=== PATIENT | male | born 1945 | race Caucasian/White ===

== ENCOUNTER 2020-09-19 14:17 | Emergency (ER) | payer MEDICARE, BC, MEDICAID, SELFPAY ==
--- NOTE | ~2020-09-19 | CT_ITS ---
EXAMINATION: CT cervical spine wo con DATE: 09/19/2020 16:17 INDICATION: Head injury. Neck pain. TECHNIQUE: Computed tomography (CT) of the cervical spine was performed without intravenous contrast. Automated exposure control and iterative reconstruction technique were employed. The dose-length pro duct was 501.77 mGy-cm. COMPARISON: None FINDINGS: The visualized portions of the lung apices demonstrate emphysema. There is cerumen in the e xternal auditory canals. There is 13 degrees levoscoliosis of cervical spine. There is 2 mm retrolist hesis of C6 on C7. There are changes of anterior fusion procedure from C4 to C6 with healed interbody bone graft and anterior plate and screws. There are posterior fusion procedures from C3 to C6 with l ateral mass screws. There is mildly decreased disc height at C2-C3, moderately decreased disc height at C3-C4, and severely decreased disc height at C6-C7. There are laminectomies from C4 to C6. The fol lowing disc levels are specifically discussed: C2-C3: There is moderate right and mild left uncovertebral joint osteoarthritis. There is severe bila teral facet joint osteoarthritis. There is mild right neural foraminal stenosis. There is no central canal stenosis. C3-C4: There is mild bilateral uncovertebral joint hypertrophy. There is moderate bilateral facet elia nt hypertrophy. There is moderate bilateral neural foraminal stenosis. There is no central canal sten osis. C4-C5: There is no uncovertebral joint hypertrophy. There is severe bilateral facet joint hypertrophy . There is mild bilateral neural foraminal stenosis. There is no central canal stenosis. C5-C6: There is mild bilateral uncovertebral joint hypertrophy. There is mild bilateral facet joint h ypertrophy. There is moderate right and mild left neural foraminal stenosis. There is mild central ca nal stenosis with posterior decompression. C6-C7: There is severe bilateral uncovertebral joint osteoarthritis. There is moderate bilateral face t joint osteoarthritis. There is moderate bilateral neural foraminal stenosis. There is mild central canal stenosis. C7-T1: There is no uncovertebral joint osteoarthritis. There is moderate bilateral facet joint osteoa rthritis. There is no neural foraminal stenosis. There is no central canal stenosis. IMPRESSION: 1. No fracture. 2. Severe cervical spondylosis. 3. Anterior fusion procedure from C4 to C6 and posterior fusion procedure from C3 to C6. Reviewed, dictated and finalized at location B. P PRODUCT MANAGER
--- NOTE | ~2020-09-19 | CT_ITS ---
EXAMINATION: CT brain wo con DATE: 09/19/2020 16:17 INDICATION: Head injury. Fell out of wheelchair headfirst, struck head on table. TECHNIQUE: Computed tomography (CT) of the head was performed without intravenous contrast. The mA wa s adjusted according to patient size. Iterative reconstruction technique was employed. Exam dose: 60 5.33 mGy-cm total exam DLP. COMPARISON: None FINDINGS: Multiple chronic lacunar infarcts are noted, including head of right caudate nucleus, both thalami, right and to lesser extent left basal ganglia. There is very prominent bilateral vertebral artery calcification, basilar artery calcification and pr ominent bilateral carotid siphon internal carotid artery calcifications. There is diminished attenuation of the cerebral white matter, which is likely secondary to chronic sm all vessel ischemic changes. There is cerebral and cerebellar moderate volume loss. No intracranial mass lesion or hemorrhage, midline shift or mass effect. No subdural or epidural humberto saturnino. No fracture or bone destruction of the cranial vault. There is mild right frontal cephalhematoma. IMPRESSION: Mild right frontal cephalhematoma; no skull fracture Prominent cerebral atherosclerosis Multiple bilateral cerebral lacunar infarcts Reviewed, dictated and finalized at Location [facility]. Reviewed, dictated and finalized at location A. L HOUSEMAN
[2020-09-19 14:50] VITALS: BP 119/61; PULSE 77; RESP 16; TEMP 38.4; O2SAT 93
--- NOTE | 2020-09-19 15:36 | ED.FALL ---
HPI - Fall General Chief Complaint: Fall Stated Complaint: fall Time Seen by Provider: 09/19/20 15:08 Source: patient Mode of arrival: EMS Limitations: no limitations History of Present Illness HPI Narrative: Patient complaining of mild head pain, after he fell and hit his head on the floor. Patient states that he was leaning over to get a drink on the table, and fell forward while sitting down in his wheelchair. He denies any LOC. Patient denies any neck, chest, back, abdomen, pelvis or any extremity pain/injury. Patient states he was asymptomatic prior to the fall. Review of Systems Review of Systems: All systems reviewed & are unremarkable except as noted in HPI and below Constitutional: Constitutional: Denies body ache(s), Denies chills, Denies excessive sweating, Denies fatigue, Denies fever(s), Denies headache(s), Denies lethargy, Denies malaise, Denies weakness and Denies weight loss Eyes: Eyes: Denies blurry vision, Denies change in vision and Denies loss of vision ENT: Denies dizziness, Denies ear discharge, Denies headache(s), Denies lip swelling, Denies epistaxis, Denies nasal congestion, Denies neck pain, Denies throat swelling and Denies tongue swelling Cardiovascular: Cardiovascular: Denies chest pain, Denies chest pain at rest, Denies chest pain with activity, Denies diaphoresis, Denies rapid heart rate, Denies edema, Denies irregular heart rhythm, Denies lightheadedness, Denies palpitations, Denies dyspnea and Denies dyspnea on exertion Respiratory: Respiratory: Denies chest congestion, Denies cough, Denies hemoptysis, Denies dyspnea and Denies dyspnea on exertion Gastrointestinal: Gastrointestinal: Denies abdominal pain, Denies melena, Denies hematochezia, Denies diarrhea, Denies nausea, Denies vomiting and Denies hematemesis Musculoskeletal: Musculoskeletal: Denies deformity, Denies joint swelling, Denies limited range of motion, Denies neck pain and Denies numbness Neurologic: Denies Abnormal speech present, Denies confusion, Denies dizziness, Denies headache(s), Denies focal weakness, Denies loss of vision, Denies numbness, Denies Other visual disturbances, Denies Sensory deficit (Neuro) and Denies weakness Psychiatric: Psychiatric: Denies confusion, Denies depression, Denies auditory hallucinations, Denies homicidal ideation and Denies suicidal ideation Endocrine: Endocrine: Denies cold intolerance, Denies excessive sweating, Denies fatigue, Denies heat intolerance and Denies palpitations Hematologic/Lymphatic: Hematologic/Lymphatic: Denies easy bleeding and Denies easy bruising Allergic/Immunologic: Allergic/Immunologic: Denies lip swelling, Denies throat swelling and Denies tongue swelling Exam Const: General: cooperative, healthy appearing, comfortable, no acute distress, well developed, alert and awake; No confusion Orientation/consciousness: oriented to person, oriented to place, oriented to time, patient oriented x3 and No confusion Limitations: no limitations HENMT: Ears: hearing grossly normal bilaterally, TM normal on the right and TM normal on the left General nose exam: Normal external nose present, Normal nares present and No nasal discharge present Face and sinus: normal facial exam Mouth: Yes Normal oral and palatal mucosa present, Yes lip normal, Yes tongue normal and Yes oropharynx normal Throat: posterior oropharynx normal, tonsils normal and uvula midline Other: Abrasions to frontal head Eyes: General: appearance normal, both eyes and all related structures Pupils: Equal, round and reactive pupils present EOM: EOMs intact bilaterally Neck: Neck: normal visual inspection, full ROM, no lymphadenopathy and no meningeal signs Chest: Chest palpation & inspection: normal inspection of the chest Resp: Effort & Inspection: normal respiratory effort, able to speak in complete sentences, no respiratory distress and not tachypneic Auscultation: clear to auscultation bilaterally, no crackles, no rales, no
--- NOTE | 2020-09-19 16:30 | PC.NURSE ---
all results back. no change it pt condition.
--- NOTE | 2020-09-19 18:46 | PC.NURSE ---
[facility] ems contacted for transport back to long term. pt resting on stretcher. no distress noted.
[2020-09-19 20:38] VITALS: BP 127/69; PULSE 76; RESP 16; TEMP 37.2; O2SAT 96
== END 2020-09-19 20:39 ==
PROVIDERS: Emergency Provider Emergency Medicine
DX: S09.90XA Unspecified injury of head, initial encounter (principal); W01.0XXA Fall on same level from slipping, tripping and stumbling without subsequent striking against object, initial encounter
CPT/HCPCS: 70450; 72125; 99284

== ENCOUNTER 2020-11-04 23:29 | Inpatient (IN) | payer MEDICARE, BC, MEDICAID, SELFPAY ==
--- NOTE | ~2020-11-04 | XR_ITS ---
EXAMINATION: XR chest 1V portable EXAM DATE: 11/05/2020 01:09 INDICATION: Cough. TECHNIQUE: Portable AP frontal chest x-ray was obtained. There is no prior study for comparison. FINDINGS: There is extensive left-sided and moderate right-sided amount of airspace disease, edema or acute infectious process. Recommend considering possibility of COVID pneumonia. Mild cardiomegaly. Cervical fusion and thoracolumbar fusion hardware. There is aortic arteriosclerosi s. There is no pneumothorax suspected. There are no pleural effusions. IMPRESSION: Extensive left, moderate right-sided edema or infection, clinical correlation. Reviewed, dictated and finalized at location A. ESS CAMERA OPERATOR
--- NOTE | ~2020-11-04 | XR_ITS ---
EXAMINATION: XR chest 1V portable DATE: 11/06/2020 06:03 INDICATION: Pneumonia TECHNIQUE: frontal view of the chest was obtained. COMPARISON: Chest radiograph dated 11/05/2020 FINDINGS: Regions of increased lucency and architectural distortion most prominent in the right upper lung zone consistent with severe emphysema. Scattered opacities throughout the left lung and in the right mid and lower lung zones. Streaky linear atelectasis/scarring at the bilateral lung bases. Cardiomegaly. Postoperative change of prior instrumented posterior spinal fusion the upper lumbar spine and combine d instrumented anterior and posterior cervical spinal fusion. IMPRESSION: 1. Severe emphysema. 2. Minimal change in scattered bilateral airspace opacities which could represent atelectasis, pneumo angelica, pulmonary edema or some combination thereof. 3. Cardiomegaly. Reviewed, dictated and finalized at location A. PATIAL SYSTEMS INTEGRATOR IMPRESSION: 1. Severe emphysema. 2. Minimal change in scattered bilateral airspace opacities which could represe nt atelectasis, pneumonia, pulmonary edema or some combination thereof. 3. Cardiomegaly.
--- NOTE | ~2020-11-04 | XR_ITS ---
EXAMINATION: XR chest 1V portable DATE: 11/08/2020 06:10 INDICATION: Shortness of breath TECHNIQUE: frontal view of the chest was obtained. COMPARISON: Chest radiograph dated 11/06/2020 FINDINGS: Regions of increased lucency and architectural distortion most prominent in the right upper lung zone consistent with severe emphysema. Scattered opacities throughout the left lung and in the right mid and lower lung zones. Streaky linear atelectasis/scarring at the bilateral lung bases. Cardiomegaly. Postoperative change of prior instrumented posterior spinal fusion the upper lumbar spine and combine d instrumented anterior and posterior cervical spinal fusion. IMPRESSION: 1. Severe emphysema. 2. Unchanged scattered bilateral airspace opacities which could represent atelectasis, pneumonia, pul monary edema or some combination thereof. 3. Cardiomegaly. Reviewed, dictated and finalized at location A. ANIC FIELD SERVICE IMPRESSION: 1. Severe emphysema. 2. Unchanged scattered bilateral airspace opacities which could represent atele ctasis, pneumonia, pulmonary edema or some combination thereof. 3. Cardiomegaly.
--- NOTE | 2020-11-04 23:45 | ECG_ITS ---
Measurements Intervals [place] Rate: 72 P: -1 FL: 167 QRS: -19 QRSD: 100 T: 6 QT: 414 QTc: 454 Interpretive Statements SINUS RHYTHM VOLTAGE CRITERIA FOR LVH BORDERLINE T WAVE ABNORMALITY- ANT/INF LEADS BASELINE ARTIFACT- I, II, III, AVR, AVL, AVF, V1-V6 BORDERLINE ECG Electronically Signed On 11-05-2020 7:46:34 CITY DISPATCH SUPERVISOR by Darrel Flores D.O.
--- NOTE | 2020-11-04 23:51 | ED.GENADULT ---
HPI - General Adult General Chief complaint: Shortness of Breath/Dyspnea Stated complaint: SOB low o2 sats Time Seen by Provider: 11/04/20 23:36 Source: RN notes reviewed History of Present Illness HPI narrative: Patient presents emergency department from [facility] for shortness of breath. Patient was found to be hypoxic today with oxygen saturations in the 60s on room air patient states has been feeling short of breath since yesterday he denies any fevers or chills chest pain coughing abdominal pain nausea vomiting or any other symptoms the patient was Covid +2 months ago he denies any history of heart failure states he is feeling better with oxygen in place patient is currently on Xarelto Related Data Allergies Allergy/AdvReac Type Severity Reaction Status Date / Time No Known Allergies Allergy Verified 09/19/20 19:29 Review of Systems Review of Systems: Narrative: Gen.: Denies fevers or chills ENT: Denies congestion Respiratory: See HPI CV: Denies chest pain or palpitations GI: Denies abdominal pain nausea, emesis or diarrhea denies burning, urgency, frequency or hematuria Musculoskeletal: Denies back pain or muscle pain Neuro: Denies numbness, tingling, weakness or focal weakness Skin: Denies rash Except as documented, all other systems reviewed and negative [facility] Past Medical History Medical History (Updated 11/05/20 @ 02:06 by Raudel Lazaro DO) Anemia BPH (benign prostatic hyperplasia) COVID-19 CVA (cerebral vascular accident) Essential hypertension GERD (gastroesophageal reflux disease) Hemiplegia affecting left nondominant side IBS (irritable bowel syndrome) Overactive bladder Pressure ulcer of sacral region, unspecified stage Seasonal allergic rhinitis Spondylosis of lumbar region without myelopathy or radiculopathy Surgical History Surgical History (Updated 11/05/20 @ 02:03 by Christal Diop DO) H/O neck surgery History of back surgery Family History Family History (Updated 11/05/20 @ 02:04 by Christal Diop DO) Father , Patient does not know cause No problems noted. Mother , Patient does not know cause No problems noted. Social History Social History (Updated 11/05/20 @ 00:58 by Raudel Lazaro DO) Social History: Patient became debilitated after stroke in 2013, he lost bladder control in 2016 after having multiple back surgery and now has indwelling Choudhury catheter. He has been group home since 2017. Patient wheelchair and bed-bound. Smoking status: Former smoker Alcohol intake: former Alcohol use details: Quit in 2013 Substance use: never Living arrangements: group home Occupation/Education: retired Exam Narrative: Exam Narrative: APPEARANCE: No acute distress, nontoxic, resting in bed EYES: EOMI HEENT: Normocephalic, atraumatic, OMM RESPIRATORY: No respiratory distress crackles at the bilateral lung minaya no wheezing CARDIOVASCULAR: Regular rate and rhythm without murmurs rubs or gallops. ABDOMINAL: Soft, nontender, nondistended, no rebound or guarding MUSCULOSKELETAl: Moves all extremities. No clubbing, cyanosis 2+ edema the bilateral lower extremities NEURO: Awake and alert. Following commands, speech normal, no focal deficits SKIN:: Warm, dry. No rashes lesions or abrasions PSYCHIATRIC: Normal affect/mood, Course Course Emergency Course: Discussed with Dr. diop patient work-up agrees with plan for admission at this time. Agrees with Lasix 40 mg discussed the patient's current UA with chronic indwelling Choudhury with patient having no white count no current fever will hold on antibiotics and send for urine culture. Does request that the patient have a Covid swab performed Discussed with patient and family results of workup and diagnosis. Discussed need for admission. Patient and family understand and agree to current treatment plan Vital Signs Vital signs: Vital Signs Temperature 99.1 F 11/04/20 23:5
[2020-11-04 23:56] VITALS: BP 118/62; PULSE 73; RESP 15; TEMP 37.3; O2SAT 95
[2020-11-05] VITALS (13 sets, daily range): BP systolic 100–137; BP diastolic 46–74; PULSE 67–80; RESP 15–20; TEMP 36.1–36.8; O2SAT 93–98; BMI 25.0
[2020-11-05 00:12] LABS: Basophils Percent Auto 0.2 % (0.2-1.2); Eosinophils Absolute Auto 0.1 K/mm3 (0-0.3); Eosinophils Percent Auto 1.7 % (0-4.4); Hemoglobin 7.5 g/dL (14.0-18.0); Immature Granulocyte Absolute 0.29 K/mm3 (0.00-0.031); Immature Granulocyte Percent A 4.4 % (0-0.5); Lymphocytes Percent Auto 21.2 % (18.3-44.2); Mean Corpuscular HGB Conc 31.3 g/dl (32-36); Mean Corpuscular Hemoglobin 27.7 pg (26-34); Mean Corpuscular Volume 88.6 fl (80-100); Monocytes Absolute Auto 1.3 K/mm3 (0.1-0.6); Monocytes Percent Auto 19.8 % (2.6-8.5); Neutrophils Absolute Auto 3.5 K/mm3 (1.3-6.7); Neutrophils Percent Auto 52.7 % (45.5-73.1); Platelet Count Result 225 k/mm3 (150-375); Red Blood Count 2.71 M/mm3 (4.6-6.20); Red Cell Distribution Width 20.7 % (11.5-14.5); White Blood Count 6.6 K/mm3 (4.5-10.0)
[2020-11-05 00:22] LABS: INR 1.9; Prothrombin Time 22.7 Seconds (11.1-14.7)
[2020-11-05 00:23] LABS: Partial Thromboplastin Time 65.6 SECONDS (22.3-36.8)
[2020-11-05 00:33] LABS: NT Pro B Type Natriuretic Pept 3910 PG/ML (5-100)
[2020-11-05 01:11] LABS: Troponin I < 0.012 ng/mL (0.000-0.034)
--- NOTE | 2020-11-05 01:21 | PM.IMHP ---
H&P: HPI History of Present Illness Date/Time: 11/05/20 01:21 Chief Complaint: Dyspnea Narrative: Jefferson Venegas is a 74 year old male from skilled nursing with past medical history COVID-19 in 08/2020, history of CVA with left hemiparesis, essential hypertension, BPH, lumbar spondylolysis status post surgery and chronic indwelling Choudhury catheter presents to the ED with complaints of dyspnea. He lives in skilled nursing [place] and over last couple days has developed progressive dyspnea. His PCP Dr. Martinez started him on albuterol inhaler and 2 L oxygen a couple days ago. Today's oxygen requirements increased to 4 L and had a T-max of 101.8? prompting him to come to the ED. Of note his PCP has been following his stage I decubitus ulcers on his buttocks. His chronic indwelling Choudhury was changed last week, usually once a month. Other than dyspnea he has had no other complaints. Patient does not remember having a fever that was documented in the notes. He states 6 years ago he had a stroke, and since has quit smoking and drinking alcohol. Four years ago after some lumbar surgeries he has had urinary incontinence and now has a chronic indwelling Choudhury catheter. Three years ago he has become so dependent that he has moved to skilled nursing. There is no reported history of heart failure. In the ED: CXR: bilateral infiltrates, may be pulmonary edema considering his clinical presentation with bilateral rales. With a COVID-19 history and bilateral infiltrates with acute dyspnea and fever T-max 101.8?, checking for COVID-19 again. Cause of fevers unclear. Patient is given Lasix 40 mg in the ED. Patient being admitted for observation for acute hypoxic respiratory failure. He has home oxygen set up already by PCP. Review of Systems Review of Systems: Narrative: Constitutional: No Fever, No Chills, No Night Sweats, No Fatigue, No Malaise ENT/Mouth: No Hearing Changes, No Ear Pain, No Nasal Congestion, No Sinus Pain, No Hoarseness, No sore throat, No Rhinorrhea, No Swallowing Difficulty Eyes: No Eye Pain, No Redness, No Vision Changes Cardiovascular: No Chest Pain, No Palpitations, No Dyspnea on Exertion, No Orthopnea, No Claudication, No Edema Respiratory: No Cough, No Sputum, No Wheezing, Endorses dyspnea. Gastrointestinal: No Nausea, No Vomiting, No Diarrhea, No Constipation, No Abdominal Pain, No Heartburn, No Hematochezia, No Melena Genitourinary: No Dysuria, No Urinary Frequency, No Hematuria, No Urinary Incontinence, No Urgency Musculoskeletal: No Arthralgias, No Myalgias, No Joint Swelling, No Joint Stiffness, endorses pain around his butt. Skin: No Skin Lesions, No Pruritis, No Hair Changes Neuro: No Weakness, No Numbness, No Paresthesias, No Loss of Consciousness, No Syncope, No Dizziness, No Headache Psych: No Anxiety/Panic, No Depression, No Insomnia Heme: No Bruising, No Bleeding Lymph: No Adenopathy Endocrine: No Polyuria, No Polydipsia, No Temperature Intolerance [facility] Past Medical History Medical History (Updated 11/05/20 @ 05:05 by Christal Lao DO) Anemia BPH (benign prostatic hyperplasia) Chronic indwelling Choudhury catheter COVID-19 CVA (cerebral vascular accident) Essential hypertension GERD (gastroesophageal reflux disease) Hemiplegia affecting left nondominant side History of 2019 novel coronavirus disease (COVID-19) IBS (irritable bowel syndrome) Overactive bladder Pressure ulcer of sacral region, unspecified stage Seasonal allergic rhinitis Spondylosis of lumbar region without myelopathy or radiculopathy Surgical History Surgical History H/O neck surgery History of back surgery Family History Family History Father , Patient does not know cause No problems noted. Mother , Patient does not know cause No problems noted. Social History Social History (Reviewed 1
[2020-11-05 01:25] LABS: Add Urine Microscopic? YES; Amorphous Sediment Urine Moderate; Appearance Urine Turbid (Clear); Bacteria Urine 2+ /hpf; Bilirubin Urine Negative (Negative); Blood Urine 1+ (Negative); Glucose Urine UA Negative (Negative); Ketones Urine Negative (Negative); Leukocyte Esterase Ur 3+ LEU/UL (Negative); Mucus Urine Heavy /lpf; Nitrate Urine Negative (Negative); Protein Urine 3+ mg/dL (Negative); RBC Urine 51-75 /hpf (0-2); Specific Grav Ur 1.016 (1.001-1.035); Urobilinogen Urine Negative mg/dL (<2.0); WBC Urine 31-50 /hpf
[2020-11-05 01:28] LABS: Color Urine Yellow (Yellow)
[2020-11-05 01:36] LABS: Lactic Acid Reflex 0.8 mmol/L (0.7-2.1)
[2020-11-05 01:41] LABS: Alanine Aminotransferase 10 U/L (4-50); Albumin Level 3.2 g/dL (3.5-5.1); Alkaline Phosphatase 72 U/L (38-126); Anion Gap 8 mmol/L (8-16); Aspartate Amino Transferase 25 U/L (17-59); Bilirubin,Total 0.5 mg/dL (0.2-1.3); Blood Urea Nitrogen 19 mg/dL (9-20); Calcium 8.5 mg/dL (8.4-10.2); Carbon Dioxide 28 mmol/L (22-30); Chloride 101 mmol/L (98-107); Estimated Glomerular Filt Rate 59; Glucose 123 mg/dL (75-110); Potassium 3.9 mmol/L (3.4-5.0); Sodium 137 mmol/L (137-145)
[2020-11-05] MEDS: FUROSEMIDE INJ 40 MG/4 ML VIAL IV PUSH ×2 (02:03→09:08)
--- NOTE | 2020-11-05 03:11 | ADMGEN ---
11/05/2020 at 0245am, This patient, Jefferson Venegas, was admitted to 3 [facility] Surg Room 320-01. Patient/family oriented to hospital policies and general routines including ID bracelet, bed and alarms, visiting hours, pain management, procedures, bathroom and other care routines, personal items, smoking policy, room service/diet, and visiting hours. Information on how to activate the Rapid Response Team has been discussed. Patient/Family are encouraged to report perceived risks to care and to ask questions if they do not understand what they are told or what they should do.
[2020-11-05] MEDS: oxyCODONE HCL (*CRX) 5 MG TAB IR PO ×3 (06:45→17:39)
--- NOTE | 2020-11-05 08:40 | PM.IMPN ---
Progress Note: A&P Assessment and Plan (1) Acute respiratory failure with hypoxia: Code(s): J96.01 - Acute respiratory failure with hypoxia Status: Acute Assessment and Plan: -differential diagnosis includes post COVID 19 syndrome, COVID-19 reinfection, congestive heart failure, community-acquired pneumonia, other atypical pneumonia -chest x-ray consistent with bilateral infiltrates diffusely which may be edema or fibrosis considering his history of COVID-19 and no history of heart failure. Patient also does not have any lower extremity edema or JVD for heart failure. The crackles on lung exam may also be pulmonary fibrosis from COVID-19. -will trial Lasix 40 mg and see if there is any improvement -checking echocardiogram -COVID-19 test ordered [facility]8? [facility] which would be more consistent for infection as opposed to heart failure. Could also have a non COVID19 viral pneumonia. Patient has been afebrile since he has been here. -patient symptoms are not really positional, denies orthopnea -patient is on Xarelto after his CVA, doubt PE -UA shows some wbc's however he has a chronic indwelling Weeks catheter, changed last week which he normally gets changed once a month. -decubitus ulcers chronic stable and will need local wound care -patient otherwise nontoxic, will hold off on antibiotics and watch -supportive oxygen to keep oxygen saturation greater than 90%, currently on 2 L nasal cannula saturating 93% -patient already has home oxygen set up by PCP (2) History of 2019 novel coronavirus disease (COVID-19): Code(s): Z86.19 - Personal history of other infectious and parasitic diseases Status: Acute Assessment and Plan: -patient had COVID-19 2 months ago in August treated outpatient conservative management (3) Pressure ulcer of sacral region, unspecified stage: Qualifiers: Pressure injury stage: unspecified pressure injury stage Qualified Code(s): L89.159 - Pressure ulcer of sacral region, unspecified stage Code(s): L89.159 - Pressure ulcer of sacral region, unspecified stage Status: Acute Assessment and Plan: -grade wounds sacral decubitus ulcers, patient will need local wound care -likely cause for fever (4) Chronic indwelling Weeks catheter: Code(s): Z97.8 - Presence of other specified devices Status: Acute Assessment and Plan: -chronic weeks for past 4 years which gets changed out monthly, last change last week -considering his hypoxia, this is likely unrelated and I doubt it caused his fever Additional Plan # other chronic conditions -history of CVA with left hemiparesis 2017: Continue home Xarelto -essential hypertension: Continue home atenolol -GERD: Continue home Tums, Prilosec -IBS: Continue home florastor -overactive bladder: Continue Mirabegron -seasonal allergies: Continue Zyrtec -spondylolysis of lumbar status post lumbar surgery: Continue chronic pain meds for oxycodone, gabapentin -chronic urinary retention: continue home Proscar, Flomax. chronic indwelling weeks catheter -sacral decubitus pressure ulcer: Continue local wound care -depression: Continue Prozac -will continue home vitamins vitamin-C, vitamin-D, multivitamin, pancreas supplement Creon -chronic hypokalemia, continue home potassium supplement. Currently K 3.9 -dry eyes: Continue eyedrops Diet: Heart healthy DVT prophylaxis: On Xarelto Code status: Full code, advanced directives reviewed Disposition: Observation, Pending clinical course. Patient is bedbound at baseline [facility] Will continue the current treatment as mentioned in the above notes. Will do blood culture and urine culture and start antibiotic especially in line the patient had a fever. Will continue diuresis and repeat chest x-ray. If needed we will consult Pulmonary. Will monitor hemoglobin and if it drops will give blood transfusion. Subjective Date/time seen:
[2020-11-05] MEDS: LIPASE/AMYLASE/PROTEASE 12,000 UNITS CAP 6 CAP PO ×3 (08:55→17:40)
[2020-11-05] MEDS: POTASSIUM CHLORIDE 20 MEQ TABLET.ER PO ×2 (08:56→17:39)
[2020-11-05] MEDS: CALCIUM CARBONATE (TUMS) 500 MG (200 MG ELEMENTAL) PO (08:57)
[2020-11-05] MEDS: ASCORBIC ACID 500 MG TABLET PO (08:57)
[2020-11-05] MEDS: atenoloL 50 MG TABLET PO (08:57)
[2020-11-05] MEDS: CHOLECALCIFEROL 1,000 UNITS TABLET 1000 UNITS PO (08:58)
[2020-11-05] MEDS: FINASTERIDE 5 MG TABLET PO (08:58)
[2020-11-05] MEDS: FLUoxetine HCL 20 MG CAPSULE PO (08:58)
[2020-11-05] MEDS: GABAPENTIN 300 MG CAPSULE PO ×3 (08:58→17:40)
[2020-11-05] MEDS: MIRABEGRON 25 MG ER TABLET PO (08:59)
[2020-11-05] MEDS: MULTIVITAMINS /C LUTEIN (CENTRUM SILVER) TABLET *BKC 1 TAB PO (08:59)
[2020-11-05] MEDS: OPTI-GEN TAB 1 TABLET PO (08:59)
[2020-11-05] MEDS: LORATADINE 10 MG TABLET PO (08:59)
[2020-11-05] MEDS: levoFLOXacin 500 MG/D5W 100 ML 500 MG/100 ML BAG 100 MG IVPB (08:59)
[2020-11-05] MEDS: OLOPATADINE 0.1% OPHTH SOLN 5 ML BTL 1 DROP EACH EYE (08:59)
[2020-11-05] MEDS: RIVAROXABAN 10 MG TABLET PO (09:00)
[2020-11-05] MEDS: SACCHAROMYCES BOULARDII 250 MG CAPSULE PO ×2 (09:00→17:39)
[2020-11-05] MEDS: PANTOPRAZOLE SODIUM IV 40 MG VIAL IV PUSH (09:00)
[2020-11-05 09:51] LABS: Troponin I < 0.012 ng/mL (0.000-0.034)
--- NOTE | 2020-11-05 11:38 | PM.CNPUL ---
Assessment and Plan Additional Plan Chest x-ray reviewed- agree this could well be CHF/pulmonary edema rather than pneumonia. Agree diuretic Rx along with antibiotics. May need BiPAP Rx. Will follow with you. History of Present Illness History of Present Illness Consult date: 11/05/20 Chief complaint: CHF Narrative: Reviewed. 74-year-old male with CHF, UTI, buttocks wound (better), with questioned pneumonia. Prior smoker quit 6 years ago. Was an electrician marine over the years. Denies diuretic use. Zosyn and Levaquin Rx noted here. He was COVID positive 2 months ago. Denies home O2 though. [facility] Past Medical History Medical History Anemia BPH (benign prostatic hyperplasia) Chronic indwelling Choudhury catheter COVID-19 CVA (cerebral vascular accident) Essential hypertension GERD (gastroesophageal reflux disease) Hemiplegia affecting left nondominant side History of 2019 novel coronavirus disease (COVID-19) IBS (irritable bowel syndrome) Overactive bladder Pressure ulcer of sacral region, unspecified stage Seasonal allergic rhinitis Spondylosis of lumbar region without myelopathy or radiculopathy Surgical History Surgical History H/O neck surgery History of back surgery Family History Family History Father , Patient does not know cause No problems noted. Mother , Patient does not know cause No problems noted. Social History Social History Social History: Patient became debilitated after stroke in 2013, he lost bladder control in 2016 after having multiple back surgery and now has indwelling Choudhury catheter. He has been alf since 2017. Patient wheelchair and bed-bound. Smoking status: Former smoker Second hand tobacco smoke exposure: No Alcohol intake: former Alcohol use details: Quit in 2013 Substance use: never Living arrangements: alf Occupation/Education: retired Gender identity (if verbalized by the patient): Male Spiritual care concerns: No Meds Home Medications and Allergies Home Medications Medication Instructions Recorded Confirmed Type oxycodone 5 mg tablet 5 mg PO Q6H #120 tablet 10/25/20 11/05/20 Rx PreserVision AREDS 1 cap PO DAILY 11/05/20 11/05/20 History Procardia XL 30 mg PO DAILY 11/05/20 11/05/20 History Saccharomyces boulardii [Florastor] 250 mg PO BID 11/05/20 11/05/20 History albuterol sulfate 2 puff INHALATION USEASDIRECTD PRN 11/05/20 11/05/20 History ascorbic acid (vitamin C) 1 tablet PO DAILY 11/05/20 11/05/20 History atenolol 50 mg PO DAILY 11/05/20 11/05/20 History calcium carbonate [Tums 500] 500 mg PO DAILY 11/05/20 11/05/20 History cetirizine [Zyrtec] 10 mg PO DAILY 11/05/20 11/05/20 History cholecalciferol (vitamin D3) 75 mcg PO DAILY 11/05/20 11/05/20 History ergocalciferol (vitamin D2) 50,000 units PO MONTHLY 11/05/20 11/05/20 History finasteride [Proscar] 5 mg PO DAILY 11/05/20 11/05/20 History fluoxetine [Prozac] 20 mg PO DAILY 11/05/20 11/05/20 History gabapentin 300 mg PO TID 11/05/20 11/05/20 History fpndvp-tkredbsz-qdercjj [Creon] 2 cap PO PRN 11/05/20 11/05/20 History fuhezr-eziuctmh-fkfgbga [Creon] 3 cap PO TIDWMEAL 11/05/20 11/05/20 History mirabegron [Myrbetriq] 25 mg PO DAILY 11/05/20 11/05/20 History gxwuegsrilhs-wjxd-hjpay acid 1 tablet PO DAILY 11/05/20 11/05/20 History [Centrum] olopatadine [Patanol] 1 drp OPHTHALMIC (EYE) DAILY 11/05/20 11/05/20 History omeprazole 20 mg PO DAILY 11/05/20 11/05/20 History potassium chloride [K-Dur] 20 meq PO BID 11/05/20 11/05/20 History rivaroxaban [Xarelto] 10 mg PO DAILY 11/05/20 11/05/20 History tamsulosin 1 mg PO HS 12/27/20 12/27/20 History Allergies Allergy/AdvReac Type Severity Reaction Status Date / Time No Known Allergies Al
--- NOTE | 2020-11-05 14:56 | PC.NURSE ---
This nurse returned a phone call from this patient daughter and there was no answer. Voicemail was left [phone]. Awaiting call back.
[2020-11-05] MEDS: TAMSULOSIN HCL 0.4 MG CAPSULE PO (22:20)
[2020-11-05] MEDS: TOLNAFTATE 1% POWDER 45 GM BTL 1 APPLIC TOPICAL (22:20)
[2020-11-05 22:25] LABS: SARS-CoV-2 RNA PCR Negative
[2020-11-06] VITALS (19 sets, daily range): BP systolic 104–134; BP diastolic 46–63; PULSE 63–82; RESP 16–18; TEMP 36.1–36.7; O2SAT 90–98
--- NOTE | 2020-11-06 | ECHO_ITS ---
Patient Info Name: Jefferson Venegas Age: 74 years : 1945 Gender: Male Ht: 69 in Wt: 173 lbs BSA: 1.96 m2 HR: 70 bpm BP: 134 / 58 mmHg Technical Quality: Good Exam Date: 11/06/2020 8:57 AM Exam Location: [facility] Patient Status: Inpatient Admit Date: 11/05/2020 Staff Ordering Physician: Christal Lao DO Hand Hose Cutter: Sd Coulter, ERROL, RT Attending Provider: Christal Lao DO Referring Physician: Shilo PAT; Exam Type: CA echo doppler color flow Study Info Indications R06.00 - Dyspnea, unspecified Complete two-dimensional, color flow and Doppler transthoracic echocardiogram is performed. Strain analysis performed. Summary 1. Complete two-dimensional, color flow and Doppler transthoracic echocardiogram is performed. 2. Left ventricular chamber dimension is normal. 3. Left ventricular systolic function is normal, estimated at 50-55%. 4. There is mildly increased left ventricular wall thickness. 5. The left ventricular diastolic function is grade I diastolic dysfunction. 6. There is moderate aortic valve sclerosis. 7. There is mild aortic valve regurgitation. 8. There is mild tricuspid valve regurgitation. 9. Moderate pulmonary hypertension, estimated pulmonary arterial systolic pressure is 55 mmHg. 10. There is mild pulmonic valve stenosis. Left Ventricle Left ventricular chamber dimension is normal. Left ventricular systolic function is normal, estimated at 50-55%. There is mildly increased left ventricular wall thickness. Left ventricular septal wall motion is normal. The left ventricular diastolic function is grade I diastolic dysfunction. Right Ventricle Right ventricular chamber dimension is normal. Right ventricular systolic function is normal. Ventricular Septum Intact interventricular septum visualized by color flow imaging. Left Atria Left atrial chamber dimension is normal. Right Atria Right atrial chamber dimension is normal. Atrial Septum Intact interatrial septum visualized by color flow imaging. Aortic Valve The aortic valve is trileaflet. There is moderate aortic valve sclerosis. There is no aortic valve stenosis. There is mild aortic valve regurgitation. Pulmonic Valve The pulmonic valve is not well visualized. There is mild pulmonic valve stenosis. There is no pulmonic regurgitation. Mitral Valve The mitral valve has normal leaflets. There is no mitral valve stenosis. There is no mitral valve regurgitation. Tricuspid Valve The tricuspid valve leaflets are normal. There is no significant tricuspid valve stenosis. There is mild tricuspid valve regurgitation. Moderate pulmonary hypertension, estimated pulmonary arterial systolic pressure is 55 mmHg. Pericardium/Pleural The pericardium appears normal. There is no pericardial effusion. Aorta The aortic root size at the sinus of Valsalva is normal. The prox ascending aorta size is normal. Left Ventricular Outflow Tract Name Value Normal LVOT 2D LVOT Diameter 2.0 cm LVOT Doppler LVOT Peak Gradient 2 mmHg LVOT Mean G
[2020-11-06] MEDS: oxyCODONE HCL (*CRX) 5 MG TAB IR PO ×4 (00:25→17:39)
[2020-11-06 06:29] LABS: Hemoglobin 7.3 g/dL (14.0-18.0); Mean Corpuscular HGB Conc 30.4 g/dl (32-36); Mean Corpuscular Hemoglobin 26.8 pg (26-34); Mean Corpuscular Volume 88.2 fl (80-100); Mean Platelet Volume 10.7 fl (7.4-10.4); Platelet Count Result 187 k/mm3 (150-375); Red Blood Count 2.72 M/mm3 (4.6-6.20); Red Cell Distribution Width 20.3 % (11.5-14.5); White Blood Count 6.1 K/mm3 (4.5-10.0)
[2020-11-06 06:56] LABS: Anion Gap 8 mmol/L (8-16); Blood Urea Nitrogen 22 mg/dL (9-20); Calcium 8.6 mg/dL (8.4-10.2); Carbon Dioxide 27 mmol/L (22-30); Chloride 101 mmol/L (98-107); Estimated CRCL calculation 37 ml/min; Estimated Glomerular Filt Rate 43; Glucose 109 mg/dL (75-110); Potassium 3.5 mmol/L (3.4-5.0); Sodium 136 mmol/L (137-145)
[2020-11-06] MEDS: levoFLOXacin 500 MG/D5W 100 ML 500 MG/100 ML BAG 100 MG IVPB (08:49)
[2020-11-06] MEDS: GABAPENTIN 300 MG CAPSULE PO ×3 (08:50→17:40)
[2020-11-06] MEDS: FUROSEMIDE INJ 40 MG/4 ML VIAL IV PUSH (08:50)
[2020-11-06] MEDS: LIPASE/AMYLASE/PROTEASE 12,000 UNITS CAP 6 CAP PO ×3 (08:50→17:40)
[2020-11-06] MEDS: CALCIUM CARBONATE (TUMS) 500 MG (200 MG ELEMENTAL) PO (08:51)
[2020-11-06] MEDS: RIVAROXABAN 10 MG TABLET PO (08:51)
[2020-11-06] MEDS: PANTOPRAZOLE SODIUM IV 40 MG VIAL IV PUSH (08:51)
[2020-11-06] MEDS: LORATADINE 10 MG TABLET PO (08:51)
[2020-11-06] MEDS: MIRABEGRON 25 MG ER TABLET PO (08:51)
[2020-11-06] MEDS: POTASSIUM CHLORIDE 20 MEQ TABLET.ER PO ×2 (08:51→17:40)
[2020-11-06] MEDS: atenoloL 50 MG TABLET PO (08:51)
[2020-11-06] MEDS: SACCHAROMYCES BOULARDII 250 MG CAPSULE PO ×2 (08:52→17:39)
[2020-11-06] MEDS: FINASTERIDE 5 MG TABLET PO (08:52)
[2020-11-06] MEDS: OPTI-GEN TAB 1 TABLET PO (08:52)
[2020-11-06] MEDS: CHOLECALCIFEROL 1,000 UNITS TABLET 1000 UNITS PO (08:52)
[2020-11-06] MEDS: FLUoxetine HCL 20 MG CAPSULE PO (08:52)
[2020-11-06] MEDS: ASCORBIC ACID 500 MG TABLET PO (08:52)
[2020-11-06] MEDS: MULTIVITAMINS /C LUTEIN (CENTRUM SILVER) TABLET *BKC 1 TAB PO (08:53)
[2020-11-06] MEDS: OLOPATADINE 0.1% OPHTH SOLN 5 ML BTL 1 DROP EACH EYE (09:00)
[2020-11-06] MEDS: TOLNAFTATE 1% POWDER 45 GM BTL 1 APPLIC TOPICAL ×2 (09:00→21:32)
--- NOTE | 2020-11-06 09:16 | PM.IMPN ---
Progress Note: A&P Assessment and Plan (1) Acute respiratory failure with hypoxia: Code(s): J96.01 - Acute respiratory failure with hypoxia Status: Acute Assessment and Plan: -differential diagnosis includes post COVID 19 syndrome, COVID-19 reinfection, congestive heart failure, community-acquired pneumonia, other atypical pneumonia -chest x-ray consistent with bilateral infiltrates diffusely which may be edema or fibrosis considering his history of COVID-19 and no history of heart failure. Patient also does not have any lower extremity edema or JVD for heart failure. The crackles on lung exam may also be pulmonary fibrosis from COVID-19. -will trial Lasix 40 mg and see if there is any improvement -checking echocardiogram -COVID-19 test ordered -T-max 101.8? at [facility] which would be more consistent for infection as opposed to heart failure. Could also have a non COVID19 viral pneumonia. Patient has been afebrile since he has been here. -patient symptoms are not really positional, denies orthopnea -patient is on Xarelto after his CVA, doubt PE -UA shows some wbc's however he has a chronic indwelling Weeks catheter, changed last week which he normally gets changed once a month. -decubitus ulcers chronic stable and will need local wound care -patient otherwise nontoxic, will hold off on antibiotics and watch -supportive oxygen to keep oxygen saturation greater than 90%, currently on 2 L nasal cannula saturating 93% -patient already has home oxygen set up by PCP (2) History of 2019 novel coronavirus disease (COVID-19): Code(s): Z86.19 - Personal history of other infectious and parasitic diseases Status: Acute Assessment and Plan: -patient had COVID-19 2 months ago in August treated outpatient conservative management (3) Pressure ulcer of sacral region, unspecified stage: Qualifiers: Pressure injury stage: unspecified pressure injury stage Qualified Code(s): L89.159 - Pressure ulcer of sacral region, unspecified stage Code(s): L89.159 - Pressure ulcer of sacral region, unspecified stage Status: Acute Assessment and Plan: -grade wounds sacral decubitus ulcers, patient will need local wound care -likely cause for fever (4) Chronic indwelling Weeks catheter: Code(s): Z97.8 - Presence of other specified devices Status: Acute Assessment and Plan: -chronic weeks for past 4 years which gets changed out monthly, last change last week -considering his hypoxia, this is likely unrelated and I doubt it caused his fever Additional Plan Will continue the current treatment as mentioned in the above notes. Will do blood culture and urine culture and start antibiotic especially in line the patient had a fever. Will continue diuresis and repeat chest x-ray. Consult noted. Hemoglobin dropped will check Hemoccult stool and if needed we will get GI consult. In the meantime will transfuse 2 units of blood. Monitor hemoglobin electrolytes. Subjective Date/time seen: 11/06/20 09:16 Interval history: Patient was seen during the morning rounds today. Patient has mild shortness of breath. Patient denies any chest pain. Patient denies any nausea or vomiting. Mood stable. No new complaints. Review of Systems Review of Systems: All systems reviewed & are unremarkable except as noted in HPI and below ( in history and physical exam.) Exam Narrative: Exam Narrative: - GENERAL: Pleasant elderly male in no acute distress, nontoxic appearing. - EYES: EOMI. Anicteric. - HENT: Moist mucous membranes. - LUNGS: Bibasilar rales/crackles inspiratory and expiratory. - CARDIOVASCULAR: Regular rate and rhythm. No murmur. No JVD. - ABDOMEN: Soft, non-tender and non-distended. No palpable masses. Chronic indwelling Weeks catheter. - EXTREMITIES: No edema. Peripheral pulses 2+ nontender. - NEUROLOGIC: Left-sided facial droop, hemiparesis. Bilateral lower extremity weakness 3/5. U
--- NOTE | 2020-11-06 09:50 | PM.PNPUL ---
Progress Note: A&P Additional Plan Chest status seems stable. Continue diuresis. I am uncertain as to the chronicity of the anemia and defer that to his primary doctor. Time Spent With Patient Time with patient: 15 - 25 minutes Subjective Date/time seen: 11/06/20 09:50 Remains extremely quiet. Denies active respiratory symptoms. O2 is 3 L. Choudhury in. Severe anemia - HGB 7.3 -this is evidently chronic. It is normocytic. He denies active bowel symptoms. Exam Narrative: Exam Narrative: Quiet with no complaints. His chest sounds clear. Heart sounds regular. No neck adenopathy. Objective Data Vital Signs Vital Signs: Vital Signs - 24 hr 11/05/20 12:00 11/05/20 16:00 11/05/20 20:00 Temperature 36.6 C 36.8 C 36.4 C Pulse Rate 72 68 67 Respiratory Rate 16 16 20 Blood Pressure 111/55 L 103/55 L 100/46 L Pulse Oximetry 98 94 95 11/05/20 23:41 11/06/20 00:00 11/06/20 04:00 Temperature 36.1 C L Pulse Rate 73 69 67 Respiratory Rate 18 Blood Pressure 124/52 L Pulse Oximetry 95 11/06/20 06:00 11/06/20 08:51 Temperature 36.3 C L Pulse Rate 75 75 Respiratory Rate 18 Blood Pressure 134/58 L Pulse Oximetry 93 Intake/Output Intake/Output: Intake & Output 11/03/20 11/04/20 11/05/20 11/06/20 23:59 23:59 23:59 23:59 Intake Total 1190 600 Output Total 1700 350 Balance -510 250 Meds/Results Medications: Active Medications Generic Name Dose Route Start Last Admin Trade Name Freq PRN Reason Stop Dose Admin Lipase/Protease/Amylase 4 cap 11/05/20 09:00 Lipase/Amylase/Protease 12,000 Units Cap PO 12/05/20 09:01 BID PRN WITH A SNACK Lipase/Protease/Amylase 6 cap 11/05/20 08:00 11/06/20 08:50 Lipase/Amylase/Protease 12,000 Units Cap PO 12/05/20 08:01 6 cap TIDWM THELMA Administration Ascorbic Acid 500 mg 11/05/20 09:00 11/06/20 08:52 Ascorbic Acid 500 Mg Tablet PO 500 mg QAM THELMA Administration Atenolol 50 mg 11/05/20 09:00 11/06/20 08:51 Atenolol 50 Mg Tablet PO 50 mg DAILY THELMA Administration Calcium Carbonate 200 mg 11/05/20 09:00 11/06/20 08:51 Calcium Carbonate (Tums) 500 Mg (200 Mg Elemental) PO 200 mg DAILY THELMA Administration Finasteride 5 mg 11/05/20 09:00 11/06/20 08:52 Finasteride 5 Mg Tablet PO 5 mg DAILY THELMA Administration Fluoxetine HCl 20 mg 11/05/20 09:00 11/06/20 08:52 Fluoxetine Hcl 20 Mg Capsule PO 20 mg DAILY THELMA Administration Furosemide 40 mg 11/06/20 09:00 11/06/20 08:50 Furosemide Inj 40 Mg/4 Ml Vial IV PUSH 40 mg DAILY THELMA Administration Gabapentin 300 mg 11/05/20 09:00 11/06/20 08:50 Gabapentin 300 Mg Capsule PO 12/05/20 09:01 300 mg TID THELMA Administration Levofloxacin/Dextrose 500 mg in 100 mls @ 100 mls/hr 11/05/20 09:00 11/06/20 08:49 Levaquin 500 Mg/D5w 100 Ml IVPB 100 mls/hr Q24H THELMA Administration Piperacillin/Tazobactam/Dextrose 3.375 gm in 50 mls @ 100 mls/hr 11/05/20 10:00 11/06/20 06:16 Zosyn 3.375 Gm/D5w 50ml Pm IVPB Infused Q6HR THELMA Infusion Sodium Chloride 250 mls @ 30 mls/hr 11/06/20 09:13 Normal Saline Iv IV CONT 11/06/20 17:32 .Q8H20M STA Loratadine 10 mg 11/05/20 09:00 11/06/20 08:51 Loratadine 10 Mg Tablet PO 10 mg QAM THELMA Administration Mirabegron 25 mg 11/05/20 09:00 11/06/20 08:51 Mirabegron 25 Mg Er Tablet PO 25 mg DAILY THELMA Administration Multivitamins/Minerals 1 tab 11/05/20 09:00 11/06/20 08:53 Multivitamins /C Lutein (Centrum Silver) Tablet *Bkc PO 1 tab DAILY THELMA Administration Multivitamins/Minerals 1 tablet 11/05/20 09:00 11/06/20 08:52 Opti-Gen Tab PO 1 tablet QAM THELMA Administration Nifedipine 30 mg 11/05/20 09:00 Nifedipine 30 Mg Tab.Er.24 PO QAM THELMA Olopatadine HCl 1 drop 11/05/20 09:00 11/05/20 08:59 Olopatadine 0.1% Ophth Soln 5 Ml Btl EACH EYE 1 drop DAILY THELMA Administration Oxycodone HCl 5 mg 11/05/20 06:00
[2020-11-06 10:19] LABS: Anion Gap 11 mmol/L (8-16); Blood Urea Nitrogen 22 mg/dL (9-20); Calcium 8.8 mg/dL (8.4-10.2); Carbon Dioxide 28 mmol/L (22-30); Chloride 99 mmol/L (98-107); Estimated CRCL calculation 40 ml/min; Estimated Glomerular Filt Rate 46; Glucose 110 mg/dL (75-110); Potassium 3.1 mmol/L (3.4-5.0); Sodium 138 mmol/L (137-145)
[2020-11-06] MEDS: SODIUM CHLORIDE 0.9% IV 250 ML 30 ML IV CONT (12:00)
--- NOTE | 2020-11-06 13:28 | PC.NURSE ---
Called Dr. Pimentel if he wanted lasix between the 2 units of blood. He gave order for 20mg IV Lasix one time. He also wants GI consulted if stool cultures are positive.Also wait to give Zosyn until blood is done.
[2020-11-06] MEDS: FUROSEMIDE INJ 40 MG/4 ML VIAL 20 MG IV PUSH (15:42)
[2020-11-06] MEDS: TAMSULOSIN HCL 0.4 MG CAPSULE PO (21:32)
[2020-11-07] VITALS (10 sets, daily range): BP systolic 126–154; BP diastolic 56–74; PULSE 65–89; RESP 16–20; TEMP 36.3–36.8; O2SAT 92–96
[2020-11-07] MEDS: oxyCODONE HCL (*CRX) 5 MG TAB IR PO ×4 (01:13→17:31)
[2020-11-07 02:32] LABS: IFOB Positive Control Positive; Immunochemical Fecal Occult Bl Negative (N)
[2020-11-07 06:20] LABS: Hematocrit 29.3 % (42.0-52.0); Hemoglobin 9.2 g/dL (14.0-18.0); Mean Corpuscular HGB Conc 31.4 g/dl (32-36); Mean Corpuscular Hemoglobin 27.1 pg (26-34); Mean Corpuscular Volume 86.2 fl (80-100); Mean Platelet Volume 11.1 fl (7.4-10.4); Platelet Count Result 212 k/mm3 (150-375); Red Cell Distribution Width 18.6 % (11.5-14.5); White Blood Count 6.9 K/mm3 (4.5-10.0)
--- NOTE | 2020-11-07 09:42 | PM.PNPUL ---
Progress Note: A&P Additional Plan Better, especially following transfusion. Respiratory status stable. Dismissal soon for outpatient follow-up, hopefully. Time Spent With Patient Time with patient: 15 - 25 minutes Subjective Date/time seen: 11/07/20 09:42 Had 2 units transfused yesterday and tells me he feels better. No respiratory complaints. Exam Narrative: Exam Narrative: Chest clear and heart regular. He is again very quiet and has little to say. Objective Data Vital Signs Vital Signs: Vital Signs - 24 hr 11/06/20 12:00 11/06/20 12:15 11/06/20 12:16 Temperature 36.3 C L 36.3 C L 36.7 C Pulse Rate 70 69 68 Respiratory Rate 16 16 16 Blood Pressure 117/52 L 117/59 L 123/63 Pulse Oximetry 90 92 92 11/06/20 14:00 11/06/20 14:16 11/06/20 15:16 Temperature 36.4 C L 36.2 C L 36.2 C L Pulse Rate 69 66 66 Respiratory Rate 16 18 18 Blood Pressure 122/60 128/57 L 128/57 L Pulse Oximetry 98 97 97 11/06/20 16:00 11/06/20 16:05 11/06/20 16:24 Temperature 36.1 C L 36.3 C L Pulse Rate 63 71 69 Respiratory Rate 18 18 Blood Pressure 117/52 L 133/50 L Pulse Oximetry 90 96 11/06/20 17:24 11/06/20 18:24 11/06/20 19:24 Temperature 36.3 C L 36.2 C L 36.4 C L Pulse Rate 69 82 74 Respiratory Rate 18 18 18 Blood Pressure 133/50 L 104/46 L 120/54 L Pulse Oximetry 96 90 92 11/06/20 20:00 11/06/20 21:45 11/07/20 04:00 Temperature 36.4 C L Pulse Rate 74 85 Respiratory Rate 18 Blood Pressure 120/54 L Pulse Oximetry 94 92 11/07/20 05:52 11/07/20 08:31 Temperature 36.3 C L Pulse Rate 89 65 Respiratory Rate 18 16 Blood Pressure 154/74 H Pulse Oximetry 96 94 Intake/Output Intake/Output: Intake & Output 11/04/20 11/05/20 11/06/20 11/07/20 23:59 23:59 23:59 23:59 Intake Total 1190 1590 470 Output Total 1700 1999 350 Balance -510 -410 120 Meds/Results Medications: Active Medications Generic Name Dose Route Start Last Admin Trade Name Freq PRN Reason Stop Dose Admin Lipase/Protease/Amylase 4 cap 11/05/20 09:00 Lipase/Amylase/Protease 12,000 Units Cap PO 12/05/20 09:01 BID PRN WITH A SNACK Lipase/Protease/Amylase 6 cap 11/05/20 08:00 11/06/20 17:40 Lipase/Amylase/Protease 12,000 Units Cap PO 12/05/20 08:01 6 cap TIDWM THELMA Administration Ascorbic Acid 500 mg 11/05/20 09:00 11/06/20 08:52 Ascorbic Acid 500 Mg Tablet PO 500 mg QAM THELMA Administration Atenolol 50 mg 11/05/20 09:00 11/06/20 08:51 Atenolol 50 Mg Tablet PO 50 mg DAILY THELMA Administration Calcium Carbonate 200 mg 11/05/20 09:00 11/06/20 08:51 Calcium Carbonate (Tums) 500 Mg (200 Mg Elemental) PO 200 mg DAILY THELMA Administration Finasteride 5 mg 11/05/20 09:00 11/06/20 08:52 Finasteride 5 Mg Tablet PO 5 mg DAILY THELMA Administration Fluoxetine HCl 20 mg 11/05/20 09:00 11/06/20 08:52 Fluoxetine Hcl 20 Mg Capsule PO 20 mg DAILY THELMA Administration Furosemide 40 mg 11/06/20 09:00 11/06/20 08:50 Furosemide Inj 40 Mg/4 Ml Vial IV PUSH 40 mg DAILY THELMA Administration Gabapentin 300 mg 11/05/20 09:00 11/06/20 17:40 Gabapentin 300 Mg Capsule PO 12/05/20 09:01 300 mg TID THELMA Administration Levofloxacin/Dextrose 500 mg in 100 mls @ 100 mls/hr 11/05/20 09:00 11/06/20 09:45 Levaquin 500 Mg/D5w 100 Ml IVPB Infused Q24H THELMA Infusion Piperacillin/Tazobactam/Dextrose 3.375 gm in 50 mls @ 100 mls/hr 11/05/20 10:00 11/07/20 06:03 Zosyn 3.375 Gm/D5w 50ml Pm IVPB 100 mls/hr Q6HR THELMA Administration Loratadine 10 mg 11/05/20 09:00 11/06/20 08:51 Loratadine 10 Mg Tablet PO 10 mg QAM THELMA Administration Miconazole Nitrate 1 applic 11/06/20 09:00 11/06/20 21:32 Miconazole 2% Antifungal Ointment 56 Gm TOPICAL 1 applic Q12HR THELMA Administration Mirabegron 25 mg 11/05/20 09:00 11/06/20 08:51 Mirabegron 25 Mg Er Tablet PO 25 mg DAILY THELMA Administration Multivitamins/Minerals 1 tab 10/11
[2020-11-07] MEDS: LIPASE/AMYLASE/PROTEASE 12,000 UNITS CAP 6 CAP PO ×3 (10:19→17:30)
[2020-11-07] MEDS: atenoloL 50 MG TABLET PO (10:20)
[2020-11-07] MEDS: ASCORBIC ACID 500 MG TABLET PO (10:20)
[2020-11-07] MEDS: POTASSIUM CHLORIDE 20 MEQ TABLET.ER PO ×2 (10:20→17:31)
[2020-11-07] MEDS: FLUoxetine HCL 20 MG CAPSULE PO (10:21)
[2020-11-07] MEDS: CALCIUM CARBONATE (TUMS) 500 MG (200 MG ELEMENTAL) PO (10:21)
[2020-11-07] MEDS: CHOLECALCIFEROL 1,000 UNITS TABLET 1000 UNITS PO (10:21)
[2020-11-07] MEDS: FINASTERIDE 5 MG TABLET PO (10:21)
[2020-11-07] MEDS: GABAPENTIN 300 MG CAPSULE PO ×3 (10:22→17:30)
[2020-11-07] MEDS: LORATADINE 10 MG TABLET PO (10:22)
[2020-11-07] MEDS: MIRABEGRON 25 MG ER TABLET PO (10:23)
[2020-11-07] MEDS: MULTIVITAMINS /C LUTEIN (CENTRUM SILVER) TABLET *BKC 1 TAB PO (10:23)
[2020-11-07] MEDS: SACCHAROMYCES BOULARDII 250 MG CAPSULE PO ×2 (10:23→17:31)
[2020-11-07] MEDS: OPTI-GEN TAB 1 TABLET PO (10:23)
[2020-11-07] MEDS: PANTOPRAZOLE SODIUM IV 40 MG VIAL IV PUSH (10:23)
[2020-11-07] MEDS: RIVAROXABAN 10 MG TABLET PO (10:23)
[2020-11-07] MEDS: levoFLOXacin 500 MG/D5W 100 ML 500 MG/100 ML BAG 100 MG IVPB (10:24)
[2020-11-07] MEDS: OLOPATADINE 0.1% OPHTH SOLN 5 ML BTL 1 DROP EACH EYE (10:24)
[2020-11-07] MEDS: FUROSEMIDE INJ 40 MG/4 ML VIAL IV PUSH (10:46)
[2020-11-07] MEDS: TOLNAFTATE 1% POWDER 45 GM BTL 1 APPLIC TOPICAL ×2 (13:23→21:32)
--- NOTE | 2020-11-07 13:50 | PM.IMPN ---
Progress Note: A&P Assessment and Plan (1) Acute respiratory failure with hypoxia: Code(s): J96.01 - Acute respiratory failure with hypoxia Status: Acute Assessment and Plan: improving pt is on IV Lasix and iv zosyn, iv levaquin -patient symptoms are not really positional, denies orthopnea -patient is on Xarelto after his CVA, doubt PE -UA shows some wbc's however he has a chronic indwelling Weeks catheter, changed last week which he normally gets changed once a month. -decubitus ulcers chronic stable and will need local wound care -patient otherwise nontoxic, will hold off on antibiotics and watch -supportive oxygen to keep oxygen saturation greater than 90%, currently on 2 L nasal cannula saturating 93% -patient already has home oxygen set up by PCP improving pt is on 3 liters hopeful DC tomorrow back to [place] (2) History of 2019 novel coronavirus disease (COVID-19): Code(s): Z86.19 - Personal history of other infectious and parasitic diseases Status: Acute Assessment and Plan: -patient had COVID-19 2 months ago in August treated outpatient conservative management (3) Pressure ulcer of sacral region, unspecified stage: Qualifiers: Pressure injury stage: unspecified pressure injury stage Qualified Code(s): L89.159 - Pressure ulcer of sacral region, unspecified stage Code(s): L89.159 - Pressure ulcer of sacral region, unspecified stage Status: Acute Assessment and Plan: -grade wounds sacral decubitus ulcers, patient will need local wound care -likely cause for fever (4) Chronic indwelling Weeks catheter: Code(s): Z97.8 - Presence of other specified devices Status: Acute Assessment and Plan: -chronic weeks for past 4 years which gets changed out monthly, last change last week -considering his hypoxia, this is likely unrelated and I doubt it caused his fever Subjective Date/time seen: 11/07/20 13:50 Interval history: 74 year old male from residential with past medical history COVID-19 in 08/2020, history of CVA with left hemiparesis, essential hypertension, BPH, lumbar spondylolysis status post surgery and chronic indwelling Weeks catheter presents to the ED with complaints of dyspnea. Pt is usually bed ridden. PT feels better down to 3 liters of oxygen, hopeful DC usha back to his [facility] Review of Systems Review of Systems: All systems reviewed & are unremarkable except as noted in HPI and below Exam Narrative: Exam Narrative: - GENERAL: Pleasant elderly male, chronically ill, bedridden - LUNGS: Bibasilar BS clear - CARDIOVASCULAR: Regular rate and rhythm. No murmur. No JVD. - ABDOMEN: Soft, non-tender and non-distended. No palpable masses. Chronic indwelling Weeks catheter. - EXTREMITIES: No edema. Peripheral pulses 2+ nontender. - NEUROLOGIC: Left-sided facial droop, hemiparesis. Bilateral lower extremity weakness 3/5. Upper extremity 5/5. He is unable to sit forward with his significant weakness. CN II-XII grossly intact. - PSYCHIATRIC: Awake, Alert and oriented. Appropriate mood and affect. - SKIN: Warm. Sacral decubitus stage I ulcers on buttocks. - LYMPH: No cervical lymphadenopathy. Objective Data Vital Signs Vital Signs: Vital Signs - 24 hr 11/06/20 14:00 11/06/20 14:16 11/06/20 15:16 Temperature 36.4 C L 36.2 C L 36.2 C L Pulse Rate 69 66 66 Respiratory Rate 16 18 18 Blood Pressure 122/60 128/57 L 128/57 L Pulse Oximetry 98 97 97 11/06/20 16:00 11/06/20 16:05 11/06/20 16:24 Temperature 36.1 C L 36.3 C L Pulse Rate 63 71 69 Respiratory Rate 18 18 Blood Pressure 117/52 L 133/50 L Pulse Oximetry 90 96 11/06/20 17:24 11/06/20 18:24 11/06/20 19:24 Temperature 36.3 C L 36.2 C L 36.4 C L Pulse Rate 69 82 74 Respiratory Rate 18 18 18 Blood Pressure 133/50 L 104/46 L 120/54 L Pulse Oximetry 96 90 92 11/06/20 20:00 11/06/20 21:45 11/07/20 04:00 Temperature 36.4 C L Pulse Rate 74 85 Respirat
[2020-11-07] MEDS: TAMSULOSIN HCL 0.4 MG CAPSULE PO (21:31)
[2020-11-08] VITALS (11 sets, daily range): BP systolic 127–148; BP diastolic 62–64; PULSE 65–80; RESP 16–20; TEMP 36.5–36.6; O2SAT 90–98
[2020-11-08] MEDS: oxyCODONE HCL (*CRX) 5 MG TAB IR PO ×5 (00:12→23:39)
[2020-11-08 08:49] LABS: Anion Gap 9 mmol/L (8-16); Blood Urea Nitrogen 23 mg/dL (9-20); Calcium 8.5 mg/dL (8.4-10.2); Carbon Dioxide 27 mmol/L (22-30); Chloride 99 mmol/L (98-107); Estimated CRCL calculation 40 ml/min; Estimated Glomerular Filt Rate 46; Glucose 91 mg/dL (75-110); Potassium 2.7 mmol/L (3.4-5.0); Sodium 135 mmol/L (137-145)
--- NOTE | 2020-11-08 08:55 | PC.NURSE ---
Called Critical potassium to Dr Bowers of 2.7. No answer, message left.
--- NOTE | 2020-11-08 09:13 | PM.PNPUL ---
Progress Note: A&P Additional Plan Stable from my perspective. Hope back to NH soon. Pulmonary signing off... call p.r.n. Subjective Date/time seen: 11/08/20 09:13 Comfortable and feels better especially since transfusion. Continues Zosyn. Exam Narrative: Exam Narrative: Chest clear. Heart regular. Objective Data Vital Signs Vital Signs: Vital Signs - 24 hr 11/07/20 10:15 11/07/20 12:00 11/07/20 14:00 Temperature 36.6 C Pulse Rate 76 78 Respiratory Rate 18 Blood Pressure 147/63 H Pulse Oximetry 93 92 11/07/20 16:00 11/07/20 20:00 11/07/20 22:00 Temperature 36.8 C Pulse Rate 76 73 80 Respiratory Rate 20 Blood Pressure 126/56 L Pulse Oximetry 93 11/08/20 00:00 11/08/20 04:00 11/08/20 05:51 Temperature 36.5 C Pulse Rate 73 68 71 Respiratory Rate 20 Blood Pressure 148/63 H Pulse Oximetry 90 11/08/20 08:43 Temperature Pulse Rate 72 Respiratory Rate 20 Blood Pressure Pulse Oximetry 98 Intake/Output Intake/Output: Intake & Output 11/05/20 11/06/20 11/07/20 11/08/20 23:59 23:59 23:59 23:59 Intake Total 1190 1590 1360 200 Output Total 1700 2000 1650 350 Balance -510 -410 -290 -150 Meds/Results Medications: Active Medications Generic Name Dose Route Start Last Admin Trade Name Freq PRN Reason Stop Dose Admin Lipase/Protease/Amylase 4 cap 11/05/20 09:00 Lipase/Amylase/Protease 12,000 Units Cap PO 12/05/20 09:01 BID PRN WITH A SNACK Lipase/Protease/Amylase 6 cap 11/05/20 08:00 11/07/20 17:30 Lipase/Amylase/Protease 12,000 Units Cap PO 12/05/20 08:01 6 cap TIDWM THELMA Administration Ascorbic Acid 500 mg 11/05/20 09:00 11/07/20 10:20 Ascorbic Acid 500 Mg Tablet PO 500 mg QAM THE[facility] Administration Atenolol 50 mg 11/05/20 09:00 11/07/20 10:20 Atenolol 50 Mg Tablet PO 50 mg DAILY THELMA Administration Calcium Carbonate 200 mg 11/05/20 09:00 11/07/20 10:21 Calcium Carbonate (Tums) 500 Mg (200 Mg Elemental) PO 200 mg DAILY THELMA Administration Finasteride 5 mg 11/05/20 09:00 11/07/20 10:21 Finasteride 5 Mg Tablet PO 5 mg DAILY THELMA Administration Fluoxetine HCl 20 mg 11/05/20 09:00 11/07/20 10:21 Fluoxetine Hcl 20 Mg Capsule PO 20 mg DAILY THELMA Administration Furosemide 20 mg 11/08/20 09:00 Furosemide Inj 40 Mg/4 Ml Vial IV PUSH DAILY THELMA Gabapentin 300 mg 11/05/20 09:00 11/07/20 17:30 Gabapentin 300 Mg Capsule PO 12/05/20 09:01 300 mg TID THELMA Administration Levofloxacin/Dextrose 500 mg in 100 mls @ 100 mls/hr 11/05/20 09:00 11/07/20 11:24 Levaquin 500 Mg/D5w 100 Ml IVPB Infused Q24H [facility] Infusion Piperacillin/Tazobactam/Dextrose 3.375 gm in 50 mls @ 100 mls/hr 11/05/20 10:00 11/08/20 06:50 Zosyn 3.375 Gm/D5w 50ml Pm IVPB Infused Q6HR [facility] Infusion Loratadine 10 mg 11/05/20 09:00 11/07/20 10:22 Loratadine 10 Mg Tablet PO 10 mg QAM [facility] Administration Miconazole Nitrate 1 applic 11/06/20 09:00 11/07/20 21:32 Miconazole 2% Antifungal Ointment 56 Gm TOPICAL 1 applic Q12HR THELMA Administration Mirabegron 25 mg 11/05/20 09:00 11/07/20 10:23 Mirabegron 25 Mg Er Tablet PO 25 mg DAILY THELMA Administration Multivitamins/Minerals 1 tab 11/05/20 09:00 11/07/20 10:23 Multivitamins /C Lutein (Centrum Silver) Tablet *Bkc PO 1 tab DAILY THELMA Administration Multivitamins/Minerals 1 tablet 11/05/20 09:00 11/07/20 10:23 Opti-Gen Tab PO 1 tablet QAM [facility] Administration Nifedipine 30 mg 11/05/20 09:00 Nifedipine 30 Mg Tab.Er.24 PO QAM THELMA Olopatadine HCl 1 drop 11/05/20 09:00 12/29/20 10:24 Olopatadine 0.1% Ophth Soln 5 Ml Btl EACH EYE 1 drop DAILY THELMA Administration Oxycodone HCl 5 mg 11/05/20 06:00 11/08/20 06:21 Oxycodone Hcl (*Crx) 5 Mg Tab Ir PO 5 mg Q6H [facility] Administration Pantoprazole Sodium 40 mg 11/05/20 09:00 11/07/20 10:23 Pantoprazole Sodium Iv 40 Mg Vi
[2020-11-08] MEDS: MULTIVITAMINS /C LUTEIN (CENTRUM SILVER) TABLET *BKC 1 TAB PO (09:30)
[2020-11-08] MEDS: OPTI-GEN TAB 1 TABLET PO (09:30)
[2020-11-08] MEDS: MIRABEGRON 25 MG ER TABLET PO (09:30)
[2020-11-08] MEDS: ASCORBIC ACID 500 MG TABLET PO (09:30)
[2020-11-08] MEDS: atenoloL 50 MG TABLET PO (09:30)
[2020-11-08] MEDS: POTASSIUM CHLORIDE 20 MEQ TABLET.ER PO (09:30)
[2020-11-08] MEDS: SACCHAROMYCES BOULARDII 250 MG CAPSULE PO ×2 (09:30→17:57)
[2020-11-08] MEDS: PANTOPRAZOLE SODIUM IV 40 MG VIAL IV PUSH (09:30)
[2020-11-08] MEDS: GABAPENTIN 300 MG CAPSULE PO ×3 (09:31→17:57)
[2020-11-08] MEDS: RIVAROXABAN 10 MG TABLET PO (09:31)
[2020-11-08] MEDS: CHOLECALCIFEROL 1,000 UNITS TABLET 1000 UNITS PO (09:31)
[2020-11-08] MEDS: FINASTERIDE 5 MG TABLET PO (09:31)
[2020-11-08] MEDS: LIPASE/AMYLASE/PROTEASE 12,000 UNITS CAP 6 CAP PO ×3 (09:31→17:56)
[2020-11-08] MEDS: LORATADINE 10 MG TABLET PO (09:31)
[2020-11-08] MEDS: CALCIUM CARBONATE (TUMS) 500 MG (200 MG ELEMENTAL) PO (09:31)
[2020-11-08] MEDS: TOLNAFTATE 1% POWDER 45 GM BTL 1 APPLIC TOPICAL ×2 (09:32→20:08)
[2020-11-08] MEDS: OLOPATADINE 0.1% OPHTH SOLN 5 ML BTL 1 DROP EACH EYE (09:32)
[2020-11-08] MEDS: levoFLOXacin 500 MG/D5W 100 ML 500 MG/100 ML BAG 100 MG IVPB (09:34)
[2020-11-08] MEDS: POTASSIUM CHLORIDE 20 MEQ TABLET.ER 40 MEQ PO ×3 (10:36→17:56)
[2020-11-08] MEDS: FLUoxetine HCL 20 MG CAPSULE PO (10:36)
--- NOTE | 2020-11-08 12:44 | WPDCDIQUERY2 ---
CDI Query Clarification Request - Acute respiratory failure, differential diagnosis includes post COVID 19 syndrome, COVID-19 reinfection, congestive heart failure, community-acquired pneumonia, other atypical pneumonia , may also be pumonary fibrosis from Covid 19 , could also have non Covid viral pneumonia all has been documented. -Patient is on Lasix 20mg IV daily, Levofloxacin IV daily, and Zosyn IV q 6 hrs. Please clarify probably cause of acute respiratory failure. <Migdalia Londono RN - Last Filed: 11/08/20 12:48> Volume overload, Community-acquired pneumonia <Maria Luisa Bowers MD - Last Filed: 11/09/20 10:17>
[2020-11-08] MEDS: FUROSEMIDE INJ 40 MG/4 ML VIAL 20 MG IV PUSH (13:12)
--- NOTE | 2020-11-08 13:38 | PM.DS ---
DS: Admitting Diagnosis Admitting Diagnosis Admitting Diagnosis: Dyspnea DS: Discharge Diagnosis Discharge Diagnosis (1) Acute respiratory failure with hypoxia: Code(s): J96.01 - Acute respiratory failure with hypoxia Status: Resolved Assessment and Plan: improving pt is on IV Lasix and iv zosyn, iv levaquin improving pt is on 3 liters hopeful DC tomorrow back to [facility] AR[facility] secondary to CAP and CHF (2) History of 2019 novel coronavirus disease (COVID-19): Code(s): Z86.19 - Personal history of other infectious and parasitic diseases Status: Resolved Assessment and Plan: -patient had COVID-19 2 months ago in August treated outpatient conservative management (3) Pressure ulcer of sacral region, unspecified stage: Qualifiers: Pressure injury stage: unspecified pressure injury stage Qualified Code(s): L89.159 - Pressure ulcer of sacral region, unspecified stage Code(s): L89.159 - Pressure ulcer of sacral region, unspecified stage Status: Acute Assessment and Plan: -grade wounds sacral decubitus ulcers, patient will need local wound care -likely cause for fever (4) Chronic indwelling Weeks catheter: Code(s): Z97.8 - Presence of other specified devices Status: Acute Assessment and Plan: -chronic weeks for past 4 years (5) Congestive heart failure: Qualifiers: Heart failure chronicity: acute Heart failure type: unspecified Qualified Code(s): I50.9 - Heart failure, unspecified Code(s): I50.9 - Heart failure, unspecified Status: Resolved Assessment and Plan: After iv diuresis (6) CAP (community acquired pneumonia): Code(s): J18.9 - Pneumonia, unspecified organism Status: Resolved Assessment and Plan: After IV zosyn and levaquin DS: Summary Hospital Course Hospital Course: 74year old male from intermediate with past medical history COVID-19 in 08/2020, history of CVA with left hemiparesis, essential hypertension, BPH, lumbar spondylolysis status post surgery and chronic indwelling Weeks catheter presents to the ED with complaints of dyspnea. Pt is usually bed ridden. Pt feels better down to 3 liters of oxygen, hopeful DC usha back to his NH. PT treated for CAP and CHF exacerbation. Feels better redy for discharge. Seen by pulmonology while in the hospital. recent COVID infection. Time Spent with Patient Time attestation: Total time spent providing and/or coordinating discharge services:40 minutes on day of discharge Exam Narrative: Exam Narrative: - GENERAL: Pleasant elderly male, chronically ill, bedridden - LUNGS: Bibasilar BS clear - CARDIOVASCULAR: Regular rate and rhythm. No murmur. No JVD. - ABDOMEN: Soft, non-tender and non-distended. No palpable masses. Chronic indwelling Weeks catheter. - EXTREMITIES: No edema. Peripheral pulses 2+ nontender. - NEUROLOGIC: Left-sided facial droop, hemiparesis. Bilateral lower extremity weakness 3/5. Upper extremity 5/5. CN II-XII grossly intact. - PSYCHIATRIC: Awake, Alert and oriented. Appropriate mood and affect. - SKIN: Warm. Sacral decubitus stage I ulcers on buttocks. - DS: Data Data Completed and Pending Labs on day of discharge: Labs from last 24 hours 11/08/20 08:09 Sodium 135 L Potassium 2.7 L* Chloride 99 Carbon Dioxide 27 Anion Gap 9 BUN 23 H Creatinine 1.50 H Estim Creat Clear Calc 40 Estimated GFR 46 L Glucose 91 Calcium 8.5 Preliminary micro results at discharge 11/04/20 23:59 Blood Culture - Preliminary Blood 11/05/20 00:34 Blood Culture - Preliminary Blood Discharge Plan Discharge Attending physician on discharge: Maria Luisa Bowers Consulting providers: Tony Goodman ; Bull Curran Discharging Clinician: Maria Luisa Bowers Anticipated Discharge Date/Time: 11/08/20 13:33 Patient Disposition: NH Long Term/Asst Living Activity: as tolerated D
[2020-11-08] MEDS: LACTULOSE 20 GM/30 ML UDC PO (14:19)
[2020-11-08] MEDS: TAMSULOSIN HCL 0.4 MG CAPSULE PO (20:08)
--- NOTE | 2020-11-09 01:49 | PC.NURSE ---
Addendum entered by Gertrudis Maradiaga RN 11/09/20 02:07: Report called from GEORGI Dean on day shift. This RN attempted to call facility [phone], [phone], [phone], and again 0210. No calls answered. No calls returned. Original Note: Pt taken to [facility] via ambulance at 0140. This RN attempted to call facility [phone] at 0140 and again at 0147. No answer. Voicemail not available.
== END 2020-11-09 01:40 | DRG 291 ==
LOC: ANHED 23:52 → ANH3MEDSUR 11-05 01:52
PROVIDERS: Internal Medicine; Admitting Provider Student in an Organized Health Care Education/Training Program; Emergency Provider Emergency Medicine; PCP Family Medicine; Visit Provider Family Medicine
DX: I11.0 Hypertensive heart disease with heart failure (principal); J96.01 Acute respiratory failure with hypoxia; J18.9 Pneumonia, unspecified organism; I69.354 Hemiplegia and hemiparesis following cerebral infarction affecting left non-dominant side; L89.151 Pressure ulcer of sacral region, stage 1; Z20.828 Contact with and (suspected) exposure to other viral communicable diseases; I50.9 Heart failure, unspecified; K21.9 Gastro-esophageal reflux disease without esophagitis; K58.9 Irritable bowel syndrome, unspecified; M47.816 Spondylosis without myelopathy or radiculopathy, lumbar region; N40.1 Benign prostatic hyperplasia with lower urinary tract symptoms; R33.8 Other retention of urine; N32.81 Overactive bladder; E87.6 Hypokalemia; F32.9 Major depressive disorder, single episode, unspecified; J30.2 Other seasonal allergic rhinitis; H04.129 Dry eye syndrome of unspecified lacrimal gland; D64.9 Anemia, unspecified; Z74.01 Bed confinement status; Z79.01 Long term (current) use of anticoagulants; Z79.899 Other long term (current) drug therapy; Z86.19 Personal history of other infectious and parasitic diseases; Z87.891 Personal history of nicotine dependence; Z97.8 Presence of other specified devices; Z99.3 Dependence on wheelchair
CPT/HCPCS: 36415; 36430; 71045; 80048; 80053; 81001; 82274; 83605; 83880; 84484; 85025; 85027; 85610; 85730; 86850; 86900; 86901; 86923; 87040; 87086; 87088; 87635; 93005; 93306; 96374; 99291; A9270; C9113; C9803; G0378; J1940; J1956; J2543; J7050; P9016; U0003

== ENCOUNTER 2021-01-16 08:55 | Outpatient (RCR) | payer MEDICARE, BC, MEDICAID, SELFPAY ==
[2021-01-16 09:16] LABS: Hematocrit 25.6 % (42.0-52.0)
[2021-01-16 10:50] VITALS: BP 93/53; PULSE 65; RESP 18; TEMP 36.6; O2SAT 98
[2021-01-16 11:05] VITALS: BP 98/47; PULSE 60; RESP 15; TEMP 36.4; O2SAT 98
[2021-01-16 12:05] VITALS: BP 101/49; PULSE 58; RESP 18; TEMP 36.6; O2SAT 95
[2021-01-16 13:05] VITALS: BP 116/58; PULSE 58; RESP 14; TEMP 36.4; O2SAT 98
[2021-01-16 14:05] VITALS: BP 106/49; PULSE 60; RESP 14; TEMP 36.4; O2SAT 98
== END 2021-04-16 23:59 | disposition home or self-care (01) ==
LOC: ANHCPCTRAN 08:55
PROVIDERS: PCP Family Medicine; Visit Provider Nurse Practitioner Family
DX: D64.9 Anemia, unspecified (principal)
CPT/HCPCS: 36415; 36430; 85014; 85018; 86850; 86900; 86901; 86923; P9016

== ENCOUNTER 2022-02-05 09:24 | Inpatient (IN) | payer MEDICARE, BC, MEDICAID, SELFPAY ==
[2022-02-05] VITALS (17 sets, daily range): BP systolic 111–125; BP diastolic 41–88; PULSE 62–82; RESP 13–22; TEMP 36.1–37.3; O2SAT 78–98; BMI 28.6; BMI 27.8
--- NOTE | ~2022-02-05 | XR_ITS ---
EXAMINATION: XR chest 1V portable DATE: 02/05/2022 12:00 INDICATION: Shortness of breath. Hypoxia. TECHNIQUE: A single frontal view of the chest was obtained. COMPARISON: Chest single view 11/08/2020, CT abdomen and pelvis 09/07/2019 FINDINGS: There are lucencies in the lungs, consistent with emphysema. There are airspace opacities i n the lower lung zones. No pleural effusion or pneumothorax. Cardiomegaly is noted. There are changes of posterior fusion procedure in lower thoracic spine. There are changes of anterior and posterior f usion procedures in cervical spine. IMPRESSION: 1. Airspace opacities in the lower lung zones, consistent with atelectasis versus pneumonia. 2. Emphysema. 3. Cardiomegaly. Reviewed, dictated and finalized at location A. IMPRESSION: 1. Airspace opacities in the lower lung zones, consistent with atelectasis vers us pneumonia. 2. Emphysema. 3. Cardiomegaly.
--- NOTE | 2022-02-05 09:34 | ECG_ITS ---
Measurements Intervals [place] Rate: 82 P: -3 AR: 193 QRS: -5 QRSD: 87 T: 57 QT: 357 QTc: 419 Interpretive Statements BASELINE ARTIFACT, POOR DATA QUALITY SINUS RHYTHM NONSPECIFIC T-WAVE ABNORMALITY COMPARED TO ECG 11/04/2020 23:43:27 NO SIGNIFICANT CHANGE Electronically Signed On 02-05-2022 17:22:55 CDT by Abad Ching M.D.
[2022-02-05] MEDS: methylPREDNISolone SOD SUCC 125 MG VIAL IV PUSH (09:52)
[2022-02-05] MEDS: IPRATROPIUM BR 0.02% INH SOLN 0.5 MG/2.5 ML VIAL INHALATION ×2 (09:54→19:31)
[2022-02-05] MEDS: ALBUTEROL SULFATE NEB 2.5 MG/0.5 ML INH 5 MG INHALATION ×2 (09:54→19:30)
--- NOTE | 2022-02-05 09:57 | ED.GENADULT ---
HPI - General Adult General Chief complaint: Shortness of Breath/Dyspnea Stated complaint: weakness Time Seen by Provider: 02/05/22 09:34 Source: patient Mode of arrival: ambulatory Limitations: no limitations History of Present Illness HPI narrative: Patient is a 76-year-old male brought in by EMS due to low oxygen saturation 70s at the snf. Patient states that he has been having nausea vomiting diarrhea and generalized weakness for the past few days. Patient denies any chest pain, shortness of breath, abdominal pain, fever or chills. Upon arrival to the emergency room his oxygen saturation was 78% but he denies being short of breath. Patient was placed on 4 L nasal cannula brought his oxygen saturation up to 96%. Related Data Home Medications Medication Instructions Recorded Confirmed Centrum 1 tablet PO DAILY 11/05/20 11/05/20 Creon 2 cap PO PRN 11/05/20 11/05/20 Creon 3 cap PO TIDWMEAL 11/05/20 11/05/20 Myrbetriq 25 mg PO DAILY 11/05/20 11/05/20 PreserVision AREDS 1 cap PO DAILY 11/05/20 11/05/20 Procardia XL 30 mg PO DAILY 11/05/20 11/05/20 Saccharomyces boulardii [Florastor] 250 mg PO BID 11/05/20 11/05/20 Xarelto 10 mg PO DAILY 11/05/20 11/05/20 albuterol sulfate 2 puff INHALATION USEASDIRECTD PRN 11/05/20 11/05/20 ascorbic acid (vitamin C) 1 tablet PO DAILY 11/05/20 11/05/20 atenolol 50 mg PO DAILY 11/05/20 11/05/20 calcium carbonate 500 mg PO DAILY 11/05/20 11/05/20 cetirizine [Zyrtec] 10 mg PO DAILY 11/05/20 11/05/20 cholecalciferol (vitamin D3) 75 mcg PO DAILY 11/05/20 11/05/20 ergocalciferol (vitamin D2) 50,000 units PO MONTHLY 11/05/20 11/05/20 finasteride [Proscar] 5 mg PO DAILY 11/05/20 11/05/20 fluoxetine [Prozac] 20 mg PO DAILY 11/05/20 11/05/20 gabapentin 300 mg PO TID 11/05/20 11/05/20 omeprazole 20 mg PO DAILY 11/05/20 11/05/20 potassium chloride 20 meq PO BID 11/05/20 11/05/20 tamsulosin 1 mg PO HS 11/05/20 11/05/20 Allergies Allergy/AdvReac Type Severity Reaction Status Date / Time No Known Allergies Allergy Verified 09/19/20 19:29 Review of Systems Review of Systems: All systems reviewed & are unremarkable except as noted in HPI and below Constitutional: Constitutional: Denies body ache(s), Denies chills, Denies excessive sweating, Denies fatigue, Denies fever(s), Denies headache(s), Denies lethargy, Denies malaise and Denies weight loss Eyes: Eyes: Denies blurry vision, Denies change in vision and Denies loss of vision ENT: Denies dizziness, Denies ear discharge, Denies headache(s), Denies lip swelling, Denies epistaxis, Denies nasal congestion, Denies neck pain, Denies throat swelling and Denies tongue swelling Cardiovascular: Cardiovascular: Denies chest pain, Denies chest pain at rest, Denies chest pain with activity, Denies diaphoresis, Denies rapid heart rate, Denies edema, Denies irregular heart rhythm, Denies lightheadedness, Denies palpitations, Denies dyspnea and Denies dyspnea on exertion Respiratory: Respiratory: Denies chest congestion, Denies cough, Denies hemoptysis, Denies dyspnea and Denies dyspnea on exertion Gastrointestinal: Gastrointestinal: Denies abdominal pain, Denies melena, Denies hematochezia and Denies hematemesis Musculoskeletal: Musculoskeletal: Denies abnormal gait, Denies deformity, Denies joint swelling, Denies limited range of motion, Denies neck pain and Denies numbness Neurologic: Denies Abnormal speech present, Denies abnormal gait, Denies confusion, Denies dizziness, Denies headache(s), Denies focal weakness, Denies loss of vision, Denies numbness, Denies Other visual disturbances and Denies Sensory deficit (Neuro) Psychiatric: Psychiatric: Denies confusion, Denies depression, Denies auditory hallucinations, Denies homicidal ideation and Denies suicidal ideation Endocrine: Endocrine: Denies cold intolerance, Denies excessive sweating, Denies fatigue, Denies heat intolerance and Denies palpitations Hematologic/Lymphatic: Hematologic/Lymphatic: Denies ea
[2022-02-05 09:59] LABS: Basophils Percent Auto 0.1 % (0.2-1.2); Eosinophils Percent Auto 0.1 % (0-4.4); Hematocrit 33.6 % (42.0-52.0); Hemoglobin 10.5 g/dL (14.0-18.0); Immature Granulocyte Percent A 0.6 % (0-0.5); Immature Platelet Fraction Pct 7.1 % (0.9-11.2); Lymphocytes Absolute Auto 0.91 K/mm3 (0.9-3.2); Lymphocytes Percent Auto 5.6 % (18.3-44.2); Mean Corpuscular HGB Conc 31.3 g/dl (32-36); Mean Corpuscular Hemoglobin 26.4 pg (26-34); Mean Corpuscular Volume 84.4 fl (80-100); Monocytes Absolute Auto 1.6 K/mm3 (0.1-0.6); Neutrophils Absolute Auto 13.6 K/mm3 (1.3-6.7); Neutrophils Percent Auto 83.6 % (45.5-73.1); Platelet Count Result 148 k/mm3 (150-375); Red Blood Count 3.98 M/mm3 (4.6-6.20); Red Cell Distribution Width 16.9 % (11.5-14.5); White Blood Count 16.2 K/mm3 (4.5-10.0)
--- NOTE | 2022-02-05 10:09 | PC.NURSE ---
Per EDP Fam, do not give patient 2.6L bolus.
[2022-02-05 10:10] LABS: Alveolar/Arterial O2 Gradient 140.1 mmHg; Base Excess ABG -0.9 mEq/l (+/-2.0); Carboxyhemoglobin 0.1 % THb (0-2.0); Fractional Inspired Oxygen 36 %; HCO3 ABG 24.1 mEq/l (22.0-26.0); Methemoglobin ABG 0.1 %THb (0-1.5); Oxygen Content ABG 14.1 %vol (16.0-22.0); Oxygen Saturation ABG 93.7 % (95.0-100.0); Oxyhemoglobin 93.2 % THb (90.0-100.0); PO2 FiO2 Ratio Arterial Blood 1.92 %; Reduced Hemoglobin 6.6 %THb (0-5.0); Total Hemoglobin 10.7 g/dL (12.0-18.0); pH ABG 7.387 (7.350-7.450)
[2022-02-05 10:12] LABS: Device NASAL CANNULA; Modified Allen's Test Pass; Site Drawn LEFT RADIAL
[2022-02-05 10:14] LABS: Anisocytosis 1+ (NORMAL); Platelet Estimate Adequate (Adequate)
[2022-02-05 10:17] LABS: Alanine Aminotransferase 16 U/L (4-50); Albumin Level 4.1 g/dL (3.5-5.1); Alkaline Phosphatase 91 U/L (38-126); Anion Gap 12 mmol/L (8-16); Aspartate Amino Transferase 21 U/L (17-59); Bilirubin,Total 0.3 mg/dL (0.2-1.3); Blood Urea Nitrogen 38 mg/dL (9-20); CRP 8.9 mg/dL (<1.0); Calcium 8.3 mg/dL (8.4-10.2); Carbon Dioxide 24 mmol/L (22-30); Chloride 104 mmol/L (98-107); Estimated CRCL calculation 31 ml/min; Estimated Glomerular Filt Rate 35; Glucose 134 mg/dL (65-110); Potassium 4.3 mmol/L (3.4-5.0); Sodium 140 mmol/L (137-145)
[2022-02-05 10:59] LABS: Appearance Urine Turbid (Clear); Bilirubin Urine Negative (Negative); Blood Urine 2+ (Negative); Glucose Urine UA Negative (Negative); Ketones Urine Negative (Negative); Leukocyte Esterase Ur 3+ LEU/UL (Negative); Nitrate Urine Negative (Negative); Protein Urine 3+ mg/dL (Negative); Urobilinogen Urine 0.2 mg/dL (<2.0); pH Urine >=9.0 (5.0-9.0)
[2022-02-05 11:02] LABS: Lactic Acid Reflex 0.8 mmol/L (0.7-2.1)
[2022-02-05 11:03] LABS: INR 1.1; Prothrombin Time 13.7 Seconds (11.1-14.7)
[2022-02-05 11:07] LABS: Add Urine Microscopic? YES; Bacteria Urine 1+ /hpf; Color Urine Dark Yellow (Yellow); RBC Urine 21-50 /hpf (0-2)
[2022-02-05 11:08] LABS: Mucus Urine Moderate /lpf
--- NOTE | 2022-02-05 11:09 | PC.NURSE ---
Care assumed of pt at this time.
[2022-02-05] MEDS: SODIUM CHLORIDE 0.9% IV 1,000 ML 999 ML IV CONT (12:00)
[2022-02-05 12:41] LABS: SARS-CoV-2 RNA PCR Negative
--- NOTE | 2022-02-05 13:18 | PC.NURSE ---
Attempted to call [facility]. no answer, left message.
--- NOTE | 2022-02-05 13:52 | ADMGEN ---
This patient, Jefferson Venegas, was admitted to IMU Room 204-01 at 1340 on 02/05/2022. Report received from Ailin LAUREANO. Patient/family oriented to hospital policies and general routines including ID bracelet, bed and alarms, visiting hours, pain management, procedures, bathroom and other care routines, personal items, smoking policy, room service/diet, and visiting hours. Information on how to activate the Rapid Response Team has been discussed. Patient/Family are encouraged to report perceived risks to care and to ask questions if they do not understand what they are told or what they should do.
--- NOTE | 2022-02-05 16:17 | PM.IMHP ---
H&P: HPI History of Present Illness Date/Time: Patient requires inpatient monitoring with expected length of stay to exceed 2 midnights for management of care. 02/05/22 16:17 Chief Complaint: Fall Narrative: Mr. Venegas is a 76-year-old gentleman who presented to the emergency room via EMS for extra care facility for falling this morning. Patient states that he fell at the extended care facility and has a skin tear to his left hand and hit his right forehead. Patient states he does take blood thinners for history of stroke. Patient states that he does have left-sided weakness and is in bed for approximately 6 hours a work physical therapy to help move him out of bed. At the [facility] care facility patient's O2 saturations were checked and his saturation was in the 70s on room air. Patient does not wear oxygen at [facility]. Upon evaluation in emergency room patient was noted to have O2 saturations in the 80s on room air. Patient adamantly denies any shortness of breath or cough. Patient denies any fever or chills. Patient states feeling recent he thought he was coming to the emergency room is because he fell. Patient denies any chest pain, shortness breast, lightheadedness, dizziness, syncopal, or near syncopal episodes. Patient states a few days ago he did have some nausea and vomiting with some minimal diarrhea, that has resolved. Patient states he does have a significant history of IBS and that he attributed to this. Patient does have a chronic indwelling Choudhury catheter secondary to his previous stroke. Upon evaluation in emergency room patient was noted to have pneumonia on chest x-ray with leukocytosis. Patient was given Rocephin azithromycin, and DuoNeb, and steroids. Patient was also noted to have a significant urinary tract infection. Patient does have a known history of COVID-19 in August of 2020, CVA with left hemiparesis, hypertension, BPH, lumbar spondylolysis status post surgery, chronic indwelling Choudhury catheter that was changed on 01/30/2022. Patient states that his Choudhury catheter is typically changed once monthly. Review of Systems Review of Systems: A 12 point review of systems was completed patient all pertinent positive and negative per HPI the remainder are unremarkable. [facility] Past Medical History Medical History (Updated 02/05/22 @ 16:40 by Elise Ledezma APRN) Anemia BPH (benign prostatic hyperplasia) Chronic indwelling Choudhury catheter Chronic kidney disease COVID-19 CVA (cerebral vascular accident) Essential hypertension GERD (gastroesophageal reflux disease) Hemiplegia affecting left nondominant side History of 2019 novel coronavirus disease (COVID-19) IBS (irritable bowel syndrome) Osteoarthritis Overactive bladder Pressure ulcer of sacral region, unspecified stage Seasonal allergic rhinitis Spondylosis of lumbar region without myelopathy or radiculopathy Surgical History Surgical History H/O neck surgery History of back surgery Family History Family History (Updated 02/05/22 @ 14:26 by Carmella Mota RN) Father , Patient does not know cause No problems noted. Mother , Patient does not know cause No problems noted. Other Unknown family medical history Social History Social History Social History: Patient became debilitated after stroke in 2013, he lost bladder control in 2016 after having multiple back surgery and now has indwelling Choudhury catheter. He has been intermediate since 2017. Patient wheelchair and bed-bound. Smoking status: Former smoker Tobacco type: cigarettes Second hand tobacco smoke exposure: No Alcohol intake: former Alcohol use details: Quit in 2013 Substance use: never Gender identity (if verbalized by the patient): Male Spiritual care concerns: No Meds Home Medications and Allergies H
[2022-02-05] MEDS: SODIUM CHLORIDE 0.9% IV 1,000 ML 75 ML IV CONT (17:10)
[2022-02-06] VITALS (23 sets, daily range): BP systolic 121–144; BP diastolic 48–59; PULSE 63–92; RESP 14–18; TEMP 36.1–37; O2SAT 95–100
[2022-02-06] MEDS: IPRATROPIUM BR 0.02% INH SOLN 0.5 MG/2.5 ML VIAL INHALATION ×3 (02:05→19:51)
[2022-02-06] MEDS: ALBUTEROL SULFATE NEB 2.5 MG/0.5 ML INH 5 MG INHALATION ×3 (02:05→19:51)
[2022-02-06 05:22] LABS: Hematocrit 27.3 % (42.0-52.0); Hemoglobin 8.4 g/dL (14.0-18.0); Immature Granulocyte Absolute 0.09 K/mm3 (0.00-0.031); Immature Granulocyte Percent A 0.9 % (0-0.5); Lymphocytes Absolute Auto 0.73 K/mm3 (0.9-3.2); Mean Corpuscular HGB Conc 30.8 g/dl (32-36); Mean Corpuscular Volume 84.5 fl (80-100); Mean Platelet Volume 11.9 fl (7.4-10.4); Monocytes Absolute Auto 0.6 K/mm3 (0.1-0.6); Monocytes Percent Auto 5.3 % (2.6-8.5); Neutrophils Absolute Auto 9.1 K/mm3 (1.3-6.7); Neutrophils Percent Auto 86.8 % (45.5-73.1); Platelet Count Result 120 k/mm3 (150-375); Red Blood Count 3.23 M/mm3 (4.6-6.20); Red Cell Distribution Width 16.8 % (11.5-14.5); White Blood Count 10.5 K/mm3 (4.5-10.0)
[2022-02-06 05:41] LABS: Anion Gap 10 mmol/L (8-16); Blood Urea Nitrogen 41 mg/dL (9-20); Calcium 7.9 mg/dL (8.4-10.2); Carbon Dioxide 23 mmol/L (22-30); Chloride 106 mmol/L (98-107); Estimated CRCL calculation 32 ml/min; Estimated Glomerular Filt Rate 37; Glucose 152 mg/dL (65-110); Potassium 3.9 mmol/L (3.4-5.0); Sodium 139 mmol/L (137-145)
[2022-02-06] MEDS: SODIUM CHLORIDE 0.9% IV 1,000 ML 75 ML IV CONT (06:53)
--- NOTE | 2022-02-06 08:54 | PM.IMPN ---
Progress Note: A&P Assessment and Plan (1) Acute hypoxemic respiratory failure: Code(s): J96.01 - Acute respiratory failure with hypoxia Status: Acute Assessment and Plan: Desaturation noted in ED. Requiring 4LNC to maintain adequate saturation. HFpEF on echo from 11/06/2022 with grade I diastolic dysfunction. Hx of COPD but exam no c/w COPD exacerbation. -TTE -Continue ceftriaxone and azithromycin (2) Pneumonia: Qualifiers: Laterality: unspecified laterality Lung location: unspecified part of lung Pneumonia type: due to unspecified organism Qualified Code(s): J18.9 - Pneumonia, unspecified organism Code(s): J18.9 - Pneumonia, unspecified organism Status: Acute Assessment and Plan: Continue treatment with ceftriaxone and azithromycin. Wean oxygen as tolerated. (3) UTI (urinary tract infection) due to urinary indwelling Choudhury catheter: Qualifiers: Encounter type: initial encounter Indwelling urinary catheter type: indwelling urethral catheter Qualified Code(s): T83.511A - Infection and inflammatory reaction due to indwelling urethral catheter, initial encounter; N39.0 - Urinary tract infection, site not specified Code(s): T83.511A - Infection and inflammatory reaction due to indwelling urethral catheter, initial encounter; N39.0 - Urinary tract infection, site not specified Status: Acute Assessment and Plan: Continue ceftriaxone. (4) Acute kidney injury superimposed on chronic kidney disease: Code(s): N17.9 - Acute kidney failure, unspecified; N18.9 - Chronic kidney disease, unspecified Status: Acute Assessment and Plan: Patient's baseline creatinine in in 2019 was 1.5-1.6. Patient's creatinine today is 1.9. Improved. Subjective Date/time seen: Date of Service 02/06/22 08:54 Patient says he came to the ED because he had a fall out of his wheelchair. Says he does not feel short of breath while wearing the oxygen. Review of Systems Respiratory: Respiratory: Denies dyspnea Exam Narrative: GENERAL: NAD, cooperative HEENT: Normocephalic, atraumatic, anicteric NECK: Supple CV: Normal S1, S2, RRR, No MRG RESP: CTAB Abdomen: Soft, non-tender, non-distended, +BS EXTREMITIES: Warm and well perfused, no clubbing, cyanosis SKIN: warm, dry and intact. NEURO: CN 2-12 grossly intact. . Objective Data Vital Signs Vital Signs: Vital Signs - 24 hr 02/05/22 09:37 02/05/22 09:40 02/05/22 10:04 Temperature 99.1 F Pulse Rate 82 80 Respiratory Rate 16 Blood Pressure 122/66 Pulse Oximetry 78 L 93 96 02/05/22 10:32 02/05/22 10:45 02/05/22 12:01 Temperature Pulse Rate 76 75 72 Respiratory Rate 14 13 18 Blood Pressure 119/76 125/88 Pulse Oximetry 96 96 96 02/05/22 13:22 02/05/22 13:50 02/05/22 14:00 Temperature 97.7 F Pulse Rate 78 71 Respiratory Rate 18 18 Blood Pressure 125/78 115/50 L Pulse Oximetry 98 97 97 02/05/22 16:00 02/05/22 18:00 02/05/22 19:35 Temperature 98.2 F Pulse Rate 66 64 64 Respiratory Rate 22 H 16 Blood Pressure 117/42 L Pulse Oximetry 97 02/05/22 19:36 02/05/22 19:41 02/05/22 20:00 Temperature 96.9 F L Pulse Rate 65 76 Respiratory Rate 16 20 Blood Pressure 111/41 L Pulse Oximetry 96 98 02/05/22 22:00 02/05/22 23:32 02/06/22 00:00 Temperature 97.4 F L Pulse Rate 62 68 69 Respiratory Rate 20 18 Blood Pressure 121/48 L Pulse Oximetry 98 100 02/06/22 02:00 02/06/22 02:07 02/06/22 02:13 Temperature Pulse Rate 68 64 66 Respiratory Rate 16 16 Blood Pressure Pulse Oximetry 02/06/22 04:00 02/06/22 05:55 Temperature 97 F L Pulse Rate 64 68 Respiratory Rate 18 Blood Pressure 129/53 L Pulse Oximetry 100 Intake/Output Intake/Output: Intake & Output 02/03/22 02/04/22 02/05/22 02/06/22 23:59 23:59 23:59 23:59 Intake Total 540 1100 Output Total 350 400 Balance 190 700 Meds/Resu
[2022-02-06] MEDS: TAMSULOSIN HCL 0.4 MG CAPSULE PO (22:36)
[2022-02-06] MEDS: atenoloL 50 MG TABLET PO (22:36)
[2022-02-07] VITALS (24 sets, daily range): BP systolic 129–160; BP diastolic 56–70; PULSE 61–93; RESP 14–22; TEMP 36.1–37.3; O2SAT 95–99
--- NOTE | 2022-02-07 | ECHO_ITS ---
Patient Info Name: Jefferson Venegas Age: 76 years : 1945 Gender: Male Ht: 69 in Wt: 195 lbs BSA: 2.10 m2 HR: 63 bpm BP: 129 / 56 mmHg Technical Quality: Good Exam Date: 02/07/2022 10:40 AM Exam Location: [facility] Pulmonary Patient Status: Inpatient Admit Date: 02/05/2022 Staff Ordering Physician: Sheree Rizo MD Certified Ophthalmic Assistant: Sd Coulter RDCS, RT Attending Provider: Addi Patel MD Referring Physician: Sallie TURNER; Exam Type: CA echo doppler color flow Study Info Indications J96.90 - Respiratory failure, unspecified, unspecified whether with hypoxia or hypercapnia Complete two-dimensional, color flow and Doppler transthoracic echocardiogram is performed. Strain analysis performed. Summary 1. Complete two-dimensional, color flow and Doppler transthoracic echocardiogram is performed. 2. Left ventricular chamber dimension is normal. 3. Left ventricular systolic function is normal, estimated at 60-65%. 4. There is moderately increased left ventricular wall thickness. 5. The left ventricular diastolic function is grade I diastolic dysfunction. 6. E/e' 6 is not elevated. 7. Global longitudinal strain is mildly abnormal a t-16.6%. 8. Left atrial chamber dimension is moderately enlarged. 9. Right atrial chamber dimension is moderately enlarged. 10. There is mild to moderate aortic valve regurgitation. 11. The mitral valve has moderately calcified annulus. 12. There is moderate mitral valve regurgitation. 13. There is moderate tricuspid valve regurgitation. 14. Severe pulmonary hypertension, estimated pulmonary arterial systolic pressure is 71 mmHg. 15. There is trace pulmonic regurgitation. Left Ventricle E/e' 6 is not elevated. Global longitudinal strain is mildly abnormal a t-16.6%. Left ventricular chamber dimension is normal. Left ventricular systolic function is normal, estimated at 60-65%. There is moderately increased left ventricular wall thickness. The left ventricular diastolic function is grade I diastolic dysfunction. Right Ventricle Right ventricular systolic function is normal and with normal TAPSE 2.7 cm. Right ventricular chamber dimension is normal. Left Atria Left atrial chamber dimension is moderately enlarged. Right Atria Right atrial chamber dimension is moderately enlarged. Aortic Valve The aortic valve is trileaflet. There is no aortic valve stenosis. There is mild to moderate aortic valve regurgitation. Pulmonic Valve There is trace pulmonic regurgitation. Mitral Valve The mitral valve has moderately calcified annulus. There is no mitral valve stenosis. There is moderate mitral valve regurgitation. Tricuspid Valve There is moderate tricuspid valve regurgitation. Severe pulmonary hypertension, estimated pulmonary arterial systolic pressure is 71 mmHg. Pericardium/Pleural There is no pericardial effusion. Inferior Vena Cava Normal inferior vena cava with >50% collapse upon inspiration consistent with normal right atrial pressure, 5 mmHg. Aorta The aortic root size at the sinus of Valsalva is normal. Left Ventricular Outflow Tract Name Value Normal LVOT Doppler LVOT Peak Gradient 2 mmHg LVOT Mean Gradient
[2022-02-07] MEDS: SODIUM CHLORIDE 0.9% IV 1,000 ML 75 ML IV CONT ×2 (04:25→18:26)
[2022-02-07] MEDS: SODIUM CHLOR 3% 15 ML NEB (RESPIRATORY THERAPY) 6 ML INHALATION (05:10)
[2022-02-07 05:15] LABS: Hematocrit 27.9 % (42.0-52.0); Hemoglobin 8.4 g/dL (14.0-18.0); Immature Granulocyte Percent A 0.9 % (0-0.5); Immature Platelet Fraction Pct 7.5 % (0.9-11.2); Lymphocytes Absolute Auto 1.24 K/mm3 (0.9-3.2); Lymphocytes Percent Auto 11.2 % (18.3-44.2); Mean Corpuscular HGB Conc 30.1 g/dl (32-36); Mean Corpuscular Hemoglobin 25.8 pg (26-34); Mean Corpuscular Volume 85.6 fl (80-100); Mean Platelet Volume 12.1 fl (7.4-10.4); Monocytes Absolute Auto 0.8 K/mm3 (0.1-0.6); Monocytes Percent Auto 7.1 % (2.6-8.5); Neutrophils Percent Auto 80.8 % (45.5-73.1); Platelet Count Result 137 k/mm3 (150-375); Red Blood Count 3.26 M/mm3 (4.6-6.20); Red Cell Distribution Width 16.9 % (11.5-14.5); White Blood Count 11.1 K/mm3 (4.5-10.0)
[2022-02-07 05:38] LABS: Anion Gap 8 mmol/L (8-16); Blood Urea Nitrogen 41 mg/dL (9-20); Calcium 7.9 mg/dL (8.4-10.2); Carbon Dioxide 25 mmol/L (22-30); Chloride 107 mmol/L (98-107); Estimated CRCL calculation 41 ml/min; Estimated Glomerular Filt Rate 49; Glucose 113 mg/dL (65-110); Potassium 3.8 mmol/L (3.4-5.0); Sodium 140 mmol/L (137-145)
[2022-02-07] MEDS: LOPERAMIDE HCL 2 MG CAPSULE PO ×4 (09:34→20:52)
[2022-02-07] MEDS: SERTRALINE HCL 50 MG TABLET PO (09:42)
[2022-02-07] MEDS: PANTOPRAZOLE 40 MG TABLET PO (09:42)
[2022-02-07] MEDS: OPTI-GEN TAB 1 TABLET PO (09:42)
[2022-02-07] MEDS: NIFEdipine 30 MG TAB.ER.24 PO (09:42)
[2022-02-07] MEDS: atenoloL 50 MG TABLET PO (09:42)
[2022-02-07] MEDS: MIRABEGRON 25 MG ER TABLET PO (09:42)
[2022-02-07] MEDS: FINASTERIDE 5 MG TABLET PO (09:43)
[2022-02-07] MEDS: GABAPENTIN 300 MG CAPSULE PO ×2 (09:43→16:54)
[2022-02-07] MEDS: ASCORBIC ACID 500 MG TABLET PO (09:43)
[2022-02-07] MEDS: COLESTIPOL HCL 1 GM TABLET PO ×3 (09:43→16:55)
[2022-02-07] MEDS: CHOLECALCIFEROL 1,000 UNITS TABLET 3000 UNITS PO (09:44)
[2022-02-07] MEDS: LIPASE/AMYLASE/PROTEASE 12,000 UNITS CAP 6 CAP PO ×3 (09:46→16:54)
[2022-02-07] MEDS: OLOPATADINE 0.1% OPHTH SOLN 5 ML BTL 1 DROP EACH EYE (09:46)
[2022-02-07] MEDS: POTASSIUM CHLORIDE 20 MEQ TABLET.ER PO ×2 (09:47→16:53)
[2022-02-07] MEDS: oxyCODONE HCL (*CRX) 5 MG TAB IR PO ×3 (09:54→23:31)
--- NOTE | 2022-02-07 13:05 | PM.IMPN ---
Progress Note: A&P Assessment and Plan (1) Acute hypoxemic respiratory failure: Code(s): J96.01 - Acute respiratory failure with hypoxia Status: Acute Assessment and Plan: Down to 3LNC today. Afebrile. TTE EF 60-65% w/ grade I diastolic dysfunction, moderately increase LV wall thickness, biatrial enlargement and severe pulmonary hypertension. Leukocytosis slightly increased this morning. -Added vancomycin and sent MRSA swab -Wean oxygen as tolerated -Continue ceftriaxone and azithromycin (2) Pneumonia: Qualifiers: Laterality: unspecified laterality Lung location: unspecified part of lung Pneumonia type: due to unspecified organism Qualified Code(s): J18.9 - Pneumonia, unspecified organism Code(s): J18.9 - Pneumonia, unspecified organism Status: Acute Assessment and Plan: Oxygen down to 3LNC. Added vancomycin this morning for increased WBCs. Sent MRSA swwab. -Continue vancomycin, azithromycin and ceftriaxone (3) UTI (urinary tract infection) due to urinary indwelling Choudhury catheter: Qualifiers: Encounter type: initial encounter Indwelling urinary catheter type: indwelling urethral catheter Qualified Code(s): T83.511A - Infection and inflammatory reaction due to indwelling urethral catheter, initial encounter; N39.0 - Urinary tract infection, site not specified Code(s): T83.511A - Infection and inflammatory reaction due to indwelling urethral catheter, initial encounter; N39.0 - Urinary tract infection, site not specified Status: Acute Assessment and Plan: Urine culture with no bacteria. (4) Acute kidney injury superimposed on chronic kidney disease: Code(s): N17.9 - Acute kidney failure, unspecified; N18.9 - Chronic kidney disease, unspecified Status: Acute Assessment and Plan: Patient's baseline creatinine in in 2019 was 1.5-1.6. Creatinine 1.4 today. JANA resolved. Subjective Date/time seen: Date of Service 02/07/22 13:05 Patient says he is having diarrhea and would like some Imodium to help. He says his breathing feel better. Denies using oxygen at home. Review of Systems Respiratory: Respiratory: Reports dyspnea Exam Narrative: GENERAL: NAD, cooperative HEENT: Normocephalic, atraumatic, anicteric NECK: Supple CV: Normal S1, S2, RRR, No MRG RESP: Poor air movement. No crackles, rhonchi or wheezes. Wearing nasal cannula EXTREMITIES: Warm and well perfused, no clubbing, cyanosis SKIN: warm, dry and intact. NEURO: CN 2-12 grossly intact. Residual weakness from previous stroke. Objective Data Vital Signs Vital Signs: Vital Signs - 24 hr 02/06/22 14:00 02/06/22 14:36 02/06/22 15:20 Temperature Pulse Rate 74 70 Respiratory Rate 16 Blood Pressure Pulse Oximetry 96 02/06/22 16:00 02/06/22 18:00 02/06/22 19:50 Temperature 97.6 F Pulse Rate 70 74 75 Respiratory Rate 14 17 Blood Pressure 123/56 L Pulse Oximetry 99 02/06/22 19:53 02/06/22 19:55 02/06/22 19:59 Temperature 98.6 F Pulse Rate 92 78 Respiratory Rate 18 16 Blood Pressure 124/58 L Pulse Oximetry 95 98 02/06/22 20:00 02/06/22 21:21 02/06/22 22:36 Temperature Pulse Rate 75 72 72 Respiratory Rate 16 Blood Pressure Pulse Oximetry 98 02/07/22 00:00 02/07/22 01:56 02/07/22 04:00 Temperature 98.5 F 97 F L Pulse Rate 67 62 64 Respiratory Rate 16 15 Blood Pressure 133/57 L 129/56 L Pulse Oximetry 99 99 02/07/22 05:05 02/07/22 05:15 02/07/22 06:00 Temperature Pulse Rate 79 78 74 Respiratory Rate 14 16 Blood Pressure Pulse Oximetry 02/07/22 08:52 02/07/22 09:22 02/07/22 09:42 Temperature 97.5 F L Pulse Rate 66 65 Respiratory Rate 21 H Blood Pressure 160/68 H Pulse Oximetry 95 99 02/07/22 12:52 Temperature 97.4 F L Pulse Rate 61 Respiratory Rate 22 H Blood Pressure 150/70 H Pulse Oximetry 99 Intake/Output Intake/Output: In
[2022-02-07] MEDS: ALBUTEROL SULFATE NEB 2.5 MG/0.5 ML INH 5 MG INHALATION ×3 (13:08→21:00)
[2022-02-07] MEDS: IPRATROPIUM BR 0.02% INH SOLN 0.5 MG/2.5 ML VIAL INHALATION (13:08)
--- NOTE | 2022-02-07 18:53 | PC.NURSE ---
Pt transferred to room 306-1 from U. Resting per bed without complaint. Orientated to room and unit. verbalized understanding. Call light within reach.
--- NOTE | 2022-02-07 18:58 | PC.NURSE ---
This patient, Jefferson Venegas, was transferred to [ [facility]] on 02/07/22 at 1844. Personal belongings sent with patient. Report given to [Yissel ]. Appropriate documentation sent with patient.
[2022-02-07] MEDS: TAMSULOSIN HCL 0.4 MG CAPSULE PO (20:53)
[2022-02-08] VITALS (11 sets, daily range): BP systolic 127–134; BP diastolic 53–70; PULSE 62–82; RESP 14–18; TEMP 35.6–37; O2SAT 93–99
[2022-02-08 06:02] LABS: Basophils Percent Auto 0.3 % (0.2-1.2); Eosinophils Absolute Auto 0.1 K/mm3 (0-0.3); Eosinophils Percent Auto 1.6 % (0-4.4); Hematocrit 28.1 % (42.0-52.0); Hemoglobin 8.7 g/dL (14.0-18.0); Immature Granulocyte Absolute 0.17 K/mm3 (0.00-0.031); Immature Granulocyte Percent A 2.1 % (0-0.5); Immature Platelet Fraction Pct 6.4 % (0.9-11.2); Lymphocytes Absolute Auto 1.84 K/mm3 (0.9-3.2); Lymphocytes Percent Auto 23.1 % (18.3-44.2); Mean Corpuscular Hemoglobin 25.6 pg (26-34); Mean Corpuscular Volume 82.6 fl (80-100); Mean Platelet Volume 11.5 fl (7.4-10.4); Monocytes Absolute Auto 0.9 K/mm3 (0.1-0.6); Monocytes Percent Auto 11.7 % (2.6-8.5); Neutrophils Absolute Auto 4.9 K/mm3 (1.3-6.7); Neutrophils Percent Auto 61.2 % (45.5-73.1); Platelet Count Result 125 k/mm3 (150-375); Red Cell Distribution Width 16.9 % (11.5-14.5)
[2022-02-08 06:15] LABS: Anion Gap 9 mmol/L (8-16); Blood Urea Nitrogen 35 mg/dL (9-20); Calcium 8.2 mg/dL (8.4-10.2); Carbon Dioxide 22 mmol/L (22-30); Chloride 105 mmol/L (98-107); Estimated CRCL calculation 38 ml/min; Estimated Glomerular Filt Rate 46; Glucose 91 mg/dL (65-110); Potassium 3.7 mmol/L (3.4-5.0); Sodium 136 mmol/L (137-145)
--- NOTE | 2022-02-08 08:00 | PM.IMPN ---
Progress Note: A&P Assessment and Plan (1) Acute hypoxemic respiratory failure: Code(s): J96.01 - Acute respiratory failure with hypoxia Status: Acute Assessment and Plan: TTE EF 60-65% w/ grade I diastolic dysfunction, moderately increase LV wall thickness, biatrial enlargement and severe pulmonary hypertension. Leukocytosis resolved and remains afebrile. Up to 4LNC but oxygen saturation is high 90s and can be weaned. Appears clinically improved. -Continue ceftriaxone, vancomycin and azithromycin -Wean oxygen as tolerated -MRSA results pending (2) Pneumonia: Qualifiers: Laterality: unspecified laterality Lung location: unspecified part of lung Pneumonia type: due to unspecified organism Qualified Code(s): J18.9 - Pneumonia, unspecified organism Code(s): J18.9 - Pneumonia, unspecified organism Status: Acute Assessment and Plan: Oxygen down to 3LNC. Sent MRSA swab. Leukocytosis resolved after adding vanocomycin -Continue vancomycin, azithromycin and ceftriaxone -Goal is to wean oxygen off and discharge back to facility (3) UTI (urinary tract infection) due to urinary indwelling Choudhury catheter: Qualifiers: Encounter type: initial encounter Indwelling urinary catheter type: indwelling urethral catheter Qualified Code(s): T83.511A - Infection and inflammatory reaction due to indwelling urethral catheter, initial encounter; N39.0 - Urinary tract infection, site not specified Code(s): T83.511A - Infection and inflammatory reaction due to indwelling urethral catheter, initial encounter; N39.0 - Urinary tract infection, site not specified Status: Acute Assessment and Plan: Urine culture with no bacteria. (4) Acute kidney injury superimposed on chronic kidney disease: Code(s): N17.9 - Acute kidney failure, unspecified; N18.9 - Chronic kidney disease, unspecified Status: Acute Assessment and Plan: Patient's baseline creatinine in in 2019 was 1.5-1.6. JANA resolved. Subjective Date/time seen: Date of Service 02/08/22 08:00 Patient denies having shortness of breath or difficulty breathing. Denies fevers, chills. Has a cough. Review of Systems Constitutional: Constitutional: Denies chills Respiratory: Respiratory: Denies dyspnea Exam Narrative: GENERAL: NAD, cooperative HEENT: Normocephalic, atraumatic, anicteric NECK: Supple CV: Normal S1, S2, RRR, No MRG RESP: Poor air movement. No crackles, rhonchi or wheezes. Wearing nasal cannula EXTREMITIES: Warm and well perfused, no clubbing, cyanosis SKIN: warm, dry and intact. NEURO: CN 2-12 grossly intact. Residual weakness from previous stroke. Objective Data Vital Signs Vital Signs: Vital Signs - 24 hr 02/07/22 08:52 02/07/22 09:22 02/07/22 09:42 Temperature 97.5 F L Pulse Rate 66 65 Respiratory Rate 21 H Blood Pressure 160/68 H Pulse Oximetry 95 99 02/07/22 10:00 02/07/22 12:00 02/07/22 12:52 Temperature 97.4 F L Pulse Rate 64 61 61 Respiratory Rate 22 H Blood Pressure 150/70 H Pulse Oximetry 99 99 02/07/22 13:08 02/07/22 13:18 02/07/22 14:00 Temperature Pulse Rate 76 68 64 Respiratory Rate 16 16 Blood Pressure Pulse Oximetry 02/07/22 16:00 02/07/22 16:29 02/07/22 18:00 Temperature 97.6 F Pulse Rate 68 63 65 Respiratory Rate 20 Blood Pressure 144/68 H Pulse Oximetry 99 99 02/07/22 20:00 02/07/22 21:00 02/07/22 21:02 Temperature 99.2 F Pulse Rate 73 64 Respiratory Rate 16 18 Blood Pressure 138/70 Pulse Oximetry 99 99 02/07/22 21:10 02/07/22 21:28 02/08/22 05:31 Temperature 98.6 F Pulse Rate 75 62 Respiratory Rate 16 18 Blood Pressure 130/70 Pulse Oximetry 95 98 Intake/Output Intake/Output: Intake & Output 02/05/22 02/06/22 02/07/22 02/08/22 23:59 23:59 23:59 23:59 Intake Total 540 7080 3370 250 Output Total 350 1275 2025 1300 Balance 190 1195 1
[2022-02-08] MEDS: ALBUTEROL SULFATE NEB 2.5 MG/0.5 ML INH 5 MG INHALATION ×2 (08:06→20:09)
[2022-02-08] MEDS: IPRATROPIUM BR 0.02% INH SOLN 0.5 MG/2.5 ML VIAL INHALATION ×2 (08:06→20:09)
[2022-02-08] MEDS: LOPERAMIDE HCL 2 MG CAPSULE PO (08:37)
[2022-02-08] MEDS: oxyCODONE HCL (*CRX) 5 MG TAB IR PO (08:37)
[2022-02-08] MEDS: LIPASE/AMYLASE/PROTEASE 12,000 UNITS CAP 6 CAP PO ×3 (08:38→17:26)
[2022-02-08] MEDS: FLUTICASONE PROPIONATE 0.05% NA SPR 16 GM BTL (*BKC) 1 SPRAY NASAL (08:38)
[2022-02-08] MEDS: SERTRALINE HCL 50 MG TABLET PO (08:39)
[2022-02-08] MEDS: NIFEdipine 30 MG TAB.ER.24 PO (08:39)
[2022-02-08] MEDS: OPTI-GEN TAB 1 TABLET PO (08:39)
[2022-02-08] MEDS: CHOLECALCIFEROL 1,000 UNITS TABLET 3000 UNITS PO (08:39)
[2022-02-08] MEDS: POTASSIUM CHLORIDE 20 MEQ TABLET.ER PO ×2 (08:39→17:27)
[2022-02-08] MEDS: ASCORBIC ACID 500 MG TABLET PO (08:39)
[2022-02-08] MEDS: GABAPENTIN 300 MG CAPSULE PO ×2 (08:39→17:27)
[2022-02-08] MEDS: PANTOPRAZOLE 40 MG TABLET PO (08:39)
[2022-02-08] MEDS: MIRABEGRON 25 MG ER TABLET PO (08:40)
[2022-02-08] MEDS: COLESTIPOL HCL 1 GM TABLET PO ×3 (08:40→17:27)
[2022-02-08] MEDS: FINASTERIDE 5 MG TABLET PO (08:40)
[2022-02-08] MEDS: atenoloL 50 MG TABLET PO (08:40)
[2022-02-08] MEDS: OLOPATADINE 0.1% OPHTH SOLN 5 ML BTL 1 DROP EACH EYE (08:41)
--- NOTE | 2022-02-08 11:23 | PCOTNOTE ---
Attempted to see pt. for occupational therapy evaluation. Pt. refused to participate d/t diarrhea.
[2022-02-08] MEDS: SODIUM CHLORIDE 0.9% IV 1,000 ML 75 ML IV CONT (12:07)
--- NOTE | 2022-02-08 14:51 | PCPTNOTE ---
Patient refused treatment this session due to loose stool. Patient not wanting to participate at this time.
[2022-02-08] MEDS: TAMSULOSIN HCL 0.4 MG CAPSULE PO (21:29)
[2022-02-09] VITALS (17 sets, daily range): BP systolic 128–171; BP diastolic 67–77; PULSE 62–77; RESP 14–20; TEMP 36.1–37.2; O2SAT 91–97
[2022-02-09] MEDS: ALBUTEROL SULFATE NEB 2.5 MG/0.5 ML INH 5 MG INHALATION ×4 (02:24→20:15)
[2022-02-09] MEDS: IPRATROPIUM BR 0.02% INH SOLN 0.5 MG/2.5 ML VIAL INHALATION ×4 (02:24→20:15)
[2022-02-09 04:43] LABS: Pneumococcal Antigen Urine Not Detected (Not Detected)
[2022-02-09] MEDS: SODIUM CHLORIDE 0.9% IV 1,000 ML 75 ML IV CONT (05:10)
--- NOTE | 2022-02-09 05:24 | PCRCNOTE ---
Pt is refusing sputum induction. RT asked multiple times to do the 3% saline nebulizer to allow him to cough mucus up, and the pt refused multiple times. Pt's RN and chargeback specialist made aware.
[2022-02-09 06:06] LABS: Basophils Percent Auto 0.3 % (0.2-1.2); Eosinophils Absolute Auto 0.1 K/mm3 (0-0.3); Eosinophils Percent Auto 2.1 % (0-4.4); Hematocrit 30.7 % (42.0-52.0); Hemoglobin 9.6 g/dL (14.0-18.0); Immature Granulocyte Absolute 0.26 K/mm3 (0.00-0.031); Immature Platelet Fraction Pct 6.3 % (0.9-11.2); Lymphocytes Absolute Auto 1.48 K/mm3 (0.9-3.2); Lymphocytes Percent Auto 22.5 % (18.3-44.2); Mean Corpuscular HGB Conc 31.3 g/dl (32-36); Mean Corpuscular Hemoglobin 25.7 pg (26-34); Mean Corpuscular Volume 82.3 fl (80-100); Mean Platelet Volume 11.3 fl (7.4-10.4); Monocytes Absolute Auto 0.7 K/mm3 (0.1-0.6); Monocytes Percent Auto 11.1 % (2.6-8.5); Platelet Count Result 136 k/mm3 (150-375); Red Blood Count 3.73 M/mm3 (4.6-6.20); Red Cell Distribution Width 16.6 % (11.5-14.5); White Blood Count 6.6 K/mm3 (4.5-10.0)
[2022-02-09 06:12] LABS: Anion Gap 8 mmol/L (8-16); Blood Urea Nitrogen 29 mg/dL (9-20); Calcium 8.5 mg/dL (8.4-10.2); Carbon Dioxide 25 mmol/L (22-30); Chloride 105 mmol/L (98-107); Estimated CRCL calculation 44 ml/min; Estimated Glomerular Filt Rate 54; Glucose 101 mg/dL (65-110); Potassium 3.7 mmol/L (3.4-5.0); Sodium 138 mmol/L (137-145)
[2022-02-09] MEDS: COLESTIPOL HCL 1 GM TABLET PO ×3 (08:30→17:34)
[2022-02-09] MEDS: GABAPENTIN 300 MG CAPSULE PO ×2 (08:30→17:34)
[2022-02-09] MEDS: LIPASE/AMYLASE/PROTEASE 12,000 UNITS CAP 6 CAP PO ×3 (08:30→17:34)
[2022-02-09] MEDS: OPTI-GEN TAB 1 TABLET PO (08:30)
[2022-02-09] MEDS: NIFEdipine 30 MG TAB.ER.24 PO (08:31)
[2022-02-09] MEDS: FINASTERIDE 5 MG TABLET PO (08:31)
[2022-02-09] MEDS: POTASSIUM CHLORIDE 20 MEQ TABLET.ER PO ×2 (08:31→17:35)
[2022-02-09] MEDS: CHOLECALCIFEROL 1,000 UNITS TABLET 3000 UNITS PO (08:31)
[2022-02-09] MEDS: MIRABEGRON 25 MG ER TABLET PO (08:31)
[2022-02-09] MEDS: OLOPATADINE 0.1% OPHTH SOLN 5 ML BTL 1 DROP EACH EYE (08:31)
[2022-02-09] MEDS: atenoloL 50 MG TABLET PO (08:31)
[2022-02-09] MEDS: FLUTICASONE PROPIONATE 0.05% NA SPR 16 GM BTL (*BKC) 1 SPRAY NASAL (08:32)
[2022-02-09] MEDS: PANTOPRAZOLE 40 MG TABLET PO (08:32)
[2022-02-09] MEDS: ASCORBIC ACID 500 MG TABLET PO (08:32)
[2022-02-09] MEDS: SERTRALINE HCL 50 MG TABLET PO (08:32)
--- NOTE | 2022-02-09 09:45 | PCOTNOTE ---
Attempted to see patient for OT evaluation. Patient adamantly declined any/all activity due to having diarrhea. Will continue to attempt.
--- NOTE | 2022-02-09 10:49 | PM.IMPN ---
Progress Note: A&P Assessment and Plan (1) Acute hypoxemic respiratory failure: Code(s): J96.01 - Acute respiratory failure with hypoxia Status: Acute Assessment and Plan: TTE EF 60-65% w/ grade I diastolic dysfunction, moderately increase LV wall thickness, biatrial enlargement and severe pulmonary hypertension. Leukocytosis resolved and remains afebrile. Up to 4LNC but oxygen saturation is high 90s and can be weaned. Appears clinically improved. -Continue ceftriaxone, vancomycin and azithromycin -Weaned to room air and maintaining saturations. -MRSA results pending (2) Pneumonia: Qualifiers: Laterality: unspecified laterality Lung location: unspecified part of lung Pneumonia type: due to unspecified organism Qualified Code(s): J18.9 - Pneumonia, unspecified organism Code(s): J18.9 - Pneumonia, unspecified organism Status: Acute Assessment and Plan: Oxygen down to 3LNC. Sent MRSA swab. Leukocytosis resolved after adding vanocomycin -Continue vancomycin, azithromycin and ceftriaxone until MRSA swab returns. -Goal is to wean oxygen off and discharge back to facility (3) UTI (urinary tract infection) due to urinary indwelling Choudhury catheter: Qualifiers: Encounter type: initial encounter Indwelling urinary catheter type: indwelling urethral catheter Qualified Code(s): T83.511A - Infection and inflammatory reaction due to indwelling urethral catheter, initial encounter; N39.0 - Urinary tract infection, site not specified Code(s): T83.511A - Infection and inflammatory reaction due to indwelling urethral catheter, initial encounter; N39.0 - Urinary tract infection, site not specified Status: Acute Assessment and Plan: - Urine culture with no bacteria. - Currently covered with Rocephin (4) Acute kidney injury superimposed on chronic kidney disease: Code(s): N17.9 - Acute kidney failure, unspecified; N18.9 - Chronic kidney disease, unspecified Status: Resolved Assessment and Plan: Patient's baseline creatinine in in 2019 was 1.5-1.6. JANA resolved. Time Spent With Patient Time with patient: 15 - 25 minutes Subjective Date/time seen: 02/09/22 0840 This pt. was examined at the bedside in interval assessment this morning. He reports that he is starting to feel better and he has no acute distress. He currently remains on Vancomycin, Azithromycin and Rocephin pending MRSA culture. Unable to discharge until that test results in order to narrow the abx spectrum. He has no complaints today such as Dyspnea, cough or any CP. He has been weaned from his oxygen to room air and is maintaining his saturations for now. Review of Systems Review of Systems: All systems reviewed & are unremarkable except as noted in HPI and below Exam Narrative: GENERAL: NAD, cooperative HEENT: Normocephalic, atraumatic, anicteric NECK: Supple CV: Normal S1, S2, RRR, No MRG RESP: Decreased throughout all lobes, but now on room air. EXTREMITIES: Warm and well perfused, no clubbing, cyanosis SKIN: warm, dry and intact. NEURO: CN 2-12 grossly intact. Residual weakness from previous stroke. Objective Data Vital Signs Vital Signs: Vital Signs - 24 hr 02/08/22 14:00 02/08/22 20:00 02/08/22 20:11 Temperature 96.0 F L Pulse Rate 65 64 Respiratory Rate 16 18 Blood Pressure 127/53 L Pulse Oximetry 99 99 02/08/22 20:21 02/08/22 22:00 02/09/22 02:00 Temperature 97.2 F L 96.9 F L Pulse Rate 67 67 73 Respiratory Rate 18 14 16 Blood Pressure 134/66 165/77 H Pulse Oximetry 95 94 02/09/22 02:40 02/09/22 02:50 02/09/22 06:00 Temperature 96.9 F L Pulse Rate 73 75 76 Respiratory Rate 18 18 16 Blood Pressure 171/74 H Pulse Oximetry 94 02/09/22 08:00 02/09/22 08:31 02/09/22 09:01 Temperature 97 F L Pulse Rate 77 72 73 Respiratory Rate 18 18 Blood Pressure 168/74 H Pulse Oximetry 94 02/09/22 09:04 02/09
--- NOTE | 2022-02-09 14:21 | PCOTNOTE ---
Second attempt to see patient for OT evaluation. Patient adamantly declined any/all activity due to having diarrhea. Will continue to attempt.
[2022-02-09 14:57] LABS: Vancomycin Trough 19.7 ug/mL (10.0-20.0)
[2022-02-09] MEDS: TAMSULOSIN HCL 0.4 MG CAPSULE PO (19:45)
[2022-02-09] MEDS: oxyCODONE HCL (*CRX) 5 MG TAB IR PO (19:45)
[2022-02-09 23:49] LABS: Legionella pneumophila Ag Ur Not Detected (Not Detected)
[2022-02-10] VITALS: BP 145/74; PULSE 73; RESP 16; TEMP 36.9; O2SAT 91
[2022-02-10] MEDS: SODIUM CHLORIDE 0.9% IV 1,000 ML 75 ML IV CONT (00:49)
[2022-02-10 04:00] VITALS: BP 158/81; PULSE 75; RESP 16; TEMP 36.7; O2SAT 92
[2022-02-10 06:40] LABS: Basophils Percent Auto 0.4 % (0.2-1.2); Eosinophils Absolute Auto 0.1 K/mm3 (0-0.3); Eosinophils Percent Auto 1.9 % (0-4.4); Hematocrit 30.2 % (42.0-52.0); Hemoglobin 9.6 g/dL (14.0-18.0); Immature Granulocyte Absolute 0.36 K/mm3 (0.00-0.031); Immature Granulocyte Percent A 5.4 % (0-0.5); Lymphocytes Absolute Auto 1.56 K/mm3 (0.9-3.2); Lymphocytes Percent Auto 23.3 % (18.3-44.2); Mean Corpuscular HGB Conc 31.8 g/dl (32-36); Mean Corpuscular Hemoglobin 25.7 pg (26-34); Mean Corpuscular Volume 80.7 fl (80-100); Mean Platelet Volume 12.2 fl (7.4-10.4); Monocytes Absolute Auto 0.8 K/mm3 (0.1-0.6); Monocytes Percent Auto 12.1 % (2.6-8.5); Neutrophils Absolute Auto 3.8 K/mm3 (1.3-6.7); Neutrophils Percent Auto 56.9 % (45.5-73.1); Platelet Count Result 140 k/mm3 (150-375); Red Blood Count 3.74 M/mm3 (4.6-6.20); Red Cell Distribution Width 16.7 % (11.5-14.5); White Blood Count 6.7 K/mm3 (4.5-10.0)
[2022-02-10 06:47] LABS: Alanine Aminotransferase 23 U/L (4-50); Albumin Level 3.6 g/dL (3.5-5.1); Alkaline Phosphatase 72 U/L (38-126); Anion Gap 9 mmol/L (8-16); Aspartate Amino Transferase 20 U/L (17-59); Bilirubin,Total 0.3 mg/dL (0.2-1.3); Blood Urea Nitrogen 23 mg/dL (9-20); Calcium 8.4 mg/dL (8.4-10.2); Carbon Dioxide 23 mmol/L (22-30); Chloride 105 mmol/L (98-107); Estimated CRCL calculation 41 ml/min; Estimated Glomerular Filt Rate 49; Glucose 96 mg/dL (65-110); Magnesium 1.7 mg/dL (1.6-2.3); Potassium 3.6 mmol/L (3.4-5.0); Sodium 137 mmol/L (137-145)
[2022-02-10 08:00] VITALS: BP 168/80; PULSE 72; PULSE 78; RESP 18; TEMP 36.3; O2SAT 100; O2SAT 93
--- NOTE | 2022-02-10 08:00 | PM.DS ---
DS: Admitting Diagnosis Discharge Date 02/10/2022 Admitting Diagnosis 1) Pneumonia 2) UTI 3) JANA DS: Discharge Diagnosis Discharge Diagnosis (1) Acute hypoxemic respiratory failure: Code(s): J96.01 - Acute respiratory failure with hypoxia Status: Acute Assessment and Plan: TTE EF 60-65% w/ grade I diastolic dysfunction, moderately increase LV wall thickness, biatrial enlargement and severe pulmonary hypertension. Leukocytosis resolved and remains afebrile. Up to 4LNC but oxygen saturation is high 90s and can be weaned. Appears clinically improved. -Continue ceftriaxone, vancomycin and azithromycin -Weaned to room air and maintaining saturations. -MRSA results pending - At day of discharge, the pt. remains on room air and he has negative urine for strep and legionella. He does have a positive MRSA swab. He will be discharged to [facility] on Linezolid 600 mg po BID for 10 days. He should follow up with a PCP in one week. (2) Pneumonia: Qualifiers: Laterality: unspecified laterality Lung location: unspecified part of lung Pneumonia type: due to unspecified organism Qualified Code(s): J18.9 - Pneumonia, unspecified organism Code(s): J18.9 - Pneumonia, unspecified organism Status: Acute Assessment and Plan: Oxygen down to 3LNC. Sent MRSA swab. Leukocytosis resolved after adding vanocomycin -Continue vancomycin, azithromycin and ceftriaxone until MRSA swab returns. -Goal is to wean oxygen off and discharge back to facility - At day of discharge, the pt. remains on room air and he has negative urine for strep and legionella. He does have a positive MRSA swab. He will be discharged to [facility] on Linezolid 600 mg po BID for 10 days. He should follow up with a PCP in one week. (3) UTI (urinary tract infection) due to urinary indwelling Weeks catheter: Qualifiers: Encounter type: initial encounter Indwelling urinary catheter type: indwelling urethral catheter Qualified Code(s): T83.511A - Infection and inflammatory reaction due to indwelling urethral catheter, initial encounter; N39.0 - Urinary tract infection, site not specified Code(s): T83.511A - Infection and inflammatory reaction due to indwelling urethral catheter, initial encounter; N39.0 - Urinary tract infection, site not specified Status: Acute Assessment and Plan: - Urine culture with no bacteria. - Currently covered with Rocephin - As of day of discharge, the pt's urine culture did not grow any organisms showing acute infection. He has been treated with Rocephin however. (4) Acute kidney injury superimposed on chronic kidney disease: Code(s): N17.9 - Acute kidney failure, unspecified; N18.9 - Chronic kidney disease, unspecified Status: Resolved Assessment and Plan: Patient's baseline creatinine in in 2019 was 1.5-1.6. JANA resolved. - As of day of discharge, this remains resolved with creatinine at 1.4, which was improved over his baseline of 1.5-1.6. DS: Summary Hospital Course Reason for hospitalization: Ground level fall and Hypoxia secondary to Pneumonia Hospital Course: This very pleasant 76 year old male patient with significant PMH of anemia, BPH, Chronic indwelling weeks, CKD, COVID-19, CVA, HTN, GERD, Hemiplegia, IBS, OA, Pressure ulcer, allergies and spondylosis, presented to the ER on 02/05/2022 after [facility] which it is believed that his residual left sided weakness from his CVA may have contributed to. He does not wear home oxygen and was found to have saturations in the 70s on room air there, prompting them to send him to the ER. In ER he was worked up and found to have a PNA with Leukocytosis. He was started on Rocephin and Azithromycin and then later Vancomycin was added pending results of MRSA. In addition he was started on IV Steroids and nebulizer treatments. Overall, the pt. has improved and he has no further c
[2022-02-10 08:01] LABS: Anisocytosis 1+ (NORMAL); Ovalocytes 1+ (NORMAL); Platelet Estimate Adequate (Adequate)
[2022-02-10 08:11] VITALS: O2SAT 93
[2022-02-10] MEDS: ALBUTEROL SULFATE NEB 2.5 MG/0.5 ML INH 5 MG INHALATION (08:12)
[2022-02-10] MEDS: IPRATROPIUM BR 0.02% INH SOLN 0.5 MG/2.5 ML VIAL INHALATION (08:12)
--- NOTE | 2022-02-10 08:12 | PCOTNOTE ---
Attempt to see patient for OT evaluation. Patient adamantly declined any/all activity due to having diarrhea. He states he is discharging today and is not interested in getting out of bed.
[2022-02-10 09:12] VITALS: PULSE 72
[2022-02-10] MEDS: LIPASE/AMYLASE/PROTEASE 12,000 UNITS CAP 6 CAP PO (09:12)
[2022-02-10] MEDS: atenoloL 50 MG TABLET PO (09:12)
[2022-02-10] MEDS: OPTI-GEN TAB 1 TABLET PO (09:13)
[2022-02-10] MEDS: MIRABEGRON 25 MG ER TABLET PO (09:13)
[2022-02-10] MEDS: NIFEdipine 30 MG TAB.ER.24 PO (09:13)
[2022-02-10] MEDS: PANTOPRAZOLE 40 MG TABLET PO (09:13)
[2022-02-10] MEDS: COLESTIPOL HCL 1 GM TABLET PO (09:13)
[2022-02-10] MEDS: POTASSIUM CHLORIDE 20 MEQ TABLET.ER PO (09:14)
[2022-02-10] MEDS: GABAPENTIN 300 MG CAPSULE PO (09:14)
[2022-02-10] MEDS: FLUTICASONE PROPIONATE 0.05% NA SPR 16 GM BTL (*BKC) 1 SPRAY NASAL (09:14)
[2022-02-10] MEDS: CHOLECALCIFEROL 1,000 UNITS TABLET 3000 UNITS PO (09:14)
[2022-02-10] MEDS: SERTRALINE HCL 50 MG TABLET PO (09:14)
[2022-02-10] MEDS: ASCORBIC ACID 500 MG TABLET PO (09:14)
[2022-02-10] MEDS: FINASTERIDE 5 MG TABLET PO (09:15)
[2022-02-10 09:43] LABS: EDCOVIDSCREEN Negative (Negative)
[2022-02-10 12:00] VITALS: BP 161/82; PULSE 70; RESP 18; TEMP 36.4; O2SAT 97
== END 2022-02-10 12:45 | DRG 193 ==
LOC: ANHED 12:18 → ANHIMU 13:33 → ANH3MEDSUR 02-07 18:30
PROVIDERS: Family Medicine; Nurse Practitioner Adult Health; Admitting Provider Internal Medicine; Emergency Provider Emergency Medicine; PCP Family Medicine; Visit Provider Nurse Practitioner Adult Health
DX: J18.9 Pneumonia, unspecified organism (principal); J96.01 Acute respiratory failure with hypoxia; T83.511A Infection and inflammatory reaction due to indwelling urethral catheter, initial encounter; N39.0 Urinary tract infection, site not specified; N17.9 Acute kidney failure, unspecified; I69.354 Hemiplegia and hemiparesis following cerebral infarction affecting left non-dominant side; Z20.822 Contact with and (suspected) exposure to COVID-19; I12.9 Hypertensive chronic kidney disease with stage 1 through stage 4 chronic kidney disease, or unspecified chronic kidney disease; N18.9 Chronic kidney disease, unspecified; D64.9 Anemia, unspecified; N40.0 Benign prostatic hyperplasia without lower urinary tract symptoms; K21.9 Gastro-esophageal reflux disease without esophagitis; K58.9 Irritable bowel syndrome, unspecified; M19.90 Unspecified osteoarthritis, unspecified site; N32.81 Overactive bladder; Z22.322 Carrier or suspected carrier of Methicillin resistant Staphylococcus aureus; L89.159 Pressure ulcer of sacral region, unspecified stage; M47.816 Spondylosis without myelopathy or radiculopathy, lumbar region; Z86.16 Personal history of COVID-19; Z87.891 Personal history of nicotine dependence
CPT/HCPCS: 36415; 36600; 71045; 80048; 80053; 80202; 81001; 82375; 82805; 83050; 83605; 83735; 85025; 85055; 85610; 85730; 86140; 87040; 87081; 87086; 87088; 87426; 87449; 87899; 93005; 93306; 94640; 96365; 96375; 97110; 97161; 99285; A9270; C9803; J0456; J0696; J2930; J3370; J7030; U0003; U0005

== ENCOUNTER 2022-08-28 12:17 | Observation (INO) | payer MEDICARE, BC, MEDICAID, SELFPAY ==
--- NOTE | ~2022-08-28 | CT_ITS ---
EXAMINATION: CT brain wo con DATE: 08/28/2022 17:42 INDICATION: ams, now resolved . TECHNIQUE: Computed tomography (CT) of the head was performed without intravenous contrast. The mA wa s adjusted according to patient size. Iterative reconstruction technique was employed. The dose-lengt h product was 681.00 mGy-cm. COMPARISON: 09/19/2020 FINDINGS: No acute intracranial hemorrhage or extra-axial fluid collection. No hydrocephalus, mass, or herniation. No acute ischemic infarct. Unremarkable dural venous sinus attenuation. No acute osseous abnormality. The aerated spaces are clear. Moderate atrophy and chronic white matter change. Atherosclerotic intracranial calcification. Old eliazar ateral basal ganglia and thalamic lacunar infarcts. IMPRESSION: No acute intracranial process. Reviewed, dictated and finalized at location K.
--- NOTE | ~2022-08-28 | MR_ITS ---
EXAMINATION: MR brain/brain stem wo/w con DATE: 08/29/2022 08:20 INDICATION: Weakness TECHNIQUE: Magnetic resonance imaging (MRI) of the brain and brainstem was performed without and with 17 mL Multihance intravenous contrast. Sequences included sagittal and axial T1-weighted SE, axial d iffusion-weighted FS SE, axial T2*-weighted GRE, axial 3D SWAN, axial T2-weighted FLAIR, and axial T2 -weighted FSE. Postcontrast axial and coronal T1-weighted SE was obtained. Apparent diffusion coeffic ient (ADC) maps were created. COMPARISON: None. FINDINGS: Small regions of encephalomalacia in the right frontal lara radiata, anterior left frontal and late ral left temporal lobes consistent with chronic infarcts. Additional small old lacunar infarcts at th e left basal ganglia and bilateral cerebellar hemispheres. There are no areas of restricted diffusion to suggest acute infarction. No intracranial hemorrhage or abnormal intracranial mass lesion. There are scattered areas of nonspecific increased T2-weighted signal intensity in the cerebral white matte r, predominantly involving the deep and periventricular white matter. There are no intraparenchymal s ignal abnormalities seen on the other pulse sequences. The ventricles are symmetric and normal in siz e. There are no abnormal extra-axial fluid collections. Flow voids are seen in the cerebral arteries on the T2-weighted sequences consistent with their expected patency. Mild mucosal thickening in the b ilateral ethmoid and maxillary sinuses. Visualized orbits and soft tissues are unremarkable. There ar e no areas of abnormal enhancement on the post contrast images. IMPRESSION: 1. No acute intracranial process. 2. Small old infarcts in the and left frontal lobe, left temporal lobe, right frontal lara radiata, left basal ganglia and bilateral thalami. 3. Mild scattered nonspecific white matter T2 hyperintensities consistent with chronic small vessel i schemic disease. Reviewed, dictated and finalized at location A. IMPRESSION: 1. No acute intracranial process. 2. Small old infarcts in the and left frontal lobe, left temporal lobe, right f rontal lara radiata, left basal ganglia and bilateral thalami. 3. Mild scattered nonspecific white matter T2 hyperintensities consistent with chronic small vessel ischemic disease.
--- NOTE | ~2022-08-28 | XR_ITS ---
EXAMINATION: XR chest 2V Exam Date/Time: 08/28/2022 19:25 CDT HISTORY: TRANSIENT ALTERATION OF AWARENESS Comparison: None available. RESULT: Lines, tubes, and devices: Incompletely visualized cervical and thoracolumbar fusion hardware. Lungs and pleura: Lordotic positioning in the frontal view. Nearly supine positioning in the lateral view. Senescent change. Cardiomediastinal silhouette: Stable. Other: No acute osseous or upper abdominal finding. IMPRESSION: Limited examination, no definite acute cardiopulmonary process. Reviewed, dictated and finalized at location K.
--- NOTE | ~2022-08-28 | US_ITS ---
EXAMINATION: US carotid duplex BI DATE: 08/29/2022 09:13 INDICATION: Decreased weakness. TECHNIQUE: Grayscale, color Doppler, and pulsed Doppler images of the cervical carotid arteries were obtained. The degree of vessel stenosis is placed in one of the following categories: normal, <50%, 5 0-69%, >=70% but less than near-occlusion, near-occlusion, or total occlusion. Note that percent sten osis relative to normal distal artery lumen diameter is indirectly measured from velocity measurement s as described by Michel, et al. Radiology 2003; 229:340-346. Notes: Normal: Peak systolic velocity <125 centimeters/sec and no plaque <50%. Peak systolic velocity <125 ( EDV <40; ICA/CCA PSV ratio <2.0; used these factors only a tandem lesions or low cardiac output or co ntralateral disease) 50-69 %: PSV 125-230 (EDV 40-100; ratio 2-4) >= 70% but less than near occlusion: PSV greater than 230 (EDV > 100; ratio> 4.0) Near Occlusion: PSV that is variable; markedly narrowed lumen Occlusion: Absent flow on color/spectral Doppler and no lumen on fuller scale. COMPARISON: None. FINDINGS: RIGHT: The right common carotid artery (CCA) peak systolic velocity (PSV) is 86 cm/s. The right internal car otid artery (ICA) PSV is 197 cm/s. The right ICA end-diastolic velocity (EDV) is 32 cm/s. The right I CA/CCA PSV ratio is 2.3. The external carotid artery (ECA) PSV is 137 cm/s. There is antegrade flow i n the right vertebral artery. LEFT: The left CCA PSV is 54 cm/s. The left ICA PSV is 160 cm/s. The left ICA EDV is 38 cm/s. The left ICA/ CCA PSV ratio is 3. The ECA PSV is 154 cm/s. There is antegrade flow in the left vertebral artery. IMPRESSION: 1. 50-69% stenosis in the right internal carotid artery by sonographic criteria. 2. 50-69% stenosis in the left internal carotid artery by sonographic criteria. Reviewed, dictated and finalized at location A. IMPRESSION: 1. 50-69% stenosis in the right internal carotid artery by sonographic criteria . 2. 50-69% stenosis in the left internal carotid artery by sonographic criteria.
--- NOTE | ~2022-08-28 | US_ITS ---
EXAMINATION: US renal BI DATE: 08/29/2022 09:13 INDICATION: Acute on chronic renal failure TECHNIQUE: Multiple grayscale and Doppler ultrasound images of the kidneys were obtained. COMPARISON: CT, 09/07/2019 FINDINGS: The right kidney measures 9.2 x 4.9 x 5.4 cm. The left kidney measures 10.6 x 5.2 x 6.6 cm. The kidneys demonstrate increased parenchymal echogenicity. There is mild left hydronephrosis. The b ladder is decompressed by Choudhury catheter.. IMPRESSION: 1. Medical renal disease. 2. Mild left hydronephrosis. Reviewed, dictated and finalized at location B.
[2022-08-28 12:16] VITALS: BP 149/55; PULSE 58; RESP 14; TEMP 37; O2SAT 96
--- NOTE | 2022-08-28 12:24 | ECG_ITS ---
Measurements Intervals [place] Rate: 58 P: 7 MS: 189 QRS: -60 QRSD: 98 T: 34 QT: 429 QTc: 424 Interpretive Statements SINUS BRADYCARDIA LEFT AXIS DEVIATION [QRS AXIS < -30] NONSPECIFIC T-WAVE ABNORMALITY ABNORMAL ECG COMPARED TO ECG 02/05/2022 09:31:58 SINUS BRADYCARDIA NOW PRESENT LEFT-AXIS DEVIATION NOW PRESENT Electronically Signed On 08-28-2022 13:57:50 CDT by Brandon Live M.D.
[2022-08-28 12:28] VITALS: PULSE 58
--- NOTE | 2022-08-28 12:54 | ED.AMS ---
HPI - Altered Mental Status General Chief Complaint: Altered Mental Status Stated Complaint: AMS Time Seen by Provider: 08/28/22 12:53 Source: patient and EMS Mode of arrival: EMS Limitations: altered mental status and clinical condition History of Present Illness HPI narrative: Patient is a 76-year-old male with a history of CVA, suprapubic catheter, hypertension, hyperlipidemia, presenting to the emergency department for evaluation of lethargy, change in mental status per nursing staff at [facility] where patient resides. Patient was noted to have lethargy, diffuse weakness, thus sent here for evaluation. Time of initial assessment patient is alert and oriented to person, place and to time. He denies any focal weakness or numbness. Does state that he feels slightly weaker than typical. Patient recently treated for MRSA infection around his suprapubic catheter site with antibiotics. Related Data Home Medications Medication Instructions Recorded Confirmed PreserVision AREDS 1 cap PO DAILY 11/05/20 02/05/22 Procardia XL 30 mg PO DAILY 11/05/20 02/05/22 albuterol sulfate 90 mcg/actuation 2 puff inhalation USEASDIRECTD PRN 11/05/20 02/05/22 aerosol inhaler Bronchospasm ascorbic acid (vitamin C) 1 tablet PO DAILY 11/05/20 02/05/22 atenolol 50 mg tablet 50 mg PO DAILY 11/05/20 02/05/22 cholecalciferol (vitamin D3) 25 75 mcg PO DAILY 11/05/20 02/05/22 mcg (1,000 unit) tablet ergocalciferol (vitamin D2) 50,000 units PO MONTHLY 11/05/20 02/05/22 finasteride 5 mg tablet (Proscar) 5 mg PO DAILY 11/05/20 02/05/22 gabapentin 300 mg tablet 300 mg PO BID 11/05/20 02/05/22 dvjjlk-gbocctmz-foypqqe 2 cap PO PRN 11/05/20 02/05/22 24,000-76,000-120,000 unit capsule,delayed rel (Creon) jmawhx-tbhokmfn-iekwcmt 3 cap PO TIDWMEAL 11/05/20 02/05/22 24,000-76,000-120,000 unit capsule,delayed rel (Creon) mirabegron 25 mg tablet,extended 25 mg PO DAILY 11/05/20 02/05/22 release 24 hr (Myrbetriq) multivitamin-ferrous 1 tablet PO DAILY 11/05/20 02/05/22 fumarate-folic acid 18 mg-400 mcg tablet (Centrum) omeprazole 20 mg capsule,delayed 20 mg PO DAILY 11/05/20 02/05/22 release potassium chloride 20 mEq 20 meq PO BID 11/05/20 02/05/22 tablet,extended release(part/cryst) tamsulosin 0.4 mg capsule 1 mg PO HS 11/05/20 02/05/22 colestipol 1 gram tablet 1 g PO TID 02/05/22 02/05/22 loperamide 4 mg PO Q4H 02/05/22 02/05/22 sertraline 50 mg tablet 50 mg PO DAILY 02/05/22 02/05/22 Allergies Allergy/AdvReac Type Severity Reaction Status Date / Time No Known Allergies Allergy Verified 08/28/22 12:31 Review of Systems Review of Systems: CONSTITUTIONAL: Denies fever, chills, or sweats. EYES: Denies visual changes, redness, or discharge. ENT: Denies rhinorrhea, congestion, sore throat, or otalgia. CARDIOVASCULAR: Denies chest pain, palpitations, or edema. RESPIRATORY: Denies cough or dyspnea. GASTROINTESTINAL: Denies abdominal pain, nausea, vomiting, or diarrhea. GENITOURINARY: Denies dysuria or hematuria. SKIN: Denies rash or itching. MUSCULOSKELETAL: Denies back pain, joint pain, or myalgia. NEUROLOGIC: Denies headache, numbness, reports increasing diffuse weakness PMFSH Past Medical History Medical History Anemia BPH (benign prostatic hyperplasia) Chronic indwelling Choudhury catheter Chronic kidney disease COVID-19 CVA (cerebral vascular accident) Essential hypertension GERD (gastroesophageal reflux disease) Hemiplegia affecting left nondominant side History of 2019 novel coronavirus disease (COVID-19) IBS (irritable bowel syndrome) Osteoarthritis Overactive bladder Pressure ulcer of sacral region, unspecified stage Seasonal allergic rhinitis Spondylosis of lumbar region without myelopathy or radiculopathy Surgical History Surgical History H/O neck surgery History of back surgery Family History
[2022-08-28 13:04] LABS: Basophils Percent Auto 0.2 % (0.2-1.2); Eosinophils Absolute Auto 0.1 K/mm3 (0-0.3); Eosinophils Percent Auto 2.1 % (0-4.4); Hematocrit 30.5 % (42.0-52.0); Hemoglobin 9.3 g/dL (14.0-18.0); Immature Granulocyte Absolute 0.04 K/mm3 (0.00-0.031); Immature Granulocyte Percent A 0.9 % (0-0.5); Lymphocytes Absolute Auto 1.67 K/mm3 (0.9-3.2); Lymphocytes Percent Auto 38.7 % (18.3-44.2); Mean Corpuscular HGB Conc 30.5 g/dl (32-36); Mean Corpuscular Hemoglobin 26.1 pg (26-34); Mean Corpuscular Volume 85.4 fl (80-100); Mean Platelet Volume 11.8 fl (7.4-10.4); Monocytes Absolute Auto 0.6 K/mm3 (0.1-0.6); Monocytes Percent Auto 14.8 % (2.6-8.5); Neutrophils Absolute Auto 1.9 K/mm3 (1.3-6.7); Neutrophils Percent Auto 43.3 % (45.5-73.1); Platelet Count Result 112 k/mm3 (150-375); Red Blood Count 3.57 M/mm3 (4.6-6.20); Red Cell Distribution Width 15.9 % (11.5-14.5); White Blood Count 4.3 K/mm3 (4.5-10.0)
[2022-08-28 13:13] LABS: INR 1.1; Partial Thromboplastin Time 33.5 SECONDS (22.3-36.8)
[2022-08-28 13:14] LABS: Add Urine Microscopic? YES; Appearance Urine Clear (Clear); Bacteria Urine Trace /hpf; Bilirubin Urine Negative (Negative); Blood Urine 2+ (Negative); Color Urine Yellow (Yellow); Glucose Urine UA Negative (Negative); Ketones Urine Negative (Negative); Leukocyte Esterase Ur 1+ LEU/UL (Negative); Mucus Urine Rare /lpf; Nitrate Urine Negative (Negative); Protein Urine 1+ mg/dL (Negative); Specific Grav Ur 1.014 (1.001-1.035); Urobilinogen Urine Negative mg/dL (<2.0)
[2022-08-28 13:15] LABS: Alanine Aminotransferase 17 U/L (6-50); Albumin Level 4.3 g/dL (3.5-5.1); Alkaline Phosphatase 81 U/L (38-126); Anion Gap 11 mmol/L (8-16); Aspartate Amino Transferase 20 U/L (17-59); Bilirubin,Total 0.3 mg/dL (0.2-1.3); Blood Urea Nitrogen 34 mg/dL (9-20); Calcium 8.9 mg/dL (8.4-10.2); Carbon Dioxide 23 mmol/L (22-30); Chloride 106 mmol/L (98-107); Estimated CRCL calculation 32 ml/min; Estimated Glomerular Filt Rate 31; Glucose 93 mg/dL (65-110); Potassium 5.1 mmol/L (3.4-5.0); Sodium 140 mmol/L (137-145)
[2022-08-28 13:27] VITALS: BP 145/61; PULSE 60; RESP 20; O2SAT 97
[2022-08-28 14:39] VITALS: BP 159/68; PULSE 57; RESP 20; O2SAT 97
[2022-08-28] MEDS: SODIUM CHLORIDE 0.9% IV 1,000 ML 999 ML IV CONT (14:40)
[2022-08-28 14:58] LABS: Influenza A QL RT-PCR Negative (Negative); Influenza B QL RT-PCR Negative (Negative); SARS-CoV-2 RNA PCR Negative
--- NOTE | 2022-08-28 19:47 | PM.IMHP ---
H&P: HPI History of Present Illness Date/Time: 08/28/22 19:47 Chief Complaint: Altered mental status Narrative: This is a 76-year-old male patient who has had a history of CVA and the suprapubic catheter hypertension and hyperlipidemia. The patient was sent to the emergency room from the [facility] due to live 30 and change in mental status per nursing staff at [facility]. Patient had lived 3rd and diffuse weakness. When I assessed him the patient was orientated to person place and time. He is speaking in full sentences. He has some mild weakness to the left upper left lower extremity. He stated this is a residual from his last stroke. Patient recently was treated for MRSA infection around his suprapubic catheter site with antibiotics. Chest x-ray was read as limited examination, no definite acute cardiopulmonary process. CT of the brain was read as no acute intracranial process. H&H is 9.3 and 30.5 and this is his baseline. His creatinine is 2.1 today. In February weight was 1.4. Influenza a and B and COVID were all negative. The patient is being admitted to observation status on the date of service of 08/28/2022. Review of Systems Review of Systems: See HPI All systems reviewed & are unremarkable except as noted in HPI and below Constitutional: Constitutional: Reports as per HPI and Reports no additional constitutional complaints Eyes: Eyes: Reports as per HPI and Reports no additional eye complaints ENT: Reports system reviewed and no additional complaints, except as documented and Reports Normal hearing present Cardiovascular: Cardiovascular: Reports no additional cardiovascular complaints Respiratory: Respiratory: Reports no additional respiratory complaints and Reports no additional respiratory complaints Gastrointestinal: Gastrointestinal: Reports as per HPI and Reports no additional gastrointestinal complaints Musculoskeletal: Musculoskeletal: Reports no additional musculoskeletal complaints Integumentary/Breasts: Skin/Breast: Reports system reviewed and no additional complaints, except as docu and Reports as per HPI Neurologic: Reports system reviewed and no additional complaints, except as documented, Reports as per HPI and Reports Normal hearing present Psychiatric: Psychiatric: Reports no additional psychiatric complaints and Reports as per HPI Endocrine: Endocrine: Reports no additional endocrine complaints Hematologic/Lymphatic: Hematologic/Lymphatic: Reports no additional hematologic/lymphatic complaints Allergic/Immunologic: Allergic/Immunologic: Reports no additional allergic/immunologic complaints PENDING SALE TO [facility] Past Medical History Medical History (Updated 08/28/22 @ 22:59 by Mariely Spears NP) Anemia BPH (benign prostatic hyperplasia) Chronic indwelling Choudhury catheter Chronic kidney disease COVID-19 CVA (cerebral vascular accident) Essential hypertension GERD (gastroesophageal reflux disease) Hemiplegia affecting left nondominant side History of 2019 novel coronavirus disease (COVID-19) Hypertension IBS (irritable bowel syndrome) Osteoarthritis Overactive bladder Pressure ulcer of sacral region, unspecified stage Seasonal allergic rhinitis Spondylosis of lumbar region without myelopathy or radiculopathy Surgical History Surgical History H/O neck surgery History of back surgery History of total hip arthroplasty eliazar Family History Family History Father , Patient does not know cause No problems noted. Mother , Patient does not know cause No problems noted. Other Unknown family medical history Social History Social History (Updated 08/28/22 @ 22:40 by Mariely Spears NP) Social History: Patient became debilitated after stroke in 2013, he lost bladder control in 2016 after having multiple back surgery and now has indwelling Choudhury cath
[2022-08-28 20:26] VITALS: BP 140/74; PULSE 62; RESP 20; O2SAT 96
[2022-08-28 20:55] VITALS: BP 140/57; PULSE 63; RESP 16; TEMP 36.3; O2SAT 94
[2022-08-28 21:09] VITALS: BMI 27.8
--- NOTE | 2022-08-28 21:13 | ADMGEN ---
This patient, Jefferson Venegas, was admitted to [facility] Surg Room 328-01. Patient/family oriented to hospital policies and general routines including ID bracelet, bed and alarms, visiting hours, pain management, procedures, bathroom and other care routines, personal items, smoking policy, room service/diet, and visiting hours. Information on how to activate the Rapid Response Team has been discussed. Patient/Family are encouraged to report perceived risks to care and to ask questions if they do not understand what they are told or what they should do.
[2022-08-28] MEDS: LACTATED RINGERS 1,000 ML 125 ML IV CONT (21:25)
[2022-08-29] VITALS (10 sets, daily range): BP systolic 141–175; BP diastolic 65–72; PULSE 58–65; RESP 16–17; TEMP 35.7–36.6; O2SAT 93–96
[2022-08-29] MEDS: oxyCODONE HCL (*CRX) 5 MG TAB IR PO ×4 (00:45→17:08)
[2022-08-29] MEDS: PANTOPRAZOLE 40 MG TABLET PO ×2 (00:45→21:02)
[2022-08-29] MEDS: LACTATED RINGERS 1,000 ML 125 ML IV CONT (05:21)
[2022-08-29 06:29] LABS: Basophils Percent Auto 0.3 % (0.2-1.2); Eosinophils Absolute Auto 0.1 K/mm3 (0-0.3); Eosinophils Percent Auto 2.3 % (0-4.4); Hematocrit 28.5 % (42.0-52.0); Hemoglobin 8.9 g/dL (14.0-18.0); Immature Granulocyte Absolute 0.02 K/mm3 (0.00-0.031); Immature Granulocyte Percent A 0.5 % (0-0.5); Immature Platelet Fraction Pct 7.1 % (0.9-11.2); Lymphocytes Absolute Auto 1.52 K/mm3 (0.9-3.2); Lymphocytes Percent Auto 38.4 % (18.3-44.2); Mean Corpuscular HGB Conc 31.2 g/dl (32-36); Mean Corpuscular Hemoglobin 26.6 pg (26-34); Mean Corpuscular Volume 85.1 fl (80-100); Mean Platelet Volume 10.8 fl (7.4-10.4); Monocytes Absolute Auto 0.5 K/mm3 (0.1-0.6); Monocytes Percent Auto 13.4 % (2.6-8.5); Neutrophils Absolute Auto 1.8 K/mm3 (1.3-6.7); Neutrophils Percent Auto 45.1 % (45.5-73.1); Platelet Count Result 113 k/mm3 (150-375); Red Blood Count 3.35 M/mm3 (4.6-6.20); Red Cell Distribution Width 15.6 % (11.5-14.5)
[2022-08-29 06:48] LABS: Alanine Aminotransferase 15 U/L (6-50); Alkaline Phosphatase 74 U/L (38-126); Anion Gap 12 mmol/L (8-16); Aspartate Amino Transferase 18 U/L (17-59); Bilirubin,Total 0.3 mg/dL (0.2-1.3); Blood Urea Nitrogen 27 mg/dL (9-20); Calcium 8.6 mg/dL (8.4-10.2); Carbon Dioxide 21 mmol/L (22-30); Chloride 108 mmol/L (98-107); Estimated CRCL calculation 36 ml/min; Estimated Glomerular Filt Rate 42; Glucose 80 mg/dL (65-110); Potassium 4.6 mmol/L (3.4-5.0); Sodium 141 mmol/L (137-145)
[2022-08-29] MEDS: COLESTIPOL HCL 1 GM TABLET PO ×3 (09:20→16:44)
[2022-08-29] MEDS: atenoloL 50 MG TABLET PO (09:21)
[2022-08-29] MEDS: LIPASE/AMYLASE/PROTEASE 12,000 UNITS CAP 6 CAP PO ×3 (09:21→16:44)
[2022-08-29] MEDS: OPTI-GEN TAB 1 TABLET PO (09:22)
[2022-08-29] MEDS: SERTRALINE HCL 50 MG TABLET PO (09:23)
[2022-08-29] MEDS: MIRABEGRON 25 MG ER TABLET PO (09:23)
[2022-08-29] MEDS: GABAPENTIN 300 MG CAPSULE PO ×2 (09:23→16:44)
[2022-08-29] MEDS: ASCORBIC ACID 500 MG TABLET PO (09:23)
[2022-08-29] MEDS: POTASSIUM CHLORIDE 20 MEQ TABLET.ER PO ×2 (09:23→16:43)
[2022-08-29] MEDS: CHOLECALCIFEROL 1,000 UNITS TABLET 1000 UNITS PO (09:23)
[2022-08-29] MEDS: NIFEdipine 30 MG TAB.ER.24 PO (09:23)
[2022-08-29] MEDS: FINASTERIDE 5 MG TABLET PO (09:24)
[2022-08-29] MEDS: MULTIVITAMINS /C LUTEIN (CENTRUM SILVER) TABLET *BKC 1 TAB PO (09:24)
[2022-08-29] MEDS: FLUTICASONE PROPIONATE 0.05% NA SPR 16 GM BTL (*BKC) 1 SPRAY NASAL (09:24)
--- NOTE | 2022-08-29 11:02 | PCPTNOTE ---
Attempted PT evaluation, pt refused due to being tired. RN aware. Will follow.
--- NOTE | 2022-08-29 11:02 | PCOTNOTE ---
OT evaluation attempted, patient refused to participate at this time due to going through tests all morning. Will follow.
--- NOTE | 2022-08-29 13:04 | PCPTNOTE ---
Attempted PT evaluation, Pt refused stating I'm too Stressed out. RN aware. Will follow.
--- NOTE | 2022-08-29 13:04 | WPDNEURCNPN ---
Assessment and Plan Assessment and plan (1) TIA (transient ischemic attack): Code(s): G45.9 - Transient cerebral ischemic attack, unspecified Status: Acute Plan 1 TIA in addition to other comorbid conditions. His previous echo has been noted with left atrial chamber dimension moderately enlarged right atrial chamber dimension moderately enlarged and moderately calcified mitral valvular annulus and regurgitation also severe pulmonary hypertension management will be continued as such while the supportive Medicare is being given Consult date: 08/29/22 Time Seen: 12:00 Reason for consult: change in mental status HPI: Jefferson Venegas is a 76 year old male admitted to the hospital through the emergency room for the complaints of lethargy with change in the mental status as per the nursing staff at [facility]. Was noted early having weakness all over though at the time of initial evaluation he was awake alert and oriented to person place and time and did not complain of any focal weakness or numbness patient had been recently treated for MRSA infection around the suprapubic catheter and history of multiple medications as outlined, he is not allergic to any medication and has ongoing history of particularly chronic indwelling Choudhury's catheter with chronic renal disease, hypertension with cerebrovascular accident in the past resulting the left hemiparesis, pressure ulcer of sacral region, and spondylosis of lumbar spine without myelopathy or radiculopathy, being a former smoker and former alcohol intake, in the emergency room noted to have normal vital signs normal routine lab except the hematuria and BUN of 32 also stars COVID negative, CT of the head negative for the bleed an MRI of the brain documented a small old infarct in left frontal lobe left temporal lobe right frontal coronal radiata left basal ganglia and bilateral thalami Review of Systems Review of Systems: All systems reviewed & are unremarkable except as noted in HPI and below [facility] Past Medical History Medical History (Updated 08/29/22 @ 13:16 by Nicolas Logan MD) Anemia BPH (benign prostatic hyperplasia) Chronic indwelling Choudhury catheter Chronic kidney disease COVID-19 CVA (cerebral vascular accident) Essential hypertension GERD (gastroesophageal reflux disease) Hemiplegia affecting left nondominant side History of 2019 novel coronavirus disease (COVID-19) Hypertension IBS (irritable bowel syndrome) Osteoarthritis Overactive bladder Pressure ulcer of sacral region, unspecified stage Seasonal allergic rhinitis Spondylosis of lumbar region without myelopathy or radiculopathy Surgical History Surgical History H/O neck surgery History of back surgery History of total hip arthroplasty eliazar Family History Family History Father , Patient does not know cause No problems noted. Mother , Patient does not know cause No problems noted. Other Unknown family medical history Social History Social History (Updated 08/28/22 @ 22:40 by Mariely Spears NP) Social History: Patient became debilitated after stroke in 2013, he lost bladder control in 2016 after having multiple back surgery and now has indwelling Choudhury catheter. He has been halfway [facility] since 2017. Patient wheelchair and bed-bound. The patient is and has 1 child who is the durable power software asset manager for healthcare. The patient is a former smoker. No alcohol marijuana or illicit drugs. Code status full code Smoking status: Former smoker Tobacco type: cigarettes Second hand tobacco smoke exposure: No Alcohol intake: former Alcohol use details: Quit in 2013 Substance use: never Gender identity (if verbalized by the patient): Male Spiritual care concerns: No Has the Lack of Transportation Kept You From Medi
--- NOTE | 2022-08-29 14:31 | P.PNIM_ITS ---
Progress Note: A&P Assessment and Plan (1) TIA (transient ischemic attack): Code(s): G45.9 - Transient cerebral ischemic attack, unspecified Status: Acute Assessment and Plan: Patient presented with alteration of mental status. Findings felt to be consistent with TIA. Patient is at baseline at this time * Head CT showed no acute intracranial finding * MRI shows * Carotid Doppler * Recent echocardiogram January 2022 with normal EF, grade 1 diastolic dysfunction, [id number] AR, moderate MR and TR * Appreciate neurology consultation * Begin aspirin 81 mg daily * Check lipid panel and A1c * Appreciate PT/OT to eval (2) Acute dehydration: Code(s): E86.0 - Dehydration Status: Acute Assessment and Plan: Patient appeared dry on initial exam and was noted to have mild hyperkalemia and elevated BUN * Labs have improved with IV fluid rehydration * Patient appears euvolemic on exam today * Will continue with gentle IV fluid rehydration until current bag is complete and then will discontinue as patient is tolerating p.o. intake (3) JANA (acute kidney injury): Code(s): N17.9 - Acute kidney failure, unspecified Status: Acute Assessment and Plan: Acute on chronic. Creatinine slightly elevated on presentation up to 2.1. Baseline appears to be around 1.4 * Suspect prerenal in etiology secondary to dehydration * Renal function has improved with gentle IV fluids * Renal ultrasound showed medical renal disease, consistent with patient's history of CKD * Monitor renal function closely (4) Congestive heart failure: Qualifiers: Heart failure chronicity: acute Heart failure type: unspecified Qualified Code(s): I50.9 - Heart failure, unspecified Code(s): I50.9 - Heart failure, unspecified Status: Resolved Assessment and Plan: Caution with IV fluid * No evidence of volume overload on CXR * Will discontinue IV fluids after current bag is complete * Monitor volume status closely (5) BPH (benign prostatic hyperplasia): Code(s): N40.0 - Benign prostatic hyperplasia without lower urinary tract symptoms Status: Acute Assessment and Plan: Chronic and unchanged. Status post suprapubic catheter * Continue tamsulosin and finasteride (6) Hypertension: Code(s): I10 - Essential (primary) hypertension Status: Acute Assessment and Plan: Blood pressures reviewed and have been slightly elevated above target but seems improved now. Last BP 141/65 * Continue atenolol * Monitor BP trends Subjective Date/time seen: 08/29/22 14:31 Interval history: Date of service: 08/29/2022 Jefferson Venegas is a 76-year-old male with a history of CVA with residual left- sided weakness CKD, hypertension, BPH and OAB s/p suprapubic catheter who is seen in follow-up for suspected TIA. The patient is a fair historian. He is A&O times 3 but does exhibit some confusion. He states he came to the ER for evaluation of a headache which has resolved. He reported vivid dreams last night. He endorses chronic left-sided weakness that he believes is unchanged. He also endorses numbness and tingling in his bilateral hands and feet. He denies dysphagia or odynophagia. No speech changes. Denies dizziness or lightheadedness but does admit that he occasionally becomes dizzy upon standing and this contributes to falls. States his last fall was 1 week ago. He denies any recent visual changes including diplopia, blurred vision, flashes or floaters. He denies shor
--- NOTE | 2022-08-29 14:31 | PM.IMPN ---
Progress Note: A&P Assessment and Plan (1) TIA (transient ischemic attack): Code(s): G45.9 - Transient cerebral ischemic attack, unspecified Status: Acute Assessment and Plan: Patient presented with alteration of mental status. Findings felt to be consistent with TIA. Patient is at baseline at this time Head CT showed no acute intracranial finding MRI shows Carotid Doppler Recent echocardiogram January 2022 with normal EF, grade 1 diastolic dysfunction, [id number] AR, moderate MR and TR Appreciate neurology consultation Begin aspirin 81 mg daily Check lipid panel and A1c Appreciate PT/OT to eval (2) Acute dehydration: Code(s): E86.0 - Dehydration Status: Acute Assessment and Plan: Patient appeared dry on initial exam and was noted to have mild hyperkalemia and elevated BUN Labs have improved with IV fluid rehydration Patient appears euvolemic on exam today Will continue with gentle IV fluid rehydration until current bag is complete and then will discontinue as patient is tolerating p.o. intake (3) JANA (acute kidney injury): Code(s): N17.9 - Acute kidney failure, unspecified Status: Acute Assessment and Plan: Acute on chronic. Creatinine slightly elevated on presentation up to 2.1. Baseline appears to be around 1.4 Suspect prerenal in etiology secondary to dehydration Renal function has improved with gentle IV fluids Renal ultrasound showed medical renal disease, consistent with patient's history of CKD Monitor renal function closely (4) Congestive heart failure: Qualifiers: Heart failure chronicity: acute Heart failure type: unspecified Qualified Code(s): I50.9 - Heart failure, unspecified Code(s): I50.9 - Heart failure, unspecified Status: Resolved Assessment and Plan: Caution with IV fluid No evidence of volume overload on CXR Will discontinue IV fluids after current bag is complete Monitor volume status closely (5) BPH (benign prostatic hyperplasia): Code(s): N40.0 - Benign prostatic hyperplasia without lower urinary tract symptoms Status: Acute Assessment and Plan: Chronic and unchanged. Status post suprapubic catheter Continue tamsulosin and finasteride (6) Hypertension: Code(s): I10 - Essential (primary) hypertension Status: Acute Assessment and Plan: Blood pressures reviewed and have been slightly elevated above target but seems improved now. Last BP 141/65 Continue atenolol Monitor BP trends Subjective Date/time seen: 08/29/22 14:31 Interval history: Date of service: 08/29/2022 Jefferson Venegas is a 76-year-old male with a history of CVA with residual left-sided weakness CKD, hypertension, BPH and OAB s/p suprapubic catheter who is seen in follow-up for suspected TIA. The patient is a fair historian. He is A&O times 3 but does exhibit some confusion. He states he came to the ER for evaluation of a headache which has resolved. He reported vivid dreams last night. He endorses chronic left-sided weakness that he believes is unchanged. He also endorses numbness and tingling in his bilateral hands and feet. He denies dysphagia or odynophagia. No speech changes. Denies dizziness or lightheadedness but does admit that he occasionally becomes dizzy upon standing and this contributes to falls. States his last fall was 1 week ago. He denies any recent visual changes including diplopia, blurred vision, flashes or floaters. He denies shortness breath, cough, chest pain. No nausea, vomiting, fevers, or chills. Reports no issues with suprapubic catheter. Review of Systems Review of Systems: All systems reviewed & are unremarkable except as noted in HPI and below Exam Narrative: General: Thin, well-appearing 76year-old male, sitting up in bed, comfortable, NARD Neuro: awake, alert and oriented x3, speech clear, CN II-XII intact, up
--- NOTE | 2022-08-29 16:31 | PC.NURSE ---
Tea called this nurse around 3:35pm and stated that I need to drop the LR rate from 125 to 75 an hour. Once bag is complete then fluids could be discontinued.
[2022-08-29] MEDS: TAMSULOSIN HCL 0.4 MG CAPSULE PO (21:02)
[2022-08-30] VITALS (7 sets, daily range): BP systolic 133–157; BP diastolic 57–65; PULSE 58–92; RESP 16; TEMP 36.2–37.1; O2SAT 90–92
[2022-08-30] MEDS: oxyCODONE HCL (*CRX) 5 MG TAB IR PO ×3 (00:03→12:50)
[2022-08-30 06:19] LABS: Hematocrit 28.5 % (42.0-52.0); Hemoglobin 8.9 g/dL (14.0-18.0); Mean Corpuscular HGB Conc 31.2 g/dl (32-36); Mean Corpuscular Hemoglobin 26.1 pg (26-34); Mean Corpuscular Volume 83.6 fl (80-100); Platelet Count Result 116 k/mm3 (150-375); Red Blood Count 3.41 M/mm3 (4.6-6.20); Red Cell Distribution Width 15.9 % (11.5-14.5); White Blood Count 6.1 K/mm3 (4.5-10.0)
[2022-08-30 06:27] LABS: Anion Gap 14 mmol/L (8-16); Blood Urea Nitrogen 26 mg/dL (9-20); Calcium 8.6 mg/dL (8.4-10.2); Carbon Dioxide 23 mmol/L (22-30); Chloride 106 mmol/L (98-107); Estimated CRCL calculation 34 ml/min; Estimated Glomerular Filt Rate 39; Glucose 112 mg/dL (65-110); Sodium 143 mmol/L (137-145)
[2022-08-30] MEDS: FLUTICASONE PROPIONATE 0.05% NA SPR 16 GM BTL (*BKC) 1 SPRAY NASAL (09:18)
[2022-08-30] MEDS: LIPASE/AMYLASE/PROTEASE 12,000 UNITS CAP 6 CAP PO ×2 (09:19→12:50)
[2022-08-30] MEDS: OPTI-GEN TAB 1 TABLET PO (09:19)
[2022-08-30] MEDS: GABAPENTIN 300 MG CAPSULE PO (09:19)
[2022-08-30] MEDS: CHOLECALCIFEROL 1,000 UNITS TABLET 1000 UNITS PO (09:19)
[2022-08-30] MEDS: MIRABEGRON 25 MG ER TABLET PO (09:19)
[2022-08-30] MEDS: atenoloL 50 MG TABLET PO (09:19)
[2022-08-30] MEDS: SERTRALINE HCL 50 MG TABLET PO (09:19)
[2022-08-30] MEDS: MULTIVITAMINS /C LUTEIN (CENTRUM SILVER) TABLET *BKC 1 TAB PO (09:20)
[2022-08-30] MEDS: COLESTIPOL HCL 1 GM TABLET PO ×2 (09:20→12:49)
[2022-08-30] MEDS: FINASTERIDE 5 MG TABLET PO (09:20)
[2022-08-30] MEDS: ASCORBIC ACID 500 MG TABLET PO (09:20)
[2022-08-30] MEDS: POTASSIUM CHLORIDE 20 MEQ TABLET.ER PO (09:20)
[2022-08-30] MEDS: NIFEdipine 30 MG TAB.ER.24 PO (09:20)
[2022-08-30] MEDS: ASPIRIN 81 MG ENTERIC TABLET PO (09:20)
[2022-08-30 09:43] LABS: Cholesterol 161 mg/dL (0-200); HDL Direct 20 mg/dL; Triglycerides 173 mg/dL (<150)
[2022-08-30 09:52] LABS: Hemoglobin A1C 5.6 % (<5.7)
[2022-08-30 09:54] LABS: LDL Cholesterol Direct 97 mg/dL
--- NOTE | 2022-08-30 11:08 | PCOTNOTE ---
Attempted to see pt. for occupational therapy evaluation. Pt. refused to participate, repeatedly stating you are wasting your time. . Pt. educated on benefits for participating in therapy, pt. still adamantly declined. Nursing aware.
--- NOTE | 2022-08-30 14:06 | PM.DS ---
DS: Admitting Diagnosis Discharge Date 08/30/2022 Admitting Diagnosis TIA DS: Discharge Diagnosis Discharge Diagnosis (1) TIA (transient ischemic attack): Code(s): G45.9 - Transient cerebral ischemic attack, unspecified Status: Acute Assessment and Plan: Patient presented with alteration of mental status. Findings felt to be consistent with TIA. Patient was at baseline at time of my evaluation Head CT showed no acute intracranial finding MRI showed no acute intracranial process with small old infarcts in the left frontal lobe, left temporal lobe, right frontal lara radiata, left basal ganglia, and bilateral Carotid Doppler revealed 50-69% stenosis of the left and right internal carotid artery Recent echocardiogram January 2022 with normal EF, grade 1 diastolic dysfunction, [id number] AR, moderate MR and TR Patient was seen in consultation by Neurology Started on aspirin 81 mg daily Lipid panel reviewed. Started on atorvastatin 20 mg daily and may benefit from increasing to 40 mg per PCP if tolerating well Participated in PT/OT during admission. (2) Acute dehydration: Code(s): E86.0 - Dehydration Status: Resolved Assessment and Plan: Patient appeared dry on initial exam and was noted to have mild hyperkalemia and elevated BUN. Patient was rehydrated with IV fluids and labs improved. Patient became euvolemic and was tolerating p.o. intake. Encouraged to maintain adequate fluid intake. (3) JANA (acute kidney injury): Code(s): N17.9 - Acute kidney failure, unspecified Status: Resolved Assessment and Plan: Acute on chronic. Creatinine slightly elevated on presentation up to 2.1. Baseline appears to be around 1.4-1.5. Suspect secondary to dehydration as noted above. Creatinine improved with IV fluids. Renal ultrasound showed medical renal disease consistent with patient's history of CKD. (4) Asymptomatic bacteriuria: Code(s): R82.71 - Bacteriuria Status: Acute Assessment and Plan: Urinalysis was slightly abnormal on presentation. Patient does have suprapubic catheter which could make UA abnormal, therefore antibiotics initially deferred as patient did not have signs or symptoms of acute UTI. Urine culture with growth of Proteus mirabilis. Decision made to not treat with antibiotics as patient remained asymptomatic. Case discussed with ID PharmD. Monitor at facility and will need repeat culture if pt develops symptoms. (5) Congestive heart failure: Qualifiers: Heart failure chronicity: acute Heart failure type: unspecified Qualified Code(s): I50.9 - Heart failure, unspecified Code(s): I50.9 - Heart failure, unspecified Status: Chronic Assessment and Plan: Diastolic CHF noted on prior echo in January 2022. No evidence of volume overload on CXR. Patient was cautiously rehydrated and volume status was monitored. (6) BPH (benign prostatic hyperplasia): Code(s): N40.0 - Benign prostatic hyperplasia without lower urinary tract symptoms Status: Acute Assessment and Plan: Chronic and unchanged. Status post suprapubic catheter. Continue tamsulosin and finasteride (7) Hypertension: Code(s): I10 - Essential (primary) hypertension Status: Acute Assessment and Plan: Blood pressures reviewed and were slightly elevated above target initially but improved. Continue home atenolol DS: Summary Hospital Course Hospital Course: Date of admission: 08/28/2022 Date of discharge: 08/30/2022 Jefferson Venegas is a 76-year-old male with a history of CVA with residual left-sided weakness CKD, hypertension, BPH and OAB s/p suprapubic catheter who presented to the emergency department on 08/28/2022 from nursing facility because staff noticed lethargy and change in mental status. Upon presentation to ED, his vital signs were stable, he was afebrile, potassium 5.1, creatinine 2.1
[2022-08-30 15:45] LABS: EDCOVIDSCREEN Negative (Negative)
--- NOTE | 2022-08-30 16:01 | PC.NURSE ---
I called [facility] three times and spoke with the bead forming machine operator three times but no one ever answered despite ringing incessantly until the voicemail stated it was full and not accepting any more messages. discharge instructions successful faxed to facility.
== END 2022-08-30 16:25 | disposition home or self-care (01) ==
LOC: ANHED 17:23 → ANH3MEDSUR 20:27
PROVIDERS: Emergency Medicine; Nurse Practitioner; Admitting Provider Chiropractor; Emergency Provider Emergency Medicine; PCP Family Medicine; Visit Provider Physician Assistant
DX: G45.9 Transient cerebral ischemic attack, unspecified (principal); E86.0 Dehydration; N17.9 Acute kidney failure, unspecified; I13.0 Hypertensive heart and chronic kidney disease with heart failure and stage 1 through stage 4 chronic kidney disease, or unspecified chronic kidney disease; I50.30 Unspecified diastolic (congestive) heart failure; N18.9 Chronic kidney disease, unspecified; D63.1 Anemia in chronic kidney disease; E87.5 Hyperkalemia; N40.0 Benign prostatic hyperplasia without lower urinary tract symptoms; I69.354 Hemiplegia and hemiparesis following cerebral infarction affecting left non-dominant side; E78.5 Hyperlipidemia, unspecified; Z96.0 Presence of urogenital implants; Z20.822 Contact with and (suspected) exposure to COVID-19; K21.9 Gastro-esophageal reflux disease without esophagitis; N13.30 Unspecified hydronephrosis; M47.816 Spondylosis without myelopathy or radiculopathy, lumbar region; M19.90 Unspecified osteoarthritis, unspecified site; L89.159 Pressure ulcer of sacral region, unspecified stage; D69.6 Thrombocytopenia, unspecified; R00.1 Bradycardia, unspecified; K58.9 Irritable bowel syndrome, unspecified; N32.81 Overactive bladder; I08.3 Combined rheumatic disorders of mitral, aortic and tricuspid valves; I27.20 Pulmonary hypertension, unspecified; R94.31 Abnormal electrocardiogram [ECG] [EKG]; R90.82 White matter disease, unspecified; Z86.16 Personal history of COVID-19; Z86.14 Personal history of Methicillin resistant Staphylococcus aureus infection; Z87.891 Personal history of nicotine dependence; Z79.51 Long term (current) use of inhaled steroids; Z79.891 Long term (current) use of opiate analgesic; Z79.899 Other long term (current) drug therapy
CPT/HCPCS: 36415; 70450; 70553; 71046; 76775; 80048; 80053; 80061; 81001; 83036; 83735; 84443; 85025; 85027; 85055; 85610; 85730; 87077; 87086; 87186; 87426; 87502; 93005; 93880; 96360; 96361; 96374; 97161; 99285; A9270; A9577; C9803; G0378; J0696; J7030; J7120; U0003; U0005

== ENCOUNTER 2023-01-08 12:48 | Emergency (ER) | payer MEDICARE, BC, MEDICAID, SELFPAY ==
[2023-01-08] VITALS (9 sets, daily range): BP systolic 113–137; BP diastolic 49–71; PULSE 60–96; RESP 16–18; TEMP 36.1–36.6; O2SAT 95–97
[2023-01-08 13:33] LABS: Basophils Percent Auto 0.3 % (0.2-1.2); Eosinophils Absolute Auto 0.1 K/mm3 (0-0.3); Eosinophils Percent Auto 1.5 % (0-4.4); Hemoglobin 8.7 g/dL (14.0-18.0); Immature Granulocyte Absolute 0.09 K/mm3 (0.00-0.031); Immature Granulocyte Percent A 1.3 % (0-0.5); Lymphocytes Absolute Auto 2.13 K/mm3 (0.9-3.2); Lymphocytes Percent Auto 30.9 % (18.3-44.2); Mean Corpuscular Hemoglobin 27.1 pg (26-34); Mean Corpuscular Volume 90.3 fl (80-100); Mean Platelet Volume 12.5 fl (7.4-10.4); Monocytes Absolute Auto 0.6 K/mm3 (0.1-0.6); Monocytes Percent Auto 9.1 % (2.6-8.5); Neutrophils Absolute Auto 3.9 K/mm3 (1.3-6.7); Neutrophils Percent Auto 56.9 % (45.5-73.1); Platelet Count Result 174 k/mm3 (150-375); Red Blood Count 3.21 M/mm3 (4.6-6.20); Red Cell Distribution Width 16.2 % (11.5-14.5); White Blood Count 6.9 K/mm3 (4.5-10.0)
[2023-01-08 13:50] LABS: Alanine Aminotransferase 22 U/L (6-50); Albumin Level 4.2 g/dL (3.5-5.1); Alkaline Phosphatase 89 U/L (38-126); Anion Gap 6 mmol/L (8-16); Aspartate Amino Transferase 25 U/L (17-59); Bilirubin,Total 0.3 mg/dL (0.2-1.3); Blood Urea Nitrogen 32 mg/dL (9-20); Calcium 8.6 mg/dL (8.4-10.2); Carbon Dioxide 28 mmol/L (22-30); Chloride 101 mmol/L (98-107); Estimated Glomerular Filt Rate 37; Glucose 100 mg/dL (65-110); Potassium 4.8 mmol/L (3.4-5.0); Sodium 135 mmol/L (137-145)
--- NOTE | 2023-01-08 18:50 | ED.RECABL ---
HPI - Recheck/Abnormal Lab/Rx General Chief Complaint: Recheck/Abnormal Lab/Rx Stated Complaint: ANEMIA Time Seen by Provider: 01/08/23 18:27 History of Present Illness HPI narrative: Patient is a 77-year-old male with a history of chronic anemia, stroke with left-sided hemiplegia, CHF presenting with low blood counts. Patient denies any complaints. Patient states his nursing facility told him he needed to come here for blood transfusions. He denies new numbness or weakness, fevers, lightheadedness, chest pain, shortness of breath, abdominal pain, nausea or vomiting, diarrhea, melena, hematochezia, dysuria, hematuria. He states that he has some pain in his left heel. Related Data Home Medications Medication Instructions Recorded Confirmed PreserVision AREDS 1 cap PO DAILY 11/05/20 08/28/22 Procardia XL 30 mg PO DAILY 11/05/20 08/28/22 atenolol 50 mg tablet 50 mg PO DAILY 11/05/20 08/28/22 cholecalciferol (vitamin D3) 25 1,000 unit PO DAILY 11/05/20 08/28/22 mcg (1,000 unit) tablet ergocalciferol (vitamin D2) 50,000 units PO MONTHLY 11/05/20 08/28/22 finasteride 5 mg tablet (Proscar) 5 mg PO DAILY 11/05/20 08/28/22 gabapentin 300 mg tablet 300 mg PO BID 11/05/20 08/28/22 udqzez-jcrrspeb-dddsrzs 2 cap PO Q12H PRN Abdominal 11/05/20 08/28/22 24,000-76,000-120,000 unit Discomfort capsule,delayed rel (Creon) blgbhu-yqhxhfvk-fnofgle 3 cap PO TID 11/05/20 08/28/22 24,000-76,000-120,000 unit capsule,delayed rel (Creon) mirabegron 25 mg tablet,extended 25 mg PO DAILY 11/05/20 08/28/22 release 24 hr (Myrbetriq) multivitamin-ferrous 1 tablet PO DAILY 11/05/20 08/28/22 fumarate-folic acid 18 mg-400 mcg tablet (Centrum) omeprazole 20 mg capsule,delayed 20 mg PO HS 11/05/20 08/28/22 release potassium chloride 20 mEq 20 meq PO BID 11/05/20 08/28/22 tablet,extended release(part/cryst) tamsulosin 0.4 mg capsule 0.4 mg PO HS 11/05/20 08/28/22 colestipol 1 gram tablet 1 g PO TID 02/05/22 08/28/22 loperamide 2 mg PO BID 02/05/22 08/28/22 sertraline 50 mg tablet 50 mg PO DAILY 02/05/22 08/28/22 ascorbic acid (vitamin C) 500 mg 500 mg PO DAILY 08/28/22 08/28/22 tablet bisacodyl 10 mg rectal suppository 10 mg RECTAL PRN PRN Constipation 08/28/22 08/28/22 ipratropium 18 mcg-albuterol 103 2 spray inhalation Q6H PRN 08/28/22 08/28/22 mcg/actuation aerosol inhaler Bronchospasm magnesium citrate 300 ml PO DAILY PRN Constipation 08/28/22 08/28/22 magnesium hydroxide 400 mg/5 mL 30 ml PO HS PRN Constipation 08/28/22 08/28/22 oral suspension (Milk of Magnesia) Allergies Allergy/AdvReac Type Severity Reaction Status Date / Time No Known Allergies Allergy Verified 08/28/22 12:31 Review of Systems Review of Systems: All systems reviewed & are unremarkable except as noted in HPI and below PMFSH Past Medical History Medical History Anemia BPH (benign prostatic hyperplasia) Chronic indwelling Choudhury catheter Chronic kidney disease COVID-19 CVA (cerebral vascular accident) Essential hypertension GERD (gastroesophageal reflux disease) Hemiplegia affecting left nondominant side History of 2019 novel coronavirus disease (COVID-19) Hypertension IBS (irritable bowel syndrome) Osteoarthritis Overactive bladder Pressure ulcer of sacral region, unspecified stage Seasonal allergic rhinitis Spondylosis of lumbar region without myelopathy or radiculopathy Surgical History Surgical History H/O neck surgery History of back surgery History of total hip arthroplasty eliazar Family History Family History Father , Patient does not know cause No problems noted. Mother , Patient does not know cause No problems noted. Other Unknown family medical history Social History Social History (Reviewed 01/08/23 @ 18:52 by Kaila Hampton
--- NOTE | 2023-01-08 19:07 | PC.NURSE ---
Patient report received from GEORGI Austin and GEORGI Pavon. All questions answered and care of patient assumed.
== END 2023-01-08 20:28 ==
PROVIDERS: Emergency Medicine; Emergency Provider Emergency Medicine; PCP Family Medicine
DX: D64.9 Anemia, unspecified (principal); I69.354 Hemiplegia and hemiparesis following cerebral infarction affecting left non-dominant side; I13.0 Hypertensive heart and chronic kidney disease with heart failure and stage 1 through stage 4 chronic kidney disease, or unspecified chronic kidney disease; I50.9 Heart failure, unspecified; N40.0 Benign prostatic hyperplasia without lower urinary tract symptoms; N18.9 Chronic kidney disease, unspecified; K21.9 Gastro-esophageal reflux disease without esophagitis; K58.9 Irritable bowel syndrome, unspecified; M47.816 Spondylosis without myelopathy or radiculopathy, lumbar region; Z79.51 Long term (current) use of inhaled steroids; Z87.891 Personal history of nicotine dependence; Z79.82 Long term (current) use of aspirin; Z79.891 Long term (current) use of opiate analgesic
CPT/HCPCS: 36415; 80053; 85025; 86850; 86900; 86901; 99283

== ENCOUNTER 2023-04-14 15:07 | Inpatient (IN) | payer MEDICARE, BC, MEDICAID, SELFPAY ==
[2023-04-14] VITALS (35 sets, daily range): BP systolic 91–115; BP diastolic 43–65; PULSE 63–75; RESP 13–20; TEMP 36.2; O2SAT 85–100; BMI 25.6
--- NOTE | ~2023-04-14 | XR_ITS ---
EXAMINATION: XR chest 1V portable DATE: 04/14/2023 15:46 INDICATION: Shortness of breath. TECHNIQUE: A single frontal view of the chest was obtained. COMPARISON: Chest 2 views 08/28/2022, CT abdomen and pelvis 09/07/2019 FINDINGS: There are lucencies in the lungs, consistent with emphysema. There are interstitial and air space opacities in the mid and lower lung zones. No pleural effusion or pneumothorax. Cardiomegaly is noted. A left upper extremity peripherally inserted central venous catheter (PICC) is seen with tip in the superior vena cava. There are changes of posterior fusion procedure in thoracolumbar spine. IMPRESSION: 1. Interstitial and airspace opacities in the mid and lower lung zones, consistent with pneumonia madisyn tori mild pulmonary edema. 2. Emphysema. 3. Cardiomegaly. Reviewed, dictated and finalized at location A. IMPRESSION: 1. Interstitial and airspace opacities in the mid and lower lung zones, consist ent with pneumonia versus mild pulmonary edema. 2. Emphysema. 3. Cardiomegaly.
--- NOTE | ~2023-04-14 | US_ITS ---
EXAMINATION: US renal BI DATE: 04/15/2023 08:16 INDICATION: Acute kidney injury. TECHNIQUE: Multiple ultrasound grayscale images of the kidneys were obtained. COMPARISON: Ultrasound kidneys 08/29/2022, CT abdomen and pelvis 09/07/2019 FINDINGS: The right kidney measures 9.5 x 5.5 x 4.9 cm. The left kidney measures 11.5 x 5.3 x 5.0 cm. The kidne ys demonstrate normal parenchymal echogenicity. There is mild left hydronephrosis. The bladder is dec ompressed by a Choudhury catheter. IMPRESSION: 1. Mild left hydronephrosis again seen. Reviewed, dictated and finalized at location A.
--- NOTE | ~2023-04-14 | XR_ITS ---
Portable chest x-ray Comparison: 04/14/2023 Clinical History: Worsening breath sounds Findings: Left-sided PICC line in place. There is COPD and/or chronic interstitial disease. Possible focal retrocardiac airspace disease. No pleural effusion. Cardiomediastinal silhouette is stable. Tha julio and soft tissues are unremarkable. Impression: COPD and/or chronic interstitial disease. Possible focal left lower lobe pneumonia versus atelectasis. Reviewed, dictated and finalized at location . Impression: COPD and/or chronic interstitial disease. Possible focal left lower lobe pneumonia versus atelectasis.
--- NOTE | 2023-04-14 15:25 | ECG_ITS ---
Measurements Intervals [place] Rate: 69 P: 18 NC: 210 QRS: -1 QRSD: 97 T: 64 QT: 427 QTc: 458 Interpretive Statements SINUS RHYTHM WITH FIRST DEGREE AV BLOCK NONSPECIFIC ST & T-WAVE ABNORMALITY COMPARED TO ECG 08/28/2022 12:25:27 SINUS RHYTHM NOW PRESENT FIRST DEGREE AV BLOCK NOW PRESENT Electronically Signed On 04-15-2023 14:05:44 CDT by Aidan Mendoza M.D.
[2023-04-14 15:50] LABS: Basophils Percent Auto 0.1 % (0.2-1.2); Eosinophils Percent Auto 0.1 % (0-4.4); Hematocrit 29.5 % (42.0-52.0); Hemoglobin 8.8 g/dL (14.0-18.0); Immature Granulocyte Absolute 0.13 K/mm3 (0.00-0.031); Immature Granulocyte Percent A 0.9 % (0-0.5); Immature Platelet Fraction Pct 8.2 % (0.9-11.2); Lymphocytes Percent Auto 15.3 % (18.3-44.2); Mean Corpuscular HGB Conc 29.8 g/dl (32-36); Mean Corpuscular Hemoglobin 26.7 pg (26-34); Mean Corpuscular Volume 89.4 fl (80-100); Monocytes Absolute Auto 2.3 K/mm3 (0.1-0.6); Monocytes Percent Auto 15.3 % (2.6-8.5); Neutrophils Absolute Auto 10.3 K/mm3 (1.3-6.7); Neutrophils Percent Auto 68.3 % (45.5-73.1); Platelet Count Result 141 k/mm3 (150-375); Red Cell Distribution Width 16.9 % (11.5-14.5); White Blood Count 15.1 K/mm3 (4.5-10.0)
[2023-04-14 15:56] LABS: Lactic Acid Reflex 0.8 mmol/L (0.7-2.0)
[2023-04-14 15:57] LABS: Alanine Aminotransferase 15 U/L (6-50); Albumin Level 3.9 g/dL (3.5-5.1); Alkaline Phosphatase 72 U/L (38-126); Anion Gap 11 mmol/L (8-16); Aspartate Amino Transferase 18 U/L (17-59); Bilirubin,Total 0.4 mg/dL (0.2-1.3); Blood Urea Nitrogen 50 mg/dL (9-20); Calcium 8.3 mg/dL (8.4-10.2); Carbon Dioxide 26 mmol/L (22-30); Chloride 104 mmol/L (98-107); Estimated Glomerular Filt Rate 21; Glucose 112 mg/dL (65-110); Potassium 4.4 mmol/L (3.4-5.0); Sodium 141 mmol/L (137-145)
[2023-04-14 16:10] LABS: INR 1.1; Prothrombin Time 14.9 Seconds (11.1-14.7)
[2023-04-14 16:11] LABS: Hypochromasia 1+ (NORMAL); Partial Thromboplastin Time 35.9 SECONDS (22.3-36.8); Schistocytes None Seen (NORMAL)
[2023-04-14 16:27] LABS: Appearance Urine Turbid (Clear); Bacteria Urine 4+ /hpf; Bilirubin Urine Negative (Negative); Blood Urine Trace (Negative); Calcium Oxalate Crystals Urine Present /hpf; Color Urine Dark Yellow (Yellow); Glucose Urine UA Negative (Negative); Hyaline Casts Urine Present /lpf; Ketones Urine Trace mg/dL (Negative); Leukocyte Esterase Ur 3+ LEU/UL (Negative); Nitrate Urine Negative (Negative); Non Pathogenic Casts >20; Protein Urine 2+ mg/dL (Negative); RBC Urine >100 /hpf (0-2); Squamous Epithelial Cell Urine Few /hpf (Few); Triple Phosphate Crystal Urine Present /hpf; Urobilinogen Urine 0.2 mg/dL (<2.0); WBC Urine >100 /hpf
[2023-04-14 16:29] LABS: Add Urine Microscopic? YES
--- NOTE | 2023-04-14 18:11 | ED.GENADULT ---
HPI - General Adult General Chief complaint: Recheck/Abnormal Lab/Rx Stated complaint: increased weakness Time Seen by Provider: 04/14/23 15:10 History of Present Illness HPI narrative: Patient is a 77-year-old male who [facility] due to increased weakness and low blood pressure. They are concerned he could have sepsis. Patient has a chronic indwelling Choudhury catheter and has been diagnosed with UTI. It is unknown what antibiotics he is on at this time. Patient is unsure. He is without abdominal pain. Though he is oriented x3 he is unable to provide history as to why he is here. Patient found to be newly hypoxic and is requiring 2 L of nasal cannula oxygen upon arrival here Related Data Home Medications Medication Instructions Recorded Confirmed PreserVision AREDS 1 cap PO DAILY 11/05/20 08/28/22 Procardia XL 30 mg PO DAILY 11/05/20 08/28/22 atenolol 50 mg tablet 50 mg PO DAILY 11/05/20 08/28/22 cholecalciferol (vitamin D3) 25 1,000 unit PO DAILY 11/05/20 08/28/22 mcg (1,000 unit) tablet ergocalciferol (vitamin D2) 50,000 units PO MONTHLY 11/05/20 08/28/22 finasteride 5 mg tablet (Proscar) 5 mg PO DAILY 11/05/20 08/28/22 gabapentin 300 mg tablet 300 mg PO BID 11/05/20 08/28/22 dbpphe-rnobyqaq-ggyfrvt 2 cap PO Q12H PRN Abdominal 11/05/20 08/28/22 24,000-76,000-120,000 unit Discomfort capsule,delayed rel (Creon) uhnsji-skznhonr-nqubywb 3 cap PO TID 11/05/20 08/28/22 24,000-76,000-120,000 unit capsule,delayed rel (Creon) mirabegron 25 mg tablet,extended 25 mg PO DAILY 11/05/20 08/28/22 release 24 hr (Myrbetriq) multivitamin-ferrous 1 tablet PO DAILY 11/05/20 08/28/22 fumarate-folic acid 18 mg-400 mcg tablet (Centrum) omeprazole 20 mg capsule,delayed 20 mg PO HS 11/05/20 08/28/22 release potassium chloride 20 mEq 20 meq PO BID 11/05/20 08/28/22 tablet,extended release(part/cryst) tamsulosin 0.4 mg capsule 0.4 mg PO HS 11/05/20 08/28/22 colestipol 1 gram tablet 1 g PO TID 02/05/22 08/28/22 loperamide 2 mg PO BID 02/05/22 08/28/22 sertraline 50 mg tablet 50 mg PO DAILY 02/05/22 08/28/22 ascorbic acid (vitamin C) 500 mg 500 mg PO DAILY 08/28/22 08/28/22 tablet bisacodyl 10 mg rectal suppository 10 mg RECTAL PRN PRN Constipation 08/28/22 08/28/22 ipratropium 18 mcg-albuterol 103 2 spray inhalation Q6H PRN 08/28/22 08/28/22 mcg/actuation aerosol inhaler Bronchospasm magnesium citrate 300 ml PO DAILY PRN Constipation 08/28/22 08/28/22 magnesium hydroxide 400 mg/5 mL 30 ml PO HS PRN Constipation 08/28/22 08/28/22 oral suspension (Milk of Magnesia) Allergies Allergy/AdvReac Type Severity Reaction Status Date / Time No Known Allergies Allergy Verified 08/28/22 12:31 Review of Systems Review of Systems: ROS unobtainable: Yes unobtainable due to medical condition PMFSH Past Medical History Medical History Anemia BPH (benign prostatic hyperplasia) Chronic indwelling Choudhury catheter Chronic kidney disease COVID-19 CVA (cerebral vascular accident) Essential hypertension GERD (gastroesophageal reflux disease) Hemiplegia affecting left nondominant side History of 2019 novel coronavirus disease (COVID-19) Hypertension IBS (irritable bowel syndrome) Osteoarthritis Overactive bladder Pressure ulcer of sacral region, unspecified stage Seasonal allergic rhinitis Spondylosis of lumbar region without myelopathy or radiculopathy Surgical History Surgical History H/O neck surgery History of back surgery History of total hip arthroplasty eliazar Family History Family History Father , Patient does not know cause No problems noted. Mother , Patient does not know cause No problems noted. Other Unknown family medical history Social History Social History (Reviewed 01/08/23 @
--- NOTE | 2023-04-14 18:15 | PC.NURSE ---
Attempted to call Leela cabrera for paperwork on pt regarding antibiotic and blood cultures.
[2023-04-14] MEDS: AZITHROMYCIN 500 MG/NS 250 ML 500 MG/250 ML BAG 250 MG IVPB (20:00)
[2023-04-14] MEDS: SODIUM CHLORIDE 0.9% IV 1,000 ML 125 ML IV CONT (20:20)
--- NOTE | 2023-04-14 21:13 | PM.IMHP ---
H&P: HPI History of Present Illness Date/Time: 04/14/23 21:13 Chief Complaint: Low blood pressure Narrative: This is a 77 yo male with PMHx significant for Chronic indwelling suprapubic urinary catheter, patient is bed bound, wheel chair bound, multiple medical problems, Pancreatic insufficiency, chronic diarrhea. [facility], was brought to ED due to low blood pressure, had episode of vomit as well, generalized weakness, had low pulse ox as well requiring 2 L of oxygen by NC. Patient can't really give much history.Preliminary work up was significant for ua with numerous WBC's present,a BMP showed a Cr of 2.9 Bun 50, WBC was 15,000 a chest xr was reported as: EXAMINATION: XR chest 1V portable DATE: 04/14/2023 15:46 INDICATION: Shortness of breath. TECHNIQUE: A single frontal view of the chest was obtained. COMPARISON: Chest 2 views 08/28/2022, CT abdomen and pelvis 09/07/2019 FINDINGS: There are lucencies in the lungs, consistent with emphysema. There are interstitial and airspace opacities in the mid and lower lung zones. No pleural effusion or pneumothorax. Cardiomegaly is noted. A left upper extremity peripherally inserted central venous catheter (PICC) is seen with tip in the superior vena cava. There are changes of posterior fusion procedure in thoracolumbar spine. IMPRESSION: 1. Interstitial and airspace opacities in the mid and lower lung zones, consistent with pneumonia versus mild pulmonary edema. 2. Emphysema. 3. Cardiomegaly. Review of Systems Review of Systems: Can't give any meaningful hx state was brought due to vomit. [facility] Past Medical History Medical History Anemia BPH (benign prostatic hyperplasia) Chronic indwelling Choudhury catheter Chronic kidney disease COVID-19 CVA (cerebral vascular accident) Essential hypertension GERD (gastroesophageal reflux disease) Hemiplegia affecting left nondominant side History of 2019 novel coronavirus disease (COVID-19) Hypertension IBS (irritable bowel syndrome) Osteoarthritis Overactive bladder Pressure ulcer of sacral region, unspecified stage Seasonal allergic rhinitis Spondylosis of lumbar region without myelopathy or radiculopathy Surgical History Surgical History H/O neck surgery History of back surgery History of total hip arthroplasty eliazar Family History Family History Father , Patient does not know cause No problems noted. Mother , Patient does not know cause No problems noted. Other Unknown family medical history Social History Social History Social History: Patient became debilitated after stroke in 2013, he lost bladder control in 2015 after having multiple back surgery and now has indwelling Choudhury catheter. He has been senior living [facility] since 2017. Patient wheelchair and bed-bound. The patient is and has 1 child who is the durable power district attorney for healthcare. The patient is a former smoker. No alcohol marijuana or illicit drugs. Code status full code Smoking status: Former smoker Tobacco type: cigarettes Second hand tobacco smoke exposure: No Alcohol intake: never Alcohol use details: Quit in 2013 Substance use: never Lack of Transportation: No Lack of Food: Never True Current Housing: I Have Housing Concerned About Future Housing: No Difficulty Paying Gas/Electric Bills: No Difficulty Paying for Meds: No Currently Unemployed: No Education: Don't Know Difficulty w/ Childcare or Family Care: No Living arrangements: senior living Occupation/Education: retired Gender identity (if verbalized by the patient): Male Spiritual care concerns: No Meds Home Medications and Allergies Home Medications
--- NOTE | 2023-04-14 22:38 | ADMGEN ---
This patient, Jefferson Venegas, was admitted to 2 Medical Room 242-. Patient/family oriented to hospital policies and general routines including ID bracelet, bed and alarms, visiting hours, pain management, procedures, bathroom and other care routines, personal items, smoking policy, room service/diet, and visiting hours. Information on how to activate the Rapid Response Team has been discussed. Patient/Family are encouraged to report perceived risks to care and to ask questions if they do not understand what they are told or what they should do.
[2023-04-15] VITALS (8 sets, daily range): BP systolic 111–117; BP diastolic 44–50; PULSE 62–72; RESP 14–20; TEMP 36.4–36.7; O2SAT 92–99; BMI 25.6
[2023-04-15] MEDS: SODIUM CHLORIDE 0.9% IV 1,000 ML 125 ML IV CONT ×3 (04:44→23:40)
[2023-04-15 06:10] LABS: Basophils Percent Auto 0.1 % (0.2-1.2); Eosinophils Percent Auto 0.3 % (0-4.4); Hematocrit 25.1 % (42.0-52.0); Hemoglobin 7.2 g/dL (14.0-18.0); Lymphocytes Absolute Auto 2.07 K/mm3 (0.9-3.2); Lymphocytes Percent Auto 20.6 % (18.3-44.2); Mean Corpuscular HGB Conc 28.7 g/dl (32-36); Mean Corpuscular Hemoglobin 26.5 pg (26-34); Mean Corpuscular Volume 92.3 fl (80-100); Mean Platelet Volume 12.5 fl (7.4-10.4); Monocytes Absolute Auto 1.3 K/mm3 (0.1-0.6); Monocytes Percent Auto 13.2 % (2.6-8.5); Neutrophils Absolute Auto 6.5 K/mm3 (1.3-6.7); Neutrophils Percent Auto 64.8 % (45.5-73.1); Platelet Count Result 103 k/mm3 (150-375); Red Blood Count 2.72 M/mm3 (4.6-6.20)
[2023-04-15 06:22] LABS: Anion Gap 13 mmol/L (8-16); Blood Urea Nitrogen 42 mg/dL (9-20); Calcium 7.4 mg/dL (8.4-10.2); Carbon Dioxide 17 mmol/L (22-30); Chloride 114 mmol/L (98-107); Estimated CRCL calculation 25 ml/min; Estimated Glomerular Filt Rate 25; Glucose 85 mg/dL (65-110); Sodium 144 mmol/L (137-145)
[2023-04-15] MEDS: FLUTICASONE PROPIONATE 0.05% NA SPR 16 GM BTL (*BKC) 1 SPRAY NASAL (09:00)
[2023-04-15] MEDS: LIPASE/AMYLASE/PROTEASE 12,000 UNITS CAP 6 CAP PO ×3 (09:00→17:02)
[2023-04-15] MEDS: COLESTIPOL HCL 1 GM TABLET PO ×3 (09:01→17:03)
[2023-04-15] MEDS: SACCHAROMYCES BOULARDII 250 MG CAPSULE PO ×2 (09:01→17:03)
[2023-04-15] MEDS: ASPIRIN 81 MG ENTERIC TABLET PO (09:01)
[2023-04-15] MEDS: MULTIVITAMINS /C LUTEIN (CENTRUM SILVER) TABLET *BKC 1 TAB PO (09:01)
[2023-04-15] MEDS: NIFEdipine 30 MG TAB.ER.24 PO (09:01)
[2023-04-15] MEDS: MIRABEGRON 25 MG ER TABLET PO (09:01)
[2023-04-15] MEDS: atenoloL 50 MG TABLET PO (09:01)
[2023-04-15] MEDS: CHOLECALCIFEROL 1,000 UNITS TABLET 1000 UNITS PO (09:01)
[2023-04-15] MEDS: ATORVASTATIN 20 MG TABLET PO (09:01)
[2023-04-15] MEDS: OPTI-GEN TAB 1 TABLET PO (09:02)
[2023-04-15] MEDS: GABAPENTIN 300 MG CAPSULE PO ×2 (09:02→17:03)
[2023-04-15] MEDS: FINASTERIDE 5 MG TABLET PO (09:02)
[2023-04-15] MEDS: SERTRALINE HCL 50 MG TABLET PO (09:02)
[2023-04-15] MEDS: FERROUS SULFATE 324 MG TABLET PO ×2 (09:02→17:03)
[2023-04-15] MEDS: LOPERAMIDE HCL 2 MG CAPSULE PO ×2 (09:02→17:04)
[2023-04-15] MEDS: CENTRAL LINE FLUSH 10 ML IV PUSH ×2 (09:03→13:02)
--- NOTE | 2023-04-15 10:15 | PM.CNNEP ---
Assessment and Plan Assessment and plan (1) JANA (acute kidney injury): Code(s): N17.9 - Acute kidney failure, unspecified Status: Acute Assessment and Plan: possibly secondary to infection (UTI + pneumonia) possible pre-renal factors playing a role renal ultrasound with chronic left hydronephrosis check urine eosinophils, urine electrolytes, and CPL follow trend repeat labs and UOP (2) Stage 3b chronic kidney disease: Code(s): N18.32 - Chronic kidney disease, stage 3b Status: Chronic Assessment and Plan: baseline creatinine 1.4 - 1.8mg/dl in the last year presumably secondary to hypertension, vascular disease, BPH, and age-related change (3) Acute UTI: Code(s): N39.0 - Urinary tract infection, site not specified Status: Acute Assessment and Plan: UA highly suggestie complicated by chronic weeks cahteter follow culture results on antibiotics (4) Acute hypoxemic respiratory failure: Code(s): J96.01 - Acute respiratory failure with hypoxia Status: Acute Assessment and Plan: due to underlying COPD and pneumonia oxygen support as needed continue supportive therapy (5) Pneumonia: Code(s): J18.9 - Pneumonia, unspecified organism Status: Acute Assessment and Plan: suspected based on admission CXR on antibiotics follow culture data etiology of hypoxia (?) I will continue follow the patient with you while he remains hospitalized to make further recommendations as deemed necessary. Thank you for allowing me to participate in the care of this patient. History of Present Illness Reason for Consult Consult date: 04/15/23 Reason for consult: acute renal failure (on chronic kidney disease) Chief Complaint Chief complaint: JANA, UTI, Pneumonia History of Present Illness Narrative: Most of the information that I have obtained is from review of the electronic medical record as is difficult to get a full and complete history from the patient. The patient is a 77-year-old male with a past medical history as outlined below who apparently was brought to the emergency room for further evaluation of low blood pressure. Apparently, the patient has been having issues with on off vomiting as well as generalized weakness and apparently hypoxia for undisclosed period of time. As these symptoms apparently were progressively getting worse and had not improved with conservative therapy, his nursing facility sent in to the emergency room for further assessment. Workup and evaluation emergency room demonstrated this patient relatively hypotensive in the 90 systolic but in no acute distress. He was hypoxic and had 2 L placed with improvement in his oxygen saturations. CBC demonstrated elevated white blood cell count and his chemistry showed an elevated BUN and creatinine above his baseline with no critical electrolyte abnormalities. His urinalysis was highly suggestive of a urinary tract infection given the presence of numerous white blood cells. His chest x-ray demonstrated emphysema, cardiomegaly, and interstitial and airspace opacities the mid and lower lung zones consistent with pneumonia versus mild pulmonary edema. Given his constellation of symptoms as well as his laboratory/imaging finding, appropriate cultures were obtained and he was started on antibiotic therapy with subsequent admission to the hospital for further evaluation therapy. Since his admission, his renal function has mildly improved with IV fluids, antibiotic therapy, and supportive measures. He is still requiring 2 L of supplemental oxygen to maintain his oxygen saturations. Renal consultation was requested due to his acute kidney injury on top of his baseline kidney disease. From review his records, his baseline creatinine normally runs around 1.4-1.8 mg/dL in the last year. On admission, his creatinine was 2.9 mg/dL. The presumed etiology of his basel
--- NOTE | 2023-04-15 11:01 | PM.IMPN ---
Progress Note: A&P Assessment and Plan (1) Acute hypoxemic respiratory failure: Code(s): J96.01 - Acute respiratory failure with hypoxia Status: Acute Assessment and Plan: On presentation patient had low pulse ox requiring initiation of oxygen supplementation. Continue Oxygen by OR at 2 L. Wean oxygen to maintain O2 saturation greater than 90 % Breathing treatments Monitor respiratory status Patient not having any complaints of shortness of breath or difficulty breathing. (2) Pneumonia: Code(s): J18.9 - Pneumonia, unspecified organism Status: Acute Assessment and Plan: Chest x-ray showing airspace opacities in the mid and lower lung zones consistent with pneumonia versus pulmonary edema. On Rocephin and Azithromycin Blood culture ngtd Supportive care Continue to monitor Sputum culture if able to obtain (3) Acute UTI: Code(s): N39.0 - Urinary tract infection, site not specified Status: Acute Assessment and Plan: UA revealing 3+ LE, greater than 100 rbc's greater than 100 wbc's. A white blood cell count of 15.1 Blood culture ngtd Urine culture pending On Rocephin. Tailor antibiotic therapy to culture results. (4) JANA (acute kidney injury): Code(s): N17.9 - Acute kidney failure, unspecified Status: Acute Assessment and Plan: It appears that patient's renal function age is typically between 1.4 and 1.9. On presentation patient's BUN and creatinine was 50/2.9. Likely pr renal azotemia superimposed on chronic renal disease Renal US showing mild left hydronephrosis IV fluids Nephrology consult and appreciate recommendations (5) Chronic indwelling Choudhury catheter: Code(s): Z97.8 - Presence of other specified devices Status: Chronic Assessment and Plan: Local care Subjective Date/time seen: 04/15/23 11:01 Interval history: Patient resting in bed comfortably. Patient states that he had episode of vomiting and this led to him getting a workup at his nursing facility which revealed concern for UTI. At this time patient has not had any more nausea or vomiting and feels back to his self. Patient has chronic indwelling suprapubic catheter that gets exchanged monthly. Patient states that he is close to being due a catheter exchange. Patient recently UTI and finished treatment for this approximately week and half ago. He denies nausea, vomiting, abdominal pain, cough, chest pain and shortness of breath. Review of Systems Review of Systems: All systems reviewed & are unremarkable except as noted in HPI and below Exam Narrative: GENERAL: Comfortable, no acute distress HENMT: moist mucous membranes EYES: EOM intact b/l NECK: no lymphadenopathy RESPIRATORY: clear to auscultation CARDIO: RRR GI: soft, nontender, bowel sounds present : Suprapubic catheter in place SKIN: no rashes EXTREMITIES: no edema, redness or tenderness Objective Data Vital Signs Vital Signs: Vital Signs - 24 hr 04/14/23 15:08 04/14/23 15:15 04/14/23 15:46 Temperature 97.1 F L Pulse Rate 69 70 Respiratory Rate 18 13 Blood Pressure 91/43 L 92/53 L 103/53 L Pulse Oximetry 96 85 L 99 Oxygen Delivery Nasal Cannula Oxygen Flow Rate 2 04/14/23 19:20 04/14/23 16:16 04/14/23 16:23 Temperature Pulse Rate 64 Respiratory Rate 16 Blood Pressure 109/53 L 107/49 L Pulse Oximetry 98 97 96 Oxygen Delivery Oxygen Flow Rate 04/14/23 16:30 04/14/23 16:31 04/14/23 16:45 Temperature Pulse Rate Respiratory Rate Blood Pressure 109/45 L Pulse Oximetry 99 99 100 Oxygen Delivery Oxygen Flow Rate 04/14/23 16:46 04/14/23 17:00 04/14/23 17:01 Temperature Pulse Rate Respiratory Rate Blood Pressure 105/53 L 108/65 Pulse Oximetry 100 100 100 Oxygen Delivery Oxygen Flow Rate 04/14/23 17:15 04/14/23 17:16 04/14/23 17:30 Temperatur
[2023-04-15 11:37] LABS: Creatinine Urine 23.7 mg/dL; Total Protein Urine Random 47 mg/dL; Ur Ttl Prot Creatinine Ratio 1.98 mg/mg (0-0.20); Urea Random Urine 286 MG/DL
[2023-04-15 11:38] LABS: Sodium Urine Random 121 meq/L
[2023-04-15 11:55] LABS: Eosinophil Urine None Seen % (None Seen); Urine Eos QC 2nd Tech Confirmed
[2023-04-15] MEDS: oxyCODONE HCL (*CRX) 5 MG TAB IR PO ×3 (13:04→23:40)
[2023-04-15] MEDS: AZITHROMYCIN 500 MG/NS 250 ML 500 MG/250 ML BAG 250 MG IVPB (19:33)
[2023-04-15] MEDS: PANTOPRAZOLE 40 MG TABLET PO (19:36)
[2023-04-15] MEDS: TAMSULOSIN HCL 0.4 MG CAPSULE PO (19:37)
[2023-04-16] VITALS (11 sets, daily range): BP systolic 110–129; BP diastolic 42–66; PULSE 64–81; RESP 18–20; TEMP 36.6–37.7; O2SAT 90–95
[2023-04-16] MEDS: oxyCODONE HCL (*CRX) 5 MG TAB IR PO ×4 (05:05→23:45)
[2023-04-16] MEDS: CENTRAL LINE FLUSH 10 ML IV PUSH ×3 (05:05→19:33)
[2023-04-16 05:21] LABS: Basophils Percent Auto 0.1 % (0.2-1.2); Eosinophils Percent Auto 0.3 % (0-4.4); Hematocrit 22.6 % (42.0-52.0); Immature Granulocyte Absolute 0.12 K/mm3 (0.00-0.031); Immature Granulocyte Percent A 1.1 % (0-0.5); Immature Platelet Fraction Pct 7.3 % (0.9-11.2); Lymphocytes Absolute Auto 1.56 K/mm3 (0.9-3.2); Lymphocytes Percent Auto 14.3 % (18.3-44.2); Mean Corpuscular HGB Conc 30.1 g/dl (32-36); Mean Corpuscular Hemoglobin 26.7 pg (26-34); Mean Corpuscular Volume 88.6 fl (80-100); Mean Platelet Volume 12.2 fl (7.4-10.4); Monocytes Absolute Auto 1.4 K/mm3 (0.1-0.6); Monocytes Percent Auto 12.4 % (2.6-8.5); Neutrophils Absolute Auto 7.9 K/mm3 (1.3-6.7); Neutrophils Percent Auto 71.8 % (45.5-73.1); Platelet Count Result 103 k/mm3 (150-375); Red Blood Count 2.55 M/mm3 (4.6-6.20); Red Cell Distribution Width 16.6 % (11.5-14.5); White Blood Count 10.9 K/mm3 (4.5-10.0)
[2023-04-16 05:33] LABS: Alanine Aminotransferase 13 U/L (6-50); Alkaline Phosphatase 55 U/L (38-126); Anion Gap 7 mmol/L (8-16); Aspartate Amino Transferase 18 U/L (17-59); Bilirubin,Total 0.3 mg/dL (0.2-1.3); Blood Urea Nitrogen 32 mg/dL (9-20); Calcium 7.4 mg/dL (8.4-10.2); Carbon Dioxide 22 mmol/L (22-30); Chloride 110 mmol/L (98-107); Creatine Kinase 119 U/L (55-170); Estimated CRCL calculation 26 ml/min; Estimated Glomerular Filt Rate 26; Glucose 103 mg/dL (65-110); Hemoglobin 6.8 g/dL (14.0-18.0); Potassium 3.4 mmol/L (3.4-5.0); Sodium 139 mmol/L (137-145)
[2023-04-16] MEDS: SODIUM CHLORIDE 0.9% IV 1,000 ML 75 ML IV CONT ×2 (07:30→09:33)
[2023-04-16] MEDS: PANTOPRAZOLE SODIUM IV 40 MG VIAL IV PUSH ×2 (07:57→19:32)
[2023-04-16] MEDS: atenoloL 50 MG TABLET PO (07:57)
[2023-04-16] MEDS: ASPIRIN 81 MG ENTERIC TABLET PO (07:57)
[2023-04-16] MEDS: CHOLECALCIFEROL 1,000 UNITS TABLET 1000 UNITS PO (07:58)
[2023-04-16] MEDS: ATORVASTATIN 20 MG TABLET PO (07:58)
[2023-04-16] MEDS: LIPASE/AMYLASE/PROTEASE 12,000 UNITS CAP 6 CAP PO ×3 (07:59→16:58)
[2023-04-16] MEDS: FINASTERIDE 5 MG TABLET PO (07:59)
[2023-04-16] MEDS: GABAPENTIN 300 MG CAPSULE PO ×2 (07:59→16:58)
[2023-04-16] MEDS: FLUTICASONE PROPIONATE 0.05% NA SPR 16 GM BTL (*BKC) 1 SPRAY NASAL (07:59)
[2023-04-16] MEDS: FERROUS SULFATE 324 MG TABLET PO ×2 (07:59→16:58)
[2023-04-16] MEDS: COLESTIPOL HCL 1 GM TABLET PO ×3 (07:59→16:57)
[2023-04-16] MEDS: OPTI-GEN TAB 1 TABLET PO (08:00)
[2023-04-16] MEDS: MIRABEGRON 25 MG ER TABLET PO (08:00)
[2023-04-16] MEDS: MULTIVITAMINS /C LUTEIN (CENTRUM SILVER) TABLET *BKC 1 TAB PO (08:00)
[2023-04-16] MEDS: SERTRALINE HCL 50 MG TABLET PO (08:00)
[2023-04-16] MEDS: NIFEdipine 30 MG TAB.ER.24 PO (08:00)
[2023-04-16] MEDS: LOPERAMIDE HCL 2 MG CAPSULE PO ×2 (08:00→16:58)
[2023-04-16] MEDS: SACCHAROMYCES BOULARDII 250 MG CAPSULE PO ×2 (08:00→16:58)
[2023-04-16] MEDS: ACETAMINOPHEN 325 MG TABLET 650 MG PO (10:01)
[2023-04-16] MEDS: SODIUM CHLORIDE 0.9% IV 250 ML 30 ML IV CONT (10:35)
--- NOTE | 2023-04-16 10:37 | PC.NURSE ---
Leticia Barry notifies of temp 99.5 prior to starting blood transfusion.
[2023-04-16 11:59] LABS: IFOB Positive Control Positive; Immunochemical Fecal Occult Bl Negative (N)
--- NOTE | 2023-04-16 12:46 | PM.IMPN ---
Progress Note: A&P Assessment and Plan (1) Acute hypoxemic respiratory failure: Code(s): J96.01 - Acute respiratory failure with hypoxia Status: Acute Assessment and Plan: On presentation patient had low pulse ox requiring initiation of oxygen supplementation. Continue Oxygen by NC at 2 L. Wean oxygen to maintain O2 saturation greater than 90 % Breathing treatments Monitor respiratory status Patient not having any complaints of shortness of breath or difficulty breathing. (2) Pneumonia: Code(s): J18.9 - Pneumonia, unspecified organism Status: Acute Assessment and Plan: Chest x-ray showing airspace opacities in the mid and lower lung zones consistent with pneumonia versus pulmonary edema. On Rocephin and Azithromycin Supportive care Continue to monitor Sputum culture if able to obtain 6/7 WBC slightly elevated although patient clinically improved. Blood cultures not obtained but will consider if patient declines. (3) Acute UTI: Code(s): N39.0 - Urinary tract infection, site not specified Status: Acute Assessment and Plan: UA revealing 3+ LE, greater than 100 rbc's greater than 100 wbc's. A white blood cell count of 15.1 Urine culture did not reveal a to infection. Rocephin continue due to pneumonia treatment. (4) JANA (acute kidney injury): Code(s): N17.9 - Acute kidney failure, unspecified Status: Acute Assessment and Plan: It appears that patient's renal function age is typically between 1.4 and 1.9. On presentation patient's BUN and creatinine was 50/2.9. Likely pr renal azotemia superimposed on chronic renal disease Renal US showing mild left hydronephrosis IV fluids Nephrology consult and appreciate recommendations (5) Chronic indwelling Choudhury catheter: Code(s): Z97.8 - Presence of other specified devices Status: Chronic Assessment and Plan: Local care Subjective Date/time seen: 04/16/23 12:46 Interval history: Patient very happy to hear that he did not currently have UTI but we are treating him for pneumonia. He is doing well today. He is still requiring oxygen supplementation. He denies shortness of breath, cough, nausea, vomiting, chest pain. Review of Systems Review of Systems: All systems reviewed & are unremarkable except as noted in HPI and below Exam Narrative: GENERAL: Comfortable, no acute distress HENMT: moist mucous membranes EYES: EOM intact b/l NECK: no lymphadenopathy RESPIRATORY: Right lower lobe the wheezing and left lower lobe crackles CARDIO: RRR GI: soft, nontender, bowel sounds present : Suprapubic catheter in place SKIN: no rashes EXTREMITIES: no edema, redness or tenderness Objective Data Vital Signs Vital Signs: Vital Signs - 24 hr 04/15/23 14:15 04/15/23 19:49 04/15/23 19:57 Temperature 97.6 F 98.1 F Pulse Rate 62 72 Respiratory Rate 14 18 Blood Pressure 117/50 L 111/47 L Pulse Oximetry 98 92 99 Oxygen Delivery Nasal Cannula Oxygen Flow Rate 2 04/15/23 20:08 04/16/23 06:00 04/16/23 07:57 Temperature 98.9 F Pulse Rate 76 70 Respiratory Rate 18 Blood Pressure 129/50 L Pulse Oximetry 93 91 Oxygen Delivery Nasal Cannula Oxygen Flow Rate 2 04/16/23 08:00 04/16/23 10:34 04/16/23 10:50 Temperature 99.7 F H 99.5 F Pulse Rate 74 73 Respiratory Rate 18 20 Blood Pressure 121/66 120/42 L Pulse Oximetry 91 90 90 Oxygen Delivery Nasal Cannula Oxygen Flow Rate 2 04/16/23 11:50 Temperature 99.9 F H Pulse Rate 72 Respiratory Rate 18 Blood Pressure 125/53 L Pulse Oximetry 92 Oxygen Delivery Oxygen Flow Rate Intake/Output Intake/Output: Intake & Output 04/13/23 04/14/23 04/15/23 04/16/23 23:59 23:59 23:59 23:59 Intake Total 2800 4560 2660 Output Total 1780 2200 Balance 2800 2780 460 Meds/Results Medications: Active Medications Generic Name Dos
--- NOTE | 2023-04-16 14:29 | P.PNNP_ITS ---
Progress Note: A&P Assessment and Plan (1) JANA (acute kidney injury): Code(s): N17.9 - Acute kidney failure, unspecified Status: Acute Assessment and Plan: * possibly secondary to infection (UTI + pneumonia) * possible pre-renal factors playing a role * renal ultrasound with chronic left hydronephrosis * check urine eosinophils, urine electrolytes, and CPL * follow trend repeat labs and UOP (2) Stage 3b chronic kidney disease: Code(s): N18.32 - Chronic kidney disease, stage 3b Status: Chronic Assessment and Plan: * baseline creatinine 1.4 - 1.8mg/dl in the last year * presumably secondary to hypertension, vascular disease, BPH, and age-related change (3) Acute UTI: Code(s): N39.0 - Urinary tract infection, site not specified Status: Acute Assessment and Plan: * UA highly suggestie * complicated by chronic weeks cahteter * urine culture results negative (4) Acute hypoxemic respiratory failure: Code(s): J96.01 - Acute respiratory failure with hypoxia Status: Acute Assessment and Plan: * due to underlying COPD and pneumonia * oxygen support as needed - wean as toleraed * continue supportive therapy (5) Pneumonia: Code(s): J18.9 - Pneumonia, unspecified organism Status: Acute Assessment and Plan: * suspected based on admission CXR * on antibiotics * follow culture data * etiology of hypoxia (?) (6) Anemia: Code(s): D64.9 - Anemia, unspecified Status: Acute Assessment and Plan: * as noted by low H/H this AM * related to JANA, CKD, and acute infection * PRBC transfusion per protocol * follow H/H Will continue to follow. Subjective Date/time seen: 04/16/23 14:29 Interval history: Follow-up for acute kidney injury/acute renal failure on chronic kidney disease. No apparent distress to report at the time of my visit; overall, he status he feels better; still requiring supplemental oxygen to maintain O2 saturation a lthough he denies any shortness of breath currently; renal function a bit better today; low H/H by AM labs so PRBC transfusion today. Exam Narrative: General: elderly male in NAD Heart: normal S1 and S2; no rub Lungs: coarse at bases with LLL crackles Abdomen: soft, nontender, nondistended, positive bowel sounds Extremities: no cyanosis or clubbing; no edema Skin: warm and dry Objective Data Vital Signs Vital Signs: Vital Signs Temp Pulse Resp BP Pulse Ox O2 Del Method O2 Flow Rate 04/16/23 13:50 98.6 F 80 18 124/44 L 95 04/16/23 13:50 98.6 F 80 18 124/44 L 95 04/16/23 14:22 91 Nasal Cannula 2 04/16/23 12:50 99.2 F 81 18 112/45 L 92 04/16/23 11:50 99.9 F H 72 18 125/53 L 92 04/16/23 10:50 99.5 F 73 20 120/42 L 90 04/16/23 10:34 99.7 F H 74 18 121/66 90 04/16/23 08:00 91 Nasal Cannula 2 04/16/23 07:57 70 04/16/23 06:00 98.9 F 76 18 129/50 L 91 04/15/23 20:08 93 Nasal Cannula 2 04/15/23 19:57 98.1 F 72 18 111/47 L 99 04/15/23 19:49 92 Nasal Cannula 2 Intake/Output Intake/Output: Intake & Output 04/13/23 04/14/23 04/15/23 04/16/23 23:59 23:59 23:59 23:59 Inta
--- NOTE | 2023-04-16 14:29 | PM.PNNEP ---
Progress Note: A&P Assessment and Plan (1) JANA (acute kidney injury): Code(s): N17.9 - Acute kidney failure, unspecified Status: Acute Assessment and Plan: possibly secondary to infection (UTI + pneumonia) possible pre-renal factors playing a role renal ultrasound with chronic left hydronephrosis check urine eosinophils, urine electrolytes, and CPL follow trend repeat labs and UOP (2) Stage 3b chronic kidney disease: Code(s): N18.32 - Chronic kidney disease, stage 3b Status: Chronic Assessment and Plan: baseline creatinine 1.4 - 1.8mg/dl in the last year presumably secondary to hypertension, vascular disease, BPH, and age-related change (3) Acute UTI: Code(s): N39.0 - Urinary tract infection, site not specified Status: Acute Assessment and Plan: UA highly suggestie complicated by chronic weeks cahteter urine culture results negative (4) Acute hypoxemic respiratory failure: Code(s): J96.01 - Acute respiratory failure with hypoxia Status: Acute Assessment and Plan: due to underlying COPD and pneumonia oxygen support as needed - wean as toleraed continue supportive therapy (5) Pneumonia: Code(s): J18.9 - Pneumonia, unspecified organism Status: Acute Assessment and Plan: suspected based on admission CXR on antibiotics follow culture data etiology of hypoxia (?) (6) Anemia: Code(s): D64.9 - Anemia, unspecified Status: Acute Assessment and Plan: as noted by low H/H this AM related to JANA, CKD, and acute infection PRBC transfusion per protocol follow H/H Will continue to follow. Subjective Date/time seen: 04/16/23 14:29 Interval history: Follow-up for acute kidney injury/acute renal failure on chronic kidney disease. No apparent distress to report at the time of my visit; overall, he status he feels better; still requiring supplemental oxygen to maintain O2 saturation although he denies any shortness of breath currently; renal function a bit better today; low H/H by AM labs so PRBC transfusion today. Exam Narrative: General: elderly male in NAD Heart: normal S1 and S2; no rub Lungs: coarse at bases with LLL crackles Abdomen: soft, nontender, nondistended, positive bowel sounds Extremities: no cyanosis or clubbing; no edema Skin: warm and dry Objective Data Vital Signs Vital Signs: Vital Signs Temp Pulse Resp BP Pulse Ox O2 Del Method O2 Flow Rate 04/16/23 13:50 98.6 F 80 18 124/44 L 95 04/16/23 13:50 98.6 F 80 18 124/44 L 95 04/16/23 14:22 91 Nasal Cannula 2 04/16/23 12:50 99.2 F 81 18 112/45 L 92 04/16/23 11:50 99.9 F H 72 18 125/53 L 92 04/16/23 10:50 99.5 F 73 20 120/42 L 90 04/16/23 10:34 99.7 F H 74 18 121/66 90 04/16/23 08:00 91 Nasal Cannula 2 04/16/23 07:57 70 04/16/23 06:00 98.9 F 76 18 129/50 L 91 04/15/23 20:08 93 Nasal Cannula 2 04/15/23 19:57 98.1 F 72 18 111/47 L 99 04/15/23 19:49 92 Nasal Cannula 2 Intake/Output Intake/Output: Intake & Output 04/13/23 04/14/23 04/15/23 04/16/23 23:59 23:59 23:59 23:59 Intake Total 2800 4560 3180 Output Total 1780 2200 Balance 2800 2780 980 Meds/Results Medications: Active Medications Generic Name Dose Route Start Last Admin Trade Name Freq PRN Reason Stop Dose Admin Acetaminophen 650 mg 04/14/23 18:38 04/16/23 10:01 Acetaminophen 325 Mg Tablet PO 650 mg Q4H PRN Administration Mild Pain (1-3) or Fever Hydrocodone Bitart/Acetaminophen 1 tab 04/14/23 18:38 Hydrocodone/Acetaminophen (*Crx) 5-325 Mg Tablet PO Q4H PRN Pain Rated 4-6 Al Hydrox/Mg Hydrox/Simethicone 10 ml 04/15/23 05:14 Mag Hydrox/Al Hydrox/Simeth 30 Ml Udc PO TID PRN Indigestion Albuterol 2.5 mg 04/15/23 06:21 Albuterol Sulfate Neb 2.5 Mg/3 Ml In
[2023-04-16] MEDS: FUROSEMIDE INJ 40 MG/4 ML VIAL IV PUSH (14:59)
[2023-04-16 16:03] LABS: Hematocrit 25.7 % (42.0-52.0)
[2023-04-16] MEDS: AZITHROMYCIN 500 MG/NS 250 ML 500 MG/250 ML BAG 125 MG IVPB (17:27)
[2023-04-16] MEDS: TAMSULOSIN HCL 0.4 MG CAPSULE PO (19:33)
[2023-04-17] VITALS (8 sets, daily range): BP systolic 111–117; BP diastolic 49–51; PULSE 60–69; RESP 18; TEMP 36.3–37.7; O2SAT 92–96
[2023-04-17] MEDS: oxyCODONE HCL (*CRX) 5 MG TAB IR PO ×4 (05:19→23:53)
[2023-04-17] MEDS: CENTRAL LINE FLUSH 10 ML IV PUSH ×3 (05:20→20:38)
[2023-04-17 05:50] LABS: Basophils Percent Auto 0.2 % (0.2-1.2); Eosinophils Absolute Auto 0.1 K/mm3 (0-0.3); Eosinophils Percent Auto 0.6 % (0-4.4); Hematocrit 24.7 % (42.0-52.0); Hemoglobin 7.8 g/dL (14.0-18.0); Immature Granulocyte Absolute 0.13 K/mm3 (0.00-0.031); Immature Granulocyte Percent A 1.3 % (0-0.5); Immature Platelet Fraction Pct 8.9 % (0.9-11.2); Lymphocytes Absolute Auto 1.88 K/mm3 (0.9-3.2); Lymphocytes Percent Auto 19.1 % (18.3-44.2); Mean Corpuscular HGB Conc 31.6 g/dl (32-36); Mean Corpuscular Hemoglobin 27.8 pg (26-34); Mean Corpuscular Volume 87.9 fl (80-100); Mean Platelet Volume 12.3 fl (7.4-10.4); Monocytes Absolute Auto 1.5 K/mm3 (0.1-0.6); Monocytes Percent Auto 15.7 % (2.6-8.5); Neutrophils Absolute Auto 6.2 K/mm3 (1.3-6.7); Neutrophils Percent Auto 63.1 % (45.5-73.1); Platelet Count Result 93 k/mm3 (150-375); Red Blood Count 2.81 M/mm3 (4.6-6.20); White Blood Count 9.8 K/mm3 (4.5-10.0)
[2023-04-17 06:13] LABS: Alanine Aminotransferase 12 U/L (6-50); Alkaline Phosphatase 57 U/L (38-126); Anion Gap 9 mmol/L (8-16); Aspartate Amino Transferase 17 U/L (17-59); Bilirubin,Total 0.3 mg/dL (0.2-1.3); Blood Urea Nitrogen 28 mg/dL (9-20); Calcium 7.5 mg/dL (8.4-10.2); Carbon Dioxide 22 mmol/L (22-30); Chloride 105 mmol/L (98-107); Estimated CRCL calculation 24 ml/min; Estimated Glomerular Filt Rate 24; Glucose 93 mg/dL (65-110); Potassium 2.8 mmol/L (3.4-5.0); Sodium 136 mmol/L (137-145)
[2023-04-17] MEDS: POTASSIUM CHLORIDE 20 MEQ TABLET 40 MEQ PO (06:42)
[2023-04-17] MEDS: ACETAMINOPHEN 325 MG TABLET 650 MG PO (06:42)
[2023-04-17] MEDS: KCL 40 MEQ/WATER 100 ML 100 ML 25 ML IVPB (06:45)
--- NOTE | 2023-04-17 07:02 | P.PNIM_ITS ---
Progress Note: A&P Assessment and Plan (1) Acute hypoxemic respiratory failure: Code(s): J96.01 - Acute respiratory failure with hypoxia Status: Acute Assessment and Plan: On presentation patient had low pulse ox requiring initiation of oxygen supplementation. * Continue Oxygen by MN at 2 L. Wean oxygen to maintain O2 saturation greater than 90 % * Breathing treatments * Monitor respiratory status * Patient not having any complaints of shortness of breath or difficulty breathing. * 6/ Pt had wheezing on exam, fluid held and Lasix given * 04/17 repeat CXR Showing COPD and improved pneumonia (2) Pneumonia: Qualifiers: Laterality: bilateral Lung location: lower lobe of lung Pneumonia type: due to unspecified organism Qualified Code(s): J18.9 - Pneumonia, unspecified organism Code(s): J18.9 - Pneumonia, unspecified organism Status: Acute Assessment and Plan: Chest x-ray showing airspace opacities in the mid and lower lung zones consistent with pneumonia versus pulmonary edema. * On Rocephin and Azithromycin * Supportive care * Continue to monitor * Sputum culture if able to obtain * / WBC slightly elevated although patient clinically improved. * Blood cultures not obtained but will consider if patient declines. (3) Acute UTI: Code(s): N39.0 - Urinary tract infection, site not specified Status: Acute Assessment and Plan: UA revealing 3+ LE, greater than 100 rbc's greater than 100 wbc's. A white blood cell count of 15.1 * Urine culture did not reveal a to infection. * Rocephin continue due to pneumonia treatment. (4) JANA (acute kidney injury): Code(s): N17.9 - Acute kidney failure, unspecified Status: Acute Assessment and Plan: It appears that patient's renal function age is typically between 1.4 and 1.9. On presentation patient's BUN and creatinine was 50/2.9. Likely pr renal azotemia superimposed on chronic renal disease * Renal US showing mild left hydronephrosis * IV fluids * Nephrology consult and appreciate recommendations (5) Chronic indwelling Choudhury catheter: Code(s): Z97.8 - Presence of other specified devices Status: Chronic Assessment and Plan: Local care (6) Anemia: Code(s): D64.9 - Anemia, unspecified Status: Acute Assessment and Plan: / pt h&h dropped to 6.8/22.6. patient received 1 unit of PRBCs * Occult stool negative * No active signs GI bleed * Patient has known history of transfusions and chronic anemia; on chronic iron supplementation * Patient receiving IV fluids due to JANA. This could have caused patient's lab values to drop. Do not believe patient has an active bleed at this time. * Patient's hemoglobin at baseline is between 7-9 * Continue to monitor H&H Subjective Date/time seen: 04/17/23 07:02 Interval history: Patient feeling slightly better today. He is requiring oxygen at this time. He denies cough, shortness of breath, nausea, vomiting and chest pain. Patient may have to get home oxygen evaluation if he cannot be weaned off. Review of Systems Review of Systems: All systems reviewed & are unremarkable except as noted in HPI and below Exam Narrative: GENERAL: Comfortable, no acute distress HENMT: moist mucous membranes EYES: EOM intact b/l NECK: no lymphadenopathy RESPIRATORY: Right lower lobe the wheezing an
--- NOTE | 2023-04-17 07:02 | PM.IMPN ---
Progress Note: A&P Assessment and Plan (1) Acute hypoxemic respiratory failure: Code(s): J96.01 - Acute respiratory failure with hypoxia Status: Acute Assessment and Plan: On presentation patient had low pulse ox requiring initiation of oxygen supplementation. Continue Oxygen by NC at 2 L. Wean oxygen to maintain O2 saturation greater than 90 % Breathing treatments Monitor respiratory status Patient not having any complaints of shortness of breath or difficulty breathing. 6/ Pt had wheezing on exam, fluid held and Lasix given 04/17 repeat CXR Showing COPD and improved pneumonia (2) Pneumonia: Qualifiers: Laterality: bilateral Lung location: lower lobe of lung Pneumonia type: due to unspecified organism Qualified Code(s): J18.9 - Pneumonia, unspecified organism Code(s): J18.9 - Pneumonia, unspecified organism Status: Acute Assessment and Plan: Chest x-ray showing airspace opacities in the mid and lower lung zones consistent with pneumonia versus pulmonary edema. On Rocephin and Azithromycin Supportive care Continue to monitor Sputum culture if able to obtain 04/16 WBC slightly elevated although patient clinically improved. Blood cultures not obtained but will consider if patient declines. (3) Acute UTI: Code(s): N39.0 - Urinary tract infection, site not specified Status: Acute Assessment and Plan: UA revealing 3+ LE, greater than 100 rbc's greater than 100 wbc's. A white blood cell count of 15.1 Urine culture did not reveal a to infection. Rocephin continue due to pneumonia treatment. (4) JANA (acute kidney injury): Code(s): N17.9 - Acute kidney failure, unspecified Status: Acute Assessment and Plan: It appears that patient's renal function age is typically between 1.4 and 1.9. On presentation patient's BUN and creatinine was 50/2.9. Likely pr renal azotemia superimposed on chronic renal disease Renal US showing mild left hydronephrosis IV fluids Nephrology consult and appreciate recommendations (5) Chronic indwelling Choudhury catheter: Code(s): Z97.8 - Presence of other specified devices Status: Chronic Assessment and Plan: Local care (6) Anemia: Code(s): D64.9 - Anemia, unspecified Status: Acute Assessment and Plan: 04/16 pt h&h dropped to 6.8/22.6. patient received 1 unit of PRBCs Occult stool negative No active signs GI bleed Patient has known history of transfusions and chronic anemia; on chronic iron supplementation Patient receiving IV fluids due to JANA. This could have caused patient's lab values to drop. Do not believe patient has an active bleed at this time. Patient's hemoglobin at baseline is between 7-9 Continue to monitor H&H Subjective Date/time seen: 04/17/23 07:02 Interval history: Patient feeling slightly better today. He is requiring oxygen at this time. He denies cough, shortness of breath, nausea, vomiting and chest pain. Patient may have to get home oxygen evaluation if he cannot be weaned off. Review of Systems Review of Systems: All systems reviewed & are unremarkable except as noted in HPI and below Exam Narrative: GENERAL: Comfortable, no acute distress HENMT: moist mucous membranes EYES: EOM intact b/l NECK: no lymphadenopathy RESPIRATORY: Right lower lobe the wheezing and left lower lobe crackles CARDIO: RRR GI: soft, nontender, bowel sounds present : Suprapubic catheter in place SKIN: no rashes EXTREMITIES: no edema, redness or tenderness Objective Data Vital Signs Vital Signs: Vital Signs - 24 hr 04/16/23 07:57 04/16/23 08:00 04/16/23 10:34 Temperature 99.7 F H Pulse Rate 70 74 Respiratory Rate 18 Blood Pressure 121/66 Pulse Oximetry 91 90 Oxygen Delivery Nasal Cannula Oxygen Flow Rate 2 04/16/23 10:50 04/16/23 11:50 04/16/23 12:50 Temperat
[2023-04-17] MEDS: PANTOPRAZOLE SODIUM IV 40 MG VIAL IV PUSH ×2 (08:19→20:38)
[2023-04-17] MEDS: ASPIRIN 81 MG ENTERIC TABLET PO (08:34)
[2023-04-17] MEDS: atenoloL 50 MG TABLET PO (08:34)
[2023-04-17] MEDS: FINASTERIDE 5 MG TABLET PO (08:35)
[2023-04-17] MEDS: FLUTICASONE PROPIONATE 0.05% NA SPR 16 GM BTL (*BKC) 1 SPRAY NASAL (08:35)
[2023-04-17] MEDS: ATORVASTATIN 20 MG TABLET PO (08:35)
[2023-04-17] MEDS: CHOLECALCIFEROL 1,000 UNITS TABLET 1000 UNITS PO (08:35)
[2023-04-17] MEDS: FERROUS SULFATE 324 MG TABLET PO ×2 (08:35→17:00)
[2023-04-17] MEDS: GABAPENTIN 300 MG CAPSULE PO ×2 (08:35→17:00)
[2023-04-17] MEDS: COLESTIPOL HCL 1 GM TABLET PO ×3 (08:35→17:00)
[2023-04-17] MEDS: MIRABEGRON 25 MG ER TABLET PO (08:36)
[2023-04-17] MEDS: OPTI-GEN TAB 1 TABLET PO (08:36)
[2023-04-17] MEDS: MULTIVITAMINS /C LUTEIN (CENTRUM SILVER) TABLET *BKC 1 TAB PO (08:36)
[2023-04-17] MEDS: LIPASE/AMYLASE/PROTEASE 12,000 UNITS CAP 6 CAP PO ×3 (08:36→17:00)
[2023-04-17] MEDS: SACCHAROMYCES BOULARDII 250 MG CAPSULE PO ×2 (08:36→17:01)
[2023-04-17] MEDS: LOPERAMIDE HCL 2 MG CAPSULE PO ×2 (08:36→17:01)
[2023-04-17] MEDS: NIFEdipine 30 MG TAB.ER.24 PO (08:36)
[2023-04-17] MEDS: SERTRALINE HCL 50 MG TABLET PO (08:36)
[2023-04-17 11:27] LABS: Potassium 3.8 mmol/L (3.4-5.0)
[2023-04-17 11:37] LABS: Transferrin 94 mg/dL (206-381)
[2023-04-17 11:46] LABS: Iron 23 ug/dL (49-181)
[2023-04-17 11:59] LABS: Percent Iron Saturation 12 % (20-50)
[2023-04-17 12:44] LABS: Folic Acid > 20.0 ng/mL (2.76->20)
--- NOTE | 2023-04-17 13:43 | PM.PNNEP ---
Progress Note: A&P Assessment and Plan (1) JANA (acute kidney injury): Code(s): N17.9 - Acute kidney failure, unspecified Status: Acute Assessment and Plan: possibly secondary to infection (pneumonia) possible pre-renal factors playing a role evaluation to date: renal ultrasound with chronic left hydronephrosis urine electrolytes non-prerenal urine eosinophils negative CPK normal follow trend repeat labs and UOP (2) Stage 3b chronic kidney disease: Code(s): N18.32 - Chronic kidney disease, stage 3b Status: Chronic Assessment and Plan: baseline creatinine 1.4 - 1.8mg/dl in the last year presumably secondary to hypertension, vascular disease, BPH, and age-related change possible element of CKD progression(?) (3) Acute UTI: Code(s): N39.0 - Urinary tract infection, site not specified Status: Acute Assessment and Plan: UA highly suggestive complicated by chronic weeks catheter urine culture results negative (4) Acute hypoxemic respiratory failure: Code(s): J96.01 - Acute respiratory failure with hypoxia Status: Acute Assessment and Plan: due to underlying COPD and pneumonia oxygen support as needed - wean as toleraed continue supportive therapy (5) Pneumonia: Qualifiers: Laterality: bilateral Lung location: lower lobe of lung Pneumonia type: due to unspecified organism Qualified Code(s): J18.9 - Pneumonia, unspecified organism Code(s): J18.9 - Pneumonia, unspecified organism Status: Acute Assessment and Plan: suspected based on admission CXR on antibiotics follow culture data etiology of hypoxia (?) (6) Anemia: Code(s): D64.9 - Anemia, unspecified Status: Acute Assessment and Plan: related to JANA, CKD, and acute infection PRBC transfusion per protocol follow H/H Will continue to follow. Subjective Date/time seen: 04/17/23 13:43 Interval history: Follow-up for acute kidney injury/acute renal failure on chronic kidney disease. Renal function appears about the same -- off IVFs as he became a bit more short of breath/hypoxic requiring IV lasix administration (with good urine output response); still requiring supplemental oxygen at this time; no apparent distress noted. Exam Narrative: General: elderly male in NAD Heart: normal S1 and S2; no rub Lungs: coarse at bases with LLL crackles Abdomen: soft, nontender, nondistended, positive bowel sounds Extremities: no cyanosis or clubbing; no edema Skin: warm and intact Objective Data Vital Signs Vital Signs: Vital Signs Temp Pulse Resp BP Pulse Ox O2 Del Method O2 Flow Rate 04/17/23 13:00 98.0 F 61 18 115/51 L 96 04/17/23 08:15 92 Nasal Cannula 2 04/17/23 07:40 97.4 F L 04/17/23 08:34 60 04/17/23 06:42 99.9 F H 04/17/23 06:00 99.9 F H 60 18 117/49 L 94 04/16/23 19:52 97.8 F 64 18 110/44 L 95 04/16/23 19:40 92 Nasal Cannula 2 Intake/Output Intake/Output: Intake & Output 04/14/23 04/15/23 04/16/23 04/17/23 23:59 23:59 23:59 23:59 Intake Total 2800 4560 4020 690 Output Total 1780 3850 3700 Balance 2800 2780 170 -3010 Meds/Results Medications: Active Medications Generic Name Dose Route Start Last Admin Trade Name Freq PRN Reason Stop Dose Admin Acetaminophen 650 mg 04/14/23 18:38 04/17/23 06:42 Acetaminophen 325 Mg Tablet PO 650 mg Q4H PRN Administration Mild Pain (1-3) or Fever Hydrocodone Bitart/Acetaminophen 1 tab 04/14/23 18:38 Hydrocodone/Acetaminophen (*Crx) 5-325 Mg Tablet PO Q4H PRN Pain Rated 4-6 Al Hydrox/Mg Hydrox/Simethicone 10 ml 04/15/23 05:14 Mag Hydrox/Al Hydrox/Simeth 30 Ml Udc PO TID PRN Indigestion Albuterol 2.5 mg 04/15/23 06:21 Albuterol Sulfate Neb 2.5 Mg/3 Ml Inh INHALATION Q6H PRN Bronchospasm Lip
--- NOTE | 2023-04-17 13:43 | P.PNNP_ITS ---
Progress Note: A&P Assessment and Plan (1) JANA (acute kidney injury): Code(s): N17.9 - Acute kidney failure, unspecified Status: Acute Assessment and Plan: * possibly secondary to infection (pneumonia) * possible pre-renal factors playing a role * evaluation to date: * renal ultrasound with chronic left hydronephrosis * urine electrolytes non-prerenal * urine eosinophils negative * CPK normal * follow trend repeat labs and UOP (2) Stage 3b chronic kidney disease: Code(s): N18.32 - Chronic kidney disease, stage 3b Status: Chronic Assessment and Plan: * baseline creatinine 1.4 - 1.8mg/dl in the last year * presumably secondary to hypertension, vascular disease, BPH, and age-related change * possible element of CKD progression(?) (3) Acute UTI: Code(s): N39.0 - Urinary tract infection, site not specified Status: Acute Assessment and Plan: * UA highly suggestive * complicated by chronic weeks catheter * urine culture results negative (4) Acute hypoxemic respiratory failure: Code(s): J96.01 - Acute respiratory failure with hypoxia Status: Acute Assessment and Plan: * due to underlying COPD and pneumonia * oxygen support as needed - wean as toleraed * continue supportive therapy (5) Pneumonia: Qualifiers: Laterality: bilateral Lung location: lower lobe of lung Pneumonia type: due to unspecified organism Qualified Code(s): J18.9 - Pneumonia, unspecified organism Code(s): J18.9 - Pneumonia, unspecified organism Status: Acute Assessment and Plan: * suspected based on admission CXR * on antibiotics * follow culture data * etiology of hypoxia (?) (6) Anemia: Code(s): D64.9 - Anemia, unspecified Status: Acute Assessment and Plan: * related to JANA, CKD, and acute infection * PRBC transfusion per protocol * follow H/H Will continue to follow. Subjective Date/time seen: 04/17/23 13:43 Interval history: Follow-up for acute kidney injury/acute renal failure on chronic kidney disease. Renal function appears about the same -- off IVFs as he became a bit more short of breath/hypoxic requiring IV lasix administration (with good urine output response); still requiring supplemental oxygen at this time; no apparent distress noted. Exam Narrative: General: elderly male in NAD Heart: normal S1 and S2; no rub Lungs: coarse at bases with LLL crackles Abdomen: soft, nontender, nondistended, positive bowel sounds Extremities: no cyanosis or clubbing; no edema Skin: warm and intact Objective Data Vital Signs Vital Signs: Vital Signs Temp Pulse Resp BP Pulse Ox O2 Del Method O2 Flow Rate 04/17/23 13:00 98.0 F 61 18 115/51 L 96 04/17/23 08:15 92 Nasal Cannula 2 04/17/23 07:40 97.4 F L 04/17/23 08:34 60 04/17/23 06:42 99.9 F H 04/17/23 06:00 99.9 F H 60 18 117/49 L 94 04/16/23 19:52 97.8 F 64 18 110/44 L 95 04/16/23 19:40 92 Nasal Cannula 2 Intake/Output Intake/Output: Intake & Output 04/14/23 04/15/23 04/16/23 04/17/23 23:59 23:59 23:59 23:59 Intake Total 2800 4560 4020 690 Output Total 1780 3850 3700
[2023-04-17] MEDS: AZITHROMYCIN 500 MG/NS 250 ML 500 MG/250 ML BAG 125 MG IVPB (17:35)
[2023-04-17] MEDS: TAMSULOSIN HCL 0.4 MG CAPSULE PO (20:38)
[2023-04-18] VITALS (9 sets, daily range): BP systolic 105–132; BP diastolic 51–60; PULSE 63–70; RESP 16–18; TEMP 36.5–37; O2SAT 92–96
[2023-04-18] MEDS: CENTRAL LINE FLUSH 10 ML IV PUSH ×3 (05:00→21:05)
[2023-04-18 05:01] LABS: Basophils Percent Auto 0.1 % (0.2-1.2); Eosinophils Absolute Auto 0.1 K/mm3 (0-0.3); Eosinophils Percent Auto 1.8 % (0-4.4); Hematocrit 26.3 % (42.0-52.0); Hemoglobin 8.2 g/dL (14.0-18.0); Immature Granulocyte Absolute 0.11 K/mm3 (0.00-0.031); Immature Granulocyte Percent A 1.5 % (0-0.5); Lymphocytes Absolute Auto 1.78 K/mm3 (0.9-3.2); Lymphocytes Percent Auto 23.5 % (18.3-44.2); Mean Corpuscular HGB Conc 31.2 g/dl (32-36); Mean Corpuscular Volume 86.5 fl (80-100); Mean Platelet Volume 12.1 fl (7.4-10.4); Monocytes Absolute Auto 1.1 K/mm3 (0.1-0.6); Monocytes Percent Auto 13.9 % (2.6-8.5); Neutrophils Absolute Auto 4.5 K/mm3 (1.3-6.7); Neutrophils Percent Auto 59.2 % (45.5-73.1); Platelet Count Result 110 k/mm3 (150-375); Red Blood Count 3.04 M/mm3 (4.6-6.20); Red Cell Distribution Width 16.1 % (11.5-14.5); White Blood Count 7.6 K/mm3 (4.5-10.0)
[2023-04-18 05:13] LABS: Alanine Aminotransferase 15 U/L (6-50); Albumin Level 3.2 g/dL (3.5-5.1); Alkaline Phosphatase 66 U/L (38-126); Anion Gap 10 mmol/L (8-16); Aspartate Amino Transferase 20 U/L (17-59); Bilirubin,Total 0.3 mg/dL (0.2-1.3); Blood Urea Nitrogen 30 mg/dL (9-20); Calcium 7.8 mg/dL (8.4-10.2); Carbon Dioxide 22 mmol/L (22-30); Chloride 106 mmol/L (98-107); Estimated CRCL calculation 25 ml/min; Estimated Glomerular Filt Rate 25; Glucose 109 mg/dL (65-110); Potassium 3.3 mmol/L (3.4-5.0); Sodium 138 mmol/L (137-145)
[2023-04-18] MEDS: oxyCODONE HCL (*CRX) 5 MG TAB IR PO ×3 (05:48→17:56)
[2023-04-18] MEDS: ASPIRIN 81 MG ENTERIC TABLET PO (09:31)
[2023-04-18] MEDS: atenoloL 50 MG TABLET PO (09:31)
[2023-04-18] MEDS: CHOLECALCIFEROL 1,000 UNITS TABLET 1000 UNITS PO (09:32)
[2023-04-18] MEDS: COLESTIPOL HCL 1 GM TABLET PO ×3 (09:32→17:55)
[2023-04-18] MEDS: ATORVASTATIN 20 MG TABLET PO (09:32)
[2023-04-18] MEDS: FINASTERIDE 5 MG TABLET PO (09:33)
[2023-04-18] MEDS: FLUTICASONE PROPIONATE 0.05% NA SPR 16 GM BTL (*BKC) 1 SPRAY NASAL (09:33)
[2023-04-18] MEDS: FERROUS SULFATE 324 MG TABLET PO ×2 (09:33→17:55)
[2023-04-18] MEDS: GABAPENTIN 300 MG CAPSULE PO ×2 (09:34→17:55)
[2023-04-18] MEDS: LIPASE/AMYLASE/PROTEASE 12,000 UNITS CAP 6 CAP PO ×3 (09:34→17:55)
[2023-04-18] MEDS: MIRABEGRON 25 MG ER TABLET PO (09:35)
[2023-04-18] MEDS: LOPERAMIDE HCL 2 MG CAPSULE PO ×2 (09:35→17:56)
[2023-04-18] MEDS: NIFEdipine 30 MG TAB.ER.24 PO (09:36)
[2023-04-18] MEDS: MULTIVITAMINS /C LUTEIN (CENTRUM SILVER) TABLET *BKC 1 TAB PO (09:36)
[2023-04-18] MEDS: OPTI-GEN TAB 1 TABLET PO (09:36)
[2023-04-18] MEDS: PANTOPRAZOLE SODIUM IV 40 MG VIAL IV PUSH ×2 (09:36→21:04)
[2023-04-18] MEDS: SERTRALINE HCL 50 MG TABLET PO (09:36)
[2023-04-18] MEDS: SACCHAROMYCES BOULARDII 250 MG CAPSULE PO ×2 (09:36→17:56)
[2023-04-18] MEDS: POTASSIUM CHLORIDE 20 MEQ PACKET (FOR LIQUID) 40 MEQ PO (09:37)
--- NOTE | 2023-04-18 10:26 | P.PNNP_ITS ---
Progress Note: A&P Assessment and Plan (1) JANA (acute kidney injury): Code(s): N17.9 - Acute kidney failure, unspecified Status: Acute Assessment and Plan: * possibly secondary to infection (pneumonia) . He is afebrile and white count is normal. Breathing better. * possible pre-renal factors playing a role . This is better. * evaluation to date: * renal ultrasound with chronic left hydronephrosis * urine electrolytes non-prerenal * urine eosinophils negative * CPK normal * baseline creatinine seems to range in the 1.4-1.8 range. * On admission it was 2.9. Now it has fallen and relatively stable at around 2.5. * He probably had a component of acute kidney injury. * Now this may be a new chronic baseline. There may be some slow improvement down the line. * Repeat a renal panel in the morning (2) Stage 3b chronic kidney disease: Code(s): N18.32 - Chronic kidney disease, stage 3b Status: Chronic Assessment and Plan: * baseline creatinine 1.4 - 1.8mg/dl in the last year * presumably secondary to hypertension, vascular disease, BPH, and age-related change * possible element of CKD progression(?) (3) Acute UTI: Code(s): N39.0 - Urinary tract infection, site not specified Status: Acute Assessment and Plan: * UA highly suggestive * complicated by chronic weeks catheter * urine culture results negative (4) Acute hypoxemic respiratory failure: Code(s): J96.01 - Acute respiratory failure with hypoxia Status: Acute Assessment and Plan: * due to underlying COPD and pneumonia * oxygen support as needed - wean as toleraed * he still on 2L of oxygen. * continue supportive therapy (5) Pneumonia: Qualifiers: Laterality: bilateral Lung location: lower lobe of lung Pneumonia type: due to unspecified organism Qualified Code(s): J18.9 - Pneumonia, unspecified organism Code(s): J18.9 - Pneumonia, unspecified organism Status: Acute Assessment and Plan: * suspected based on admission CXR * on antibiotics * O2 sat is better. Temperature is okay. White count is okay. * follow culture data * etiology of hypoxia (?) (6) Anemia: Code(s): D64.9 - Anemia, unspecified Status: Acute Assessment and Plan: * related to JANA, CKD, and acute infection * Hemoglobin 8.2 which is stable for the last 3 days. Will continue to follow. Subjective Date/time seen: 04/18/23 10:26 Interval history: Patient feels okay today. Eating some. Exam Narrative: General: elderly male in NAD Heart: normal S1 and S2; no rub or gallop Lungs: coarse at bases with LLL crackles Abdomen: soft, nontender, nondistended, positive bowel sounds Extremities: no cyanosis or clubbing; no edema Skin: No rash Objective Data Vital Signs Vital Signs: Vital Signs - 24 hr 04/17/23 14:00 04/17/23 17:17 04/17/23 19:28 Temperature 98.0 F 98.5 F Pulse Rate 61 69 Respiratory Rate 18 18 Blood Pressure 115/51 L 111/50 L Pulse Oximetry 96 94 96 Oxygen Delivery Nasal Cannula Oxygen Flow Rate 2 04/18/23 05:00 04/18/23 05:45 04/18/23 09:28 Temperature 98.6 F Pulse Rate 63 65 Respiratory Rate 18 Blood Pressure 112/54 L 105/51 L Pulse Oximetry
--- NOTE | 2023-04-18 10:26 | PM.PNNEP ---
Progress Note: A&P Assessment and Plan (1) JANA (acute kidney injury): Code(s): N17.9 - Acute kidney failure, unspecified Status: Acute Assessment and Plan: possibly secondary to infection (pneumonia) . He is afebrile and white count is normal. Breathing better. possible pre-renal factors playing a role . This is better. evaluation to date: renal ultrasound with chronic left hydronephrosis urine electrolytes non-prerenal urine eosinophils negative CPK normal baseline creatinine seems to range in the 1.4-1.8 range. On admission it was 2.9. Now it has fallen and relatively stable at around 2.5. He probably had a component of acute kidney injury. Now this may be a new chronic baseline. There may be some slow improvement down the line. Repeat a renal panel in the morning (2) Stage 3b chronic kidney disease: Code(s): N18.32 - Chronic kidney disease, stage 3b Status: Chronic Assessment and Plan: baseline creatinine 1.4 - 1.8mg/dl in the last year presumably secondary to hypertension, vascular disease, BPH, and age-related change possible element of CKD progression(?) (3) Acute UTI: Code(s): N39.0 - Urinary tract infection, site not specified Status: Acute Assessment and Plan: UA highly suggestive complicated by chronic weeks catheter urine culture results negative (4) Acute hypoxemic respiratory failure: Code(s): J96.01 - Acute respiratory failure with hypoxia Status: Acute Assessment and Plan: due to underlying COPD and pneumonia oxygen support as needed - wean as toleraed he still on 2L of oxygen. continue supportive therapy (5) Pneumonia: Qualifiers: Laterality: bilateral Lung location: lower lobe of lung Pneumonia type: due to unspecified organism Qualified Code(s): J18.9 - Pneumonia, unspecified organism Code(s): J18.9 - Pneumonia, unspecified organism Status: Acute Assessment and Plan: suspected based on admission CXR on antibiotics O2 sat is better. Temperature is okay. White count is okay. follow culture data etiology of hypoxia (?) (6) Anemia: Code(s): D64.9 - Anemia, unspecified Status: Acute Assessment and Plan: related to JANA, CKD, and acute infection Hemoglobin 8.2 which is stable for the last 3 days. Will continue to follow. Subjective Date/time seen: 04/18/23 10:26 Interval history: Patient feels okay today. Eating some. Exam Narrative: General: elderly male in NAD Heart: normal S1 and S2; no rub or gallop Lungs: coarse at bases with LLL crackles Abdomen: soft, nontender, nondistended, positive bowel sounds Extremities: no cyanosis or clubbing; no edema Skin: No rash Objective Data Vital Signs Vital Signs: Vital Signs - 24 hr 04/17/23 14:00 04/17/23 17:17 04/17/23 19:28 Temperature 98.0 F 98.5 F Pulse Rate 61 69 Respiratory Rate 18 18 Blood Pressure 115/51 L 111/50 L Pulse Oximetry 96 94 96 Oxygen Delivery Nasal Cannula Oxygen Flow Rate 2 04/18/23 05:00 04/18/23 05:45 04/18/23 09:28 Temperature 98.6 F Pulse Rate 63 65 Respiratory Rate 18 Blood Pressure 112/54 L 105/51 L Pulse Oximetry 95 96 Oxygen Delivery Nasal Cannula Oxygen Flow Rate 2 04/18/23 09:31 Temperature Pulse Rate 65 Respiratory Rate Blood Pressure Pulse Oximetry Oxygen Delivery Oxygen Flow Rate Intake/Output Intake/Output: Intake & Output 04/15/23 04/16/23 04/17/23 04/18/23 23:59 23:59 23:59 23:59 Intake Total 4560 4020 1300 720 Output Total 1780 3850 5300 450 Balance 2780 170 -4000 270 Meds/Results Medications: Active Medications Generic Name Dose Route Start Last Admin Trade Name Freq PRN Reason Stop Dose Admin Acetaminophen 650 mg 04/14/23 18:38 04/17/23 06:42 Acetaminophen 325 Mg Tablet PO 650 mg Q4H PRN Administration Mild
[2023-04-18 12:33] LABS: Potassium 4.2 mmol/L (3.4-5.0)
--- NOTE | 2023-04-18 12:35 | P.PNIM_ITS ---
Progress Note: A&P Assessment and Plan (1) Acute hypoxemic respiratory failure: Code(s): J96.01 - Acute respiratory failure with hypoxia Status: Acute Assessment and Plan: On presentation patient had low pulse ox requiring initiation of oxygen supplementation. * Continue Oxygen by DE at 2 L. Wean oxygen to maintain O2 saturation greater than 90 % * Breathing treatments * Monitor respiratory status * Patient not having any complaints of shortness of breath or difficulty breathing. * 6/ Pt had wheezing on exam, fluid held and Lasix given * 04/17 repeat CXR Showing COPD and improved pneumonia * 04/18 Pt doing well. Needs PT/OT evaluation. Continues on 2L of oxygen will continue to try and wean. If patient cannot be weaned will do home O2 evaluation. (2) Pneumonia: Qualifiers: Laterality: bilateral Lung location: lower lobe of lung Pneumonia type: due to unspecified organism Qualified Code(s): J18.9 - Pneumonia, unspecified organism Code(s): J18.9 - Pneumonia, unspecified organism Status: Acute Assessment and Plan: Chest x-ray showing airspace opacities in the mid and lower lung zones consistent with pneumonia versus pulmonary edema. * On Rocephin and Azithromycin * Supportive care * Continue to monitor * Sputum culture if able to obtain * 04/16 WBC slightly elevated although patient clinically improved. * Blood cultures not obtained but will consider if patient declines. (3) Acute UTI: Code(s): N39.0 - Urinary tract infection, site not specified Status: Acute Assessment and Plan: UA revealing 3+ LE, greater than 100 rbc's greater than 100 wbc's. A white blood cell count of 15.1 * Urine culture did not reveal a to infection. * Rocephin continue due to pneumonia treatment. (4) JANA (acute kidney injury): Code(s): N17.9 - Acute kidney failure, unspecified Status: Acute Assessment and Plan: It appears that patient's renal function age is typically between 1.4 and 1.9. On presentation patient's BUN and creatinine was 50/2.9. Likely pr renal azotemia superimposed on chronic renal disease * Renal US showing mild left hydronephrosis * IV fluids * Nephrology consult and appreciate recommendations * Talk with Nephrology in the believe that patient may be at a new baseline. They be okay with patient discharging whenever and following up with their primary care or Nephrology. (5) Chronic indwelling Choudhury catheter: Code(s): Z97.8 - Presence of other specified devices Status: Chronic Assessment and Plan: Local care (6) Anemia: Code(s): D64.9 - Anemia, unspecified Status: Acute Assessment and Plan: 04/16 pt h&h dropped to 6.8/22.6. patient received 1 unit of PRBCs * Occult stool negative * No active signs GI bleed * Patient has known history of transfusions and chronic anemia; on chronic iron supplementation * Patient receiving IV fluids due to JANA. This could have caused patient's lab values to drop. Do not believe patient has an active bleed at this time. * Patient's hemoglobin at baseline is between 7-9 * Continue to monitor H&H Subjective Date/time seen: 04/18/23 12:35 Interval history: Pt doing well and eating in bed. patient states that he is unsure if he can go home due to not being able to get out of bed. I asked him how he usually moves around he states that he uses a walker/wheelchair. Will ask PT and OT to
--- NOTE | 2023-04-18 12:35 | PM.IMPN ---
Progress Note: A&P Assessment and Plan (1) Acute hypoxemic respiratory failure: Code(s): J96.01 - Acute respiratory failure with hypoxia Status: Acute Assessment and Plan: On presentation patient had low pulse ox requiring initiation of oxygen supplementation. Continue Oxygen by NC at 2 L. Wean oxygen to maintain O2 saturation greater than 90 % Breathing treatments Monitor respiratory status Patient not having any complaints of shortness of breath or difficulty breathing. 6/7 Pt had wheezing on exam, fluid held and Lasix given 04/17 repeat CXR Showing COPD and improved pneumonia 6/ Pt doing well. Needs PT/OT evaluation. Continues on 2L of oxygen will continue to try and wean. If patient cannot be weaned will do home O2 evaluation. (2) Pneumonia: Qualifiers: Laterality: bilateral Lung location: lower lobe of lung Pneumonia type: due to unspecified organism Qualified Code(s): J18.9 - Pneumonia, unspecified organism Code(s): J18.9 - Pneumonia, unspecified organism Status: Acute Assessment and Plan: Chest x-ray showing airspace opacities in the mid and lower lung zones consistent with pneumonia versus pulmonary edema. On Rocephin and Azithromycin Supportive care Continue to monitor Sputum culture if able to obtain 6/7 WBC slightly elevated although patient clinically improved. Blood cultures not obtained but will consider if patient declines. (3) Acute UTI: Code(s): N39.0 - Urinary tract infection, site not specified Status: Acute Assessment and Plan: UA revealing 3+ LE, greater than 100 rbc's greater than 100 wbc's. A white blood cell count of 15.1 Urine culture did not reveal a to infection. Rocephin continue due to pneumonia treatment. (4) JANA (acute kidney injury): Code(s): N17.9 - Acute kidney failure, unspecified Status: Acute Assessment and Plan: It appears that patient's renal function age is typically between 1.4 and 1.9. On presentation patient's BUN and creatinine was 50/2.9. Likely pr renal azotemia superimposed on chronic renal disease Renal US showing mild left hydronephrosis IV fluids Nephrology consult and appreciate recommendations Talk with Nephrology in the believe that patient may be at a new baseline. They be okay with patient discharging whenever and following up with their primary care or Nephrology. (5) Chronic indwelling Choudhury catheter: Code(s): Z97.8 - Presence of other specified devices Status: Chronic Assessment and Plan: Local care (6) Anemia: Code(s): D64.9 - Anemia, unspecified Status: Acute Assessment and Plan: 04/16 pt h&h dropped to 6.8/22.6. patient received 1 unit of PRBCs Occult stool negative No active signs GI bleed Patient has known history of transfusions and chronic anemia; on chronic iron supplementation Patient receiving IV fluids due to JANA. This could have caused patient's lab values to drop. Do not believe patient has an active bleed at this time. Patient's hemoglobin at baseline is between 7-9 Continue to monitor H&H Subjective Date/time seen: 04/18/23 12:35 Interval history: Pt doing well and eating in bed. patient states that he is unsure if he can go home due to not being able to get out of bed. I asked him how he usually moves around he states that he uses a walker/wheelchair. Will ask PT and OT to do an evaluation to see if patient is at baseline or needs rehab. Is my believe the patient is most likely at baseline. Review of Systems Review of Systems: All systems reviewed & are unremarkable except as noted in HPI and below Exam Narrative: GENERAL: Comfortable, no acute distress HENMT: moist mucous membranes EYES: EOM intact b/l NECK: no lymphadenopathy RESPIRATORY: Clear to auscultation CARDIO: RRR GI: soft, nontender, bowel sounds present : Suprapubi
--- NOTE | 2023-04-18 16:06 | PCPTNOTE ---
received PT orders, PT eval not completed. EMR reviewed-- talked with GEORGI Almeida and pt, they all state, [place] he was w/c bound, stand pivot transfer with assist, from the [place] and is going to return to the [place]. Called OMAIRA Meyer and discussed pt with her, she gave verbal consent to d/c PT order.
[2023-04-18] MEDS: HYDROcodone/acetaminophen (*CRX) 5-325 MG TABLET 1 TAB PO (21:04)
[2023-04-18] MEDS: AZITHROMYCIN 250 MG TABLET 500 MG PO (21:04)
[2023-04-18] MEDS: AMOXICILLIN/CLAVULANATE K 875-125 MG TAB 1 TABLET PO (21:05)
[2023-04-18] MEDS: TAMSULOSIN HCL 0.4 MG CAPSULE PO (21:05)
[2023-04-19 05:29] VITALS: BP 126/52; PULSE 65; RESP 17; TEMP 36.6; O2SAT 92
[2023-04-19] MEDS: oxyCODONE HCL (*CRX) 5 MG TAB IR PO ×2 (06:28→13:04)
[2023-04-19] MEDS: CENTRAL LINE FLUSH 10 ML IV PUSH ×2 (06:29→13:05)
[2023-04-19 06:43] LABS: Basophils Percent Auto 0.3 % (0.2-1.2); Eosinophils Absolute Auto 0.1 K/mm3 (0-0.3); Eosinophils Percent Auto 1.7 % (0-4.4); Hematocrit 25.7 % (42.0-52.0); Hemoglobin 8.1 g/dL (14.0-18.0); Immature Granulocyte Absolute 0.13 K/mm3 (0.00-0.031); Immature Granulocyte Percent A 1.7 % (0-0.5); Lymphocytes Absolute Auto 2.05 K/mm3 (0.9-3.2); Lymphocytes Percent Auto 26.9 % (18.3-44.2); Mean Corpuscular HGB Conc 31.5 g/dl (32-36); Mean Corpuscular Hemoglobin 27.1 pg (26-34); Monocytes Absolute Auto 0.9 K/mm3 (0.1-0.6); Monocytes Percent Auto 11.3 % (2.6-8.5); Neutrophils Absolute Auto 4.4 K/mm3 (1.3-6.7); Neutrophils Percent Auto 58.1 % (45.5-73.1); Platelet Count Result 116 k/mm3 (150-375); Red Blood Count 2.99 M/mm3 (4.6-6.20); Red Cell Distribution Width 16.1 % (11.5-14.5); White Blood Count 7.6 K/mm3 (4.5-10.0)
[2023-04-19 06:57] LABS: Alanine Aminotransferase 17 U/L (6-50); Albumin Level 3.2 g/dL (3.5-5.1); Alkaline Phosphatase 61 U/L (38-126); Anion Gap 7 mmol/L (8-16); Aspartate Amino Transferase 21 U/L (17-59); Bilirubin,Total 0.3 mg/dL (0.2-1.3); Blood Urea Nitrogen 29 mg/dL (9-20); Calcium 8.1 mg/dL (8.4-10.2); Carbon Dioxide 26 mmol/L (22-30); Chloride 104 mmol/L (98-107); Estimated CRCL calculation 29 ml/min; Estimated Glomerular Filt Rate 31; Glucose 91 mg/dL (65-110); Phosphorus 2.5 mg/dL (2.5-4.5); Potassium 3.3 mmol/L (3.4-5.0); Sodium 137 mmol/L (137-145)
[2023-04-19 09:32] VITALS: O2SAT 92
[2023-04-19] MEDS: POTASSIUM CHLORIDE 20 MEQ PACKET (FOR LIQUID) 40 MEQ PO (09:33)
[2023-04-19] MEDS: ASPIRIN 81 MG ENTERIC TABLET PO (09:34)
[2023-04-19] MEDS: AMOXICILLIN/CLAVULANATE K 875-125 MG TAB 1 TABLET PO (09:34)
[2023-04-19] MEDS: ATORVASTATIN 20 MG TABLET PO (09:35)
[2023-04-19] MEDS: COLESTIPOL HCL 1 GM TABLET PO ×2 (09:35→13:04)
[2023-04-19] MEDS: CHOLECALCIFEROL 1,000 UNITS TABLET 1000 UNITS PO (09:35)
[2023-04-19 09:36] VITALS: PULSE 68
[2023-04-19] MEDS: FERROUS SULFATE 324 MG TABLET PO (09:36)
[2023-04-19] MEDS: FINASTERIDE 5 MG TABLET PO (09:36)
[2023-04-19] MEDS: atenoloL 50 MG TABLET PO (09:36)
[2023-04-19] MEDS: FLUTICASONE PROPIONATE 0.05% NA SPR 16 GM BTL (*BKC) 1 SPRAY NASAL (09:36)
[2023-04-19] MEDS: GABAPENTIN 300 MG CAPSULE PO (09:37)
[2023-04-19] MEDS: LIPASE/AMYLASE/PROTEASE 12,000 UNITS CAP 6 CAP PO ×2 (09:37→13:04)
[2023-04-19] MEDS: OPTI-GEN TAB 1 TABLET PO (09:38)
[2023-04-19] MEDS: PANTOPRAZOLE SODIUM IV 40 MG VIAL IV PUSH (09:38)
[2023-04-19] MEDS: MULTIVITAMINS /C LUTEIN (CENTRUM SILVER) TABLET *BKC 1 TAB PO (09:38)
[2023-04-19] MEDS: LOPERAMIDE HCL 2 MG CAPSULE PO (09:38)
[2023-04-19] MEDS: NIFEdipine 30 MG TAB.ER.24 PO (09:38)
[2023-04-19] MEDS: MIRABEGRON 25 MG ER TABLET PO (09:38)
[2023-04-19] MEDS: SACCHAROMYCES BOULARDII 250 MG CAPSULE PO (09:39)
[2023-04-19] MEDS: SERTRALINE HCL 50 MG TABLET PO (09:39)
--- NOTE | 2023-04-19 09:56 | P.DS_ITS ---
DS: Admitting Diagnosis Discharge Date 04/19/23 Admitting Diagnosis UTI, pneumonia DS: Discharge Diagnosis Discharge Diagnosis (1) Acute hypoxemic respiratory failure: Code(s): J96.01 - Acute respiratory failure with hypoxia Status: Acute Assessment and Plan: On presentation patient had low pulse ox requiring initiation of oxygen supplementation. * Continue Oxygen by HI at 2 L. Wean oxygen to maintain O2 saturation greater than 90 % * Breathing treatments * Monitor respiratory status * Patient not having any complaints of shortness of breath or difficulty breathing. * 04/16 Pt had wheezing on exam, fluid held and Lasix given * 04/17 repeat CXR Showing COPD and improved pneumonia * 04/18 Pt doing well. Continues on 2L of oxygen will continue to try and wean. * 04/19 home O2 evaluation prior to discharge. Patient is at baseline with PT and OT. (2) Pneumonia: Qualifiers: Laterality: bilateral Lung location: lower lobe of lung Pneumonia type: due to unspecified organism Qualified Code(s): J18.9 - Pneumonia, unspecified organism Code(s): J18.9 - Pneumonia, unspecified organism Status: Acute Assessment and Plan: Chest x-ray showing airspace opacities in the mid and lower lung zones consistent with pneumonia versus pulmonary edema. * On Rocephin and Azithromycin * Supportive care * Continue to monitor * Unable to obtain sputum culture * White count within normal limits (3) Acute UTI: Code(s): N39.0 - Urinary tract infection, site not specified Status: Acute Assessment and Plan: UA revealing 3+ LE, greater than 100 rbc's greater than 100 wbc's. A white blood cell count of 15.1 * Urine culture did not reveal a to infection. * Rocephin continue due to pneumonia treatment. (4) JANA (acute kidney injury): Code(s): N17.9 - Acute kidney failure, unspecified Status: Acute Assessment and Plan: It appears that patient's renal function age is typically between 1.4 and 1.9. On presentation patient's BUN and creatinine was 50/2.9. Likely pr renal azotemia superimposed on chronic renal disease * Renal US showing mild left hydronephrosis * IV fluids * Nephrology consult and appreciate recommendations * Talk with Nephrology in the believe that patient may be at a new baseline. They be okay with patient discharging whenever and following up with their primary care or Nephrology. (5) Chronic indwelling Choudhury catheter: Code(s): Z97.8 - Presence of other specified devices Status: Chronic Assessment and Plan: Local care (6) Anemia: Code(s): D64.9 - Anemia, unspecified Status: Acute Assessment and Plan: 04/16 pt h&h dropped to 6.8/22.6. patient received 1 unit of PRBCs * Occult stool negative * No active signs GI bleed * Patient has known history of transfusions and chronic anemia; on chronic iron supplementation * Patient receiving IV fluids due to JANA. This could have caused patient's lab values to drop. Do not believe patient has an active bleed at this time. * Patient's hemoglobin at baseline is between 7-9 * Continue to monitor H&H DS: Summary Hospital Course Hospital Course: This is a 77-year-old male with a past medical history of chronic indwelling suprapubic catheter, bedbound, chronic diarrhea, pancreatic insufficiency, CHF, hypertension, BPH, history of TIA, and CKD the presents to the ED on 04/14/2023 due t
--- NOTE | 2023-04-19 09:56 | PM.DS ---
DS: Admitting Diagnosis Discharge Date 04/19/23 Admitting Diagnosis UTI, pneumonia DS: Discharge Diagnosis Discharge Diagnosis (1) Acute hypoxemic respiratory failure: Code(s): J96.01 - Acute respiratory failure with hypoxia Status: Acute Assessment and Plan: On presentation patient had low pulse ox requiring initiation of oxygen supplementation. Continue Oxygen by NC at 2 L. Wean oxygen to maintain O2 saturation greater than 90 % Breathing treatments Monitor respiratory status Patient not having any complaints of shortness of breath or difficulty breathing. 04/16 Pt had wheezing on exam, fluid held and Lasix given 04/17 repeat CXR Showing COPD and improved pneumonia 04/18 Pt doing well. Continues on 2L of oxygen will continue to try and wean. 04/19 home O2 evaluation prior to discharge. Patient is at baseline with PT and OT. (2) Pneumonia: Qualifiers: Laterality: bilateral Lung location: lower lobe of lung Pneumonia type: due to unspecified organism Qualified Code(s): J18.9 - Pneumonia, unspecified organism Code(s): J18.9 - Pneumonia, unspecified organism Status: Acute Assessment and Plan: Chest x-ray showing airspace opacities in the mid and lower lung zones consistent with pneumonia versus pulmonary edema. On Rocephin and Azithromycin Supportive care Continue to monitor Unable to obtain sputum culture White count within normal limits (3) Acute UTI: Code(s): N39.0 - Urinary tract infection, site not specified Status: Acute Assessment and Plan: UA revealing 3+ LE, greater than 100 rbc's greater than 100 wbc's. A white blood cell count of 15.1 Urine culture did not reveal a to infection. Rocephin continue due to pneumonia treatment. (4) JANA (acute kidney injury): Code(s): N17.9 - Acute kidney failure, unspecified Status: Acute Assessment and Plan: It appears that patient's renal function age is typically between 1.4 and 1.9. On presentation patient's BUN and creatinine was 50/2.9. Likely pr renal azotemia superimposed on chronic renal disease Renal US showing mild left hydronephrosis IV fluids Nephrology consult and appreciate recommendations Talk with Nephrology in the believe that patient may be at a new baseline. They be okay with patient discharging whenever and following up with their primary care or Nephrology. (5) Chronic indwelling Choudhury catheter: Code(s): Z97.8 - Presence of other specified devices Status: Chronic Assessment and Plan: Local care (6) Anemia: Code(s): D64.9 - Anemia, unspecified Status: Acute Assessment and Plan: 04/16 pt h&h dropped to 6.8/22.6. patient received 1 unit of PRBCs Occult stool negative No active signs GI bleed Patient has known history of transfusions and chronic anemia; on chronic iron supplementation Patient receiving IV fluids due to JANA. This could have caused patient's lab values to drop. Do not believe patient has an active bleed at this time. Patient's hemoglobin at baseline is between 7-9 Continue to monitor H&H DS: Summary Hospital Course Hospital Course: This is a 77-year-old male with a past medical history of chronic indwelling suprapubic catheter, bedbound, chronic diarrhea, pancreatic insufficiency, CHF, hypertension, BPH, history of TIA, and CKD the presents to the ED on 04/14/2023 due to low blood pressure and episode of vomiting. Patient required 2 L of oxygen in the ED. patient was found have a white blood cell count of 15 and chest x-ray read interstitial and air space opacities in the mid and lower lung zones consistent with pneumonia. Patient's UA significant for numerous wbc's. Creatinine and BUN were 2.9/50 and wbc's of 15,000. patient was started on Rocephin and azithromycin for treatment of pneumonia and UTI. Urine culture came back negative for infection. Marcelle
[2023-04-19 10:10] VITALS: PULSE 67; O2SAT 93
--- NOTE | 2023-04-19 10:18 | P.PNNP_ITS ---
Progress Note: A&P Assessment and Plan (1) JANA (acute kidney injury): Code(s): N17.9 - Acute kidney failure, unspecified Status: Acute Assessment and Plan: * Acute kidney injury * evaluation to date: * renal ultrasound with chronic left hydronephrosis * urine electrolytes non-prerenal * urine eosinophils negative * CPK normal * baseline creatinine seems to range in the 1.4-1.8 range. * On admission it was 2.9. Now it has fallen and today fell even further down to 2.1 * He seems to have acute superimposed on chronic kidney disease. * The creatinine today is almost down to his baseline of 1.4-1.8. * His potassium was 3.3 today. He received a supplement. * Repeat a renal panel in the morning (2) Stage 3b chronic kidney disease: Code(s): N18.32 - Chronic kidney disease, stage 3b Status: Chronic Assessment and Plan: * baseline creatinine 1.4 - 1.8mg/dl in the last year * presumably secondary to hypertension, vascular disease, BPH, and age-related change * possible element of CKD progression(?) (3) Acute UTI: Code(s): N39.0 - Urinary tract infection, site not specified Status: Acute Assessment and Plan: * UA highly suggestive * complicated by chronic weeks catheter * He is on ceftriaxone * urine culture results negative (4) Acute hypoxemic respiratory failure: Code(s): J96.01 - Acute respiratory failure with hypoxia Status: Acute Assessment and Plan: * due to underlying COPD and pneumonia * oxygen support as needed - wean as toleraed * he still on 2L of oxygen. * continue supportive therapy (5) Pneumonia: Qualifiers: Laterality: bilateral Lung location: lower lobe of lung Pneumonia type: due to unspecified organism Qualified Code(s): J18.9 - Pneumonia, unspecified organism Code(s): J18.9 - Pneumonia, unspecified organism Status: Acute Assessment and Plan: * suspected based on admission CXR * on antibiotics * O2 sat is better. Temperature is okay. White count is okay. * follow culture data * etiology of hypoxia (?) (6) Anemia: Code(s): D64.9 - Anemia, unspecified Status: Acute Assessment and Plan: * related to JANA, CKD, and acute infection * Hemoglobin 8.2 which is stable for the last 4 days. Will continue to follow. Subjective Date/time seen: 04/19/23 10:18 Interval history: Patient feels okay today. He ate some breakfast. He did not get out of bed today yet. Exam Narrative: General: elderly male in NAD Heart: normal S1 and S2; no rub or gallop Lungs: coarse at bases with LLL crackles Abdomen: soft, nontender, nondistended, positive bowel sounds Extremities: no cyanosis or clubbing; no edema Skin: No rash Objective Data Vital Signs Vital Signs: Vital Signs - 24 hr 04/18/23 14:18 04/18/23 14:26 04/18/23 19:20 Temperature 97.7 F 97.8 F Pulse Rate 65 70 Respiratory Rate 16 16 Blood Pressure 127/52 L 132/60 Pulse Oximetry 92 93 94 Oxygen Delivery Nasal Cannula Oxygen Flow Rate 1 04/18/23 20:00 04/19/23 05:29 04/19/23 09:36 Temperature 97.9 F Pulse Rate 70 65 68 Respiratory Rate 16 17 Blood Pressure 126/52 L Pulse Oximetry 94 92
--- NOTE | 2023-04-19 10:18 | PM.PNNEP ---
Progress Note: A&P Assessment and Plan (1) JANA (acute kidney injury): Code(s): N17.9 - Acute kidney failure, unspecified Status: Acute Assessment and Plan: Acute kidney injury evaluation to date: renal ultrasound with chronic left hydronephrosis urine electrolytes non-prerenal urine eosinophils negative CPK normal baseline creatinine seems to range in the 1.4-1.8 range. On admission it was 2.9. Now it has fallen and today fell even further down to 2.1 He seems to have acute superimposed on chronic kidney disease. The creatinine today is almost down to his baseline of 1.4-1.8. His potassium was 3.3 today. He received a supplement. Repeat a renal panel in the morning (2) Stage 3b chronic kidney disease: Code(s): N18.32 - Chronic kidney disease, stage 3b Status: Chronic Assessment and Plan: baseline creatinine 1.4 - 1.8mg/dl in the last year presumably secondary to hypertension, vascular disease, BPH, and age-related change possible element of CKD progression(?) (3) Acute UTI: Code(s): N39.0 - Urinary tract infection, site not specified Status: Acute Assessment and Plan: UA highly suggestive complicated by chronic weeks catheter He is on ceftriaxone urine culture results negative (4) Acute hypoxemic respiratory failure: Code(s): J96.01 - Acute respiratory failure with hypoxia Status: Acute Assessment and Plan: due to underlying COPD and pneumonia oxygen support as needed - wean as toleraed he still on 2L of oxygen. continue supportive therapy (5) Pneumonia: Qualifiers: Laterality: bilateral Lung location: lower lobe of lung Pneumonia type: due to unspecified organism Qualified Code(s): J18.9 - Pneumonia, unspecified organism Code(s): J18.9 - Pneumonia, unspecified organism Status: Acute Assessment and Plan: suspected based on admission CXR on antibiotics O2 sat is better. Temperature is okay. White count is okay. follow culture data etiology of hypoxia (?) (6) Anemia: Code(s): D64.9 - Anemia, unspecified Status: Acute Assessment and Plan: related to JANA, CKD, and acute infection Hemoglobin 8.2 which is stable for the last 4 days. Will continue to follow. Subjective Date/time seen: 04/19/23 10:18 Interval history: Patient feels okay today. He ate some breakfast. He did not get out of bed today yet. Exam Narrative: General: elderly male in NAD Heart: normal S1 and S2; no rub or gallop Lungs: coarse at bases with LLL crackles Abdomen: soft, nontender, nondistended, positive bowel sounds Extremities: no cyanosis or clubbing; no edema Skin: No rash Objective Data Vital Signs Vital Signs: Vital Signs - 24 hr 04/18/23 14:18 04/18/23 14:26 04/18/23 19:20 Temperature 97.7 F 97.8 F Pulse Rate 65 70 Respiratory Rate 16 16 Blood Pressure 127/52 L 132/60 Pulse Oximetry 92 93 94 Oxygen Delivery Nasal Cannula Oxygen Flow Rate 1 04/18/23 20:00 04/19/23 05:29 04/19/23 09:36 Temperature 97.9 F Pulse Rate 70 65 68 Respiratory Rate 16 17 Blood Pressure 126/52 L Pulse Oximetry 94 92 Oxygen Delivery Nasal Cannula Oxygen Flow Rate 1 Intake/Output Intake/Output: Intake & Output 04/16/23 04/17/23 04/18/23 04/19/23 23:59 23:59 23:59 23:59 Intake Total 4020 1300 1850 200 Output Total 3850 5300 1700 1500 Balance 170 -4000 150 -1300 Meds/Results Medications: Active Medications Generic Name Dose Route Start Last Admin Trade Name Freq PRN Reason Stop Dose Admin Acetaminophen 650 mg 04/14/23 18:38 04/17/23 06:42 Acetaminophen 325 Mg Tablet PO 650 mg Q4H PRN Administration Mild Pain (1-3) or Fever Hydrocodone Bitart/Acetaminophen 1 tab 04/14/23 18:38 04/18/23 21:04 Hydrocodone/Acetaminophen (*Crx) 5-325 Mg Tablet PO 1 tab
[2023-04-19 14:00] VITALS: BP 149/71; PULSE 71; RESP 20; TEMP 36.9; O2SAT 91
--- NOTE | 2023-04-19 14:31 | PC.NURSE ---
Spoke to RADHA Ochoa regarding PICC line that had been placed prior to admission. Facility stated patient was receiving antibiotics from outside provider that required PICC line use. No order from that provider to remove at this time. [place] per facility and hospitalist to return to [facility] with PICC line in place and for outside provider to follow-up on removal.
[2023-04-19 15:14] LABS: EDCOVIDSCREEN Negative (Negative)
[2023-04-21 15:27] LABS: Chloride Rand Ur 126 mmol/L (32-290); Chloride/Creatinine Rand Ur 504 (23-275); Creatinine Random Urine 25 mg/dL (20-320)
== END 2023-04-19 17:46 | DRG 193 ==
LOC: ANHED 15:22 → ANH3MEDSUR 20:58 → ANH2MED 21:13
PROVIDERS: Internal Medicine; Internal Medicine Nephrology; Admitting Provider Internal Medicine; Emergency Provider Emergency Medicine; PCP Family Medicine; Visit Provider Internal Medicine Critical Care Medicine
DX: J18.9 Pneumonia, unspecified organism (principal); J96.01 Acute respiratory failure with hypoxia; I69.354 Hemiplegia and hemiparesis following cerebral infarction affecting left non-dominant side; N17.9 Acute kidney failure, unspecified; J44.0 Chronic obstructive pulmonary disease with (acute) lower respiratory infection; N18.32 Chronic kidney disease, stage 3b; I12.9 Hypertensive chronic kidney disease with stage 1 through stage 4 chronic kidney disease, or unspecified chronic kidney disease; D64.9 Anemia, unspecified; K21.9 Gastro-esophageal reflux disease without esophagitis; K58.9 Irritable bowel syndrome, unspecified; M19.90 Unspecified osteoarthritis, unspecified site; N40.0 Benign prostatic hyperplasia without lower urinary tract symptoms; M47.816 Spondylosis without myelopathy or radiculopathy, lumbar region; Z96.643 Presence of artificial hip joint, bilateral; Z20.822 Contact with and (suspected) exposure to COVID-19; Z99.3 Dependence on wheelchair; Z74.01 Bed confinement status; Z87.891 Personal history of nicotine dependence; Z93.50 Unspecified cystostomy status
CPT/HCPCS: 36415; 36430; 71045; 76775; 80048; 80053; 81001; 81050; 82274; 82436; 82550; 82570; 82607; 82728; 82746; 83540; 83550; 83605; 84100; 84132; 84156; 84300; 84443; 84466; 84540; 85014; 85018; 85025; 85055; 85610; 85730; 85999; 86850; 86900; 86901; 86923; 87086; 87088; 87426; 93005; 94618; 96361; 96365; 96367; 99285; A9270; C9113; C9803; G0378; J0456; J0696; J1940; J3480; J7030; J7050; P9016

== ENCOUNTER 2023-10-31 23:21 | Inpatient (IN) | payer MEDICARE, BC, SELFPAY ==
--- NOTE | ~2023-10-31 | US_ITS ---
US renal BI 11/02/2023 11:41 Procedure: Realtime transabdominal ultrasound of the kidneys and bladder. Indication: Acute renal insufficiency Comparison: Ultrasound dated 04/15/2023 Findings: Renal echotexture is normal bilaterally without hydronephrosis, contour deforming mass or r enal calculus. The right kidney measures 9 cm and left kidney measures 10 cm. There is a Choudhury cathet er decompressing the bladder. Impression: 1: Unremarkable renal ultrasound. No stones, masses or hydronephrosis. Reviewed, dictated and finalized at location A. R PAINT Impression: 1: Unremarkable renal ultrasound. No stones, masses or hydronephrosis.
--- NOTE | ~2023-10-31 | XR_ITS ---
EXAMINATION: XR chest 1V portable DATE: 11/09/2023 10:04 INDICATION: Shortness of breath. TECHNIQUE: A single frontal view of the chest was obtained on 2 radiographs. COMPARISON: Chest single view 11/03/2023 FINDINGS: There are lucencies in the lungs. There are chronic interstitial opacities in right mid and lower lung zones and all left lung zones. No pleural effusion or pneumothorax. Cardiomegaly is noted . There are changes of posterior fusion procedure in thoracic lumbar spine. There are changes of ante rior and posterior fusion procedures in cervical spine. IMPRESSION: 1. Severe emphysema. 2. Cardiomegaly. Reviewed, dictated and finalized at location A. CARRIER
--- NOTE | ~2023-10-31 | XR_ITS ---
XR chest 1V portable DATE: 11/01/2023 01:06 INDICATION: Shortness of breath TECHNIQUE: Portable AP chest on 11/01/2023 at 0104 hours COMPARISON: 04/17/2023 portable AP chest FINDINGS: Bullous change is noted particularly in the right upper lung. There is patchy infiltrate and/or atelectasis in the mid and to a greater extent lower lung zones. There is slight blunting of the costophrenic angles which may indicate minimal pleural effusions. Probable cardiomegaly. There is ascending aortic and aortic arch calcification. Status anterior and posterior cervical spine surgical fusion. Osteopenia. Osteoarthritic change at th e glenohumeral joints. Degenerative spurring and scoliosis of the thoracic spine. Pedicle screws and rods are noted in the thoracolumbar area beginning superiorly at T11. IMPRESSION: Mild infiltrate and/atelectasis in the mid and to a greater extent lower lung zones Bullous emphysema Reviewed, dictated and finalized at location A. AL SERVICE AGENCY DIRECTOR
--- NOTE | ~2023-10-31 | XR_ITS ---
XR chest 1V portable 11/03/2023 17:14 Indication: Worsening kidney function. Fluid overload. Procedure: AP portable chest Comparison: Comparison to multiple prior studies sequentially, with oldest reviewed study dated 08/10. Findings: Cardiomegaly. There is bilateral interstitial infiltrates, consistent with edema. Small ple ural effusions. No pneumothorax. Impression: 1: Cardiomegaly with mild interstitial edema. Reviewed, dictated and finalized at location A. R SPACE ALLOCATOR Impression: 1: Cardiomegaly with mild interstitial edema.
[2023-10-31 23:22] VITALS: BP 114/51; PULSE 88; RESP 18; TEMP 38; O2SAT 90
[2023-10-31 23:26] VITALS: PULSE 84; RESP 17; O2SAT 88
[2023-10-31 23:27] VITALS: PULSE 84; O2SAT 97
[2023-10-31 23:30] VITALS: PULSE 82; RESP 10; O2SAT 92
[2023-10-31 23:31] VITALS: BP 114/51; PULSE 82; RESP 15; O2SAT 98
[2023-10-31 23:45] VITALS: PULSE 81; RESP 15; O2SAT 77
[2023-11-01] VITALS (13 sets, daily range): BP systolic 79–116; BP diastolic 38–60; PULSE 64–79; RESP 12–20; TEMP 36.1–38; O2SAT 94–100; BMI 31.3
--- NOTE | 2023-11-01 00:07 | ED.GENADULT ---
HPI - General Adult General Chief complaint: Altered Mental Status Stated complaint: FEVER, AMS, DIZZY Time Seen by Provider: 10/31/23 23:34 History of Present Illness HPI narrative: 77-year-old male presenting to the emergency department for the conus or home for evaluation of increased altered mental status. Patient does have an indwelling suprapubic Choudhury catheter. Patient reports yesterday he was having hallucinations. Patient was also found to have a new O2 requirement and does not usually have required 2 L of oxygen. Related Data Home Medications Medication Instructions Recorded Confirmed PreserVision AREDS 1 cap PO DAILY 11/05/20 11/01/23 Procardia XL 30 mg PO DAILY 11/05/20 11/01/23 atenolol 50 mg tablet 50 mg PO DAILY 11/05/20 11/01/23 cholecalciferol (vitamin D3) 25 1,000 unit PO DAILY 11/05/20 11/01/23 mcg (1,000 unit) tablet finasteride 5 mg tablet (Proscar) 5 mg PO DAILY 11/05/20 11/01/23 gabapentin 300 mg tablet 300 mg PO BID 11/05/20 11/01/23 apqczy-jilbfdoz-kxscedz 2 cap PO Q12H PRN Abdominal 11/05/20 11/01/23 24,000-76,000-120,000 unit Discomfort capsule,delayed rel (Creon) peavck-neyhhaxo-zbmuusq 3 cap PO TID 11/05/20 11/01/23 24,000-76,000-120,000 unit capsule,delayed rel (Creon) mirabegron 25 mg tablet,extended 25 mg PO DAILY 11/05/20 11/01/23 release 24 hr (Myrbetriq) multivitamin-ferrous 1 tablet PO DAILY 11/05/20 11/01/23 fumarate-folic acid 18 mg-400 mcg tablet (Centrum) omeprazole 20 mg capsule,delayed 20 mg PO HS 11/05/20 11/01/23 release potassium chloride 20 mEq 20 meq PO BID 11/05/20 11/01/23 tablet,extended release(part/cryst) tamsulosin 0.4 mg capsule 0.4 mg PO HS 11/05/20 11/01/23 colestipol 1 gram tablet 1 g PO TID 02/05/22 11/01/23 loperamide 2 mg PO BID 02/05/22 11/01/23 sertraline 50 mg tablet 50 mg PO DAILY 02/05/22 11/01/23 bisacodyl 10 mg rectal suppository 10 mg RECTAL PRN PRN Constipation 08/28/22 11/01/23 magnesium citrate 300 ml PO DAILY PRN Constipation 08/28/22 11/01/23 magnesium hydroxide 400 mg/5 mL 30 ml PO HS PRN Constipation 08/28/22 11/01/23 oral suspension (Milk of Magnesia) Saccharomyces boulardii 250 mg 250 mg PO BID 04/14/23 11/01/23 capsule aluminum-mag hydroxide-simethicone 10 ml PO TID PRN Indigestion 04/14/23 11/01/23 400 mg-400 mg-40 mg/5 mL oral susp ferrous sulfate 325 mg (65 mg 325 mg PO BID 04/14/23 11/01/23 iron) tablet ipratropium 0.5 mg-albuterol 3 mg 3 ml inhalation Q6H PRN 04/14/23 11/01/23 (2.5 mg base)/3 mL nebulization Bronchospasm soln pseudoephedrine-guaifenesin ER 120 1 tablet PO Q12H PRN Cough 04/14/23 11/01/23 mg-1,200 mg tab,extend release 12hr (Mucinex D Maximum Strength) eluxadoline 75 mg tablet (Viberzi) 75 mg PO BID 11/01/23 11/01/23 silver sulfadiazine 1 % topical 1 applic topical DAILY 11/01/23 11/01/23 cream (Silvadene) trazodone 50 mg tablet 50 mg PO HS 11/01/23 11/01/23 Allergies Allergy/AdvReac Type Severity Reaction Status Date / Time No Known Allergies Allergy Verified 08/28/22 12:31 Review of Systems Review of Systems: All systems reviewed & are unremarkable except as noted in HPI and below PMFSH Past Medical History Medical History Anemia BPH (benign prostatic hyperplasia) Chronic indwelling Choudhury catheter Chronic kidney disease COVID-19 CVA (cerebral vascular accident) Essential hypertension GERD (gastroesophageal reflux disease) Hemiplegia affecting left nondominant side History of 2018 novel coronavirus disease (COVID-19) Hypertension IBS (irritable bowel syndrome) Osteoarthritis Overactive bladder Pressure ulcer of sacral region, unspecified stage Seasonal allergic rhinitis Spondylosis of lumbar region without myelopathy or radiculopathy Surgical History Surgical History H/O neck surgery History of back surgery History of total hip arthroplasty eliazar
[2023-11-01 00:08] LABS: Hematocrit 28.3 % (42.0-52.0); Hemoglobin 8.5 g/dL (14.0-18.0); Immature Granulocyte Absolute 0.14 K/mm3 (0.00-0.031); Mean Corpuscular Volume 89.8 fl (80-100); Mean Platelet Volume 13.9 fl (7.4-10.4); Monocytes Absolute Auto 1.8 K/mm3 (0.1-0.6); Monocytes Percent Auto 13.5 % (2.6-8.5); Neutrophils Absolute Auto 10.2 K/mm3 (1.3-6.7); Neutrophils Percent Auto 76.5 % (45.5-73.1); Platelet Count Result 80 k/mm3 (150-375); Red Blood Count 3.15 M/mm3 (4.6-6.20); Red Cell Distribution Width 16.6 % (11.5-14.5); White Blood Count 13.4 K/mm3 (4.5-10.0)
[2023-11-01 00:11] LABS: Appearance Urine Turbid (Clear); Bacteria Urine 4+ /hpf; Bilirubin Urine 1+ (Negative); Blood Urine 3+ (Negative); Color Urine Dark Yellow (Yellow); Glucose Urine UA Negative (Negative); Ketones Urine Negative (Negative); Leukocyte Esterase Ur 3+ LEU/UL (Negative); Need Manual Microscopic Reviewed; Nitrate Urine Negative (Negative); Protein Urine 2+ mg/dL (Negative); RBC Urine >100 /hpf (0-2); Squamous Epithelial Cell Urine Many /hpf (Few); Urobilinogen Urine 0.2 mg/dL (<2.0); WBC Urine >100 /hpf; pH Urine 5.5 (5.0-9.0)
[2023-11-01 00:15] LABS: Alanine Aminotransferase 17 U/L (6-50); Albumin Level 3.6 g/dL (3.5-5.1); Alkaline Phosphatase 75 U/L (38-126); Anion Gap 17 mmol/L (8-16); Aspartate Amino Transferase 27 U/L (17-59); Bilirubin,Total 0.5 mg/dL (0.2-1.3); Blood Urea Nitrogen 68 mg/dL (9-20); Calcium 9.1 mg/dL (8.4-10.2); Carbon Dioxide 17 mmol/L (22-30); Chloride 103 mmol/L (98-107); Estimated CRCL calculation 14 ml/min; Estimated Glomerular Filt Rate 12; Glucose 115 mg/dL (65-110); Potassium 5.2 mmol/L (3.4-5.0); Sodium 137 mmol/L (137-145)
[2023-11-01 00:28] LABS: Anisocytosis 1+ (NORMAL); Platelet Estimate Decreased (Adequate)
[2023-11-01 00:29] LABS: Schistocytes Rare (NORMAL)
[2023-11-01 00:31] LABS: Add Urine Microscopic? YES
--- NOTE | 2023-11-01 00:41 | PC.NURSE ---
Upon arrival pt had a suprapubic catheter in place from [facility]. Pt had an 18F suprapubic catheter in place filled with 30cc of fluid. EDP Dr. Hannah Reardon replaced suprapubic catheter with an 18F catheter and filled sterile balloon with 10CC of sterile water.
[2023-11-01 00:42] LABS: Influenza A QL RT-PCR Negative (Negative); Influenza B QL RT-PCR Negative (Negative); RSV RNA, RT-PCR Negative (Negative); SARS-CoV-2 RNA PCR Negative (Negative)
--- NOTE | 2023-11-01 00:51 | PM.IMHP ---
H&P: HPI History of Present Illness Date/Time: 11/01/23 00:51 Chief Complaint: ALTERED MENTAL STATUS Narrative: THIS IS A 77-YEAR-OLD MALE WITH PAST MEDICAL HISTORY SIGNIFICANT FOR PARAPLEGIA, HYPERTENSION, COPD, STROKE, CHRONIC INDWELLING CHOUDHURY CATHETER, CHRONIC KIDNEY DISEASE, GERD. PATIENT RESIDES AT A ALF HE WAS BROUGHT FOR EVALUATION DUE TO ALTERED MENTAL STATUS. IN EMERGENCY ROOM PATIENT WAS FOUND TO HAVE NUMEROUS WBCS PRESENT IN URINALYSIS HIS SUPRAPUBIC CATHETER WAS EXCHANGED WELL. PATIENT HAS BEEN ADMITTED FOR FURTHER EVALUATION MANAGEMENT AND TREATMENT. XR chest 1V portable DATE: 11/01/2023 01:06 INDICATION: Shortness of breath? TECHNIQUE: Portable AP chest on 11/01/2023 at 0104 hours? COMPARISON: 04/17/2023 portable AP chest? FINDINGS: Bullous change is noted particularly in the right upper lung. There is patchy infiltrate and/or atelectasis in the mid and to a greater extent lower lung zones. There is slight blunting of the costophrenic angles which may indicate minimal pleural effusions. Probable cardiomegaly. There is ascending aortic and aortic arch calcification. Status anterior and posterior cervical spine surgical fusion. Osteopenia. Osteoarthritic change at the glenohumeral joints. Degenerative spurring and scoliosis of the thoracic spine. Pedicle screws and rods are noted in the thoracolumbar area beginning superiorly at T11.? IMPRESSION: Mild infiltrate and/atelectasis in the mid and to a greater extent lower lung zones Bullous emphysema? Review of Systems Review of Systems: ROS unobtainable: Yes unobtainable due to mental status (LETHARGY/OBTUNDATION) PENDING SALE TO [facility] Past Medical History Medical History Anemia BPH (benign prostatic hyperplasia) Chronic indwelling Choudhury catheter Chronic kidney disease COVID-19 CVA (cerebral vascular accident) Essential hypertension GERD (gastroesophageal reflux disease) Hemiplegia affecting left nondominant side History of 2019 novel coronavirus disease (COVID-19) Hypertension IBS (irritable bowel syndrome) Osteoarthritis Overactive bladder Pressure ulcer of sacral region, unspecified stage Seasonal allergic rhinitis Spondylosis of lumbar region without myelopathy or radiculopathy Surgical History Surgical History H/O neck surgery History of back surgery History of total hip arthroplasty eliazar Family History Family History Father , Patient does not know cause No problems noted. Mother , Patient does not know cause No problems noted. Other Unknown family medical history Social History Social History Social History: Patient became debilitated after stroke in 2013, he lost bladder control in 2015 after having multiple back surgery and now has indwelling Choudhury catheter. He has been prison [facility] since 2017. Patient wheelchair and bed-bound. The patient is and has 1 child who is the durable power county attorney for healthcare. The patient is a former smoker. No alcohol marijuana or illicit drugs. Code status full code Smoking status: Former smoker Tobacco type: cigarettes Second hand tobacco smoke exposure: No Alcohol intake: never Alcohol use details: Quit in 2013 Substance use: never Do You Feel Safe in your Home?: Yes Lack of Transportation: No Lack of Food: Never True Current Housing: I Have Housing Concerned About Future Housing: No Difficulty Paying Gas/Electric Bills: No Difficulty Paying for Meds: No Currently Unemployed: No Education: Don't Know Difficulty w/ Childcare or Family Care: No Living arrangements: prison Occupation/Education: retired Gender identity (if verbalized by the patient): Male Spiritual car
[2023-11-01] MEDS: ACETAMINOPHEN 500 MG TABLET 1000 MG PO (01:06)
[2023-11-01] MEDS: SODIUM CHLORIDE 0.9% IV 1,000 ML 500 ML IV CONT (01:07)
--- NOTE | 2023-11-01 01:44 | ADMGEN ---
This patient, Jefferson Venegas, was admitted to Medical Room 247-. Patient/family oriented to hospital policies and general routines including ID bracelet, bed and alarms, visiting hours, pain management, procedures, bathroom and other care routines, personal items, smoking policy, room service/diet, and visiting hours. Information on how to activate the Rapid Response Team has been discussed. Patient/Family are encouraged to report perceived risks to care and to ask questions if they do not understand what they are told or what they should do.
[2023-11-01] MEDS: SODIUM CHLORIDE 0.9% IV 1,000 ML 125 ML IV CONT (01:45)
[2023-11-01] MEDS: AZITHROMYCIN 500 MG/NS 250 ML 500 MG/250 ML BAG 250 MG IVPB (03:52)
--- NOTE | 2023-11-01 13:01 | PM.IMPN ---
Progress Note: A&P Assessment and Plan (1) Acute hypoxemic respiratory failure: Code(s): J96.01 - Acute respiratory failure with hypoxia Status: Acute Assessment and Plan: Attributable to pneumonia. Patient is being treated with antibiotics and is on supplemental oxygen at 2 L per minute (2) Acute kidney injury superimposed on chronic kidney disease: Code(s): N17.9 - Acute kidney failure, unspecified; N18.9 - Chronic kidney disease, unspecified Status: Resolved Assessment and Plan: GFR usually in the 30s to 40s, currently GFR of 12, creatinine 4.9, BUN 68, estimated creatinine clearance 14 on admission (3) Pneumonia: Qualifiers: Laterality: unspecified laterality Lung location: unspecified part of lung Pneumonia type: due to unspecified organism Qualified Code(s): J18.9 - Pneumonia, unspecified organism Code(s): J18.9 - Pneumonia, unspecified organism Status: Acute Assessment and Plan: Patient is on ceftriaxone and azithromycin. Increase ceftriaxone to 2 g daily. Ordered MRSA PCR, pneumococcal antigen, Legionella antigen, mycoplasma ordered. (4) UTI (urinary tract infection) due to urinary indwelling Choudhury catheter: Qualifiers: Encounter type: initial encounter Indwelling urinary catheter type: indwelling urethral catheter Qualified Code(s): T83.511A - Infection and inflammatory reaction due to indwelling urethral catheter, initial encounter; N39.0 - Urinary tract infection, site not specified Code(s): T83.511A - Infection and inflammatory reaction due to indwelling urethral catheter, initial encounter; N39.0 - Urinary tract infection, site not specified Status: Acute Assessment and Plan: suprapubic catheter exchanged draining clear yellow urine, likely colonization versus active infection as patient does not have any abdominal discomfort. (5) Hyperkalemia: Code(s): E87.5 - Hyperkalemia Status: Acute Assessment and Plan: Potassium 5.2 on admission, likely elevated due to supplemental potassium on home medication list as well as JANA on CKD. Will redraw this afternoon and with morning labs. (6) Thrombocytopenia: Code(s): D69.6 - Thrombocytopenia, unspecified Status: Acute Assessment and Plan: platelet count [id number], will recheck this afternoon and again with daily labs. Hold anticoagulation at this time Time Spent With Patient Time with patient: Greater than 35 minutes Subjective Date/time seen: 11/01/23 13:01 Interval history: This is a 77-year-old male patient [facility] was brought to the emergency department yesterday for just not feeling well. 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 Patient cannot adequately describe how he was feeling yesterday but states that he feels well today. Patient denies any difficulty breathing denies any cough fever or chills. Patient denies any abdominal pain. Review of Systems Review of Systems: All systems reviewed & are unremarkable except as noted in HPI and below Exam Narrative: GENERAL: Well-appearing, well-nourished, and in no acute distress. HEAD: Normocephalic, atraumatic. ENT:? Mucous membranes moist. CHEST: Clear to auscultation.? No respiratory distress. HEART: Regular rate and rhythm. ? Normal peripheral pulses. ABDOMEN: Soft, nontender, nondistended. Suprapubic catheter in place with clear yellow drainage. EXTREMITIES: Normal range of motion. No peripheral edema. SKIN: Warm dry normal color NEURO: Alert and oriented x3. PSYCH: Normal mood and affect Objective Data Vital Signs Vital Signs: Vital Signs - 24 hr 10/31/23 23:22 10/31/23 23:27 10/31/23 23:27 Temperature 38.0 C H Pulse Rate 88 84 Respiratory Rate 18 Blood Pressure 114/51 L Pulse Oximetry 90 97 Oxygen Delivery Room Air Nasal Cannula
[2023-11-01] MEDS: cefTRIAXone 2 GM/NS 100 ML 2 GM/100 ML BAG IVPB (13:22)
[2023-11-01] MEDS: COLESTIPOL HCL 1 GM TABLET PO ×2 (13:26→18:35)
[2023-11-01] MEDS: MIRABEGRON 25 MG ER TABLET PO (13:26)
[2023-11-01] MEDS: oxyCODONE HCL (*CRX) 5 MG TAB IR PO ×3 (13:27→23:17)
[2023-11-01 16:12] LABS: Hematocrit 26.7 % (42.0-52.0); Hemoglobin 7.6 g/dL (14.0-18.0); Mean Corpuscular HGB Conc 28.5 g/dl (32-36); Mean Corpuscular Hemoglobin 26.9 pg (26-34); Mean Corpuscular Volume 94.3 fl (80-100); Mean Platelet Volume 13.4 fl (7.4-10.4); Platelet Count Result 74 k/mm3 (150-375); Red Blood Count 2.83 M/mm3 (4.6-6.20); Red Cell Distribution Width 17.1 % (11.5-14.5); White Blood Count 12.2 K/mm3 (4.5-10.0)
[2023-11-01 16:37] LABS: Albumin Level 3.2 g/dL (3.5-5.1); Anion Gap 14 mmol/L (8-16); Blood Urea Nitrogen 73 mg/dL (9-20); Calcium 8.4 mg/dL (8.4-10.2); Carbon Dioxide 15 mmol/L (22-30); Chloride 106 mmol/L (98-107); Estimated CRCL calculation 10 ml/min; Estimated Glomerular Filt Rate 11; Glucose 111 mg/dL (65-110); Phosphorus 6.3 mg/dL (2.5-4.5); Potassium 4.9 mmol/L (3.4-5.0); Sodium 135 mmol/L (137-145)
[2023-11-01 17:00] LABS: Band Neutrophils Percent 8 % (0-6); Hypochromasia 1+ (NORMAL); Lymphocytes Absolute Manual 1.46 K/mm3 (1.1-4.5); Monocytes Absolute Manual 0.48 K/mm3 (0.1-0.90); Monocytes Percent Manual 4 % (3-9); Neutrophils Absolute Manual 10.24 K/mm3 (1.3-6.7); Neutrophils Percent Manual 76 % (46-73); Platelet Estimate Decreased (Adequate); Schistocytes None Seen (NORMAL); Total Cells Counted 100
[2023-11-01 17:01] LABS: Anisocytosis 2+ (NORMAL)
[2023-11-01] MEDS: SACCHAROMYCES BOULARDII 250 MG CAPSULE PO (18:35)
[2023-11-01] MEDS: FERROUS SULFATE 325 MG TABLET DR BY MOUTH (18:36)
[2023-11-01] MEDS: LIPASE/AMYLASE/PROTEASE 12,000 UNITS CAP 6 CAP PO (18:36)
[2023-11-01] MEDS: GABAPENTIN 300 MG CAPSULE PO (18:36)
[2023-11-01] MEDS: SODIUM CHLORIDE 0.9% IV 1,000 ML 999 ML IV CONT (20:54)
[2023-11-01] MEDS: traZODone HCL 50 MG TABLET PO (20:56)
[2023-11-01] MEDS: TAMSULOSIN HCL 0.4 MG CAPSULE PO (20:56)
[2023-11-01] MEDS: SODIUM CHLORIDE 0.9% IV 1,000 ML 100 ML IV CONT (21:00)
[2023-11-02] VITALS (10 sets, daily range): BP systolic 92–114; BP diastolic 41–96; PULSE 64–81; RESP 14–18; TEMP 35.9–36.9; O2SAT 94–98
[2023-11-02] MEDS: AZITHROMYCIN 500 MG/NS 250 ML 500 MG/250 ML BAG 250 MG IVPB (04:22)
[2023-11-02] MEDS: oxyCODONE HCL (*CRX) 5 MG TAB IR PO ×4 (05:28→23:09)
[2023-11-02 06:03] LABS: Basophils Percent Auto 0.1 % (0.2-1.2); Eosinophils Percent Auto 0.1 % (0-4.4); Hematocrit 25.3 % (42.0-52.0); Hemoglobin 7.3 g/dL (14.0-18.0); Immature Granulocyte Absolute 0.29 K/mm3 (0.00-0.031); Immature Granulocyte Percent A 1.9 % (0-0.5); Lymphocytes Absolute Auto 1.87 K/mm3 (0.9-3.2); Lymphocytes Percent Auto 12.5 % (18.3-44.2); Mean Corpuscular HGB Conc 28.9 g/dl (32-36); Mean Corpuscular Hemoglobin 26.5 pg (26-34); Mean Platelet Volume 13.1 fl (7.4-10.4); Monocytes Absolute Auto 1.6 K/mm3 (0.1-0.6); Monocytes Percent Auto 10.8 % (2.6-8.5); Neutrophils Absolute Auto 11.2 K/mm3 (1.3-6.7); Neutrophils Percent Auto 74.6 % (45.5-73.1); Platelet Count Result 79 k/mm3 (150-375); Red Blood Count 2.75 M/mm3 (4.6-6.20); Red Cell Distribution Width 17.2 % (11.5-14.5)
[2023-11-02 06:12] LABS: Albumin Level 3.1 g/dL (3.5-5.1); Anion Gap 18 mmol/L (8-16); Blood Urea Nitrogen 72 mg/dL (9-20); Calcium 8.2 mg/dL (8.4-10.2); Carbon Dioxide 13 mmol/L (22-30); Chloride 103 mmol/L (98-107); Estimated CRCL calculation 10 ml/min; Estimated Glomerular Filt Rate 11; Glucose 94 mg/dL (65-110); Phosphorus 5.8 mg/dL (2.5-4.5); Potassium 4.9 mmol/L (3.4-5.0); Sodium 134 mmol/L (137-145)
[2023-11-02 07:21] LABS: Anisocytosis 1+ (NORMAL); Hypochromasia 1+ (NORMAL); Platelet Estimate Decreased (Adequate); Schistocytes None Seen (NORMAL)
[2023-11-02] MEDS: COLESTIPOL HCL 1 GM TABLET PO ×3 (09:26→17:56)
[2023-11-02] MEDS: LIPASE/AMYLASE/PROTEASE 12,000 UNITS CAP 6 CAP PO ×3 (09:26→17:56)
[2023-11-02] MEDS: CHOLECALCIFEROL 1,000 UNITS TABLET 1000 UNITS PO (09:26)
[2023-11-02] MEDS: MIRABEGRON 25 MG ER TABLET PO (09:26)
[2023-11-02] MEDS: ASPIRIN 81 MG ENTERIC TABLET PO (09:26)
[2023-11-02] MEDS: FERROUS SULFATE 325 MG TABLET DR BY MOUTH ×2 (09:27→17:56)
[2023-11-02] MEDS: FINASTERIDE 5 MG TABLET PO (09:27)
[2023-11-02] MEDS: PANTOPRAZOLE 40 MG TABLET PO (09:27)
[2023-11-02] MEDS: GABAPENTIN 300 MG CAPSULE PO ×2 (09:27→17:56)
[2023-11-02] MEDS: OPTI-GEN TAB 1 TABLET PO (09:27)
[2023-11-02] MEDS: MULTIVITAMINS /C LUTEIN (CENTRUM SILVER) TABLET *BKC 1 TAB PO (09:27)
[2023-11-02] MEDS: SILVER SULFADIAZINE 1% CR 50 GM JAR (*BKC) 1 APPLIC TOPICAL (09:28)
[2023-11-02] MEDS: SERTRALINE HCL 50 MG TABLET PO (09:28)
[2023-11-02] MEDS: SACCHAROMYCES BOULARDII 250 MG CAPSULE PO ×2 (09:28→17:56)
[2023-11-02] MEDS: FLUTICASONE PROPIONATE 0.05% NA SPR 16 GM BTL (*BKC) 1 SPRAY NASAL (09:28)
[2023-11-02] MEDS: ATORVASTATIN 20 MG TABLET PO (09:31)
[2023-11-02] MEDS: cefTRIAXone 2 GM/NS 100 ML 2 GM/100 ML BAG IVPB (12:39)
--- NOTE | 2023-11-02 13:45 | PM.IMPN ---
Progress Note: A&P Assessment and Plan (1) Acute hypoxemic respiratory failure: Code(s): J96.01 - Acute respiratory failure with hypoxia Status: Acute Assessment and Plan: Attributable to pneumonia. Patient is being treated with antibiotics and is on supplemental oxygen at 2 L per minute (2) Acute kidney injury superimposed on chronic kidney disease: Code(s): N17.9 - Acute kidney failure, unspecified; N18.9 - Chronic kidney disease, unspecified Status: Resolved Assessment and Plan: GFR usually in the 30s to 40s, currently GFR of 12, creatinine 4.9, BUN 68, estimated creatinine clearance 14 on admission 11/02: Estimated GFR 11, creatinine 5.2, BUN 72, estimated creatinine clearance 10. Potassium 4 9. Will recheck BMP this afternoon and if creatinine has not improved we will consult Nephrology to see tomorrow. (3) Pneumonia: Qualifiers: Laterality: unspecified laterality Lung location: unspecified part of lung Pneumonia type: due to unspecified organism Qualified Code(s): J18.9 - Pneumonia, unspecified organism Code(s): J18.9 - Pneumonia, unspecified organism Status: Acute Assessment and Plan: Patient is on ceftriaxone and azithromycin. Increase ceftriaxone to 2 g daily. Ordered MRSA PCR, pneumococcal antigen, Legionella antigen, mycoplasma ordered. (4) UTI (urinary tract infection) due to urinary indwelling Choudhury catheter: Qualifiers: Encounter type: initial encounter Indwelling urinary catheter type: indwelling urethral catheter Qualified Code(s): T83.511A - Infection and inflammatory reaction due to indwelling urethral catheter, initial encounter; N39.0 - Urinary tract infection, site not specified Code(s): T83.511A - Infection and inflammatory reaction due to indwelling urethral catheter, initial encounter; N39.0 - Urinary tract infection, site not specified Status: Acute Assessment and Plan: suprapubic catheter exchanged draining clear yellow urine, likely colonization versus active infection as patient does not have any abdominal discomfort. (5) Hyperkalemia: Code(s): E87.5 - Hyperkalemia Status: Acute Assessment and Plan: Potassium 5.2 on admission, likely elevated due to supplemental potassium on home medication list as well as JANA on CKD. Will redraw this afternoon and with morning labs. 11/02: Repeat potassium 4.9 (6) Thrombocytopenia: Code(s): D69.6 - Thrombocytopenia, unspecified Status: Acute Assessment and Plan: platelet count [id number], will recheck this afternoon and again with daily labs. Hold anticoagulation at this time 11/02: platelet count [id number] Plan redraw BMP this afternoon consult Nephrology if no improvement Blood pressure remains relatively low which nursing staff states is this patient. Review of prior charts shows BP all over the place. Add midodrine. Time Spent With Patient Time with patient: 25 - 35 minutes Subjective Date/time seen: 11/02/23 13:45 Interval history: 11/01: This is a 77-year-old male patient resides at shelter was brought to the emergency department yesterday for just not feeling well. 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 Patient cannot adequately describe how he was feeling yesterday but states that he feels well today. Patient denies any difficulty breathing denies any cough fever or chills. Patient denies any abdominal pain. 11/02: Patient reports feeling well has no complaints at this time. However, patient did not realize he was at the hospital. He thought he was at his usual shelter setting. Patient denies any difficulty breathing but he is still requiring supplemental oxygen. White blood cell count is higher today. Will continue antibiotics and reassess tomorrow. Review of Systems Review of Systems: All systems reviewed
[2023-11-02 17:48] LABS: Anion Gap 13 mmol/L (8-16); Blood Urea Nitrogen 73 mg/dL (9-20); Carbon Dioxide 14 mmol/L (22-30); Chloride 105 mmol/L (98-107); Estimated CRCL calculation 10 ml/min; Estimated Glomerular Filt Rate 11; Glucose 96 mg/dL (65-110); Potassium 4.4 mmol/L (3.4-5.0); Sodium 132 mmol/L (137-145)
[2023-11-02] MEDS: MIDODRINE HCL 10 MG TABLET PO (17:56)
[2023-11-02] MEDS: TAMSULOSIN HCL 0.4 MG CAPSULE PO (20:13)
[2023-11-02] MEDS: traZODone HCL 50 MG TABLET PO (20:13)
[2023-11-02 20:40] LABS: MRSA (PCR) NOT DETECTED (NOT DETECTE)
[2023-11-03] VITALS (9 sets, daily range): BP systolic 102–130; BP diastolic 38–51; PULSE 66–75; RESP 12–18; TEMP 36.1–36.6; O2SAT 93–98
[2023-11-03] MEDS: AZITHROMYCIN 500 MG/NS 250 ML 500 MG/250 ML BAG 250 MG IVPB (03:02)
[2023-11-03] MEDS: oxyCODONE HCL (*CRX) 5 MG TAB IR PO (05:27)
[2023-11-03 05:48] LABS: Basophils Percent Auto 0.1 % (0.2-1.2); Eosinophils Absolute Auto 0.1 K/mm3 (0-0.3); Eosinophils Percent Auto 0.5 % (0-4.4); Hematocrit 24.8 % (42.0-52.0); Hemoglobin 7.3 g/dL (14.0-18.0); Immature Granulocyte Percent A 4.3 % (0-0.5); Immature Platelet Fraction Pct 8.4 % (0.9-11.2); Lymphocytes Absolute Auto 1.22 K/mm3 (0.9-3.2); Lymphocytes Percent Auto 8.7 % (18.3-44.2); Mean Corpuscular HGB Conc 29.4 g/dl (32-36); Mean Corpuscular Hemoglobin 26.7 pg (26-34); Mean Corpuscular Volume 90.8 fl (80-100); Mean Platelet Volume 12.8 fl (7.4-10.4); Monocytes Absolute Auto 1.2 K/mm3 (0.1-0.6); Monocytes Percent Auto 8.7 % (2.6-8.5); Neutrophils Absolute Auto 10.9 K/mm3 (1.3-6.7); Neutrophils Percent Auto 77.7 % (45.5-73.1); Platelet Count Result 88 k/mm3 (150-375); Red Blood Count 2.73 M/mm3 (4.6-6.20); Red Cell Distribution Width 17.2 % (11.5-14.5); White Blood Count 14.1 K/mm3 (4.5-10.0)
[2023-11-03 06:02] LABS: Anion Gap 15 mmol/L (8-16); Blood Urea Nitrogen 74 mg/dL (9-20); Calcium 8.2 mg/dL (8.4-10.2); Carbon Dioxide 12 mmol/L (22-30); Chloride 105 mmol/L (98-107); Estimated CRCL calculation 9 ml/min; Estimated Glomerular Filt Rate 10; Glucose 88 mg/dL (65-110); Phosphorus 6.5 mg/dL (2.5-4.5); Potassium 4.2 mmol/L (3.4-5.0); Sodium 132 mmol/L (137-145)
[2023-11-03 08:13] LABS: Platelet Estimate Decreased (Adequate)
[2023-11-03 08:14] LABS: Anisocytosis 1+ (NORMAL); Burr Cells 1+ (NORMAL); Hypochromasia 1+ (NORMAL); Schistocytes Rare (NORMAL)
[2023-11-03] MEDS: FINASTERIDE 5 MG TABLET PO (08:17)
[2023-11-03] MEDS: PANTOPRAZOLE 40 MG TABLET PO (08:17)
[2023-11-03] MEDS: SERTRALINE HCL 50 MG TABLET PO (08:18)
[2023-11-03] MEDS: OPTI-GEN TAB 1 TABLET PO (08:18)
[2023-11-03] MEDS: FERROUS SULFATE 325 MG TABLET DR BY MOUTH ×2 (08:18→16:39)
[2023-11-03] MEDS: MIDODRINE HCL 10 MG TABLET PO ×2 (08:18→16:39)
[2023-11-03] MEDS: COLESTIPOL HCL 1 GM TABLET PO ×2 (08:18→16:39)
[2023-11-03] MEDS: LIPASE/AMYLASE/PROTEASE 12,000 UNITS CAP 6 CAP PO ×2 (08:18→16:39)
[2023-11-03] MEDS: MIRABEGRON 25 MG ER TABLET PO (08:18)
[2023-11-03] MEDS: SACCHAROMYCES BOULARDII 250 MG CAPSULE PO ×2 (08:18→16:39)
[2023-11-03] MEDS: MULTIVITAMINS /C LUTEIN (CENTRUM SILVER) TABLET *BKC 1 TAB PO (08:18)
[2023-11-03] MEDS: GABAPENTIN 300 MG CAPSULE PO ×2 (08:18→16:39)
[2023-11-03] MEDS: CHOLECALCIFEROL 1,000 UNITS TABLET 1000 UNITS PO (08:18)
[2023-11-03] MEDS: NIFEdipine 30 MG TAB.ER.24 PO (08:18)
[2023-11-03] MEDS: ASPIRIN 81 MG ENTERIC TABLET PO (08:19)
[2023-11-03] MEDS: atenoloL 50 MG TABLET PO (08:19)
[2023-11-03] MEDS: ATORVASTATIN 20 MG TABLET PO (08:19)
[2023-11-03] MEDS: FLUTICASONE PROPIONATE 0.05% NA SPR 16 GM BTL (*BKC) 1 SPRAY NASAL (08:24)
[2023-11-03] MEDS: SILVER SULFADIAZINE 1% CR 50 GM JAR (*BKC) 1 APPLIC TOPICAL (08:35)
--- NOTE | 2023-11-03 09:38 | PM.CNNEP ---
Assessment and Plan Assessment and plan (1) Acute kidney injury superimposed on chronic kidney disease: Code(s): N17.9 - Acute kidney failure, unspecified; N18.9 - Chronic kidney disease, unspecified Status: Resolved Assessment and Plan: the patient has chronic kidney Disease stage IIIB. This is felt to be due to hypertension vascular disease BPH an age-related changes. His kidney function is worsened gradually over the last 4 years. It took an especially large drop in function this time. I think this drop in function is too large to be just from chronic kidney disease. He has pneumonia and so could have ATN. He could also have dehydration, however he has been getting IV fluid and his creatinine has not improved. He had an ultrasound which did not show obstruction. Will check a CPK as well To rule out rhabdomyolysis. He could have some other issues going on in his kidneys leading to a faster progression of disease. Will check serology in immunofixation to look for these sorts of things. (2) Pyuria: Code(s): R82.81 - Pyuria Status: Acute Assessment and Plan: The patient had a urine culture which was negative. He probably has chronic pyuria from his chronic Choudhury catheter (3) CVA (cerebral vascular accident): Code(s): I63.9 - Cerebral infarction, unspecified Status: Acute Assessment and Plan: this is stable with no new events (4) BPH (benign prostatic hyperplasia): Code(s): N40.0 - Benign prostatic hyperplasia without lower urinary tract symptoms Status: Acute Assessment and Plan: he has a Choudhury catheter in place (5) CAP (community acquired pneumonia): Code(s): J18.9 - Pneumonia, unspecified organism Status: Resolved Assessment and Plan: he is on antibiotic History of Present Illness Reason for Consult Consult date: 11/03/23 Chief Complaint Chief complaint: UTI,JANA,CKD,Altered Mental Status History of Present Illness Narrative: Clint is a very pleasant 77-year-old gentleman has multiple medical problems including chronic kidney disease with a baseline creatinine in the low 2s, BPH with a Choudhury catheter, anemia, hypertension, GERD, irritable bowel syndrome, history of a stroke with left-sided weakness, who came in the hospital on the for altered mental status. He was seen in the ER and found to have pyuria. Because of his chronic indwelling Choudhury catheter this was exchanged. Cultures were done a was placed on antibiotics. Labs showed a high BUN and creatinine. His creatinine has been elevated in the past. It was running normal in 2019 is running in the mid 1s in 2019 to 2021 and the creatinine was around 2 in April of this year after hospitalization. On admission this time his creatinine was 4.9. Was given antibiotics and IV fluids in the creatinine has worsened so renal consultation was requested. The patient cannot give a history. He answers yes no questions but I am not sure about how reliable the answers are. He does seem to have some abdominal discomfort. Review of Systems Constitutional: Constitutional: Reports no additional constitutional complaints Eyes: Eyes: Reports no additional eye complaints ENT: Reports system reviewed and no additional complaints, except as documented Cardiovascular: Cardiovascular: Reports no additional cardiovascular complaints Respiratory: Respiratory: Reports no additional respiratory complaints Gastrointestinal: Gastrointestinal: Reports no additional gastrointestinal complaints Genitourinary: Genitourinary: Reports no additional male genitourinary complaints Musculoskeletal: Musculoskeletal: Reports no additional musculoskeletal complaints Integumentary/Breasts: Skin/Breast: Reports system reviewed and no additional complaints, except as docu Neurologic: Reports system reviewed and no additional complaints, except as documented Psychia
--- NOTE | 2023-11-03 10:02 | PM.IMPN ---
Progress Note: A&P Assessment and Plan (1) Acute hypoxemic respiratory failure: Code(s): J96.01 - Acute respiratory failure with hypoxia Status: Acute Assessment and Plan: Attributable to pneumonia. Patient is being treated with antibiotics and is on supplemental oxygen at 2 L per minute (2) Acute kidney injury superimposed on chronic kidney disease: Code(s): N17.9 - Acute kidney failure, unspecified; N18.9 - Chronic kidney disease, unspecified Status: Acute Assessment and Plan: GFR usually in the 30s to 40s, currently GFR of 12, creatinine 4.9, BUN 68, estimated creatinine clearance 14 on admission 11/02: Estimated GFR 11, creatinine 5.2, BUN 72, estimated creatinine clearance 10. Potassium 4 9. Will recheck BMP this afternoon and if creatinine has not improved we will consult Nephrology to see tomorrow. 11/03: Renal function continues to worsen. Nephrology consulted. New orders placed. Blood pressure is improved. (3) Pneumonia: Qualifiers: Laterality: unspecified laterality Lung location: unspecified part of lung Pneumonia type: due to unspecified organism Qualified Code(s): J18.9 - Pneumonia, unspecified organism Code(s): J18.9 - Pneumonia, unspecified organism Status: Acute Assessment and Plan: Patient is on ceftriaxone and azithromycin. Increase ceftriaxone to 2 g daily. Ordered MRSA PCR, pneumococcal antigen, Legionella antigen, mycoplasma ordered. (4) UTI (urinary tract infection) due to urinary indwelling Choudhury catheter: Qualifiers: Encounter type: initial encounter Indwelling urinary catheter type: indwelling urethral catheter Qualified Code(s): T83.511A - Infection and inflammatory reaction due to indwelling urethral catheter, initial encounter; N39.0 - Urinary tract infection, site not specified Code(s): T83.511A - Infection and inflammatory reaction due to indwelling urethral catheter, initial encounter; N39.0 - Urinary tract infection, site not specified Status: Acute Assessment and Plan: suprapubic catheter exchanged draining clear yellow urine, likely colonization versus active infection as patient does not have any abdominal discomfort. (5) Hyperkalemia: Code(s): E87.5 - Hyperkalemia Status: Acute Assessment and Plan: Potassium 5.2 on admission, likely elevated due to supplemental potassium on home medication list as well as JANA on CKD. Will redraw this afternoon and with morning labs. 11/02: Repeat potassium 4.9 11/03: Potassium 4.2 (6) Thrombocytopenia: Code(s): D69.6 - Thrombocytopenia, unspecified Status: Acute Assessment and Plan: platelet count 25027, will recheck this afternoon and again with daily labs. Hold anticoagulation at this time 11/02: platelet count 27104 11/03: platelet count 86688 Plan nephrology consulted today, new orders received. Condition otherwise remained stable but guarded Time Spent With Patient Time with patient: 25 - 35 minutes Subjective Date/time seen: 11/03/23 10:02 Interval history: 11/01: This is a 77-year-old male patient [facility] was brought to the emergency department yesterday for just not feeling well. 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 Patient cannot adequately describe how he was feeling yesterday but states that he feels well today. Patient denies any difficulty breathing denies any cough fever or chills. Patient denies any abdominal pain. 11/02: Patient reports feeling well has no complaints at this time. However, patient did not realize he was at the hospital. He thought he was at his usual [facility] setting. Patient denies any difficulty breathing but he is still requiring supplemental oxygen. White blood cell count is higher today. Will continue antibiotics and reassess tomorrow. 11/03: Teena
[2023-11-03 11:40] LABS: Creatine Kinase 167 U/L (55-170)
[2023-11-03 11:57] LABS: Erythrocyte Sedimentation Rate > 140 mm/hr (0-20)
[2023-11-03 12:15] LABS: Complement C3 97 mg/dL (88-165)
[2023-11-03] MEDS: cefTRIAXone 2 GM/NS 100 ML 2 GM/100 ML BAG IVPB (12:50)
[2023-11-03 16:18] LABS: Glucose Point of Care 87 mg/dl (65-105)
[2023-11-03 16:39] LABS: Alveolar/Arterial O2 Gradient 80.1 mmHg; Base Excess ABG -15.5 mEq/l (+/-2.0); Carboxyhemoglobin 0.3 % THb (0-2.0); Fractional Inspired Oxygen 28 %; HCO3 ABG 12.1 mEq/l (22.0-26.0); Methemoglobin ABG 0.3 %THb (0-1.5); Oxygen Content ABG 11.3 %vol (16.0-22.0); Oxyhemoglobin 93.4 % THb (90.0-100.0); PO2 ABG 78.2 mmHg (80.0-100.0); PO2 FiO2 Ratio Arterial Blood 2.79 %; Total Hemoglobin 8.5 g/dL (12.0-18.0)
[2023-11-03 16:40] LABS: Device NASAL CANNULA; Modified Allen's Test Pass; Site Drawn LEFT RADIAL; pH ABG 7.156 (7.350-7.450)
[2023-11-03 17:08] LABS: Basophils Percent Auto 0.3 % (0.2-1.2); Eosinophils Percent Auto 0.2 % (0-4.4); Hematocrit 25.7 % (42.0-52.0); Hemoglobin 7.4 g/dL (14.0-18.0); Immature Granulocyte Absolute 0.97 K/mm3 (0.00-0.031); Immature Granulocyte Percent A 6.4 % (0-0.5); Immature Platelet Fraction Pct 6.8 % (0.9-11.2); Lymphocytes Absolute Auto 1.78 K/mm3 (0.9-3.2); Lymphocytes Percent Auto 11.7 % (18.3-44.2); Mean Corpuscular HGB Conc 28.8 g/dl (32-36); Mean Corpuscular Hemoglobin 26.5 pg (26-34); Mean Corpuscular Volume 92.1 fl (80-100); Mean Platelet Volume 12.7 fl (7.4-10.4); Monocytes Percent Auto 6.8 % (2.6-8.5); Neutrophils Absolute Auto 11.4 K/mm3 (1.3-6.7); Neutrophils Percent Auto 74.6 % (45.5-73.1); Platelet Count Result 99 k/mm3 (150-375); Red Blood Count 2.79 M/mm3 (4.6-6.20); Red Cell Distribution Width 17.2 % (11.5-14.5); White Blood Count 15.2 K/mm3 (4.5-10.0)
[2023-11-03 17:24] LABS: Lactic Acid Reflex 0.6 mmol/L (0.7-2.0)
[2023-11-03 17:26] LABS: Hypochromasia 1+ (NORMAL); Ovalocytes 2+ (NORMAL)
[2023-11-03 17:27] LABS: Alanine Aminotransferase 41 U/L (6-50); Alkaline Phosphatase 77 U/L (38-126); Anion Gap 17 mmol/L (8-16); Aspartate Amino Transferase 56 U/L (17-59); Bilirubin,Total 0.4 mg/dL (0.2-1.3); Blood Urea Nitrogen 79 mg/dL (9-20); Calcium 8.3 mg/dL (8.4-10.2); Carbon Dioxide 11 mmol/L (22-30); Chloride 104 mmol/L (98-107); Estimated CRCL calculation 9 ml/min; Estimated Glomerular Filt Rate 9; Glucose 82 mg/dL (65-110); Magnesium 1.9 mg/dL (1.6-2.3); Phosphorus 7.4 mg/dL (2.5-4.5); Platelet Estimate Decreased (Adequate); Potassium 4.5 mmol/L (3.4-5.0); Schistocytes None Seen (NORMAL); Sodium 132 mmol/L (137-145)
[2023-11-03 17:29] LABS: Beta-Hydroxybutyrate/Acetoacetate 1.98 mmol/L (0.02-0.27)
[2023-11-03] MEDS: SODIUM BICARBONATE 8.4% 150 MEQ in DEXTROSE 5% 1,000 ML 950 ML 75 MEQ IV CONT (18:17)
[2023-11-03] MEDS: traZODone HCL 50 MG TABLET PO (21:02)
[2023-11-03] MEDS: TAMSULOSIN HCL 0.4 MG CAPSULE PO (21:02)
[2023-11-04] VITALS (10 sets, daily range): BP systolic 90–120; BP diastolic 31–56; PULSE 64–67; RESP 12–18; TEMP 36.1–36.9; O2SAT 93–97
[2023-11-04] MEDS: AZITHROMYCIN 500 MG/NS 250 ML 500 MG/250 ML BAG 250 MG IVPB (03:52)
[2023-11-04 06:48] LABS: Basophils Percent Auto 0.2 % (0.2-1.2); Eosinophils Percent Auto 0.3 % (0-4.4); Hematocrit 24.2 % (42.0-52.0); Hemoglobin 7.1 g/dL (14.0-18.0); Immature Granulocyte Absolute 0.67 K/mm3 (0.00-0.031); Immature Granulocyte Percent A 5.5 % (0-0.5); Immature Platelet Fraction Pct 5.8 % (0.9-11.2); Lymphocytes Absolute Auto 1.44 K/mm3 (0.9-3.2); Lymphocytes Percent Auto 11.9 % (18.3-44.2); Mean Corpuscular HGB Conc 29.3 g/dl (32-36); Mean Corpuscular Hemoglobin 26.4 pg (26-34); Monocytes Absolute Auto 1.1 K/mm3 (0.1-0.6); Monocytes Percent Auto 9.3 % (2.6-8.5); Neutrophils Absolute Auto 8.8 K/mm3 (1.3-6.7); Neutrophils Percent Auto 72.8 % (45.5-73.1); Platelet Count Result 99 k/mm3 (150-375); Red Blood Count 2.69 M/mm3 (4.6-6.20); Red Cell Distribution Width 17.1 % (11.5-14.5); White Blood Count 12.1 K/mm3 (4.5-10.0)
[2023-11-04 06:59] LABS: Albumin Level 2.8 g/dL (3.5-5.1); Anion Gap 18 mmol/L (8-16); Blood Urea Nitrogen 78 mg/dL (9-20); Calcium 8.4 mg/dL (8.4-10.2); Carbon Dioxide 14 mmol/L (22-30); Chloride 102 mmol/L (98-107); Estimated CRCL calculation 9 ml/min; Estimated Glomerular Filt Rate 9; Glucose 100 mg/dL (65-110); Phosphorus 6.7 mg/dL (2.5-4.5); Potassium 3.7 mmol/L (3.4-5.0); Sodium 134 mmol/L (137-145)
[2023-11-04 07:36] LABS: Anisocytosis 2+ (NORMAL); Crenated RBC 2+ (NORMAL); Hypochromasia 2+ (NORMAL); Platelet Estimate Decreased (Adequate); Schistocytes Rare (NORMAL)
[2023-11-04] MEDS: SODIUM BICARBONATE 8.4% 150 MEQ in DEXTROSE 5% 1,000 ML 950 ML 75 MEQ IV CONT ×2 (08:51→22:22)
[2023-11-04] MEDS: atenoloL 50 MG TABLET PO (08:53)
[2023-11-04] MEDS: FERROUS SULFATE 325 MG TABLET DR BY MOUTH ×2 (08:54→17:39)
[2023-11-04] MEDS: FINASTERIDE 5 MG TABLET PO (08:54)
[2023-11-04] MEDS: ATORVASTATIN 20 MG TABLET PO (08:54)
[2023-11-04] MEDS: CHOLECALCIFEROL 1,000 UNITS TABLET 1000 UNITS PO (08:54)
[2023-11-04] MEDS: SACCHAROMYCES BOULARDII 250 MG CAPSULE PO ×2 (08:54→17:39)
[2023-11-04] MEDS: COLESTIPOL HCL 1 GM TABLET PO ×2 (08:55→17:39)
[2023-11-04] MEDS: PANTOPRAZOLE 40 MG TABLET PO (08:55)
[2023-11-04] MEDS: GABAPENTIN 300 MG CAPSULE PO ×2 (08:55→17:39)
[2023-11-04] MEDS: MIRABEGRON 25 MG ER TABLET PO (08:55)
[2023-11-04] MEDS: OPTI-GEN TAB 1 TABLET PO (08:55)
[2023-11-04] MEDS: ASPIRIN 81 MG ENTERIC TABLET PO (08:55)
[2023-11-04] MEDS: SERTRALINE HCL 50 MG TABLET PO (08:55)
[2023-11-04] MEDS: MULTIVITAMINS /C LUTEIN (CENTRUM SILVER) TABLET *BKC 1 TAB PO (08:55)
[2023-11-04] MEDS: NIFEdipine 30 MG TAB.ER.24 PO (08:55)
[2023-11-04] MEDS: MIDODRINE HCL 10 MG TABLET PO ×2 (08:55→17:38)
[2023-11-04] MEDS: LIPASE/AMYLASE/PROTEASE 12,000 UNITS CAP 6 CAP PO ×2 (08:56→17:38)
[2023-11-04] MEDS: SILVER SULFADIAZINE 1% CR 50 GM JAR (*BKC) 1 APPLIC TOPICAL (08:58)
[2023-11-04] MEDS: FLUTICASONE PROPIONATE 0.05% NA SPR 16 GM BTL (*BKC) 1 SPRAY NASAL (09:01)
--- NOTE | 2023-11-04 09:11 | PM.IMPN ---
Progress Note: A&P Assessment and Plan (1) Acute hypoxemic respiratory failure: Code(s): J96.01 - Acute respiratory failure with hypoxia Status: Acute Assessment and Plan: Patient breathing is better. Oxygenation is better. Will continue current treatment monitor closely. Attributable to pneumonia. Patient is being treated with antibiotics and is on supplemental oxygen at 2 L per minute (2) Acute kidney injury superimposed on chronic kidney disease: Code(s): N17.9 - Acute kidney failure, unspecified; N18.9 - Chronic kidney disease, unspecified Status: Acute Assessment and Plan: Nephrology consult noted, will continue current treatment monitor it in. Patient potassium is better now GFR usually in the 30s to 40s, currently GFR of 12, creatinine 4.9, BUN 68, estimated creatinine clearance 14 on admission 11/02: Estimated GFR 11, creatinine 5.2, BUN 72, estimated creatinine clearance 10. Potassium 4 9. Will recheck BMP this afternoon and if creatinine has not improved we will consult Nephrology to see tomorrow. 11/03: Renal function continues to worsen. (3) Pneumonia: Qualifiers: Laterality: unspecified laterality Lung location: unspecified part of lung Pneumonia type: due to unspecified organism Qualified Code(s): J18.9 - Pneumonia, unspecified organism Code(s): J18.9 - Pneumonia, unspecified organism Status: Acute Assessment and Plan: Patient is on ceftriaxone and azithromycin. ceftriaxone to 2 g daily. Ordered MRSA PCR, pneumococcal antigen, Legionella antigen, mycoplasma ordered. Repeat Xray noted (4) UTI (urinary tract infection) due to urinary indwelling Choudhury catheter: Qualifiers: Encounter type: initial encounter Indwelling urinary catheter type: indwelling urethral catheter Qualified Code(s): T83.511A - Infection and inflammatory reaction due to indwelling urethral catheter, initial encounter; N39.0 - Urinary tract infection, site not specified Code(s): T83.511A - Infection and inflammatory reaction due to indwelling urethral catheter, initial encounter; N39.0 - Urinary tract infection, site not specified Status: Acute Assessment and Plan: suprapubic catheter exchanged draining clear yellow urine, likely colonization versus active infection as patient does not have any abdominal discomfort. (5) Hyperkalemia: Code(s): E87.5 - Hyperkalemia Status: Acute Assessment and Plan: Resolved (6) Thrombocytopenia: Code(s): D69.6 - Thrombocytopenia, unspecified Status: Acute Assessment and Plan: platelet count 07234, will recheck this afternoon and again with daily labs. Hold anticoagulation at this time 11/02: platelet count 60321 11/03: platelet count 30603 Will monitor, no acute bleeding. Plan Nephrology consult noted, new orders received. Condition otherwise remained stable but guarded Subjective Date/time seen: 11/04/23 09:11 Interval history: Patient was seen during the morning rounds today. Patient is feeling slightly better. Decreased shortness of breath. No chest pain No abdominal pain, nausea, no vomiting. Review of Systems Review of Systems: All systems reviewed & are unremarkable except as noted in HPI and below ROS unobtainable: Yes unobtainable due to mental status (LETHARGY/OBTUNDATION) Exam Narrative: GENERAL: well-nourished, and in no acute distress. HEAD: Normocephalic, atraumatic. ENT:? Mucous membranes moist. CHEST: Air entry is better, few rales at bases. HEART: Regular rate and rhythm. ? Normal peripheral pulses. ABDOMEN: Soft, nontender, nondistended. Suprapubic catheter in place with clear yellow drainage. EXTREMITIES: Normal range of motion. No peripheral edema. SKIN: Warm dry normal color NEURO: Alert and oriented x3. PSYCH: Normal mood and affect Const: General: comfortable, no acute distress, well developed, alert, awake, l
[2023-11-04 11:40] LABS: Total Protein Urine Random 53 mg/dL
[2023-11-04 11:44] LABS: Creatinine Urine 39.3 mg/dL; Ur Ttl Prot Creatinine Ratio 1.35 mg/mg (0-0.20)
[2023-11-04 12:31] LABS: Sodium Urine Random 41 meq/L
[2023-11-04] MEDS: cefTRIAXone 2 GM/NS 100 ML 2 GM/100 ML BAG IVPB (12:45)
--- NOTE | 2023-11-04 13:21 | PM.PNNEP ---
Progress Note: A&P Assessment and Plan (1) Acute kidney injury superimposed on chronic kidney disease: Code(s): N17.9 - Acute kidney failure, unspecified; N18.9 - Chronic kidney disease, unspecified Status: Acute Assessment and Plan: the patient has chronic kidney Disease stage IIIB. This is felt to be due to hypertension vascular disease BPH and age-related changes. His kidney function is worsened gradually over the last 4 years. It took an especially large drop in function this time. I think this drop in function is too large to be just from chronic kidney disease. Renal ultrasound is unremarkable Urine electrolytes are non pre renal CK is normal C3 and C4 are normal Sed rate is greater than 140 He has pneumonia and so could have ATN. His urine did show some blood and so he could have some sort of a collagen vascular disease. (2) Pyuria: Code(s): R82.81 - Pyuria Status: Acute Assessment and Plan: The patient had a urine culture which was negative. He probably has chronic pyuria from his chronic Choudhury catheter (3) CVA (cerebral vascular accident): Code(s): I63.9 - Cerebral infarction, unspecified Status: Acute Assessment and Plan: this is stable with no new events (4) BPH (benign prostatic hyperplasia): Code(s): N40.0 - Benign prostatic hyperplasia without lower urinary tract symptoms Status: Acute Assessment and Plan: he has a Choudhury catheter in place (5) CAP (community acquired pneumonia): Code(s): J18.9 - Pneumonia, unspecified organism Status: Resolved Assessment and Plan: He has respiratory acidosis. Possibly from the pneumonia. Will repeat a blood gas today to see if he is still retaining. He seems a little more awake today than he did last night. he is on antibiotic for the pneumonia. (6) Metabolic acidosis: Code(s): E87.20 - Acidosis, unspecified Status: Acute Assessment and Plan: He has combined metabolic and respiratory acidosis. He has a small anion gap, probably from the uremic toxins. He is getting bicarb drip now. Because of the concern for fluid he is also getting some Bumex. His CO2 has risen to 14. He also responded to the diuretics. His creatinine had been rising but today is the same as yesterday. Hopefully reaching a plateau and will improve soon. If it worsens then we might need to consider dialysis. Subjective Date/time seen: 11/04/23 13:21 Interval history: Jefferson is resting in bed. He arouses with me calling his name does not interact very much. He does not look short of breath Exam Narrative: WDWN in NAD skin no rash head ncat lungs clear cor reg no rub abd BS+ nontender and soft ext trace edema. Objective Data Vital Signs Vital Signs: Vital Signs - 24 hr 11/03/23 14:00 11/03/23 18:18 11/03/23 20:07 Temperature 97.6 F 97.0 F L Pulse Rate 66 67 Respiratory Rate 12 18 Blood Pressure 107/42 L 102/38 L 102/39 L Pulse Oximetry 93 98 Oxygen Delivery Oxygen Flow Rate Fraction of Inspired Oxygen 11/04/23 02:00 11/04/23 06:00 11/04/23 08:53 Temperature 97.5 F L 98.1 F Pulse Rate 66 65 65 Respiratory Rate 18 18 Blood Pressure 103/35 L 93/31 L Pulse Oximetry 97 97 Oxygen Delivery Oxygen Flow Rate Fraction of Inspired Oxygen 11/04/23 10:00 11/04/23 08:56 11/04/23 08:30 Temperature 97.8 F Pulse Rate 67 Respiratory Rate 18 16 Blood Pressure 90/40 L Pulse Oximetry 96 96 97 Oxygen Delivery Nasal Cannula Nasal Cannula Oxygen Flow Rate 2 2 Fraction of Inspired Oxygen 28 11/04/23 12:20 Temperature 98.4 F Pulse Rate 64 Respiratory Rate 12 Blood Pressure 100/48 L Pulse Oximetry 95 Oxygen Delivery Oxygen Flow Rate Fraction of Inspired Oxygen Intake/Output Intake/Output: Intake & Output 11/01/23 11/02/23 11/03/23 11/04/23 23:59 23:59 23:59 23:59 Intake To
[2023-11-04 14:36] LABS: Alveolar/Arterial O2 Gradient 95.5 mmHg; Base Excess ABG -6.2 mEq/l (+/-2.0); Fractional Inspired Oxygen 28 %; HCO3 ABG 19.4 mEq/l (22.0-26.0); Oxygen Content ABG 9.9 %vol (16.0-22.0); Oxygen Saturation ABG 88.3 % (95.0-100.0); Oxyhemoglobin 89.3 % THb (90.0-100.0); PCO2 ABG 38.7 mmHg (35.0-45.0); PO2 ABG 58.5 mmHg (80.0-100.0); PO2 FiO2 Ratio Arterial Blood 2.09 %; pH ABG 7.317 (7.350-7.450)
[2023-11-04 14:37] LABS: Device NASAL CANNULA; Modified Allen's Test Pass; Site Drawn RIGHT RADIAL; Total Hemoglobin 7.8 g/dL (12.0-18.0)
[2023-11-05] VITALS (10 sets, daily range): BP systolic 109–132; BP diastolic 38–77; PULSE 64–73; RESP 14–18; TEMP 36–36.9; O2SAT 91–100
[2023-11-05 04:15] LABS: Legionella pneumophila Ag Ur Not Detected (Not Detected)
[2023-11-05] MEDS: AZITHROMYCIN 500 MG/NS 250 ML 500 MG/250 ML BAG 250 MG IVPB (04:32)
[2023-11-05 05:02] LABS: Alveolar/Arterial O2 Gradient 175.3 mmHg; Base Excess ABG -1.6 mEq/l (+/-2.0); Fractional Inspired Oxygen 32 %; HCO3 ABG 23.1 mEq/l (22.0-26.0); Modified Allen's Test Pass; Oxygen Content ABG 8.9 %vol (16.0-22.0); Oxyhemoglobin 89.9 % THb (90.0-100.0); PCO2 ABG 38.7 mmHg (35.0-45.0); PO2 FiO2 Ratio Arterial Blood 1.88 %; Site Drawn LEFT RADIAL; pH ABG 7.394 (7.350-7.450)
[2023-11-05 05:03] LABS: Device NASAL CANNULA
[2023-11-05 05:57] LABS: Basophils Percent Auto 0.2 % (0.2-1.2); Eosinophils Absolute Auto 0.2 K/mm3 (0-0.3); Eosinophils Percent Auto 1.3 % (0-4.4); Hematocrit 22.9 % (42.0-52.0); Hemoglobin 7.1 g/dL (14.0-18.0); Immature Granulocyte Absolute 0.53 K/mm3 (0.00-0.031); Immature Granulocyte Percent A 4.7 % (0-0.5); Lymphocytes Absolute Auto 1.52 K/mm3 (0.9-3.2); Lymphocytes Percent Auto 13.6 % (18.3-44.2); Mean Corpuscular Hemoglobin 26.6 pg (26-34); Mean Corpuscular Volume 85.8 fl (80-100); Mean Platelet Volume 12.8 fl (7.4-10.4); Monocytes Absolute Auto 1.3 K/mm3 (0.1-0.6); Monocytes Percent Auto 11.5 % (2.6-8.5); Neutrophils Absolute Auto 7.7 K/mm3 (1.3-6.7); Neutrophils Percent Auto 68.7 % (45.5-73.1); Platelet Count Result 118 k/mm3 (150-375); Red Blood Count 2.67 M/mm3 (4.6-6.20); White Blood Count 11.2 K/mm3 (4.5-10.0)
[2023-11-05 06:11] LABS: Albumin Level 2.8 g/dL (3.5-5.1); Anion Gap 15 mmol/L (8-16); Blood Urea Nitrogen 77 mg/dL (9-20); Calcium 8.2 mg/dL (8.4-10.2); Carbon Dioxide 21 mmol/L (22-30); Chloride 101 mmol/L (98-107); Estimated CRCL calculation 11 ml/min; Estimated Glomerular Filt Rate 11; Glucose 114 mg/dL (65-110); Phosphorus 5.2 mg/dL (2.5-4.5); Potassium 3.1 mmol/L (3.4-5.0); Sodium 137 mmol/L (137-145)
--- NOTE | 2023-11-05 08:43 | PM.IMPN ---
Progress Note: A&P Assessment and Plan (1) Acute hypoxemic respiratory failure: Code(s): J96.01 - Acute respiratory failure with hypoxia Status: Acute Assessment and Plan: Patient breathing is better. Oxygenation is better. Will continue current treatment monitor closely. Attributable to pneumonia. Patient is being treated with antibiotics and is on supplemental oxygen at 2 L per minute (2) Acute kidney injury superimposed on chronic kidney disease: Code(s): N17.9 - Acute kidney failure, unspecified; N18.9 - Chronic kidney disease, unspecified Status: Acute Assessment and Plan: Nephrology consult noted, will continue current treatment monitor closely Potassium replaced (3) Pneumonia: Qualifiers: Laterality: unspecified laterality Lung location: unspecified part of lung Pneumonia type: due to unspecified organism Qualified Code(s): J18.9 - Pneumonia, unspecified organism Code(s): J18.9 - Pneumonia, unspecified organism Status: Acute Assessment and Plan: Patient is on ceftriaxone and azithromycin. ceftriaxone to 2 g daily. Ordered MRSA PCR, pneumococcal antigen, Legionella antigen, mycoplasma ordered. Repeat Xray noted (4) UTI (urinary tract infection) due to urinary indwelling Choudhury catheter: Qualifiers: Encounter type: initial encounter Indwelling urinary catheter type: indwelling urethral catheter Qualified Code(s): T83.511A - Infection and inflammatory reaction due to indwelling urethral catheter, initial encounter; N39.0 - Urinary tract infection, site not specified Code(s): T83.511A - Infection and inflammatory reaction due to indwelling urethral catheter, initial encounter; N39.0 - Urinary tract infection, site not specified Status: Acute Assessment and Plan: suprapubic catheter exchanged draining clear yellow urine, likely colonization versus active infection as patient does not have any abdominal discomfort. (5) Hyperkalemia: Code(s): E87.5 - Hyperkalemia Status: Acute Assessment and Plan: Resolved (6) Thrombocytopenia: Code(s): D69.6 - Thrombocytopenia, unspecified Status: Acute Assessment and Plan: platelet count [id number], will recheck this afternoon and again with daily labs. Hold anticoagulation at this time 11/02: platelet count 11096 11/03: platelet count 29353 11/04 platelets count [id number] Will monitor, no acute bleeding. Plan Nephrology consult noted. Will continue current treatment and monitor closely Subjective Date/time seen: 11/05/23 08:43 Interval history: Patient was seen during the morning rounds today. No new overnight complaints. Mild shortness of breath. No chest pain. No abdominal pain, no nausea, no vomiting. Mood stable. Review of Systems Review of Systems: All systems reviewed & are unremarkable except as noted in HPI and below ROS unobtainable: Yes unobtainable due to mental status (LETHARGY/OBTUNDATION) Exam Narrative: GENERAL: well-nourished, and in no acute distress. HEAD: Normocephalic, atraumatic. ENT:? Mucous membranes moist. CHEST: Air entry is better, few rales at bases. HEART: Regular rate and rhythm. ? Normal peripheral pulses. ABDOMEN: Soft, nontender, nondistended. Suprapubic catheter in place with clear yellow drainage. EXTREMITIES: Normal range of motion. No peripheral edema. SKIN: Warm dry normal color NEURO: Alert and oriented x3. PSYCH: Normal mood and affect Const: General: comfortable, no acute distress, well developed, alert, awake, lethargic, patient obtunded and average body habitus Nutritional Appearance: average body habitus Orientation/consciousness: oriented to person, patient obtunded and lethargic HENMT: Head: normal to inspection, normocephalic and atraumatic Ears: hearing grossly normal bilaterally Face/Nose/Sinus: normal facial exam Face and sinus: normal facial exam Eyes: Gener
--- NOTE | 2023-11-05 09:36 | PM.PNNEP ---
Progress Note: A&P Assessment and Plan (1) Acute kidney injury superimposed on chronic kidney disease: Code(s): N17.9 - Acute kidney failure, unspecified; N18.9 - Chronic kidney disease, unspecified Status: Acute Assessment and Plan: the patient has chronic kidney Disease stage IIIB. This is felt to be due to hypertension vascular disease BPH and age-related changes. His kidney function is worsened gradually over the last 4 years. It took an especially large drop in function this time. I think this drop in function is too large to be just from chronic kidney disease. Renal ultrasound is unremarkable Urine electrolytes are non pre renal CK is normal C3 and C4 are normal Sed rate is greater than 140 He has pneumonia and so could have ATN. His urine did show some blood and so he could have some sort of a collagen vascular disease. His sed rate is 140 but that could be from pneumonia. Awaiting other serology. his creatinine is improved today. Possibly he is recovering from ATN. Will check another lab tomorrow (2) Pyuria: Code(s): R82.81 - Pyuria Status: Acute Assessment and Plan: The patient had a urine culture which was negative. He probably has chronic pyuria from his chronic Choudhury catheter (3) CVA (cerebral vascular accident): Code(s): I63.9 - Cerebral infarction, unspecified Status: Acute Assessment and Plan: this is stable with no new events (4) BPH (benign prostatic hyperplasia): Code(s): N40.0 - Benign prostatic hyperplasia without lower urinary tract symptoms Status: Acute Assessment and Plan: he has a Choudhury catheter in place (5) CAP (community acquired pneumonia): Code(s): J18.9 - Pneumonia, unspecified organism Status: Resolved Assessment and Plan: He has respiratory acidosis. Possibly from the pneumonia. Will repeat a blood gas today to see if he is still retaining. He seems a little more awake today than he did last night. he is on ceftriaxone and azithromycin for the pneumonia. (6) Metabolic acidosis: Code(s): E87.20 - Acidosis, unspecified Status: Acute Assessment and Plan: He has combined metabolic and respiratory acidosis. metabolic acidosis is a major player. He has a small anion gap, probably from the uremic toxins. The patient's pCO2 was inappropriately high for the degree of metabolic acidosis which is why he also has respiratory acidosis. He is getting bicarb drip now. His bicarbonate level is up to 21 today. Will stop bicarb drip and switch to p.o. bicarb.. He also responded to the diuretics. He made 2600cc of urine. Perhaps this is more of a recover from ATN rather than response to diuretics. Will change to oral bicarb and decrease diuretics. Subjective Date/time seen: 11/05/23 09:36 Interval history: Jefferson seems a little bit more awake today. He is eating some although he does have to be fed. No shortness of breath Exam Narrative: WDWN in NAD skin no rash head ncat lungs clear bilaterally cor reg no rub abd BS+ nontender and soft ext trace edema. Objective Data Vital Signs Vital Signs: Vital Signs - 24 hr 11/04/23 10:00 11/04/23 12:20 11/04/23 17:10 Temperature 98.4 F 97.0 F L Pulse Rate 64 67 Respiratory Rate 12 12 Blood Pressure 100/48 L 120/56 L Pulse Oximetry 96 95 93 Oxygen Delivery Nasal Cannula Oxygen Flow Rate 2 Fraction of Inspired Oxygen 28 11/04/23 20:14 11/04/23 20:00 11/05/23 01:10 Temperature 97.4 F L 97.5 F L Pulse Rate 67 64 Respiratory Rate 17 18 Blood Pressure 108/56 L 110/38 L Pulse Oximetry 93 93 92 Oxygen Delivery Nasal Cannula Oxygen Flow Rate 3 Fraction of Inspired Oxygen 11/05/23 05:47 11/05/23 07:52 Temperature 97.9 F Pulse Rate 68 Respiratory Rate 18 Blood Pressure 111/64 Pulse Oximetry 93 92 Oxygen Delivery Nasal Cannula Oxygen Fl
[2023-11-05] MEDS: SERTRALINE HCL 50 MG TABLET PO (10:02)
[2023-11-05] MEDS: FERROUS SULFATE 325 MG TABLET DR BY MOUTH ×2 (10:02→18:04)
[2023-11-05] MEDS: OPTI-GEN TAB 1 TABLET PO (10:02)
[2023-11-05] MEDS: ASPIRIN 81 MG ENTERIC TABLET PO (10:02)
[2023-11-05] MEDS: CHOLECALCIFEROL 1,000 UNITS TABLET 1000 UNITS PO (10:02)
[2023-11-05] MEDS: SACCHAROMYCES BOULARDII 250 MG CAPSULE PO ×2 (10:02→18:04)
[2023-11-05] MEDS: ATORVASTATIN 20 MG TABLET PO (10:02)
[2023-11-05] MEDS: FINASTERIDE 5 MG TABLET PO (10:03)
[2023-11-05] MEDS: MIDODRINE HCL 10 MG TABLET PO ×3 (10:03→18:04)
[2023-11-05] MEDS: PANTOPRAZOLE 40 MG TABLET PO (10:03)
[2023-11-05] MEDS: atenoloL 50 MG TABLET PO (10:03)
[2023-11-05] MEDS: MULTIVITAMINS /C LUTEIN (CENTRUM SILVER) TABLET *BKC 1 TAB PO (10:03)
[2023-11-05] MEDS: MIRABEGRON 25 MG ER TABLET PO (10:06)
[2023-11-05] MEDS: FLUTICASONE PROPIONATE 0.05% NA SPR 16 GM BTL (*BKC) 1 SPRAY NASAL (10:06)
[2023-11-05] MEDS: GABAPENTIN 300 MG CAPSULE PO (10:06)
[2023-11-05] MEDS: POTASSIUM CHLORIDE 20 MEQ ER TABLET 40 MEQ PO (10:48)
[2023-11-05] MEDS: cefTRIAXone 2 GM/NS 100 ML 2 GM/100 ML BAG IVPB (12:28)
[2023-11-05] MEDS: COLESTIPOL HCL 1 GM TABLET PO ×2 (13:12→18:04)
[2023-11-05] MEDS: LIPASE/AMYLASE/PROTEASE 12,000 UNITS CAP 6 CAP PO ×2 (13:13→18:03)
--- NOTE | 2023-11-05 17:03 | PC.NURSE ---
11/05/23 10:30am Patient was hard to wake and arouse to take morning medications. Called Dr. Pimentel and updated about patient. Dr. Pimentel stated he'll remove some orders and is ok if patient doesn't recieve morning medications.
[2023-11-05] MEDS: BUMETANIDE 1 MG TABLET PO (18:04)
[2023-11-05] MEDS: SODIUM BICARBONATE TAB 650 MG TABLET 1300 MG PO (18:05)
[2023-11-05 20:01] LABS: Complement Total CH50 >60 U/mL (31-60)
[2023-11-05 20:20] LABS: Kappa\\Lambda Light Chains 1.29 (0.26-1.65); Lambda Light Chain 124.7 mg/L (5.7-26.3)
[2023-11-06] VITALS (8 sets, daily range): BP systolic 118–162; BP diastolic 55–66; PULSE 68–74; RESP 12–24; TEMP 36.2–36.8; O2SAT 91–98
[2023-11-06 00:25] LABS: Pneumococcal Antigen Urine Not Detected (Not Detected)
[2023-11-06] MEDS: AZITHROMYCIN 500 MG/NS 250 ML 500 MG/250 ML BAG 250 MG IVPB (04:39)
[2023-11-06 05:44] LABS: Basophils Percent Auto 0.2 % (0.2-1.2); Eosinophils Absolute Auto 0.2 K/mm3 (0-0.3); Eosinophils Percent Auto 1.3 % (0-4.4); Hematocrit 23.7 % (42.0-52.0); Hemoglobin 7.4 g/dL (14.0-18.0); Immature Granulocyte Absolute 0.73 K/mm3 (0.00-0.031); Immature Granulocyte Percent A 5.1 % (0-0.5); Lymphocytes Absolute Auto 2.38 K/mm3 (0.9-3.2); Lymphocytes Percent Auto 16.5 % (18.3-44.2); Mean Corpuscular HGB Conc 31.2 g/dl (32-36); Mean Corpuscular Hemoglobin 27.2 pg (26-34); Mean Corpuscular Volume 87.1 fl (80-100); Monocytes Absolute Auto 2.2 K/mm3 (0.1-0.6); Monocytes Percent Auto 15.2 % (2.6-8.5); Neutrophils Absolute Auto 8.9 K/mm3 (1.3-6.7); Neutrophils Percent Auto 61.7 % (45.5-73.1); Platelet Count Result 151 k/mm3 (150-375); Red Blood Count 2.72 M/mm3 (4.6-6.20); Red Cell Distribution Width 17.1 % (11.5-14.5); White Blood Count 14.4 K/mm3 (4.5-10.0)
[2023-11-06 06:00] LABS: Alanine Aminotransferase 28 U/L (6-50); Albumin Level 3.2 g/dL (3.5-5.1); Alkaline Phosphatase 83 U/L (38-126); Anion Gap 13 mmol/L (8-16); Aspartate Amino Transferase 28 U/L (17-59); Bilirubin,Total 0.4 mg/dL (0.2-1.3); Blood Urea Nitrogen 67 mg/dL (9-20); Calcium 8.6 mg/dL (8.4-10.2); Carbon Dioxide 26 mmol/L (22-30); Chloride 102 mmol/L (98-107); Estimated CRCL calculation 11 ml/min; Estimated Glomerular Filt Rate 12; Glucose 99 mg/dL (65-110); Phosphorus 4.9 mg/dL (2.5-4.5); Potassium 3.1 mmol/L (3.4-5.0); Sodium 141 mmol/L (137-145)
[2023-11-06 07:34] LABS: Anisocytosis 2+ (NORMAL); Hypochromasia 1+ (NORMAL); Microcytosis 1+ (NORMAL); Platelet Estimate Adequate (Adequate); Schistocytes None Seen (NORMAL)
--- NOTE | 2023-11-06 09:22 | PM.PNNEP ---
Progress Note: A&P Assessment and Plan (1) Acute kidney injury superimposed on chronic kidney disease: Code(s): N17.9 - Acute kidney failure, unspecified; N18.9 - Chronic kidney disease, unspecified Status: Acute Assessment and Plan: the patient has chronic kidney Disease stage IIIB. This is felt to be due to hypertension vascular disease BPH and age-related changes. His kidney function is worsened gradually over the last 4 years. He has acute on chronic renal failure. Renal ultrasound is unremarkable Urine electrolytes are non pre renal CK is normal C3 and C4 are normal Sed rate is greater than 140 [place] lambda is normal He has pneumonia and so could have ATN. His urine did show some blood and so he could have some sort of a collagen vascular disease. His sed rate is 140 but that could be from pneumonia. Awaiting other serology. As he improves it makes collagen vascular disease less likely and ATN from pneumonia more likely. his creatinine is improved today again. Creatinine is down to 4.9. He is eating well and does not need IV fluid Will check another lab tomorrow (2) Pyuria: Code(s): R82.81 - Pyuria Status: Acute Assessment and Plan: The patient had a urine culture which was negative. He probably has chronic pyuria from his chronic Choudhury catheter (3) CVA (cerebral vascular accident): Code(s): I63.9 - Cerebral infarction, unspecified Status: Acute Assessment and Plan: this is stable with no new events (4) BPH (benign prostatic hyperplasia): Code(s): N40.0 - Benign prostatic hyperplasia without lower urinary tract symptoms Status: Acute Assessment and Plan: he has a Choudhury catheter in place (5) CAP (community acquired pneumonia): Code(s): J18.9 - Pneumonia, unspecified organism Status: Resolved Assessment and Plan: He has respiratory acidosis. Possibly from the pneumonia. Repeat blood much improved. he is on ceftriaxone and azithromycin for the pneumonia. His chest x-ray on did show some fluid so he was started on some diuretics. His breathing status is better so I will reduce the dose to 1 a day (6) Metabolic acidosis: Code(s): E87.20 - Acidosis, unspecified Status: Acute Assessment and Plan: He has combined metabolic and respiratory acidosis. His respiratory acidosis improved with him waking up the other day. His metabolic acidosis has resolved. Will stop the oral bicarb Subjective Date/time seen: 11/06/23 09:22 Interval history: Patient is feeling better. He is more alert today. Still very weak. Exam Narrative: WDWN in NAD skin no rash head ncat lungs clear to auscultation cor reg no rub abd BS+ nontender and soft ext trace bilateral edema. Objective Data Vital Signs Vital Signs: Vital Signs - 24 hr 11/05/23 10:03 11/05/23 10:07 11/05/23 13:14 Temperature 96.8 F L Pulse Rate 70 70 73 Respiratory Rate 14 18 Blood Pressure 109/77 132/46 L Pulse Oximetry 100 92 Oxygen Delivery Oxygen Flow Rate 11/05/23 10:00 11/05/23 17:52 11/05/23 21:11 Temperature 98.5 F 97.6 F Pulse Rate 68 65 Respiratory Rate 18 16 Blood Pressure 125/48 L 128/50 L Pulse Oximetry 97 91 92 Oxygen Delivery Nasal Cannula Oxygen Flow Rate 3 11/05/23 20:00 11/06/23 00:25 11/06/23 05:12 Temperature 97.6 F 97.6 F Pulse Rate 68 72 Respiratory Rate 18 16 Blood Pressure 131/61 118/58 L Pulse Oximetry 92 94 98 Oxygen Delivery Nasal Cannula Oxygen Flow Rate 3 Intake/Output Intake/Output: Intake & Output 11/03/23 11/04/23 11/05/23 11/06/23 23:59 23:59 23:59 23:59 Intake Total 1410 3160 1730 400 Output Total 500 2655 1950 1400 Balance 910 505 -220 -1000 Meds/Results Medications: Active Medications Generic Name Dose Route Start Last Admin Trade Name Freq PRN Reason Stop Dose Admin Acetamin
--- NOTE | 2023-11-06 09:28 | PM.IMPN ---
Progress Note: A&P Assessment and Plan (1) Acute hypoxemic respiratory failure: Code(s): J96.01 - Acute respiratory failure with hypoxia Status: Acute Assessment and Plan: Patient breathing is better. Oxygenation is better. Will continue current treatment monitor closely. Patient is being treated with antibiotics and is on supplemental oxygen at 2 L per minute Stable on current medications, will continue current treatment. (2) Acute kidney injury superimposed on chronic kidney disease: Code(s): N17.9 - Acute kidney failure, unspecified; N18.9 - Chronic kidney disease, unspecified Status: Acute Assessment and Plan: Nephrology consult noted, will continue current treatment monitor closely Potassium replaced (3) Pneumonia: Qualifiers: Laterality: unspecified laterality Lung location: unspecified part of lung Pneumonia type: due to unspecified organism Qualified Code(s): J18.9 - Pneumonia, unspecified organism Code(s): J18.9 - Pneumonia, unspecified organism Status: Acute Assessment and Plan: Patient is on ceftriaxone and azithromycin. ceftriaxone to 2 g daily. Ordered MRSA PCR, pneumococcal antigen, Legionella antigen, mycoplasma ordered. Repeat Xray noted (4) UTI (urinary tract infection) due to urinary indwelling Choudhury catheter: Qualifiers: Encounter type: initial encounter Indwelling urinary catheter type: indwelling urethral catheter Qualified Code(s): T83.511A - Infection and inflammatory reaction due to indwelling urethral catheter, initial encounter; N39.0 - Urinary tract infection, site not specified Code(s): T83.511A - Infection and inflammatory reaction due to indwelling urethral catheter, initial encounter; N39.0 - Urinary tract infection, site not specified Status: Acute Assessment and Plan: suprapubic catheter exchanged draining clear yellow urine, likely colonization versus active infection as patient does not have any abdominal discomfort. (5) Hyperkalemia: Code(s): E87.5 - Hyperkalemia Status: Acute Assessment and Plan: Resolved (6) Thrombocytopenia: Code(s): D69.6 - Thrombocytopenia, unspecified Status: Acute Assessment and Plan: platelet count 27140, will recheck this afternoon and again with daily labs. Hold anticoagulation at this time 11/02: platelet count 48157 11/03: platelet count 49064 11/04 platelets count [id number] Will monitor, no acute bleeding. Plan Nephrology consult noted. Will continue current treatment and monitor closely Subjective Date/time seen: 11/06/23 09:28 Interval history: Patient was seen during the morning rounds today. Patient is feeling slightly better. No chest pain, no shortness of breath' No abdominal pain, nausea, no vomiting. Mood stable. Review of Systems Review of Systems: All systems reviewed & are unremarkable except as noted in HPI and below Exam Narrative: GENERAL: well-nourished, and in no acute distress. HEAD: Normocephalic, atraumatic. ENT:? Mucous membranes moist. CHEST: Air entry is better, few rales at bases. HEART: Regular rate and rhythm. ? Normal peripheral pulses. ABDOMEN: Soft, nontender, nondistended. Suprapubic catheter in place with clear yellow drainage. EXTREMITIES: Normal range of motion. No peripheral edema. SKIN: Warm dry normal color NEURO: Alert and oriented x3. PSYCH: Normal mood and affect Const: General: comfortable, no acute distress, well developed, alert, awake, lethargic, patient obtunded and average body habitus Nutritional Appearance: average body habitus Orientation/consciousness: oriented to person, patient obtunded and lethargic HENMT: Head: normal to inspection, normocephalic and atraumatic Ears: hearing grossly normal bilaterally Face/Nose/Sinus: normal facial exam Face and sinus: normal facial exam Eyes: General: appearance normal, both eyes and all rel
[2023-11-06] MEDS: MIRABEGRON 25 MG ER TABLET PO (10:12)
[2023-11-06] MEDS: LIPASE/AMYLASE/PROTEASE 12,000 UNITS CAP 6 CAP PO ×3 (10:12→17:52)
[2023-11-06] MEDS: atenoloL 50 MG TABLET PO (10:15)
[2023-11-06] MEDS: OPTI-GEN TAB 1 TABLET PO (10:15)
[2023-11-06] MEDS: MIDODRINE HCL 10 MG TABLET PO ×3 (10:15→17:53)
[2023-11-06] MEDS: PANTOPRAZOLE 40 MG TABLET PO (10:15)
[2023-11-06] MEDS: ASPIRIN 81 MG ENTERIC TABLET PO (10:16)
[2023-11-06] MEDS: ATORVASTATIN 20 MG TABLET PO (10:16)
[2023-11-06] MEDS: MULTIVITAMINS /C LUTEIN (CENTRUM SILVER) TABLET *BKC 1 TAB PO (10:16)
[2023-11-06] MEDS: FINASTERIDE 5 MG TABLET PO (10:16)
[2023-11-06] MEDS: COLESTIPOL HCL 1 GM TABLET PO ×3 (10:16→17:53)
[2023-11-06] MEDS: FLUTICASONE PROPIONATE 0.05% NA SPR 16 GM BTL (*BKC) 1 SPRAY NASAL (10:16)
[2023-11-06] MEDS: CHOLECALCIFEROL 1,000 UNITS TABLET 1000 UNITS PO (10:16)
[2023-11-06] MEDS: FERROUS SULFATE 325 MG TABLET DR BY MOUTH ×2 (10:16→17:52)
[2023-11-06] MEDS: SACCHAROMYCES BOULARDII 250 MG CAPSULE PO ×2 (10:16→17:53)
[2023-11-06] MEDS: BUMETANIDE 1 MG TABLET PO (10:35)
[2023-11-06] MEDS: cefTRIAXone 2 GM/NS 100 ML 2 GM/100 ML BAG IVPB (12:48)
[2023-11-06] MEDS: TAMSULOSIN HCL 0.4 MG CAPSULE PO (20:27)
[2023-11-07] VITALS (10 sets, daily range): BP systolic 131–145; BP diastolic 49–66; PULSE 67–74; RESP 16–20; TEMP 36.3–36.9; O2SAT 91–99; BMI 31.3
[2023-11-07] MEDS: AZITHROMYCIN 500 MG/NS 250 ML 500 MG/250 ML BAG 250 MG IVPB (04:19)
[2023-11-07 05:27] LABS: Albumin 25 %; Creat 24 Hr 0.55 g/24 h (0.50-2.15); Pro/Creat Ratio 1421 mg/g creat (<100); Pro/Creat Ratio mg/mg 1.421 (<0.100); Protein,total, 24 Hr Ur 784 mg/24 h (<100)
[2023-11-07 05:50] LABS: Basophils Percent Auto 0.2 % (0.2-1.2); Eosinophils Absolute Auto 0.1 K/mm3 (0-0.3); Hematocrit 25.2 % (42.0-52.0); Immature Granulocyte Absolute 0.59 K/mm3 (0.00-0.031); Immature Granulocyte Percent A 4.8 % (0-0.5); Lymphocytes Absolute Auto 1.88 K/mm3 (0.9-3.2); Lymphocytes Percent Auto 15.1 % (18.3-44.2); Mean Corpuscular HGB Conc 31.7 g/dl (32-36); Mean Corpuscular Hemoglobin 27.1 pg (26-34); Mean Corpuscular Volume 85.4 fl (80-100); Mean Platelet Volume 11.4 fl (7.4-10.4); Monocytes Absolute Auto 1.8 K/mm3 (0.1-0.6); Monocytes Percent Auto 14.7 % (2.6-8.5); Neutrophils Percent Auto 64.2 % (45.5-73.1); Platelet Count Result 171 k/mm3 (150-375); Red Blood Count 2.95 M/mm3 (4.6-6.20); Red Cell Distribution Width 16.9 % (11.5-14.5); White Blood Count 12.4 K/mm3 (4.5-10.0)
[2023-11-07 06:19] LABS: Alanine Aminotransferase 28 U/L (6-50); Albumin Level 3.1 g/dL (3.5-5.1); Alkaline Phosphatase 78 U/L (38-126); Anion Gap 15 mmol/L (8-16); Aspartate Amino Transferase 30 U/L (17-59); Bilirubin,Total 0.4 mg/dL (0.2-1.3); Blood Urea Nitrogen 63 mg/dL (9-20); Calcium 8.6 mg/dL (8.4-10.2); Carbon Dioxide 26 mmol/L (22-30); Chloride 102 mmol/L (98-107); Estimated CRCL calculation 12 ml/min; Estimated Glomerular Filt Rate 13; Glucose 94 mg/dL (65-110); Phosphorus 5.3 mg/dL (2.5-4.5); Potassium 2.8 mmol/L (3.4-5.0); Sodium 143 mmol/L (137-145)
[2023-11-07] MEDS: POTASSIUM CHLORIDE 20 MEQ ER TABLET 60 MEQ PO (06:49)
[2023-11-07 07:09] LABS: Magnesium 1.7 mg/dL (1.6-2.3)
[2023-11-07] MEDS: CHOLECALCIFEROL 1,000 UNITS TABLET 1000 UNITS PO (09:11)
[2023-11-07] MEDS: SACCHAROMYCES BOULARDII 250 MG CAPSULE PO ×2 (09:11→17:16)
[2023-11-07] MEDS: COLESTIPOL HCL 1 GM TABLET PO ×3 (09:11→17:16)
[2023-11-07] MEDS: ATORVASTATIN 20 MG TABLET PO (09:11)
[2023-11-07] MEDS: PANTOPRAZOLE 40 MG TABLET PO (09:11)
[2023-11-07] MEDS: FERROUS SULFATE 325 MG TABLET DR BY MOUTH ×2 (09:11→17:16)
[2023-11-07] MEDS: FINASTERIDE 5 MG TABLET PO (09:11)
[2023-11-07] MEDS: OPTI-GEN TAB 1 TABLET PO (09:11)
[2023-11-07] MEDS: LIPASE/AMYLASE/PROTEASE 12,000 UNITS CAP 6 CAP PO ×3 (09:11→17:16)
[2023-11-07] MEDS: MULTIVITAMINS /C LUTEIN (CENTRUM SILVER) TABLET *BKC 1 TAB PO (09:11)
[2023-11-07] MEDS: atenoloL 50 MG TABLET PO (09:11)
[2023-11-07] MEDS: MIRABEGRON 25 MG ER TABLET PO (09:12)
[2023-11-07] MEDS: ASPIRIN 81 MG ENTERIC TABLET PO (09:12)
[2023-11-07] MEDS: BUMETANIDE 1 MG TABLET PO (09:12)
[2023-11-07] MEDS: FLUTICASONE PROPIONATE 0.05% NA SPR 16 GM BTL (*BKC) 1 SPRAY NASAL (09:13)
--- NOTE | 2023-11-07 11:16 | PM.PNNEP ---
Progress Note: A&P Assessment and Plan (1) JANA (acute kidney injury): Code(s): N17.9 - Acute kidney failure, unspecified Status: Acute Assessment and Plan: acute worsening noted on admission given UA had blood concern pro possible infiltrative and/or inflammatory disease (GN, collagen vascular disease...etc) however, given trend of creatinine, this seems less likely evaluation to date: renal ultrasound is unremarkable Urine electrolytes are non pre renal CK is normal C3 and C4 are normal sed rate is greater than 140 kappa/lambda is normal suspect due to ATN from pneumonia creatinine continues to improve even with diuretic therapy follow trend of repeat labs and UOP (2) Stage 3b chronic kidney disease: Code(s): N18.32 - Chronic kidney disease, stage 3b Status: Chronic Assessment and Plan: creatinine about 6 months ago was 2.10mg/dl presumably due to hypertension, vascular disease, BPH, and age-related changes (3) CAP (community acquired pneumonia): Code(s): J18.9 - Pneumonia, unspecified organism Status: Resolved Assessment and Plan: clinically improving culture data noted on antibiotics on diuretics due to issues with fluid on CXR wean this off as tolerated (4) Anemia: Code(s): D64.9 - Anemia, unspecified Status: Chronic Assessment and Plan: chronic issues likely due to combo of JANA, CKD, and iron deficiency consider SHUBHAM while hospitalized follow trend of H/H (5) Metabolic acidosis: Code(s): E87.20 - Acidosis, unspecified Status: Acute Assessment and Plan: due to JANA/ARF weaned off sodium bicarbonate (6) BPH (benign prostatic hyperplasia): Code(s): N40.0 - Benign prostatic hyperplasia without lower urinary tract symptoms Status: Chronic Assessment and Plan: chronic weeks catheter in place (7) CVA (cerebral vascular accident): Code(s): I63.9 - Cerebral infarction, unspecified Status: Chronic Assessment and Plan: stable Will continue to follow. Subjective Date/time seen: 11/07/23 11:16 Interval history: Follow-up for acute kidney injury/acute renal failure on chronic kidney disease. Chart reviewed -- assuming care from Dr. Laguerre; renal function continues to slowly improve with current interventions/therapy; no apparent complaints voiced at the time of my visit other than his chronic back pain; breathing/respiratory status better but still requiring supplemental oxygen; no other issues/events overnight or earlier this morning. Exam Narrative: General: elderly but WD/WN Caucas[place] male in NAD Heart: normal S1 and S2; no rub Lungs: clear to auscultation Abdomen: soft, nontender, nondistended, positive bowel sounds Extremities: no cyanosis or clubbing; trace edema Skin: warm and dry Objective Data Vital Signs Vital Signs: Vital Signs Temp Pulse Resp BP Pulse Ox O2 Del Method O2 Flow Rate 11/07/23 11:12 97.4 F L 70 20 144/49 H 93 11/07/23 10:20 92 Nasal Cannula 2 11/07/23 09:55 98.4 F 74 18 140/66 91 11/07/23 09:11 70 11/07/23 06:41 98.0 F 70 16 145/63 H 96 11/07/23 00:31 98.5 F 70 16 131/58 L 94 11/06/23 20:00 93 Nasal Cannula 2 11/06/23 20:56 98.2 F 73 16 138/61 93 11/06/23 19:22 97.2 F L 73 22 H 162/59 H 92 Intake/Output Intake/Output: Intake & Output 11/04/23 11/05/23 11/06/23 11/07/23 23:59 23:59 23:59 23:59 Intake Total 3160 1730 1570 1620 Output Total 2655 1950 3700 2400 Balance 510 -220 -2130 -780 Meds/Results Medications: Active Medications Generic Name Dose Route Start Last Admin Trade Name Freq PRN Reason Stop Dose Admin Acetaminophen 650 mg 11/01/23 00:48 11/07/23 12:18 Acetaminophen 325 Mg Tablet PO 650 mg Q4H PRN Administration Mild Pain (1-3) or Fever Al Hydrox/Mg Hydrox/Simethicone
--- NOTE | 2023-11-07 11:16 | P.PNNP_ITS ---
Progress Note: A&P Assessment and Plan (1) JANA (acute kidney injury): Code(s): N17.9 - Acute kidney failure, unspecified Status: Acute Assessment and Plan: * acute worsening noted on admission * given UA had blood concern pro possible infiltrative and/or inflammatory disease (GN, collagen vascular disease...etc) * however, given trend of creatinine, this seems less likely * evaluation to date: * renal ultrasound is unremarkable * Urine electrolytes are non pre renal * CK is normal * C3 and C4 are normal * sed rate is greater than 140 * kappa/lambda is normal * suspect due to ATN from pneumonia * creatinine continues to improve even with diuretic therapy * follow trend of repeat labs and UOP (2) Stage 3b chronic kidney disease: Code(s): N18.32 - Chronic kidney disease, stage 3b Status: Chronic Assessment and Plan: * creatinine about 6 months ago was 2.10mg/dl * presumably due to hypertension, vascular disease, BPH, and age-related changes (3) CAP (community acquired pneumonia): Code(s): J18.9 - Pneumonia, unspecified organism Status: Resolved Assessment and Plan: * clinically improving * culture data noted * on antibiotics * on diuretics due to issues with fluid on CXR * wean this off as tolerated (4) Anemia: Code(s): D64.9 - Anemia, unspecified Status: Chronic Assessment and Plan: * chronic issues * likely due to combo of JANA, CKD, and iron deficiency * consider SHUBHAM while hospitalized * follow trend of H/H (5) Metabolic acidosis: Code(s): E87.20 - Acidosis, unspecified Status: Acute Assessment and Plan: * due to JANA/ARF * weaned off sodium bicarbonate (6) BPH (benign prostatic hyperplasia): Code(s): N40.0 - Benign prostatic hyperplasia without lower urinary tract symptoms Status: Chronic Assessment and Plan: * chronic weeks catheter in place (7) CVA (cerebral vascular accident): Code(s): I63.9 - Cerebral infarction, unspecified Status: Chronic Assessment and Plan: * stable Will continue to follow. Subjective Date/time seen: 11/07/23 11:16 Interval history: Follow-up for acute kidney injury/acute renal failure on chronic kidney disease. Chart reviewed -- assuming care from Dr. Laguerre; renal function continues to slowly improve with current interventions/therapy; no apparent complaints voiced at the time of my visit other than his chronic back pain; breathing/respiratory status better but still requiring supplemental oxygen; no other issues/events overnight or earlier this morning. Exam Narrative: General: elderly but WD/WN [place] male in NAD Heart: normal S1 and S2; no rub Lungs: clear to auscultation Abdomen: soft, nontender, nondistended, positive bowel sounds Extremities: no cyanosis or clubbing; trace edema Skin: warm and dry Objective Data Vital Signs Vital Signs: Vital Signs Temp Pulse Resp BP Pulse Ox O2 Del Method O2 Flow Rate 11/07/23 11:12 97.4 F L 70 20 144/49 H 93 11/07/23 10:20 92 Nasal Cannula 2 11/07/23 09:55 98.4 F 74 18 140/66 91 11/07/23 09:11 70 11/07/23 06:41 98.0 F 70 16 145/63 H 96 11/07/23 00:31 98.5 F 70 16 131/58 L 94 11/06/23 20:00 93 Nasal Cannula 2
--- NOTE | 2023-11-07 11:31 | PM.IMPN ---
Progress Note: A&P Assessment and Plan (1) Acute hypoxemic respiratory failure: Code(s): J96.01 - Acute respiratory failure with hypoxia Status: Acute Assessment and Plan: Improving but still on oxygen -chest x-ray showed cardiomegaly with mild edema -patient continues on Bumex -he was given ceftriaxone and azithromycin. Azithromycin has now been discontinued and we will stop ceftriaxone after today as that will be 7 days -wean oxygen as tolerated (2) Acute kidney injury superimposed on chronic kidney disease: Code(s): N17.9 - Acute kidney failure, unspecified; N18.9 - Chronic kidney disease, unspecified Status: Acute Assessment and Plan: JANA-improving now 4.4. Baseline looks like it is likely around 2.5 -nephrology consulted and workup pending -suspect this was likely the cause of his altered mental status (3) Pneumonia: Qualifiers: Laterality: unspecified laterality Lung location: unspecified part of lung Pneumonia type: due to unspecified organism Qualified Code(s): J18.9 - Pneumonia, unspecified organism Code(s): J18.9 - Pneumonia, unspecified organism Status: Acute Assessment and Plan: As above -Legionella and pneumococcal antigens negative (4) UTI (urinary tract infection) due to urinary indwelling Choudhury catheter: Qualifiers: Encounter type: initial encounter Indwelling urinary catheter type: indwelling urethral catheter Qualified Code(s): T83.511A - Infection and inflammatory reaction due to indwelling urethral catheter, initial encounter; N39.0 - Urinary tract infection, site not specified Code(s): T83.511A - Infection and inflammatory reaction due to indwelling urethral catheter, initial encounter; N39.0 - Urinary tract infection, site not specified Status: Acute Assessment and Plan: suprapubic catheter exchanged draining clear yellow urine, likely colonization versus active infection as patient does not have any abdominal discomfort. (5) Hyperkalemia: Code(s): E87.5 - Hyperkalemia Status: Acute Assessment and Plan: Resolved now with hypokalemia likely due to diuretics -replacement given this morning, repeat BMP later today (6) Thrombocytopenia: Code(s): D69.6 - Thrombocytopenia, unspecified Status: Acute Assessment and Plan: Improving gradually, now normal. 11/02: platelet count [id number] 11/03: platelet count [id number] 12/26 platelets count [id number] Plan Time Spent With Patient Time with patient: 25 - 35 minutes Subjective Date/time seen: 11/07/23 11:31 Interval history: Pt is a 77-year-old male here for altered mental status and JANA. Patient states he is doing okay. He has some mild back pain which is chronic and has asked for a Tylenol. Otherwise he is doing okay. He denies nausea, vomiting, chest pain, shortness of breath or cough. He states he does not usually wear oxygen at home. Review of Systems Review of Systems: All systems reviewed & are unremarkable except as noted in HPI and below Exam Narrative: General: Well developed well nourished patient in NAD HEENT: normocephalic Neck: supple Neuro: Alert and oriented x 3-but did not know the year. Paraplegic lower extremities CV:RRR Resp: Decreased breath sounds bilaterally due to effort and position but overall clear from what I auscultated Abd: Soft, non distended. No pain to palpation. Positive bowel sounds. Suprapubic catheter in place yellow urine Extremities: No swelling or erythema. Atrophy changes due to paraplegia Objective Data Vital Signs Vital Signs: Vital Signs - 24 hr 11/06/23 14:25 11/06/23 19:22 11/06/23 20:56 Temperature 97.6 F 97.2 F L 98.2 F Pulse Rate 73 73 73 Respiratory Rate 24 H 22 H 16 Blood Pressure 160/55 H 162/59 H 138/61 Pulse Oximetry 91 92 93 Oxygen Delivery Oxygen Flow Rate 11/06/23 20:00 11/07/23
[2023-11-07 12:01] LABS: Anion Gap 12 mmol/L (8-16); Blood Urea Nitrogen 61 mg/dL (9-20); Calcium 8.2 mg/dL (8.4-10.2); Carbon Dioxide 28 mmol/L (22-30); Chloride 100 mmol/L (98-107); Estimated CRCL calculation 13 ml/min; Estimated Glomerular Filt Rate 15; Glucose 133 mg/dL (65-110); Potassium 3.5 mmol/L (3.4-5.0); Sodium 140 mmol/L (137-145)
[2023-11-07] MEDS: ACETAMINOPHEN 325 MG TABLET 650 MG PO (12:18)
[2023-11-07] MEDS: cefTRIAXone 2 GM/NS 100 ML 2 GM/100 ML BAG IVPB (12:21)
[2023-11-07] MEDS: POTASSIUM CHLORIDE 20 MEQ ER TABLET PO (17:16)
[2023-11-07] MEDS: TAMSULOSIN HCL 0.4 MG CAPSULE PO (20:10)
[2023-11-08] VITALS (9 sets, daily range): BP systolic 140–164; BP diastolic 49–66; PULSE 60–69; RESP 15–18; TEMP 36.4–36.5; O2SAT 95–98
[2023-11-08 06:00] LABS: Basophils Percent Auto 0.2 % (0.2-1.2); Eosinophils Absolute Auto 0.1 K/mm3 (0-0.3); Hemoglobin 7.5 g/dL (14.0-18.0); Immature Granulocyte Absolute 0.46 K/mm3 (0.00-0.031); Lymphocytes Absolute Auto 2.02 K/mm3 (0.9-3.2); Lymphocytes Percent Auto 17.7 % (18.3-44.2); Mean Corpuscular HGB Conc 31.3 g/dl (32-36); Mean Corpuscular Hemoglobin 26.9 pg (26-34); Mean Platelet Volume 11.8 fl (7.4-10.4); Monocytes Absolute Auto 1.9 K/mm3 (0.1-0.6); Neutrophils Absolute Auto 6.9 K/mm3 (1.3-6.7); Neutrophils Percent Auto 60.1 % (45.5-73.1); Platelet Count Result 181 k/mm3 (150-375); Red Blood Count 2.79 M/mm3 (4.6-6.20); Red Cell Distribution Width 16.9 % (11.5-14.5); White Blood Count 11.4 K/mm3 (4.5-10.0)
[2023-11-08 06:40] LABS: Anion Gap 10 mmol/L (8-16); Blood Urea Nitrogen 57 mg/dL (9-20); Calcium 8.4 mg/dL (8.4-10.2); Carbon Dioxide 29 mmol/L (22-30); Chloride 100 mmol/L (98-107); Estimated CRCL calculation 14 ml/min; Estimated Glomerular Filt Rate 16; Glucose 94 mg/dL (65-110); Phosphorus 4.1 mg/dL (2.5-4.5); Potassium 3.4 mmol/L (3.4-5.0); Sodium 139 mmol/L (137-145)
--- NOTE | 2023-11-08 07:34 | PM.IMPN ---
Progress Note: A&P Assessment and Plan (1) Acute hypoxemic respiratory failure: Code(s): J96.01 - Acute respiratory failure with hypoxia Status: Acute Assessment and Plan: Continues on 2L of supp. O2. -chest x-ray showed cardiomegaly with mild edema - patient continues on Bumex and renal fxn is tolerating. -I have discontinued the ceftriaxone with total of 8 days therapy. Completed 5 days azithromycin. -wean oxygen as tolerated, may need o2 on discharge. (2) Acute kidney injury superimposed on chronic kidney disease: Code(s): N17.9 - Acute kidney failure, unspecified; N18.9 - Chronic kidney disease, unspecified Status: Acute Assessment and Plan: Nephrology is following, question of ATN 2/2 to pna. Appreciate their advice/consult. - JANA-improving now 3.7. Baseline in the low to mid 2 range. (3) Pneumonia: Qualifiers: Laterality: unspecified laterality Lung location: unspecified part of lung Pneumonia type: due to unspecified organism Qualified Code(s): J18.9 - Pneumonia, unspecified organism Code(s): J18.9 - Pneumonia, unspecified organism Status: Acute Assessment and Plan: ABX discontinued. -Legionella and pneumococcal antigens negative (4) UTI (urinary tract infection) due to urinary indwelling Choudhury catheter: Qualifiers: Encounter type: initial encounter Indwelling urinary catheter type: indwelling urethral catheter Qualified Code(s): T83.511A - Infection and inflammatory reaction due to indwelling urethral catheter, initial encounter; N39.0 - Urinary tract infection, site not specified Code(s): T83.511A - Infection and inflammatory reaction due to indwelling urethral catheter, initial encounter; N39.0 - Urinary tract infection, site not specified Status: Acute Assessment and Plan: Suprapubic dressing c/d/i, urine with mixed chiquis - likely colonized moreso than acutely infected, has completed full course abx regardless. (5) Thrombocytopenia: Code(s): D69.6 - Thrombocytopenia, unspecified Status: Acute Assessment and Plan: Resolved. Normal plt levels. (6) Mobility poor: Code(s): Z74.09 - Other reduced mobility Status: Acute Assessment and Plan: - Patient states normally less weak and is up to wheelchair. Plan for pt/ot evaluation. Plan Continue to monitor renal function, response to diuretics. Continued improvement in renal function, although potassium has been fluctuant, once K stable expect discharge back to SNF with very close f/u. Time Spent With Patient Time with patient: 25 - 35 minutes Subjective Date/time seen: 11/08/23 07:34 Interval history: 77 year old male with AMS and severe acute on chronic renal failure with creatinine of 4.9 on admission. He denies any pain or discomfort today. He denies dyspnea. He states he is generally bed bound but does at times use a wheelchair at his facility. Review of Systems Review of Systems: All systems reviewed & are unremarkable except as noted in HPI and below Exam Narrative: GENERAL APPEARANCE: Appears to be in no acute distress. HEAD: normocephalic atraumatic NECK: Neck supple, trachea midline. CARDIAC: Normal S1/S2. Rhythm is regular. No murmurs, rubs, or gallops. No cyanosis or pallor. Extremities are warm and well perfused. LUNGS: Clear to auscultation without rales, rhonchi, wheezing. Breath sounds are diminished in the bases, L>R. Respirations even and unlabored. ABDOMEN: BS positive x 4 quadrants. Soft, nondistended, nontender. No guarding or rebound. MSK: No joint tenderness/swelling, fair strength in all extremities. PERIPHERAL VASCULAR: Peripheral pulses palpable. Normal perfusion, cap refill <2 seconds. No edema. NEURO: Follows commands. SKIN: [place] without lesions or eruptions. PSYCH: Stable, no paranoia or delusional thinking. Objective Data Vital Signs Vital Signs:
[2023-11-08] MEDS: LIPASE/AMYLASE/PROTEASE 12,000 UNITS CAP 6 CAP PO ×3 (08:59→17:40)
[2023-11-08] MEDS: MIRABEGRON 25 MG ER TABLET PO (08:59)
[2023-11-08] MEDS: ATORVASTATIN 20 MG TABLET PO (08:59)
[2023-11-08] MEDS: MULTIVITAMINS /C LUTEIN (CENTRUM SILVER) TABLET *BKC 1 TAB PO (08:59)
[2023-11-08] MEDS: SACCHAROMYCES BOULARDII 250 MG CAPSULE PO ×2 (08:59→17:40)
[2023-11-08] MEDS: MIDODRINE HCL 10 MG TABLET PO ×3 (08:59→17:41)
[2023-11-08] MEDS: POTASSIUM CHLORIDE 20 MEQ ER TABLET PO ×2 (09:00→17:41)
[2023-11-08] MEDS: OPTI-GEN TAB 1 TABLET PO (09:00)
[2023-11-08] MEDS: atenoloL 50 MG TABLET PO (09:00)
[2023-11-08] MEDS: FERROUS SULFATE 325 MG TABLET DR BY MOUTH ×2 (09:00→17:40)
[2023-11-08] MEDS: CHOLECALCIFEROL 1,000 UNITS TABLET 1000 UNITS PO (09:00)
[2023-11-08] MEDS: BUMETANIDE 1 MG TABLET PO (09:00)
[2023-11-08] MEDS: FINASTERIDE 5 MG TABLET PO (09:00)
[2023-11-08] MEDS: ASPIRIN 81 MG ENTERIC TABLET PO (09:00)
[2023-11-08] MEDS: PANTOPRAZOLE 40 MG TABLET PO (09:00)
[2023-11-08] MEDS: COLESTIPOL HCL 1 GM TABLET PO ×3 (09:00→17:41)
[2023-11-08] MEDS: FLUTICASONE PROPIONATE 0.05% NA SPR 16 GM BTL (*BKC) 1 SPRAY NASAL (09:02)
--- NOTE | 2023-11-08 12:22 | PM.PNNEP ---
Progress Note: A&P Assessment and Plan (1) JANA (acute kidney injury): Code(s): N17.9 - Acute kidney failure, unspecified Status: Acute Assessment and Plan: ongoing improvement noted acute worsening noted on admission given UA had blood concern pro possible infiltrative and/or inflammatory disease (GN, collagen vascular disease...etc) however, given trend of creatinine, this seems less likely evaluation to date: renal ultrasound is unremarkable Urine electrolytes are non pre renal CK is normal C3 and C4 are normal sed rate is greater than 140 kappa/lambda is normal suspect due to ATN from pneumonia creatinine continues to improve even with diuretic therapy follow trend of repeat labs and UOP (2) Stage 3b chronic kidney disease: Code(s): N18.32 - Chronic kidney disease, stage 3b Status: Chronic Assessment and Plan: creatinine about 6 months ago was 2.10mg/dl presumably due to hypertension, vascular disease, BPH, and age-related changes (3) CAP (community acquired pneumonia): Code(s): J18.9 - Pneumonia, unspecified organism Status: Resolved Assessment and Plan: clinically improving culture data noted on antibiotics on diuretics due to issues with fluid on CXR wean this off as tolerated (4) Anemia: Code(s): D64.9 - Anemia, unspecified Status: Chronic Assessment and Plan: chronic issues likely due to combo of JANA, CKD, and iron deficiency consider SHUBHAM while hospitalized follow trend of H/H (5) Metabolic acidosis: Code(s): E87.20 - Acidosis, unspecified Status: Acute Assessment and Plan: due to JANA/ARF weaned off sodium bicarbonate (6) BPH (benign prostatic hyperplasia): Code(s): N40.0 - Benign prostatic hyperplasia without lower urinary tract symptoms Status: Chronic Assessment and Plan: chronic weeks catheter in place (7) CVA (cerebral vascular accident): Code(s): I63.9 - Cerebral infarction, unspecified Status: Chronic Assessment and Plan: stable Will continue to follow. Subjective Date/time seen: 11/08/23 12:22 Interval history: Follow-up for acute kidney injury/acute renal failure on chronic kidney disease. Appears to be doing reasonably well at the time of my visit; mentation as well as respiratory status seems stable if not better; renal function continues to slowly improve as noted by trend of labs; no other acute issues/events overnight or earlier this morning. Exam Narrative: General: elderly but WD/WN [place] male in NAD Heart: normal S1 and S2; no rub Lungs: clear to auscultation; decreased at bases Abdomen: soft, nontender, nondistended, positive bowel sounds Extremities: no cyanosis or clubbing; trace edema Skin: warm and intact Objective Data Vital Signs Vital Signs: Vital Signs Temp Pulse Resp BP Pulse Ox O2 Del Method O2 Flow Rate 11/08/23 12:00 97.6 F 63 15 142/52 H 97 11/08/23 10:00 97.7 F 60 15 162/52 H 96 11/08/23 09:00 60 164/49 H 11/08/23 09:00 61 11/08/23 04:33 97.6 F 67 15 154/66 H 97 11/08/23 01:45 97.6 F 69 16 140/54 L 97 11/07/23 20:00 99 Nasal Cannula 2 11/07/23 19:54 97.9 F 67 16 137/51 L 99 11/07/23 18:12 97.8 F 68 20 144/55 H 95 Intake/Output Intake/Output: Intake & Output 11/05/23 11/06/23 11/07/23 11/08/23 23:59 23:59 23:59 23:59 Intake Total 1730 1570 1740 1120 Output Total 1950 3700 2900 1350 Balance -220 -2130 -1160 -230 Meds/Results Medications: Active Medications Generic Name Dose Route Start Last Admin Trade Name Freq PRN Reason Stop Dose Admin Acetaminophen 650 mg 11/01/23 00:48 11/08/23 13:06 Acetaminophen 325 Mg Tablet PO 650 mg Q4H PRN Administration Mild Pain (1-3) or Fever Al Hydrox/Mg Hydrox/Simethicone 10 ml 11/01/23 12:59 Mag Hydrox/Al Hydrox
--- NOTE | 2023-11-08 12:22 | P.PNNP_ITS ---
Progress Note: A&P Assessment and Plan (1) JANA (acute kidney injury): Code(s): N17.9 - Acute kidney failure, unspecified Status: Acute Assessment and Plan: * ongoing improvement noted * acute worsening noted on admission * given UA had blood concern pro possible infiltrative and/or inflammatory disease (GN, collagen vascular disease...etc) * however, given trend of creatinine, this seems less likely * evaluation to date: * renal ultrasound is unremarkable * Urine electrolytes are non pre renal * CK is normal * C3 and C4 are normal * sed rate is greater than 140 * kappa/lambda is normal * suspect due to ATN from pneumonia * creatinine continues to improve even with diuretic therapy * follow trend of repeat labs and UOP (2) Stage 3b chronic kidney disease: Code(s): N18.32 - Chronic kidney disease, stage 3b Status: Chronic Assessment and Plan: * creatinine about 6 months ago was 2.10mg/dl * presumably due to hypertension, vascular disease, BPH, and age-related changes (3) CAP (community acquired pneumonia): Code(s): J18.9 - Pneumonia, unspecified organism Status: Resolved Assessment and Plan: * clinically improving * culture data noted * on antibiotics * on diuretics due to issues with fluid on CXR * wean this off as tolerated (4) Anemia: Code(s): D64.9 - Anemia, unspecified Status: Chronic Assessment and Plan: * chronic issues * likely due to combo of JANA, CKD, and iron deficiency * consider SHUBHAM while hospitalized * follow trend of H/H (5) Metabolic acidosis: Code(s): E87.20 - Acidosis, unspecified Status: Acute Assessment and Plan: * due to JANA/ARF * weaned off sodium bicarbonate (6) BPH (benign prostatic hyperplasia): Code(s): N40.0 - Benign prostatic hyperplasia without lower urinary tract symptoms Status: Chronic Assessment and Plan: * chronic weeks catheter in place (7) CVA (cerebral vascular accident): Code(s): I63.9 - Cerebral infarction, unspecified Status: Chronic Assessment and Plan: * stable Will continue to follow. Subjective Date/time seen: 11/08/23 12:22 Interval history: Follow-up for acute kidney injury/acute renal failure on chronic kidney disease. Appears to be doing reasonably well at the time of my visit; mentation as well as respiratory status seems stable if not better; renal function continues to slowly improve as noted by trend of labs; no other acute issues/events overnight or earlier this morning. Exam Narrative: General: elderly but WD/WN [place] male in NAD Heart: normal S1 and S2; no rub Lungs: clear to auscultation; decreased at bases Abdomen: soft, nontender, nondistended, positive bowel sounds Extremities: no cyanosis or clubbing; trace edema Skin: warm and intact Objective Data Vital Signs Vital Signs: Vital Signs Temp Pulse Resp BP Pulse Ox O2 Del Method O2 Flow Rate 11/08/23 12:00 97.6 F 63 15 142/52 H 97 11/08/23 10:00 97.7 F 60 15 162/52 H 96 11/08/23 09:00 60 164/49 H 11/08/23 09:00 61 11/08/23 04:33 97.6 F 67 15 154/66 H 97 11/08/23 01:45 97.6 F 69 16 140/54 L 97 11/07/23 20:00 99 Nasal Cannula 2 11/07/23 19:54 97.9 F 67 16 137/51 L
[2023-11-08] MEDS: cefTRIAXone 2 GM/NS 100 ML 2 GM/100 ML BAG IVPB (12:23)
[2023-11-08] MEDS: ACETAMINOPHEN 325 MG TABLET 650 MG PO ×2 (13:06→17:44)
[2023-11-08] MEDS: TAMSULOSIN HCL 0.4 MG CAPSULE PO (20:08)
[2023-11-09 02:00] VITALS: BP 177/62; PULSE 63; RESP 18; TEMP 36.4; O2SAT 93
[2023-11-09 05:40] LABS: Basophils Percent Auto 0.2 % (0.2-1.2); Eosinophils Absolute Auto 0.1 K/mm3 (0-0.3); Hematocrit 22.7 % (42.0-52.0); Immature Granulocyte Absolute 0.42 K/mm3 (0.00-0.031); Lymphocytes Absolute Auto 1.99 K/mm3 (0.9-3.2); Lymphocytes Percent Auto 18.8 % (18.3-44.2); Mean Corpuscular HGB Conc 30.8 g/dl (32-36); Mean Corpuscular Hemoglobin 26.8 pg (26-34); Mean Platelet Volume 11.3 fl (7.4-10.4); Monocytes Absolute Auto 1.8 K/mm3 (0.1-0.6); Monocytes Percent Auto 16.7 % (2.6-8.5); Neutrophils Absolute Auto 6.3 K/mm3 (1.3-6.7); Neutrophils Percent Auto 59.3 % (45.5-73.1); Platelet Count Result 176 k/mm3 (150-375); Red Blood Count 2.61 M/mm3 (4.6-6.20); White Blood Count 10.6 K/mm3 (4.5-10.0)
[2023-11-09 05:51] LABS: Anion Gap 10 mmol/L (8-16); Blood Urea Nitrogen 56 mg/dL (9-20); Calcium 8.3 mg/dL (8.4-10.2); Carbon Dioxide 28 mmol/L (22-30); Chloride 100 mmol/L (98-107); Estimated CRCL calculation 16 ml/min; Estimated Glomerular Filt Rate 18; Glucose 97 mg/dL (65-110); Potassium 3.2 mmol/L (3.4-5.0); Sodium 138 mmol/L (137-145)
[2023-11-09 06:00] VITALS: BP 165/60; PULSE 66; RESP 18; TEMP 36.4; O2SAT 91
[2023-11-09 08:20] VITALS: BP 180/61; PULSE 68; RESP 16; TEMP 36.1; O2SAT 92
[2023-11-09] MEDS: LIPASE/AMYLASE/PROTEASE 12,000 UNITS CAP 6 CAP PO (09:10)
[2023-11-09 09:11] VITALS: PULSE 76
[2023-11-09] MEDS: atenoloL 50 MG TABLET PO (09:11)
[2023-11-09] MEDS: OPTI-GEN TAB 1 TABLET PO (09:11)
[2023-11-09] MEDS: SACCHAROMYCES BOULARDII 250 MG CAPSULE PO (09:11)
[2023-11-09] MEDS: MIRABEGRON 25 MG ER TABLET PO (09:11)
[2023-11-09] MEDS: MULTIVITAMINS /C LUTEIN (CENTRUM SILVER) TABLET *BKC 1 TAB PO (09:11)
[2023-11-09] MEDS: BUMETANIDE 1 MG TABLET PO (09:12)
[2023-11-09] MEDS: CHOLECALCIFEROL 1,000 UNITS TABLET 1000 UNITS PO (09:12)
[2023-11-09] MEDS: FERROUS SULFATE 325 MG TABLET DR BY MOUTH (09:12)
[2023-11-09] MEDS: FINASTERIDE 5 MG TABLET PO (09:12)
[2023-11-09] MEDS: ATORVASTATIN 20 MG TABLET PO (09:12)
[2023-11-09] MEDS: PANTOPRAZOLE 40 MG TABLET PO (09:12)
[2023-11-09] MEDS: COLESTIPOL HCL 1 GM TABLET PO ×2 (09:12→12:11)
[2023-11-09] MEDS: POTASSIUM CHLORIDE 20 MEQ ER TABLET PO (09:12)
[2023-11-09] MEDS: ASPIRIN 81 MG ENTERIC TABLET PO (09:12)
[2023-11-09] MEDS: ACETAMINOPHEN 325 MG TABLET 650 MG PO (09:13)
[2023-11-09] MEDS: FLUTICASONE PROPIONATE 0.05% NA SPR 16 GM BTL (*BKC) 1 SPRAY NASAL (09:15)
--- NOTE | 2023-11-09 10:44 | PM.PNNEP ---
Progress Note: A&P Assessment and Plan (1) JANA (acute kidney injury): Code(s): N17.9 - Acute kidney failure, unspecified Status: Acute Assessment and Plan: ongoing improvement noted acute worsening noted on admission given UA had blood concern pro possible infiltrative and/or inflammatory disease (GN, collagen vascular disease...etc) however, given trend of creatinine, this seems less likely evaluation to date: renal ultrasound is unremarkable Urine electrolytes are non pre renal CK is normal C3 and C4 are normal sed rate is greater than 140 kappa/lambda is normal suspect due to ATN from pneumonia creatinine continues to improve even with diuretic therapy follow trend of repeat labs and UOP (2) Stage 3b chronic kidney disease: Code(s): N18.32 - Chronic kidney disease, stage 3b Status: Chronic Assessment and Plan: creatinine about 6 months ago was 2.10mg/dl presumably due to hypertension, vascular disease, BPH, and age-related changes (3) CAP (community acquired pneumonia): Code(s): J18.9 - Pneumonia, unspecified organism Status: Resolved Assessment and Plan: clinically improving culture data noted on antibiotics on diuretics due to issues with fluid on CXR wean this off as tolerated (4) Anemia: Code(s): D64.9 - Anemia, unspecified Status: Chronic Assessment and Plan: chronic issue likely due to combo of JANA, CKD, and iron deficiency dose with Epogen and venofer today follow trend of H/H (5) Metabolic acidosis: Code(s): E87.20 - Acidosis, unspecified Status: Acute Assessment and Plan: resolved due to JANA/ARF weaned off sodium bicarbonate (6) BPH (benign prostatic hyperplasia): Code(s): N40.0 - Benign prostatic hyperplasia without lower urinary tract symptoms Status: Chronic Assessment and Plan: chronic weeks catheter in place (7) CVA (cerebral vascular accident): Code(s): I63.9 - Cerebral infarction, unspecified Status: Chronic Assessment and Plan: stable Discussed case with [facility] [place] -- not opposed to discharge from renal perspective if otherwise medically stable; nursing facility can recheck labs next week to ensure renal function is improving/stabilizing. Will continue to follow. Subjective Date/time seen: 11/09/23 10:44 Interval history: Follow-up for acute kidney injury/acute renal failure on chronic kidney disease. No apparent distress noted; no other acute complaints to report at the time of my visit; renal function continues to improve; able to be weaned off oxygen with stability in oxygen saturations; H/H low by AM labs; no other events overnight or today voiced. Exam Narrative: General: elderly but WD/WN [place] male in NAD Heart: normal S1 and S2; no rub Lungs: clear to auscultation Abdomen: soft, nontender, nondistended, positive bowel sounds Extremities: no cyanosis or clubbing; trace edema Skin: no rash or nodules Objective Data Vital Signs Vital Signs: Vital Signs Temp Pulse Resp BP Pulse Ox O2 Del Method 11/09/23 10:00 97.6 F 69 16 151/52 H 91 11/09/23 09:11 76 11/09/23 08:20 97.0 F L 68 16 180/61 H 92 11/09/23 06:00 97.6 F 66 18 165/60 H 91 11/09/23 02:00 97.6 F 63 18 177/62 H 93 11/08/23 20:57 97.5 F L 66 18 163/63 H 95 11/08/23 20:00 Room Air 11/08/23 18:00 97.6 F 62 15 140/58 L 98 11/08/23 15:55 96 Room Air Intake/Output Intake/Output: Intake & Output 11/06/23 11/07/23 11/08/23 11/09/23 23:59 23:59 23:59 23:59 Intake Total 1570 1740 2030 360 Output Total 3700 2900 2450 1100 [facility] -2130 -1160 -420 -740 Meds/Results Medications: Active Medications Generic Name Dose Route Start Last Admin Trade Name Freq PRN Reason Stop Dose Admin Acetaminophen 650 mg 11/01/23 00:48 11/09/23 09:13 Acetamin
--- NOTE | 2023-11-09 10:44 | P.PNNP_ITS ---
Progress Note: A&P Assessment and Plan (1) JANA (acute kidney injury): Code(s): N17.9 - Acute kidney failure, unspecified Status: Acute Assessment and Plan: * ongoing improvement noted * acute worsening noted on admission * given UA had blood concern pro possible infiltrative and/or inflammatory disease (GN, collagen vascular disease...etc) * however, given trend of creatinine, this seems less likely * evaluation to date: * renal ultrasound is unremarkable * Urine electrolytes are non pre renal * CK is normal * C3 and C4 are normal * sed rate is greater than 140 * kappa/lambda is normal * suspect due to ATN from pneumonia * creatinine continues to improve even with diuretic therapy * follow trend of repeat labs and UOP (2) Stage 3b chronic kidney disease: Code(s): N18.32 - Chronic kidney disease, stage 3b Status: Chronic Assessment and Plan: * creatinine about 6 months ago was 2.10mg/dl * presumably due to hypertension, vascular disease, BPH, and age-related changes (3) CAP (community acquired pneumonia): Code(s): J18.9 - Pneumonia, unspecified organism Status: Resolved Assessment and Plan: * clinically improving * culture data noted * on antibiotics * on diuretics due to issues with fluid on CXR * wean this off as tolerated (4) Anemia: Code(s): D64.9 - Anemia, unspecified Status: Chronic Assessment and Plan: * chronic issue * likely due to combo of JNAA, CKD, and iron deficiency * dose with Epogen and venofer today * follow trend of H/H (5) Metabolic acidosis: Code(s): E87.20 - Acidosis, unspecified Status: Acute Assessment and Plan: * resolved * due to JANA/ARF * weaned off sodium bicarbonate (6) BPH (benign prostatic hyperplasia): Code(s): N40.0 - Benign prostatic hyperplasia without lower urinary tract symptoms Status: Chronic Assessment and Plan: * chronic weeks catheter in place (7) CVA (cerebral vascular accident): Code(s): I63.9 - Cerebral infarction, unspecified Status: Chronic Assessment and Plan: * stable Discussed case with SOPHY [place] -- not opposed to discharge from renal perspective if otherwise medically stable; nursing facility can recheck labs next week to ensure renal function is improving/stabilizing. Will continue to follow. Subjective Date/time seen: 11/09/23 10:44 Interval history: Follow-up for acute kidney injury/acute renal failure on chronic kidney disease. No apparent distress noted; no other acute complaints to report at the time of my visit; renal function continues to improve; able to be weaned off oxygen with stability in oxygen saturations; H/H low by AM labs; no other events overnight or today voiced. Exam Narrative: General: elderly but WD/WN Caucasina male in NAD Heart: normal S1 and S2; no rub Lungs: clear to auscultation Abdomen: soft, nontender, nondistended, positive bowel sounds Extremities: no cyanosis or clubbing; trace edema Skin: no rash or nodules Objective Data Vital Signs Vital Signs: Vital Signs Temp Pulse Resp BP Pulse Ox O2 Del Method 11/09/23 10:00 97.6 F 69 16 151/52 H 91 11/09/23 09:11 76 11/09/23 08:20 97.0 F L 68 16 180/61 H 92 11/09/23 06:00 97.6 F 66 18 165/60 H 91
[2023-11-09] MEDS: IRON SUCROSE COMPLEX 500 MG in SODIUM CHLORIDE 0.9% IV 250 ML 78.57 MG IVPB (10:45)
[2023-11-09] MEDS: EPOETIN ALFA-EPBX 20,000 UNITS/ML VIAL 20000 UNITS SUB-Q (10:49)
--- NOTE | 2023-11-09 10:49 | PM.DS ---
DS: Admitting Diagnosis Discharge Date 11/09/2023 Admitting Diagnosis Acute hypoxemic respiratory failure, pneumonia, acute UTI, JANA, chronic indwelling Choudhury catheter DS: Discharge Diagnosis Discharge Diagnosis (1) Acute hypoxemic respiratory failure: Code(s): J96.01 - Acute respiratory failure with hypoxia Status: Acute (2) Acute kidney injury superimposed on chronic kidney disease: Code(s): N17.9 - Acute kidney failure, unspecified; N18.9 - Chronic kidney disease, unspecified Status: Acute (3) Pneumonia: Qualifiers: Laterality: unspecified laterality Lung location: unspecified part of lung Pneumonia type: due to unspecified organism Qualified Code(s): J18.9 - Pneumonia, unspecified organism Code(s): J18.9 - Pneumonia, unspecified organism Status: Acute (4) UTI (urinary tract infection) due to urinary indwelling Choudhury catheter: Qualifiers: Encounter type: initial encounter Indwelling urinary catheter type: indwelling urethral catheter Qualified Code(s): T83.511A - Infection and inflammatory reaction due to indwelling urethral catheter, initial encounter; N39.0 - Urinary tract infection, site not specified Code(s): T83.511A - Infection and inflammatory reaction due to indwelling urethral catheter, initial encounter; N39.0 - Urinary tract infection, site not specified Status: Acute (5) Thrombocytopenia: Code(s): D69.6 - Thrombocytopenia, unspecified Status: Acute (6) Mobility poor: Code(s): Z74.09 - Other reduced mobility Status: Acute (7) Chronic anemia: Code(s): D64.9 - Anemia, unspecified Status: Acute (8) Metabolic acidosis: Code(s): E87.20 - Acidosis, unspecified Status: Acute (9) Chronic suprapubic catheter: Code(s): Z93.59 - Other cystostomy status Status: Acute DS: Summary Hospital Course Reason for hospitalization: Patient was admitted to the hospital due to increased weakness and low blood pressure in the setting chronic suprapubic catheter concern for infection Hospital Course: This is a 77-year-old male patient who was admitted to hospital increased weakness low blood pressure concern for infected indwelling suprapubic catheter and found to be hypoxic on arrival. Patient was diagnosed with pneumonia as well as acute UTI. His suprapubic catheter was changed. He was noted to have significantly elevated creatinine the continued to worsen over the next couple of days with resultant metabolic acidosis. Nephrology was consulted and patient received sodium bicarb to correct the acidosis. Patient completed treatment for pneumonia with a Zithromax I sent and Rocephin. Urine culture ultimately was negative/mixed chiquis. Patient had low blood pressure for a while so his antihypertensives were held and he was started on midodrine. Over the last couple of days blood pressures have improved however midodrine was never discontinued until today. Patient is back on all of his antihypertensives with stable vital signs. Lab work is much improved and creatinine has been down trending for several days. His hemoglobin remains at 7 and nephrology has treated him with IV iron and Epogen injections. Nephrology requests that patient have labs repeated in 1 week to make sure that his creatinine continues to improve. Patient's mental status is improved back to baseline. Patient was on room air this morning but we will send back to the facility on 2 L at night and p.r.n. during the day. Oral iron has been increased to 3 times a day. Orders for Epogen injections also written but nephrology states he may not be able to receive those at the facility. He has orders for repeat CBC and renal function panel in 1 week with results to Nephrology and primary care/facility provider. Status at Discharge Cognitive/behavioral status at discharge: Awake alert confused but pleasant per baseline Functional status at disc
[2023-11-09 11:09] VITALS: BP 151/52; PULSE 69; RESP 16; TEMP 36.4; O2SAT 91
[2023-11-09] MEDS: NIFEdipine 30 MG TAB.ER.24 PO (11:12)
[2023-11-09] MEDS: LIPASE/AMYLASE/PROTEASE 12,000 UNITS CAP 3 CAP PO (11:12)
[2023-11-09 11:57] LABS: Influenza A QL RT-PCR Negative (Negative); Influenza B QL RT-PCR Negative (Negative); SARS-CoV-2 RNA PCR Negative (Negative)
--- NOTE | 2023-11-09 11:59 | PCPTNOTE ---
Checked with nursing and patient has discharge orders, does not need to be seen by PT.
--- NOTE | 2023-11-09 15:04 | PC.NURSE ---
Called and updated KEVAN Croft of pt's discharge to [facility]. All questions answered.
== END 2023-11-09 15:09 | DRG 193 ==
LOC: ANHED 11-01 00:41 → ANH2MED 11-01 01:01
PROVIDERS: General Practice; Internal Medicine; Internal Medicine Nephrology; Nurse Practitioner Family; Physician Assistant; Admitting Provider Internal Medicine; Emergency Provider Emergency Medicine; PCP Family Medicine; Visit Provider Nurse Practitioner
DX: J18.9 Pneumonia, unspecified organism (principal); J96.01 Acute respiratory failure with hypoxia; N17.0 Acute kidney failure with tubular necrosis; N39.0 Urinary tract infection, site not specified; I69.354 Hemiplegia and hemiparesis following cerebral infarction affecting left non-dominant side; G82.20 Paraplegia, unspecified; T83.511A Infection and inflammatory reaction due to indwelling urethral catheter, initial encounter; E87.4 Mixed disorder of acid-base balance; J44.0 Chronic obstructive pulmonary disease with (acute) lower respiratory infection; D69.6 Thrombocytopenia, unspecified; D63.1 Anemia in chronic kidney disease; E87.5 Hyperkalemia; I12.9 Hypertensive chronic kidney disease with stage 1 through stage 4 chronic kidney disease, or unspecified chronic kidney disease; K21.9 Gastro-esophageal reflux disease without esophagitis; K58.9 Irritable bowel syndrome, unspecified; M19.90 Unspecified osteoarthritis, unspecified site; M47.816 Spondylosis without myelopathy or radiculopathy, lumbar region; N18.32 Chronic kidney disease, stage 3b; N40.0 Benign prostatic hyperplasia without lower urinary tract symptoms; Z87.891 Personal history of nicotine dependence; Z11.52 Encounter for screening for COVID-19; Z86.16 Personal history of COVID-19; Z96.643 Presence of artificial hip joint, bilateral; Z74.01 Bed confinement status; Z99.3 Dependence on wheelchair; Z79.82 Long term (current) use of aspirin
CPT/HCPCS: 36415; 36600; 71045; 76775; 80048; 80053; 80069; 81001; 82010; 82375; 82550; 82570; 82805; 82948; 83050; 83605; 83735; 83883; 84100; 84156; 84300; 85025; 85055; 85652; 86038; 86160; 86162; 86334; 86335; 87040; 87086; 87088; 87449; 87581; 87636; 87637; 87641; 87899; 96374; 96375; 99285; A9270; G0378; J0456; J0696; J1756; J7030; J7050; J7070; Q5106

== ENCOUNTER 2024-01-29 21:41 | Inpatient (IN) | payer MEDICARE, BC, MEDICAID, SELFPAY ==
[2024-01-29 21:42] VITALS: TEMP 36.7
[2024-01-29 21:45] VITALS: BP 140/57; PULSE 98; RESP 14; TEMP 36.5; O2SAT 98
[2024-01-29 22:00] VITALS: RESP 18; O2SAT 98
[2024-01-29 23:17] LABS: Basophils Percent Auto 0.2 % (0.2-1.2); Eosinophils Absolute Auto 0.1 K/mm3 (0-0.3); Eosinophils Percent Auto 1.6 % (0-4.4); Hematocrit 32.5 % (42.0-52.0); Hemoglobin 9.6 g/dL (14.0-18.0); Immature Granulocyte Absolute 0.06 K/mm3 (0.00-0.031); Lymphocytes Absolute Auto 2.17 K/mm3 (0.9-3.2); Lymphocytes Percent Auto 34.9 % (18.3-44.2); Mean Corpuscular HGB Conc 29.5 g/dl (32-36); Mean Corpuscular Hemoglobin 26.1 pg (26-34); Mean Corpuscular Volume 88.3 fl (80-100); Monocytes Absolute Auto 0.8 K/mm3 (0.1-0.6); Monocytes Percent Auto 13.4 % (2.6-8.5); Neutrophils Percent Auto 48.9 % (45.5-73.1); Platelet Count Result 109 k/mm3 (150-375); Red Blood Count 3.68 M/mm3 (4.6-6.20); Red Cell Distribution Width 18.1 % (11.5-14.5); White Blood Count 6.2 K/mm3 (4.5-10.0)
[2024-01-29 23:20] VITALS: BP 153/112; PULSE 99; RESP 16; TEMP 36.4; O2SAT 98
[2024-01-29 23:29] LABS: INR 1.1; Prothrombin Time 15.1 Seconds (11.1-14.7)
[2024-01-29 23:30] LABS: Partial Thromboplastin Time 34.5 Seconds (22.3-36.8)
[2024-01-29 23:36] LABS: Alanine Aminotransferase 14 U/L (6-50); Alkaline Phosphatase 90 U/L (38-126); Anion Gap 7 mmol/L (8-16); Aspartate Amino Transferase 23 U/L (17-59); Bilirubin,Total 0.2 mg/dL (0.2-1.3); Blood Urea Nitrogen 57 mg/dL (9-20); Calcium 9.1 mg/dL (8.4-10.2); Carbon Dioxide 19 mmol/L (22-30); Chloride 111 mmol/L (98-107); Estimated CRCL calculation 22 ml/min; Estimated Glomerular Filt Rate 24; Glucose 108 mg/dL (65-110); Magnesium 2.1 mg/dL (1.6-2.3); Potassium 6.7 mmol/L (3.4-5.0); Sodium 137 mmol/L (137-145)
[2024-01-29 23:39] LABS: Large Platelets Present; Platelet Estimate Decreased (Adequate)
[2024-01-29 23:40] LABS: Anisocytosis 1+; Schistocytes None Seen
[2024-01-29 23:43] LABS: NT Pro B Type Natriuretic Pept 2210 pg/mL (19.9-100); Troponin I < 0.012 ng/mL (0.000-0.034)
[2024-01-29 23:51] LABS: Appearance Urine Cloudy (Clear); Bacteria Urine 3+ /hpf; Bilirubin Urine Negative (Negative); Blood Urine 3+ (Negative); Color Urine Yellow (Yellow); Glucose Urine UA Negative (Negative); Hyaline Casts Urine Present /lpf; Ketones Urine Negative (Negative); Leukocyte Esterase Ur 3+ LEU/UL (Negative); Need Manual Microscopic Reviewed; Nitrate Urine Positive (Negative); Protein Urine Trace mg/dL (Negative); RBC Urine 21-50 /hpf (0-2); Specific Grav Ur 1.012 (1.001-1.035); Squamous Epithelial Cell Urine None Seen /hpf (Few); Urobilinogen Urine 0.2 mg/dL (<2.0); WBC Urine >100 /hpf (0-3)
[2024-01-29 23:52] LABS: Add Urine Microscopic? YES
[2024-01-29 23:54] LABS: Influenza A QL RT-PCR Negative (Negative); Influenza B QL RT-PCR Negative (Negative); RSV RNA, RT-PCR Negative (Negative); SARS-CoV-2 RNA PCR Negative (Negative)
[2024-01-30] VITALS (14 sets, daily range): BP systolic 108–143; BP diastolic 49–64; PULSE 63–78; RESP 12–20; TEMP 36.4–36.8; O2SAT 94–99; BMI 24.5
--- NOTE | 2024-01-30 00:04 | ECG_ITS ---
Measurements Intervals Mercedes Rate: 68 P: 11 AZ: 208 QRS: 0 QRSD: 95 T: 59 QT: 393 QTc: 419 Interpretive Statements SINUS RHYTHM BORDERLINE ST-T WAVE ABNORMALITY- LAT/HIGH LAT LEADS BASELINE ARTIFACT- I, II, III, AVR, AVL, AVF, V1-V6 BORDERLINE ECG COMPARED TO ECG 04/14/2023 15:35:42 NO SIGNIFICANT CHANGES Electronically Signed On 01-30-2024 6:38:06 CDT by Darrel Flores D.O.
[2024-01-30] MEDS: SODIUM ZIRCONIUM CYCLOSILICATE 10 GM POWD.PACK PO ×3 (00:12→17:49)
[2024-01-30] MEDS: DEXTROSE 50% 25 GM/50 ML SYRINGE IV PUSH ×3 (00:13→17:51)
[2024-01-30] MEDS: INSULIN HUMAN REGULAR (*BKC) 100 UNITS/ML 10 UNITS IV PUSH (00:15)
[2024-01-30 00:16] LABS: Glucose Point of Care 111 mg/dl (65-105)
[2024-01-30 01:31] LABS: Anion Gap 7 mmol/L (8-16); Blood Urea Nitrogen 58 mg/dL (9-20); Calcium 9.1 mg/dL (8.4-10.2); Carbon Dioxide 19 mmol/L (22-30); Chloride 111 mmol/L (98-107); Estimated CRCL calculation 22 ml/min; Estimated Glomerular Filt Rate 24; Glucose 49 mg/dL (65-110); Potassium 5.4 mmol/L (3.4-5.0); Sodium 137 mmol/L (137-145)
--- NOTE | 2024-01-30 02:07 | ED.GENADULT ---
HPI - General Adult General Chief complaint: Recheck/Abnormal Lab/Rx Stated complaint: HIGH POTASSIUM 7.2 Time Seen by Provider: 01/29/24 23:16 History of Present Illness HPI narrative: This is a 78-year-old male history of CKD presenting for abnormal labs. Found to have a potassium of 7.7 in the [facility]. Since the ED for evaluation. patient is A&O times 1-2. No physical complaints at this time. Related Data Home Medications Medication Instructions Recorded Confirmed PreserVision AREDS 1 cap PO DAILY 11/05/20 11/01/23 Procardia XL 30 mg PO DAILY 11/05/20 11/01/23 atenolol 50 mg tablet 50 mg PO DAILY 11/05/20 11/01/23 cholecalciferol (vitamin D3) 25 1,000 unit PO DAILY 11/05/20 11/01/23 mcg (1,000 unit) tablet finasteride 5 mg tablet (Proscar) 5 mg PO DAILY 11/05/20 11/01/23 gabapentin 300 mg tablet 300 mg PO BID 11/05/20 11/01/23 stdpzg-axhgbjfj-geqlheh 2 cap PO Q12H PRN Abdominal 11/05/20 11/01/23 24,000-76,000-120,000 unit Discomfort capsule,delayed rel (Creon) rbbxrd-ktbvdrvr-nltgtzm 3 cap PO TID 11/05/20 11/01/23 24,000-76,000-120,000 unit capsule,delayed rel (Creon) mirabegron 25 mg tablet,extended 25 mg PO DAILY 11/05/20 11/01/23 release 24 hr (Myrbetriq) multivitamin-ferrous 1 tablet PO DAILY 11/05/20 11/01/23 fumarate-folic acid 18 mg-400 mcg tablet (Centrum) omeprazole 20 mg capsule,delayed 20 mg PO HS 11/05/20 11/01/23 release potassium chloride 20 mEq 20 meq PO BID 11/05/20 11/01/23 tablet,extended release(part/cryst) tamsulosin 0.4 mg capsule 0.4 mg PO HS 11/05/20 11/01/23 colestipol 1 gram tablet 1 g PO TID 02/05/22 11/01/23 loperamide 2 mg PO BID 02/05/22 11/01/23 sertraline 50 mg tablet 50 mg PO DAILY 02/05/22 11/01/23 bisacodyl 10 mg rectal suppository 10 mg RECTAL PRN PRN Constipation 08/28/22 11/01/23 magnesium citrate 300 ml PO DAILY PRN Constipation 08/28/22 11/01/23 magnesium hydroxide 400 mg/5 mL 30 ml PO HS PRN Constipation 08/28/22 11/01/23 oral suspension (Milk of Magnesia) Saccharomyces boulardii 250 mg 250 mg PO BID 04/14/23 11/01/23 capsule aluminum-mag hydroxide-simethicone 10 ml PO TID PRN Indigestion 04/14/23 11/01/23 400 mg-400 mg-40 mg/5 mL oral susp ipratropium 0.5 mg-albuterol 3 mg 3 ml inhalation Q6H PRN 04/14/23 11/01/23 (2.5 mg base)/3 mL nebulization Bronchospasm soln pseudoephedrine-guaifenesin ER 120 1 tablet PO Q12H PRN Cough 04/14/23 11/01/23 mg-1,200 mg tab,extend release 12hr (Mucinex D Maximum Strength) silver sulfadiazine 1 % topical 1 applic topical DAILY 11/01/23 11/01/23 cream (Silvadene) trazodone 50 mg tablet 50 mg PO HS 11/01/23 11/01/23 Allergies Allergy/AdvReac Type Severity Reaction Status Date / Time No Known Allergies Allergy Verified 08/28/22 12:31 [facility] Past Medical History Medical History Anemia BPH (benign prostatic hyperplasia) Chronic indwelling Choudhury catheter Chronic kidney disease COVID-19 CVA (cerebral vascular accident) Essential hypertension GERD (gastroesophageal reflux disease) Hemiplegia affecting left nondominant side History of 2019 novel coronavirus disease (COVID-19) Hypertension IBS (irritable bowel syndrome) Osteoarthritis Overactive bladder Pressure ulcer of sacral region, unspecified stage Seasonal allergic rhinitis Spondylosis of lumbar region without myelopathy or radiculopathy Surgical History Surgical History H/O neck surgery History of back surgery History of total hip arthroplasty eliazar Family History Family History Father , Patient does not know cause No problems noted. Mother , Patient does not know cause No problems noted. Other Unknown family medical history Social History Social History Social History: Patient
[2024-01-30 02:22] LABS: Glucose Point of Care 82 mg/dl (65-105)
[2024-01-30 03:40] LABS: Glucose Point of Care 99 mg/dl (65-105)
--- NOTE | 2024-01-30 04:59 | ADMGEN ---
This patient, Jefferson Venegas, was admitted to 2 Medical Room 260-. Patient/family oriented to hospital policies and general routines including ID bracelet, bed and alarms, visiting hours, pain management, procedures, bathroom and other care routines, personal items, smoking policy, room service/diet, and visiting hours. Information on how to activate the Rapid Response Team has been discussed. Patient/Family are encouraged to report perceived risks to care and to ask questions if they do not understand what they are told or what they should do.
[2024-01-30 06:11] LABS: Glucose Point of Care 151 mg/dl (65-105)
--- NOTE | 2024-01-30 07:30 | PM.IMHP ---
H&P: HPI History of Present Illness Date/Time: 01/30/24 07:30 Chief Complaint: Abnormal lab (hyperkalemia) Narrative: 78 year old male with significant past medical history of CKD 4, CVA with left deficits (2013), hypertension, benign prostatic hyperplasia, chronic suprapubic catheter, IBS, and pressure ulcers presented to the hospital for hyperkalemia of 7.7 on lab work at his fdc ([facility]). According to EMS report the patient was altered this morning which lead the fdc to draw his labs. The EMS reports that patient was AOx4 on arrival with no complaints. He was then brought to the hospital for further evaluation. On exam patient is able to answer his name, the year, the president, and that he is in the hospital. However when asked where he lives he stated [address] and denied living in a fdc. He was then unable to answer further questions about what brought him into the hospital, past medical history, and medication information. Spoke with his daughter who states that her father at baseline is able to hold normal conversations and is AOx4. Due to his CVA in 2013 he needs a wheelchair to ambulate. He has been at [facility] since 2018 due to repeated fall while living alone. She states that he did live on [address] prior to [facility]. He has had prior UTIs causing him to become confused, thinking he still lives on [address] and still . According to the daughter Cony Ybarra called her on Friday to inform her that he fell out of his wheelchair with unknown down time. Attempted to call the fdc and his POA (daughter Guerda) two times each. Left voicemail with a return number. Will call again tomorrow to get more patient information. ED workup: Labs were without leukocytosis and H&H at baseline. Initial potassium 6.7 without hyperkalemic EKG changes. Patient was given Lokelma, insulin, and dextrose which brought potassium to 5.4. Kidney function is at baseline with BUN 58, creatinine 2.60, and eGFR 24. Urinalysis with cloudy appearance, 3+ blood, positive nitrates and leukocytes, 21-50 RBC, >100 WBC, 3+ bacteria. Urine culture positive for ecoli. Review of Systems Review of Systems: ROS unobtainable: Yes unobtainable due to mental status PMFSH Past Medical History Medical History Anemia BPH (benign prostatic hyperplasia) Chronic indwelling Choudhury catheter Chronic kidney disease COVID-19 CVA (cerebral vascular accident) Essential hypertension GERD (gastroesophageal reflux disease) Hemiplegia affecting left nondominant side History of 2019 novel coronavirus disease (COVID-19) Hypertension IBS (irritable bowel syndrome) Osteoarthritis Overactive bladder Pressure ulcer of sacral region, unspecified stage Seasonal allergic rhinitis Spondylosis of lumbar region without myelopathy or radiculopathy Surgical History Surgical History H/O neck surgery History of back surgery History of total hip arthroplasty eliazar Family History Family History Father , Patient does not know cause No problems noted. Mother , Patient does not know cause No problems noted. Other Unknown family medical history Social History Social History Social History: Patient became debilitated after stroke in 2013, he lost bladder control in 2016 after having multiple back surgery and now has indwelling Choudhury catheter. He has been fdc [facility] since 2017. Patient wheelchair and bed-bound. The patient is and has 1 child who is the durable power logging contractor for healthcare. The patient is a former smoker. No alcohol marijuana or illicit drugs. Code status full code Smoking status: Former smoker Tobacco type: cigarettes Second hand
[2024-01-30 09:09] LABS: Potassium 6.3 mmol/L (3.4-5.0)
[2024-01-30 10:39] LABS: Potassium 6.3 mmol/L (3.4-5.0)
[2024-01-30 12:09] LABS: Glucose Point of Care 132 mg/dl (65-105)
[2024-01-30] MEDS: BUMETANIDE 1 MG TABLET PO (13:01)
[2024-01-30] MEDS: ASPIRIN 81 MG ENTERIC TABLET PO (13:02)
[2024-01-30] MEDS: ASCORBIC ACID 500 MG TABLET PO (13:02)
[2024-01-30] MEDS: ATORVASTATIN 20 MG TABLET PO (13:02)
[2024-01-30] MEDS: atenoloL 50 MG TABLET PO (13:02)
[2024-01-30] MEDS: CHOLECALCIFEROL 1,000 UNITS TABLET 1000 UNITS PO (13:02)
[2024-01-30] MEDS: EPOETIN ALFA-EPBX 10,000 UNITS/ML VIAL 10000 UNITS SUB-Q (13:03)
[2024-01-30] MEDS: FLUTICASONE PROPIONATE 0.05% NA SPR 16 GM BTL (*BKC) 1 SPRAY NASAL (13:04)
[2024-01-30] MEDS: SERTRALINE HCL 50 MG TABLET PO (13:04)
[2024-01-30] MEDS: GABAPENTIN 300 MG CAPSULE PO ×2 (13:04→21:32)
[2024-01-30] MEDS: FINASTERIDE 5 MG TABLET PO (13:04)
[2024-01-30] MEDS: SACCHAROMYCES BOULARDII 250 MG CAPSULE PO ×2 (13:04→21:32)
[2024-01-30] MEDS: MULTIVITAMINS /C LUTEIN (CENTRUM SILVER) TABLET *BKC 1 TAB PO (13:04)
[2024-01-30] MEDS: FERROUS SULFATE 325 MG TABLET DR PO ×2 (13:04→21:32)
[2024-01-30] MEDS: SILVER SULFADIAZINE 1% CR 50 GM JAR (*BKC) 1 APPLIC TOPICAL (13:05)
[2024-01-30] MEDS: MIRABEGRON 25 MG ER TABLET PO (13:05)
[2024-01-30 13:46] LABS: Potassium 5.8 mmol/L (3.4-5.0)
[2024-01-30] MEDS: COLESTIPOL HCL 1 GM TABLET PO ×2 (14:30→18:33)
[2024-01-30 17:40] LABS: Creatine Kinase 65 U/L (55-170)
[2024-01-30 18:04] LABS: Potassium 5.5 mmol/L (3.4-5.0)
[2024-01-30 18:14] LABS: Glucose Point of Care 106 mg/dl (65-105)
[2024-01-30] MEDS: TAMSULOSIN HCL 0.4 MG CAPSULE PO (21:31)
[2024-01-30] MEDS: PANTOPRAZOLE 40 MG TABLET PO (21:31)
[2024-01-30] MEDS: traZODone HCL 50 MG TABLET PO (21:32)
[2024-01-30 23:08] LABS: Potassium 4.6 mmol/L (3.4-5.0)
[2024-01-31] VITALS (11 sets, daily range): BP systolic 110–126; BP diastolic 45–54; PULSE 62–79; RESP 18; TEMP 36.4–36.5; O2SAT 90–98
[2024-01-31 00:36] LABS: Glucose Point of Care 89 mg/dl (65-105)
[2024-01-31 05:46] LABS: Hematocrit 32.8 % (42.0-52.0); Hemoglobin 9.4 g/dL (14.0-18.0); Immature Platelet Fraction Pct 6.4 % (0.9-11.2); Mean Corpuscular HGB Conc 28.7 g/dl (32-36); Mean Corpuscular Hemoglobin 25.5 pg (26-34); Mean Corpuscular Volume 88.9 fl (80-100); Mean Platelet Volume 12.3 fl (7.4-10.4); Platelet Count Result 96 k/mm3 (150-375); Red Blood Count 3.69 M/mm3 (4.6-6.20); Red Cell Distribution Width 18.2 % (11.5-14.5); White Blood Count 7.8 K/mm3 (4.5-10.0)
[2024-01-31 05:50] LABS: Anion Gap 9 mmol/L (8-16); Blood Urea Nitrogen 53 mg/dL (9-20); Calcium 9.2 mg/dL (8.4-10.2); Carbon Dioxide 16 mmol/L (22-30); Chloride 111 mmol/L (98-107); Estimated CRCL calculation 24 ml/min; Estimated Glomerular Filt Rate 26; Glucose 91 mg/dL (65-110); Potassium 4.2 mmol/L (3.4-5.0); Sodium 136 mmol/L (137-145)
[2024-01-31 06:38] LABS: Glucose Point of Care 96 mg/dl (65-105)
--- NOTE | 2024-01-31 08:00 | PM.IMPN ---
Progress Note: A&P Assessment and Plan (1) AMS (altered mental status): Code(s): R41.82 - Altered mental status, unspecified Status: Acute Assessment and Plan: Patient was confused on admission. Per daughter patient is AOx4 at baseline. Urinalysis with cloudy appearance, 3+ blood, positive nitrates and leukocytes, 21-50 RBC, >100 WBC, 3+ bacteria. Urine culture positive for ecoli. Altered mental status likely due to current urinary tract infection. Today patient is AOx4. Rocephin 1g IV daily (2) Hyperkalemia: Code(s): E87.5 - Hyperkalemia Status: Acute Assessment and Plan: Patient in CKD stage 4. Kidney function is at baseline with BUN 53, creatinine 2.40, and eGFR 26. Patient is bed/wheelchair bound. Per daughter he fell out of wheelchair Friday with unknown downtime. CK WNL. Initial potassium 6.7 without hyperkalemic EKG changes. Patient was given Lokelma, insulin, and dextrose which brought potassium to 5.4 in the ED. Upon admission potassium elevated to 6.3. He received another dose of lokelma and dextrose (insulin held due to previous blood glucose drop). Potassium remained elevated at 5.8. Spoke with nephrology who recommend continued use of lokelma and dextrose at this time and to monitor serial potassiums. Patient then received another dose of lokelma and dextrose. Potassium level remains WNL at this time. K 4.2 Continue to hold home medication KCL 20 meq BID. Other medications have been reviewed and none known to cause hyperkalemia. Tele monitor Serial potassiums (3) UTI (urinary tract infection) due to urinary indwelling Choudhury catheter: Qualifiers: Encounter type: initial encounter Indwelling urinary catheter type: indwelling urethral catheter Qualified Code(s): T83.511A - Infection and inflammatory reaction due to indwelling urethral catheter, initial encounter; N39.0 - Urinary tract infection, site not specified Code(s): T83.511A - Infection and inflammatory reaction due to indwelling urethral catheter, initial encounter; N39.0 - Urinary tract infection, site not specified Status: Acute Assessment and Plan: Chronic suprapubic catheter in place. Urinalysis with cloudy appearance, 3+ blood, positive nitrates and leukocytes, 21-50 RBC, >100 WBC, 3+ bacteria. Urine culture positive for Ecoli. Catheter replaced by RN. Stefany 1g IV daily Intake/output (4) Pressure ulcer of sacral region, unspecified stage: Qualifiers: Pressure injury stage: unspecified pressure injury stage Qualified Code(s): L89.159 - Pressure ulcer of sacral region, unspecified stage Code(s): L89.159 - Pressure ulcer of sacral region, unspecified stage Status: Acute Assessment and Plan: 0.5x1 cm pressure ulcer of the right buttock with moderate serosanguineous drainage. 1.5x2 cm scabbing pressure ulcer of the right outer heal. Present on arrival. See photos in nurse/allied health other section. Per home medications patient is on Silvadene and flagyl. Unable to contact jail about current flagyl course. Wound/dressing changes with wound care Continue silvadene Elevated booties Q2 turn and position (5) Chronic kidney disease: Code(s): N18.9 - Chronic kidney disease, unspecified Status: Acute Assessment and Plan: Kidney function is at baseline with BUN 58, creatinine 2.60, and eGFR 24. Avoid nephrotoxic medications Intake/output (6) Congestive heart failure: Qualifiers: Heart failure chronicity: acute Heart failure type: unspecified Qualified Code(s): I50.9 - Heart failure, unspecified Code(s): I50.9 - Heart failure, unspecified Status: Chronic Assessment and Plan: Echo 02/07/22: EF 60-65% with grade I diastolic dysfunction. In no acute exacerbation. Continue home medications (7) CVA (cerebral vascular accident): Code(s): I63.9 - Cerebral infarction, unspeci
[2024-01-31 08:19] LABS: Glucose Point of Care 104 mg/dl (65-105)
[2024-01-31] MEDS: ACETAMINOPHEN 325 MG TABLET 650 MG PO (10:36)
[2024-01-31] MEDS: ASCORBIC ACID 500 MG TABLET PO (10:37)
[2024-01-31] MEDS: atenoloL 50 MG TABLET PO (10:37)
[2024-01-31] MEDS: MIRABEGRON 25 MG ER TABLET PO (10:37)
[2024-01-31] MEDS: MULTIVITAMINS /C LUTEIN (CENTRUM SILVER) TABLET *BKC 1 TAB PO (10:37)
[2024-01-31] MEDS: GABAPENTIN 300 MG CAPSULE PO ×2 (10:38→22:05)
[2024-01-31] MEDS: ASPIRIN 81 MG ENTERIC TABLET PO (10:38)
[2024-01-31] MEDS: FINASTERIDE 5 MG TABLET PO (10:39)
[2024-01-31] MEDS: BUMETANIDE 1 MG TABLET PO (10:39)
[2024-01-31] MEDS: ATORVASTATIN 20 MG TABLET PO (10:39)
[2024-01-31] MEDS: FERROUS SULFATE 325 MG TABLET DR PO ×3 (10:39→17:50)
[2024-01-31] MEDS: SACCHAROMYCES BOULARDII 250 MG CAPSULE PO ×2 (10:39→17:50)
[2024-01-31] MEDS: SERTRALINE HCL 50 MG TABLET PO (10:39)
[2024-01-31] MEDS: CHOLECALCIFEROL 1,000 UNITS TABLET 1000 UNITS PO (10:39)
[2024-01-31] MEDS: FLUTICASONE PROPIONATE 0.05% NA SPR 16 GM BTL (*BKC) 1 SPRAY NASAL (10:40)
[2024-01-31] MEDS: SILVER SULFADIAZINE 1% CR 50 GM JAR (*BKC) 1 APPLIC TOPICAL (10:40)
--- NOTE | 2024-01-31 10:44 | PC.NURSE ---
pt sleeping, wakes easily but drowsy, refusing to wake up for breakfast or meds at this time
[2024-01-31 12:22] LABS: Glucose Point of Care 154 mg/dl (65-105)
[2024-01-31] MEDS: COLESTIPOL HCL 1 GM TABLET PO (12:39)
[2024-01-31 17:38] LABS: Glucose Point of Care 124 mg/dl (65-105)
[2024-01-31] MEDS: oxyCODONE HCL (*CRX) 5 MG TAB IR PO (17:49)
[2024-01-31 21:14] LABS: Glucose Point of Care 121 mg/dl (65-105)
[2024-01-31] MEDS: TAMSULOSIN HCL 0.4 MG CAPSULE PO (22:05)
[2024-01-31] MEDS: traZODone HCL 50 MG TABLET PO (22:05)
[2024-01-31] MEDS: PANTOPRAZOLE 40 MG TABLET PO (22:05)
[2024-02-01] VITALS (10 sets, daily range): BP systolic 118–134; BP diastolic 43–60; PULSE 61–68; RESP 18; TEMP 36.4–36.8; O2SAT 96–98
[2024-02-01 00:51] LABS: Glucose Point of Care 115 mg/dl (65-105)
[2024-02-01 05:01] LABS: Hematocrit 32.6 % (42.0-52.0); Hemoglobin 9.5 g/dL (14.0-18.0); Immature Platelet Fraction Pct 8.1 % (0.9-11.2); Mean Corpuscular HGB Conc 29.1 g/dl (32-36); Mean Corpuscular Hemoglobin 25.7 pg (26-34); Mean Corpuscular Volume 88.1 fl (80-100); Mean Platelet Volume 12.1 fl (7.4-10.4); Platelet Count Result 92 k/mm3 (150-375); Red Cell Distribution Width 18.4 % (11.5-14.5); White Blood Count 10.7 K/mm3 (4.5-10.0)
[2024-02-01 05:32] LABS: Glucose Point of Care 112 mg/dl (65-105)
--- NOTE | 2024-02-01 07:13 | PM.IMPN ---
Progress Note: A&P Assessment and Plan (1) AMS (altered mental status): Code(s): R41.82 - Altered mental status, unspecified Status: Acute Assessment and Plan: Patient was confused on admission. Per daughter patient is AOx4 at baseline. Urinalysis with cloudy appearance, 3+ blood, positive nitrates and leukocytes, 21-50 RBC, >100 WBC, 3+ bacteria. Urine culture positive for ecoli. Altered mental status likely due to current urinary tract infection. Patient has been AOx4 since 01/31/24. Augmentin BID (2) Hyperkalemia: Code(s): E87.5 - Hyperkalemia Status: Acute Assessment and Plan: Patient in CKD stage 4. Kidney function is at baseline with BUN 53, creatinine 2.40, and eGFR 26. Patient is bed/wheelchair bound. Per daughter he fell out of wheelchair Friday with unknown downtime. CK WNL. Initial potassium 6.7 without hyperkalemic EKG changes. Patient was given Lokelma, insulin, and dextrose which brought potassium to 5.4 in the ED. Upon admission potassium elevated to 6.3. He received another dose of lokelma and dextrose (insulin held due to previous blood glucose drop). Potassium remained elevated at 5.8. Spoke with nephrology who recommended continued use of lokelma and dextrose at this time and to monitor serial potassiums. Patient then received another dose of lokelma and dextrose. Potassium level remain WNL at this time. K 3.9 Continue to hold home medication KCL 20 meq BID. Other medications have been reviewed and none known to cause hyperkalemia. Tele monitor Serial potassiums (3) UTI (urinary tract infection) due to urinary indwelling Choudhury catheter: Qualifiers: Encounter type: initial encounter Indwelling urinary catheter type: indwelling urethral catheter Qualified Code(s): T83.511A - Infection and inflammatory reaction due to indwelling urethral catheter, initial encounter; N39.0 - Urinary tract infection, site not specified Code(s): T83.511A - Infection and inflammatory reaction due to indwelling urethral catheter, initial encounter; N39.0 - Urinary tract infection, site not specified Status: Acute Assessment and Plan: Chronic suprapubic catheter in place. Urinalysis with cloudy appearance, 3+ blood, positive nitrates and leukocytes, 21-50 RBC, >100 WBC, 3+ bacteria. Urine culture positive for Ecoli. Resistant to Rocephin, will start on course of Augmentin. Catheter replaced by RN. Augmentin 875-125 mg PO q12 Intake/output (4) Pressure ulcer of sacral region, unspecified stage: Qualifiers: Pressure injury stage: unspecified pressure injury stage Qualified Code(s): L89.159 - Pressure ulcer of sacral region, unspecified stage Code(s): L89.159 - Pressure ulcer of sacral region, unspecified stage Status: Acute Assessment and Plan: 0.5x1 cm pressure ulcer of the right buttock with moderate serosanguineous drainage. 1.5x2 cm scabbing pressure ulcer of the right outer heal. Present on arrival. See photos in nurse/allied health other section. Per home medications patient is on Silvadene and flagyl. Unable to contact [facility] about current flagyl course. Wound/dressing changes with wound care Continue silvadene Elevated booties Q2 turn and position (5) Chronic kidney disease: Code(s): N18.9 - Chronic kidney disease, unspecified Status: Acute Assessment and Plan: Kidney function is at baseline with BUN 58, creatinine 2.60, and eGFR 24. Avoid nephrotoxic medications Intake/output (6) Congestive heart failure: Qualifiers: Heart failure chronicity: acute Heart failure type: unspecified Qualified Code(s): I50.9 - Heart failure, unspecified Code(s): I50.9 - Heart failure, unspecified Status: Chronic Assessment and Plan: Echo 02/07/22: EF 60-65% with grade I diastolic dysfunction. In no acute exacerbation. Continue home medications (7) CVA (cerebral vas
[2024-02-01 09:17] LABS: Anion Gap 11 mmol/L (8-16); Blood Urea Nitrogen 65 mg/dL (9-20); Calcium 9.1 mg/dL (8.4-10.2); Carbon Dioxide 16 mmol/L (22-30); Chloride 110 mmol/L (98-107); Estimated CRCL calculation 24 ml/min; Estimated Glomerular Filt Rate 26; Glucose 102 mg/dL (65-110); Potassium 3.9 mmol/L (3.4-5.0); Sodium 137 mmol/L (137-145)
[2024-02-01] MEDS: FINASTERIDE 5 MG TABLET PO (10:12)
[2024-02-01] MEDS: ASCORBIC ACID 500 MG TABLET PO (10:12)
[2024-02-01] MEDS: oxyCODONE HCL (*CRX) 5 MG TAB IR PO ×2 (10:12→18:29)
[2024-02-01] MEDS: ATORVASTATIN 20 MG TABLET PO (10:13)
[2024-02-01] MEDS: MULTIVITAMINS /C LUTEIN (CENTRUM SILVER) TABLET *BKC 1 TAB PO (10:13)
[2024-02-01] MEDS: atenoloL 50 MG TABLET PO (10:13)
[2024-02-01] MEDS: ASPIRIN 81 MG ENTERIC TABLET PO (10:13)
[2024-02-01] MEDS: GABAPENTIN 300 MG CAPSULE PO ×2 (10:13→21:24)
[2024-02-01] MEDS: FERROUS SULFATE 325 MG TABLET DR PO ×3 (10:13→17:02)
[2024-02-01] MEDS: COLESTIPOL HCL 1 GM TABLET PO ×3 (10:14→18:28)
[2024-02-01] MEDS: MIRABEGRON 25 MG ER TABLET PO (10:14)
[2024-02-01] MEDS: CHOLECALCIFEROL 1,000 UNITS TABLET 1000 UNITS PO (10:14)
[2024-02-01] MEDS: SILVER SULFADIAZINE 1% CR 50 GM JAR (*BKC) 1 APPLIC TOPICAL (10:14)
[2024-02-01] MEDS: SERTRALINE HCL 50 MG TABLET PO (10:14)
[2024-02-01] MEDS: BUMETANIDE 1 MG TABLET PO (10:14)
[2024-02-01] MEDS: SACCHAROMYCES BOULARDII 250 MG CAPSULE PO ×2 (10:14→17:02)
[2024-02-01] MEDS: FLUTICASONE PROPIONATE 0.05% NA SPR 16 GM BTL (*BKC) 1 SPRAY NASAL (10:15)
[2024-02-01 17:00] LABS: Glucose Point of Care 129 mg/dl (65-105)
[2024-02-01] MEDS: AMOXICILLIN/CLAVULANATE K 875-125 MG TAB 1 TABLET PO ×2 (17:01→21:24)
[2024-02-01] MEDS: traZODone HCL 50 MG TABLET PO (21:24)
[2024-02-01] MEDS: PANTOPRAZOLE 40 MG TABLET PO (21:24)
[2024-02-01] MEDS: TAMSULOSIN HCL 0.4 MG CAPSULE PO (21:25)
[2024-02-01 21:40] LABS: Glucose Point of Care 130 mg/dl (65-105)
[2024-02-02 05:35] LABS: Glucose Point of Care 112 mg/dl (65-105)
[2024-02-02 06:00] VITALS: BP 130/55; PULSE 62; RESP 18; TEMP 36.6; O2SAT 94
[2024-02-02 06:05] LABS: Hematocrit 30.1 % (42.0-52.0); Hemoglobin 8.7 g/dL (14.0-18.0); Immature Platelet Fraction Pct 8.4 % (0.9-11.2); Mean Corpuscular HGB Conc 28.9 g/dl (32-36); Mean Corpuscular Hemoglobin 25.4 pg (26-34); Mean Platelet Volume 12.8 fl (7.4-10.4); Platelet Count Result 91 k/mm3 (150-375); Red Blood Count 3.42 M/mm3 (4.6-6.20); Red Cell Distribution Width 18.8 % (11.5-14.5); White Blood Count 9.3 K/mm3 (4.5-10.0)
[2024-02-02 06:09] LABS: Anion Gap 9 mmol/L (8-16); Blood Urea Nitrogen 58 mg/dL (9-20); Calcium 8.8 mg/dL (8.4-10.2); Carbon Dioxide 18 mmol/L (22-30); Chloride 109 mmol/L (98-107); Estimated CRCL calculation 26 ml/min; Estimated Glomerular Filt Rate 29; Glucose 101 mg/dL (65-110); Potassium 3.3 mmol/L (3.4-5.0); Sodium 136 mmol/L (137-145)
[2024-02-02] MEDS: MULTIVITAMINS /C LUTEIN (CENTRUM SILVER) TABLET *BKC 1 TAB PO (09:11)
[2024-02-02] MEDS: CHOLECALCIFEROL 1,000 UNITS TABLET 1000 UNITS PO (09:11)
[2024-02-02] MEDS: SERTRALINE HCL 50 MG TABLET PO (09:11)
[2024-02-02] MEDS: BUMETANIDE 1 MG TABLET PO (09:11)
[2024-02-02] MEDS: AMOXICILLIN/CLAVULANATE K 875-125 MG TAB 1 TABLET PO (09:11)
[2024-02-02 09:12] VITALS: PULSE 62
[2024-02-02] MEDS: ATORVASTATIN 20 MG TABLET PO (09:12)
[2024-02-02] MEDS: FINASTERIDE 5 MG TABLET PO (09:12)
[2024-02-02] MEDS: MIRABEGRON 25 MG ER TABLET PO (09:12)
[2024-02-02] MEDS: ASPIRIN 81 MG ENTERIC TABLET PO (09:12)
[2024-02-02] MEDS: GABAPENTIN 300 MG CAPSULE PO ×2 (09:12→20:31)
[2024-02-02] MEDS: ASCORBIC ACID 500 MG TABLET PO (09:12)
[2024-02-02] MEDS: atenoloL 50 MG TABLET PO (09:12)
[2024-02-02] MEDS: FERROUS SULFATE 325 MG TABLET DR PO ×3 (09:12→16:31)
[2024-02-02] MEDS: SACCHAROMYCES BOULARDII 250 MG CAPSULE PO ×2 (09:12→16:31)
[2024-02-02] MEDS: FLUTICASONE PROPIONATE 0.05% NA SPR 16 GM BTL (*BKC) 1 SPRAY NASAL (09:13)
[2024-02-02] MEDS: SILVER SULFADIAZINE 1% CR 50 GM JAR (*BKC) 1 APPLIC TOPICAL (09:13)
[2024-02-02] MEDS: EPOETIN ALFA-EPBX 10,000 UNITS/ML VIAL 10000 UNITS SUB-Q (09:17)
--- NOTE | 2024-02-02 09:52 | PM.IMPN ---
Progress Note: A&P Assessment and Plan (1) AMS (altered mental status): Code(s): R41.82 - Altered mental status, unspecified Status: Acute Assessment and Plan: Patient was confused on admission. Altered mental status likely due to current urinary tract infection. Per daughter patient is AOx4 at baseline. Urinalysis with cloudy appearance, 3+ blood, positive nitrates and leukocytes, 21-50 RBC, >100 WBC, 3+ bacteria. Urine culture positive for ecoli with ESBL. Patient started on meropenem. Patient has been AOx4 since 01/31/24. Meropenem 500 mg IV q12 (02/01-02/07) Care coordination (2) Hyperkalemia: Code(s): E87.5 - Hyperkalemia Status: Acute Assessment and Plan: Patient in CKD stage 4. Kidney function is at baseline with BUN 53, creatinine 2.40, and eGFR 26. Patient is bed/wheelchair bound. Per daughter he fell out of wheelchair Friday with unknown downtime. CK WNL. Initial potassium 6.7 without hyperkalemic EKG changes. Patient was given Lokelma, insulin, and dextrose which brought potassium to 5.4 in the ED. Upon admission potassium elevated to 6.3. He received another dose of lokelma and dextrose (insulin held due to previous blood glucose drop). Potassium remained elevated at 5.8. Spoke with nephrology who recommended continued use of lokelma and dextrose at this time and to monitor serial potassiums. Patient then received another dose of lokelma and dextrose. Potassium level remain WNL at this time. Continue to hold home medication KCL 20 meq BID. Other medications have been reviewed and none known to cause hyperkalemia. K 3.3 Tele monitor Serial potassiums (3) UTI (urinary tract infection) due to urinary indwelling Choudhury catheter: Qualifiers: Encounter type: initial encounter Indwelling urinary catheter type: indwelling urethral catheter Qualified Code(s): T83.511A - Infection and inflammatory reaction due to indwelling urethral catheter, initial encounter; N39.0 - Urinary tract infection, site not specified Code(s): T83.511A - Infection and inflammatory reaction due to indwelling urethral catheter, initial encounter; N39.0 - Urinary tract infection, site not specified Status: Acute Assessment and Plan: Chronic suprapubic catheter in place. Urinalysis with cloudy appearance, 3+ blood, positive nitrates and leukocytes, 21-50 RBC, >100 WBC, 3+ bacteria. Urine culture positive for Ecoli with ESBL. Catheter replaced by RN. Will start Meropenem. IV access lost, midline inserted due to patient needing a midline for return to nursing facility at discharge to complete antibiotics. Meropenem 500 mg IV q12 (02/01-02/07) Mid line inserted Care coordinations Intake/output (4) Pressure ulcer of sacral region, unspecified stage: Qualifiers: Pressure injury stage: unspecified pressure injury stage Qualified Code(s): L89.159 - Pressure ulcer of sacral region, unspecified stage Code(s): L89.159 - Pressure ulcer of sacral region, unspecified stage Status: Acute Assessment and Plan: 0.5x1 cm pressure ulcer of the right buttock with moderate serosanguineous drainage. 1.5x2 cm scabbing pressure ulcer of the right outer heal. Present on arrival. See photos in nurse/allied health other section. Per home medications patient is on Silvadene and flagyl. Unable to contact detention about current flagyl course. Wound/dressing changes with wound care Continue silvadene Elevated booties Q2 turn and position (5) Chronic kidney disease: Code(s): N18.9 - Chronic kidney disease, unspecified Status: Acute Assessment and Plan: Kidney function is at baseline with BUN 58, creatinine 2.60, and eGFR 24. Avoid nephrotoxic medications Intake/output (6) Congestive heart failure: Qualifiers: Heart failure chronicity: acute Heart failure type: unspecified Qualified Code(s): I50.9 - Heart failure, unspecified
[2024-02-02] MEDS: COLESTIPOL HCL 1 GM TABLET PO ×3 (11:14→17:27)
[2024-02-02] MEDS: MEROPENEM 500 MG in SODIUM CHLORIDE 0.9% IV 100 ML 200 ML IVPB ×2 (11:15→20:36)
[2024-02-02] MEDS: LIDOCAINE HCL 1% LOCAL INJ 2 ML AMPUL 5 ML INFILTRATE (12:00)
[2024-02-02 14:10] VITALS: BP 142/53; PULSE 62; RESP 14; TEMP 36.3; O2SAT 99
[2024-02-02] MEDS: SALINE LOCK FLUSH 10 ML IV PUSH ×2 (14:13→22:34)
[2024-02-02 20:20] VITALS: PULSE 71; RESP 16; O2SAT 95
[2024-02-02] MEDS: PANTOPRAZOLE 40 MG TABLET PO (20:31)
[2024-02-02] MEDS: TAMSULOSIN HCL 0.4 MG CAPSULE PO (20:31)
[2024-02-02] MEDS: traZODone HCL 50 MG TABLET PO (20:31)
[2024-02-02 21:35] VITALS: BP 147/46; PULSE 71; RESP 16; TEMP 37.1; O2SAT 95
[2024-02-03] MEDS: SALINE LOCK FLUSH 10 ML IV PUSH (05:33)
[2024-02-03 05:36] LABS: Hematocrit 29.4 % (42.0-52.0); Hemoglobin 8.7 g/dL (14.0-18.0); Immature Platelet Fraction Pct 8.5 % (0.9-11.2); Mean Corpuscular HGB Conc 29.6 g/dl (32-36); Mean Corpuscular Hemoglobin 25.4 pg (26-34); Mean Platelet Volume 12.2 fl (7.4-10.4); Platelet Count Result 97 k/mm3 (150-375); Red Blood Count 3.42 M/mm3 (4.6-6.20); Red Cell Distribution Width 18.6 % (11.5-14.5)
[2024-02-03 05:50] LABS: Anion Gap 8 mmol/L (8-16); Blood Urea Nitrogen 52 mg/dL (9-20); Calcium 8.8 mg/dL (8.4-10.2); Carbon Dioxide 21 mmol/L (22-30); Chloride 109 mmol/L (98-107); Estimated CRCL calculation 28 ml/min; Estimated Glomerular Filt Rate 33; Glucose 107 mg/dL (65-110); Potassium 3.2 mmol/L (3.4-5.0); Sodium 138 mmol/L (137-145)
[2024-02-03 06:00] VITALS: BP 151/77; PULSE 54; RESP 16; TEMP 37.2; O2SAT 100
[2024-02-03 08:00] VITALS: BP 164/53; PULSE 67; RESP 14; TEMP 36.6; O2SAT 95
[2024-02-03 09:27] VITALS: PULSE 67
[2024-02-03] MEDS: ASPIRIN 81 MG ENTERIC TABLET PO (09:27)
[2024-02-03] MEDS: FINASTERIDE 5 MG TABLET PO (09:27)
[2024-02-03] MEDS: SACCHAROMYCES BOULARDII 250 MG CAPSULE PO (09:27)
[2024-02-03] MEDS: MEROPENEM 500 MG in SODIUM CHLORIDE 0.9% IV 100 ML 200 ML IVPB (09:27)
[2024-02-03] MEDS: GABAPENTIN 300 MG CAPSULE PO (09:27)
[2024-02-03] MEDS: SERTRALINE HCL 50 MG TABLET PO (09:27)
[2024-02-03] MEDS: BUMETANIDE 1 MG TABLET PO (09:27)
[2024-02-03] MEDS: MULTIVITAMINS /C LUTEIN (CENTRUM SILVER) TABLET *BKC 1 TAB PO (09:27)
[2024-02-03] MEDS: ATORVASTATIN 20 MG TABLET PO (09:27)
[2024-02-03] MEDS: FERROUS SULFATE 325 MG TABLET DR PO ×2 (09:27→11:12)
[2024-02-03] MEDS: CHOLECALCIFEROL 1,000 UNITS TABLET 1000 UNITS PO (09:27)
[2024-02-03] MEDS: FLUTICASONE PROPIONATE 0.05% NA SPR 16 GM BTL (*BKC) 1 SPRAY NASAL (09:27)
[2024-02-03] MEDS: ASCORBIC ACID 500 MG TABLET PO (09:27)
[2024-02-03] MEDS: MIRABEGRON 25 MG ER TABLET PO (09:27)
[2024-02-03] MEDS: atenoloL 50 MG TABLET PO (09:27)
[2024-02-03] MEDS: SILVER SULFADIAZINE 1% CR 50 GM JAR (*BKC) 1 APPLIC TOPICAL (09:28)
--- NOTE | 2024-02-03 10:03 | PM.DS ---
DS: Admitting Diagnosis Discharge Date 02/03/24 Admitting Diagnosis Altered mental status Hyperkalemia UTI Pressure ulcer of sacral region Chronic kidney disease Congestive heart failure DS: Discharge Diagnosis Discharge Diagnosis (1) AMS (altered mental status): Code(s): R41.82 - Altered mental status, unspecified Status: Acute (2) Hyperkalemia: Code(s): E87.5 - Hyperkalemia Status: Acute (3) UTI (urinary tract infection) due to urinary indwelling Choudhury catheter: Qualifiers: Encounter type: initial encounter Indwelling urinary catheter type: indwelling urethral catheter Qualified Code(s): T83.511A - Infection and inflammatory reaction due to indwelling urethral catheter, initial encounter; N39.0 - Urinary tract infection, site not specified Code(s): T83.511A - Infection and inflammatory reaction due to indwelling urethral catheter, initial encounter; N39.0 - Urinary tract infection, site not specified Status: Acute (4) Pressure ulcer of sacral region, unspecified stage: Qualifiers: Pressure injury stage: unspecified pressure injury stage Qualified Code(s): L89.159 - Pressure ulcer of sacral region, unspecified stage Code(s): L89.159 - Pressure ulcer of sacral region, unspecified stage Status: Acute (5) Chronic kidney disease: Code(s): N18.9 - Chronic kidney disease, unspecified Status: Acute (6) Congestive heart failure: Qualifiers: Heart failure chronicity: acute Heart failure type: unspecified Qualified Code(s): I50.9 - Heart failure, unspecified Code(s): I50.9 - Heart failure, unspecified Status: Chronic (7) CVA (cerebral vascular accident): Code(s): I63.9 - Cerebral infarction, unspecified Status: Chronic DS: Summary Hospital Course Reason for hospitalization: Altered mental status Hyperkalemia UTI Pressure ulcer of sacral region Chronic kidney disease Congestive heart failure Hospital Course: 78 year old male with significant past medical history of CKD 4, CVA with left deficits (2013), hypertension, benign prostatic hyperplasia, chronic suprapubic catheter, IBS, and pressure ulcers presented to the hospital for hyperkalemia of 7.7 on lab work at his f[facility] ([facility]). Initial potassium 6.7 without hyperkalemic EKG changes. Patient was given Lokelma, insulin, and dextrose which brought potassium to 5.4 in the ED. Upon admission potassium elevated to 6.3. He received another dose of lokelma and dextrose (insulin held due to previous blood glucose drop). Potassium remained elevated at 5.8. Spoke with nephrology who recommended continued use of lokelma and dextrose at this time and to monitor serial potassiums. Patient then received another dose of lokelma and dextrose. Potassium then reached the normal limit. Patient will continue to hold his home medication KCL 20 meq BID. Other medications have been reviewed and none are known to cause hyperkalemia. He will have a BMP in 1 week to continue to monitor his potassium and follow up with his primary care provider in 1 week. On admission patient had an altered mental status. Per daughter patient is AOx4 at baseline. A urinalysis with cloudy appearance, 3+ blood, positive nitrates and leukocytes, 21-50 RBC, >100 WBC, 3+ bacteria. Urine culture positive for ecoli with ESBL. Patient started on meropenem and chronic suprapubic catheter was replaced.? Since the start of antibiotics patient has been AOx4. His altered mental status was likely related to the current urinary tract infection. Due to the need of IV antibiotics of midline was placed. Patient was discharged back to [facility] on Ertapenem 500 mg IV which will be completed on 02/08/24. Patient was discharged to [facility] in a stable condition and will follow up with his primary care provider in 1 week. Status at Discharge Functional status at discharge: wheelchair bound Time Spe
[2024-02-03] MEDS: COLESTIPOL HCL 1 GM TABLET PO (11:12)
== END 2024-02-03 13:55 | DRG 698 ==
LOC: ANHED 01-30 03:27 → ANH2MED 01-30 03:36
PROVIDERS: Student in an Organized Health Care Education/Training Program; Admitting Provider Internal Medicine; Emergency Provider Emergency Medicine; PCP Family Medicine; Visit Provider Internal Medicine
DX: T83.510A Infection and inflammatory reaction due to cystostomy catheter, initial encounter (principal); L89.153 Pressure ulcer of sacral region, stage 3; N39.0 Urinary tract infection, site not specified; I50.32 Chronic diastolic (congestive) heart failure; N18.4 Chronic kidney disease, stage 4 (severe); I13.0 Hypertensive heart and chronic kidney disease with heart failure and stage 1 through stage 4 chronic kidney disease, or unspecified chronic kidney disease; I69.354 Hemiplegia and hemiparesis following cerebral infarction affecting left non-dominant side; Z16.12 Extended spectrum beta lactamase (ESBL) resistance; B96.20 Unspecified Escherichia coli [E. coli] as the cause of diseases classified elsewhere; E87.5 Hyperkalemia; N40.0 Benign prostatic hyperplasia without lower urinary tract symptoms; M19.90 Unspecified osteoarthritis, unspecified site; K21.9 Gastro-esophageal reflux disease without esophagitis; Z20.822 Contact with and (suspected) exposure to COVID-19; Z96.643 Presence of artificial hip joint, bilateral; K58.9 Irritable bowel syndrome, unspecified; Z86.16 Personal history of COVID-19; Z87.891 Personal history of nicotine dependence
CPT/HCPCS: 36415; 36569; 80048; 80053; 82550; 82948; 83735; 83880; 84132; 84484; 85025; 85027; 85055; 85610; 85730; 87077; 87086; 87088; 87186; 87637; 93005; 96374; 96375; 96376; 99285; A9270; G0378; J0696; J1815; J2185; Q5105

== ENCOUNTER 2024-09-10 06:52 | Inpatient (IN) | payer MEDICARE, BC, MEDICAID, SELFPAY ==
[2024-09-10] VITALS (23 sets, daily range): BP systolic 93–122; BP diastolic 43–86; PULSE 70–85; RESP 15–21; TEMP 35.9–36.6; O2SAT 88–98; BMI 23.8
--- NOTE | ~2024-09-10 | CT_ITS ---
CT chest abdomen pelvis wo con Ordering provider: Rayne Alvares History: . JANA . Comparison: September 07 2019 Technique: CT chest without IV contrast. CT abdomen and pelvis without oral and IV contrast. Radiatio n reduction technique utilized. The dose-length product was 640.97 mGy-cm. FINDINGS: The study is limited due to lack of IV contrast. CHEST: --VISUALIZED THORACIC INLET: Normal as visualized. --MEDIASTINUM: Aorta/coronary arteries: Mild atheromatous disease. Ascending aorta measures 3.6 cm. Heart/other: The heart is slightly enlarged. Pulmonary hypertension is seen with the pulmonary arter y measures 3.7 cm. Lymph nodes: No mediastinal or hilar adenopathy. Air-fluid level is seen in the esophagus Suggestive of reflux esophagitis. --LUNGS: Emphysematous changes of the lungs with multiple emphysematous bullae. Dependent atelectatic changes. Trace of effusion on the left side. No pulmonary nodules or masses. No infiltrates. No pneu mothorax. --MUSCULOSKELETAL: Soft tissues: The superficial soft tissues are normal. Bones: Age appropriate degenerative changes of the spine. ABDOMEN/PELVIS: --MUSCULOSKELETAL: Bones: Age appropriate degenerative changes of the spine. Postoperative changes in the spine and both hips. Superficial soft tissues: The superficial soft tissues are normal. --UPPER ABDOMINAL ORGANS: Liver: Normal. Gallbladder: Distended with cholelithiasis. Spleen: Normal. Stomach/duodenum: Sliding hiatus hernia. Pancreas: Atrophic. Adrenals: Normal. Kidneys: Soft tissue density in the left kidney midpole measuring 1 cm. Possible stone in the right k idney upper pole. Vascular calcifications seen bilaterally. --PELVIC ORGANS: The bladder is underfilled with Choudhury's catheter. Air is seen in the urinary bladder . No bladder stones. --BOWEL AND MESENTERY: Colon: No evidence of diverticulitis.. Impacted fecal material seen in the rectum and sigmoid colon. The colon is loaded with fecal material is. The appendix is not demonstrated. Small Bowel: Normal. No obstruction. Peritoneum/mesentery: No free air or free fluid. No mesenteric lymphadenopathy. --RETROPERITONEUM: Moderate atheromatous disease of the abdominal aorta. No retroperitoneal lymphad enopathy. IMPRESSION: CHEST: 1. 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 2. Cardiomegaly with pulmonary hypertension and widened main pulmonary artery. 3. Atelectatic changes in the lung bases with minimal left pleural effusion ABDOMEN/PELVIS: 1. Cholelithiasis. 2. Sliding hiatus hernia. 3. Possible stone in the right kidney upper pole. Soft tissue density in the left kidney midpole. Fo llow-up advised. 4. Impacted fecal material in the rectum and sigmoid colon with constipation. Reviewed, dictated and finalized at location A. IMPRESSION: CHEST: 1. 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 2. Cardiomegaly with pulmonary hypertension and widened main pulmonary artery. 3. Atelectatic changes in the lung bases with minimal left pleural effusion ABDOMEN/PELVIS: 1. Cholelithiasis. 2. Sliding hiatus hernia. 3. Possible stone in the right kidney upper pole. Soft tissue density in the l eft kidney midpole. Follow-up advised. 4. Impacted fecal material in the rectum and sigmoid colon with constipation.
[2024-09-10 07:35] LABS: Hemoglobin 10.9 g/dL (14.0-18.0); Immature Platelet Fraction Pct 4.2 % (0.9-11.2); Mean Corpuscular HGB Conc 30.3 g/dl (32-36); Mean Corpuscular Hemoglobin 24.4 pg (26-34); Mean Corpuscular Volume 80.7 fl (80-100); Mean Platelet Volume 11.6 fl (7.4-10.4); Platelet Count Result 128 k/mm3 (150-375); Red Blood Count 4.46 M/mm3 (4.6-6.20); Red Cell Distribution Width 20.3 % (11.5-14.5); White Blood Count 12.7 K/mm3 (4.5-10.0)
[2024-09-10 07:42] LABS: Alanine Aminotransferase 17 U/L (6-50); Albumin Level 4.1 g/dL (3.5-5.1); Alkaline Phosphatase 63 U/L (38-126); Anion Gap 21 mmol/L (4-12); Aspartate Amino Transferase 38 U/L (17-59); Bilirubin,Total 0.4 mg/dL (0.2-1.3); Blood Urea Nitrogen 106 mg/dL (9-20); Calcium 9.4 mg/dL (8.4-10.2); Carbon Dioxide 14 mmol/L (22-30); Chloride 102 mmol/L (98-107); Estimated CRCL calculation 10 ml/min; Estimated Glomerular Filt Rate 10; Glucose 100 mg/dL (65-110); Potassium 5.3 mmol/L (3.4-5.0); Sodium 137 mmol/L (137-145)
--- NOTE | 2024-09-10 07:44 | ED_ITS ---
HPI - GI Bleed General Chief complaint: GI Bleed Stated complaint: coffee ground emesis Time Seen by Provider: 09/10/24 07:00 Source: patient and RN notes reviewed Limitations: physical limitation History of Present Illness HPI Narrative: patient presents with concern for GI bleed. He reportedly had dark emesis which he describes as looking like coffee or coffee grounds. He has been vomiting for several days and he feels lightheaded although he says the latter is chronic. It is also reported that he has a urinary tract infection and his suprapubic catheter was replaced this morning. He does not know when his last bowel movement was. He denies any syncope. He denies any hepatic disease. He denies any cardiac failure although he does have well diagnosis of heart failure unspecified on his nursing documentation. He denies any chest pain, only rib pain from where his wheelchair to takes in. He notes that he has underlying kidney disease. Related Data Home Medications Medication Instructions Recorded Confirmed Procardia XL 30 mg PO DAILY 11/05/20 09/10/24 atenolol 50 mg tablet 50 mg PO DAILY 11/05/20 09/10/24 cholecalciferol (vitamin D3) 25 1,000 unit PO DAILY 11/05/20 09/10/24 mcg (1,000 unit) tablet finasteride 5 mg tablet (Proscar) 5 mg PO DAILY 11/05/20 09/10/24 gabapentin 300 mg tablet 300 mg PO BID 11/05/20 09/10/24 gqtwyj-maejfewo-kjbmfqn 3 cap PO TID 11/05/20 09/10/24 24,000-76,000-120,000 unit capsule,delayed rel (Creon) mirabegron 25 mg tablet,extended 25 mg PO DAILY 11/05/20 09/10/24 release 24 hr (Myrbetriq) multivitamin-ferrous 1 tablet PO DAILY 11/05/20 09/10/24 fumarate-folic acid 18 mg-400 mcg tablet (Centrum) omeprazole 20 mg capsule,delayed 20 mg PO HS 11/05/20 09/10/24 release tamsulosin 0.4 mg capsule 0.46 mg PO HS 11/05/20 09/10/24 colestipol 1 gram tablet 1 g PO TID 02/05/22 09/10/24 loperamide 2 mg PO BID 02/05/22 09/10/24 sertraline 50 mg tablet 75 mg PO DAILY 02/05/22 09/10/24 bisacodyl 10 mg rectal suppository 10 mg RECTAL PRN PRN Constipation 08/28/22 09/10/24 magnesium hydroxide 400 mg/5 mL 30 ml PO HS PRN Constipation 08/28/22 09/10/24 oral suspension (Milk of Magnesia) aluminum-mag hydroxide-simethicone 10 ml PO TID PRN Indigestion 04/14/23 09/10/24 400 mg-400 mg-40 mg/5 mL oral susp ipratropium 0.5 mg-albuterol 3 mg 3 ml inhalation Q6H PRN 04/14/23 09/10/24 (2.5 mg base)/3 mL nebulization Bronchospasm soln trazodone 50 mg tablet 50 mg PO HS 11/01/23 09/10/24 vitamins A,C,B-qqsz-hhxldj 4,296 1 cap PO DAILY 02/09/24 09/10/24 mcg-226 mg-90 mg capsule (PreserVision AREDS) calcium carbonate 500 mg PO BID 07/22/24 09/10/24 dicyclomine 20 mg tablet 20 mg PO QID 07/22/24 09/10/24 oxycodone 5 mg tablet 5 mg PO Q12H PRN Pain (Scale Score 07/22/24 09/10/24 7-10) pseudoephedrine-guaifenesin ER 60 1 tablet PO Q12H PRN Cough 07/22/24 09/10/24 mg-600 mg tablet,extend release 12hr (Mucinex D) Saccharomyces boulardii 250 mg 250 mg PO BID 09/10/24 09/10/24 capsule budesonide-formoterol HFA 160 2 puff inhalation Q12H 09/10/24 09/10/24 mcg-4.5 mcg/actuation aerosol inhaler (Symbicort) ferrous sulfate 325 mg (65 mg 325 mg PO BID 09/10/24 09/10/24 iron) tablet magnesium citrate (Citroma oral 296 ml PO ONCE 09/10/24 09/10/24 solution) sodium phosphates 19 gram-7 118 ml RECTAL ONCE 09/10/24 09/10/24 gram/118 mL enema (Fleet Enema) sulfamethoxazole 800 1 tablet PO Q12H 09/10/24 09/10/24 mg-trimethoprim 160 mg tablet (Bactrim DS) vitamin B complex-vitamin C-folic 1 tablet PO DAILY 09/10/24 09/10/24 acid 0.8 mg tablet (Renal-Robe) Allergies Allergy/AdvReac Type Severity Reaction Status Date / Time No Known Allergies Allergy Verified 07/22/24 09:35 [facility] Past Medical History Medical History (Updated 09/10/24 @ 16:24 by Christiano Sanchez MD) Acute on chronic renal failure Alzheimer's dementia with agitation Anemia Anxiety disorder, unspecified BPH (benign prostatic hyperplasia) Chronic ankle pain Chronic indwelling Choudhury catheter Chronic kidney disease COVID-19 CVA (cerebral vascular accident) Essential hypertension GERD (gastroesophageal reflux disease) Heart failure, unspecified Hemiplegia affecting left nondominant side History of 2019 novel coronavirus disease (COVID-19) Hypertension IBS (irritable bowel syndrome) Osteoarthritis Overactive bladder Pressure ulcer of sacral region, unspecified stage Seasonal allergic rhinitis Spondylosis of lumbar region without myelopathy or radiculopathy Subdural hematoma Surgical History Surgical History H/O neck surgery History of back surgery History of total hip arthroplasty eliazar S/P LEGAL ARBITRATOR shunt Family History Family History Father , Patient does not know cause No problems noted. Mother , Patient does not know cause No problems noted. Other Unknown family medical history Social History Social History (Updated 09/10/24 @ 08:17 by Manda Aguilar MD) Social History: Patient became debilitated after stroke in 2013, he lost bladder control in 2016 after having multiple back surgery and now has indwelling Choudhury catheter. He has been care home [facility] since 2017. Patient wheelchair and bed-bound. The patient is and has 1 child who is the durable power clinical sociologist for healthcare. The patient is a former smoker. No alcohol marijuana or illicit drugs. Code status full code per care home documentation Including POLST dated 2017 Smoking status: Former smoker Tobacco type: cigarettes Second hand tobacco smoke exposure: No Alcohol intake: never Alcohol use details: Quit in 2013 Substance use: never Substance use type: does not use Do You Feel Safe in your Home?: Yes Lack of Transportation: No Lack of Food: Never True Current Housing: I Have Housing Concerned About Future Housing: No Difficulty Paying Gas/Electric Bills: No Difficulty Paying for Meds: No Currently Unemployed: No Education: High School Diploma/GED Difficulty w/ Childcare or Family Care: No Living arrangements: care home Additional living arrangements comments: [facility] since 02/03/24 Occupation/Education: retired Gender identity (if verbalized by the patient): Male Spiritual care concerns: No Exam Narrative: GENERAL: Well-appearing, well-nourished, and in no acute distress. Pale. HEAD: Normocephalic, atraumatic. EYES: Non injected, non icteric ENT: Nares clear, no rhinorrhea or epistaxis. Dried dark blood on lips but otherwise not on tongue or posterior oropharynx. Dry mucous membranes/ dry tongue. NECK: Supple. CHEST: Speaking in full sentences. No respiratory distress. HEART: Regular rate and rhythm. ABDOMEN/Rectal: Soft, nondistended. 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 Normal rectal sphincter tone. There is soft stool in the rectal vault but otherwise not firm. It is normal brown in color. No masses. FOBT/guiaic negative x2 minaya. : indwelling suprapubic Choudhury catheter without surrounding erythema or induration EXTREMITIES: No lower extremity edema. SKIN: Warm, dry, no rash. NEURO: Alert and oriented. PSYCH: Normal mood and affect. Course Vital Signs Vital signs: Vital Signs Temperature 97.8 F 09/10/24 06:53 Pulse Rate 74 09/10/24 06:53 Respiratory Rate 15 09/10/24 06:53 Blood Pressure 118/55 L 09/10/24 06:53 Pulse Oximetry 97 09/10/24 06:53 Oxygen Delivery Room Air 09/10/24 06:53 Temperature 97.7 F 09/10/24 20:56 Pulse Rate 70 09/10/24 20:56 Respiratory Rate 16 09/10/24 20:56 Blood Pressure 116/60 09/10/24 20:56 Pulse Oximetry 94 09/10/24 20:56 Oxygen Delivery Room Air 09/10/24 14:00 MDM - GI Bleed MDM Narrative Medical decision making narrative: Patient presents with concern for possible GI bleed. He has been vomiting for several days and noted that he had dark brown emesis today with the appearance of coffee or coffee grounds. Medication list from care home worse aspirin but no other anticoagulation medications. In the emergency department he is afebrile with vital signs that are acceptable although with a slightly low diastolic blood pressure. No melena and guiaic negative. Patient does become more hypotensive while in the room with a systolic blood pressure in the 90s and a mean arterial pressure of 61 mm Hg. 1 L IV fluid bolus is ordered in addition to 80 mg Protonix. Patient has baseline kidney dysfunction but with worsening today given typical creatinine is 2 and today it is 5. He does have mild hyperkalemia. Hyperkalemia treatment is initiated ( sodium bicarb for mild acidosis, only 5 units insulin given renal function but with full dose dextrose, lasix in addition calcium for cardiac membrane stabilization). Troponin technically within normal limits although at the upper limit of normal and elevated from previous. BNP is elevated. [place] bleeding score: 11 points - high risk GI bleed likely to require medical intervention (transfusion, endoscopy, surgery) Based on patient's Hgb, BUN, initial SBP, sex, heart rate, presence/absence of melena, syncope, hepatic disease, cardiac failure. Spoke with GI who concurs. Spoke with yardage control operator hospitalist. Admitted in stable condition. Differential Diagnosis Differential diagnosis: Likely esophageal varices, gastritis, Tea-Napier syndrome and Upper gastrointestinal hemorrhage Medical Records Attestation: I reviewed the patient's medical records. Medical records narrative: custodial documentation and prior labs from EMR Lab Data Attestation: I reviewed the patient's lab results. Lab results narrative: Leukocytosis, normocytic anemia, thrombocytopenia. Patient's anemia is stable from previous and actually improved. Similarly, his thrombocytopenia is improved from previous. 09/10/24 19:32 09/10/24 19:32 Labs: Lab Results 09/10/24 09/10/24 09/10/24 Range/Units 07:20 07:21 08:31 WBC 12.7 H (4.5-10.0) K/mm3 RBC 4.46 L (4.6-6.20) M/mm3 Hgb 10.9 L (14.0-18.0) g/dL Hct 36.0 L (42.0-52.0) % MCV 80.7 (80-100) fl MCH 24.4 L (26-34) pg MCHC 30.3 L (32-36) g/dl RDW 20.3 H (11.5-14.5) % Plt Count 128 L (150-375) k/mm3 MPV 11.6 H (7.4-10.4) fl Immature Gran % (Auto) Not Reportable Neut % (Auto) Not Reportable Lymph % (Auto) Not Reportable [place]man % (Auto) Not Reportable Eos % (Auto) Not Reportable Baso % (Auto) Not Reportable Lymph # (Auto) Not Reportable Hickman # (Auto) Not Reportable Eos # (Auto) Not Reportable Baso # (Auto) Not Reportable Abs Immat Gran (auto) Not Reportable Absolute Neuts (auto) Not Reportable Absolute Nucleated RBC Not Reportable Total Counted 100 Neutrophils % (Manual) 93 H (46-73) % Band Neutrophils % 0 (0-6) % Lymphocytes % (Manual) 3 L (18-44) % Monocytes % (Manual) 4 (3-9) % Eosinophils % (Manual) 0 (0-4) % Basophils % (Manual) 0 (0-1) % Nucleated RBC % Not Reportable Abs Neuts (Manual) 11.81 H (1.3-6.7) K/mm3 Abs Lymphs (Manual) 0.38 L (1.1-4.5) K/mm3 Abs Monocytes (Manual) 0.50 (0.1-0.90) K/mm3 Absolute Eos (Manual) 0.00 L (0.02-0.50) K/mm3 Abs Basophils (Manual) 0.00 (0.0-0.1) K/mm3 Platelet Estimate Slightly decreased (Adequate) % Immature Plt Fraction 4.2 (0.9-11.2) % Anisocytosis 2+ Ovalocytes 1+ [place] Cells 1+ Schistocytes Rare PT 16.2 H (11.1-14.7) Seconds INR 1.3 APTT 32.8 (22.3-36.8) Seconds Sodium 137 (137-145) mmol/L Potassium 5.3 H (3.4-5.0) mmol/L Chloride 102 (98-107) mmol/L Carbon Dioxide 14 L (22-30) mmol/L Anion Gap 21 H (4-12) mmol/L BUN 106 H D (9-20) mg/dL Creatinine 5.80 H (0.7-1.3) mg/dL Estim Creat Clear Calc 10 ml/min Estimated GFR 10 L (59 - ) Glucose 100 (65-110) mg/dL POC Capillary Glucose (65-105) mg/dl Calcium 9.4 (8.4-10.2) mg/dL Total Bilirubin 0.4 (0.2-1.3) mg/dL AST 38 (17-59) U/L ALT 17 (6-50) U/L Alkaline Phosphatase 63 (38-126) U/L Troponin I 0.033 (0.000-0.034) ng/mL NT-Pro-B Natriuret Pep 6470 H (19.9-100) pg/mL Total Protein 8.0 (6.3-8.2) g/dL Albumin 4.1 (3.5-5.1) g/dL Blood Type O Positive Antibody Screen Negative 09/10/24 09/10/24 Range/Units 08:35 09:32 WBC (4.5-10.0) K/mm3 RBC (4.6-6.20) M/mm3 Hgb (14.0-18.0) g/dL Hct (42.0-52.0) % MCV (80-100) fl MCH (26-34) pg MCHC (32-36) g/dl RDW (11.5-14.5) % Plt Count (150-375) k/mm3 MPV (7.4-10.4) fl Immature Gran % (Auto) Neut % (Auto) Lymph % (Auto) Hickman % (Auto) Eos % (Auto) Baso % (Auto) Lymph # (Auto) [place]man # (Auto) Eos # (Auto) Baso # (Auto) Abs Immat Gran (auto) Absolute Neuts (auto) Absolute Nucleated RBC Total Counted Neutrophils % (Manual) (46-73) % Band Neutrophils % (0-6) % Lymphocytes % (Manual) (18-44) % Monocytes % (Manual) (3-9) % Eosinophils % (Manual) (0-4) % Basophils % (Manual) (0-1) % Nucleated RBC % Abs Neuts (Manual) (1.3-6.7) K/mm3 Abs Lymphs (Manual) (1.1-4.5) K/mm3 Abs Monocytes (Manual) (0.1-0.90) K/mm3 Absolute Eos (Manual) (0.02-0.50) K/mm3 Abs Basophils (Manual) (0.0-0.1) K/mm3 Platelet Estimate (Adequate) % Immature Plt Fraction (0.9-11.2) % Anisocytosis Ovalocytes Jose Cells Schistocytes PT (11.1-14.7) Seconds INR APTT (22.3-36.8) Seconds Sodium (137-145) mmol/L Potassium (3.4-5.0) mmol/L Chloride (98-107) mmol/L Carbon Dioxide (22-30) mmol/L Anion Gap (4-12) mmol/L BUN (9-20) mg/dL Creatinine (0.7-1.3) mg/dL Estim Creat Clear Calc ml/min Estimated GFR (59 - ) Glucose (65-110) mg/dL POC Capillary Glucose 96 158 H (65-105) mg/dl Calcium (8.4-10.2) mg/dL Total Bilirubin (0.2-1.3) mg/dL AST (17-59) U/L ALT (6-50) U/L Alkaline Phosphatase (38-126) U/L Troponin I (0.000-0.034) ng/mL NT-Pro-B Natriuret Pep (19.9-100) pg/mL Total Protein (6.3-8.2) g/dL Albumin (3.5-5.1) g/dL Blood Type Antibody Screen ECG Data EKG #1: Attestation: I personally reviewed and interpreted this ECG as follows: ECG completion date: 09/10/24 ECG completion time: 08:10 Interpretation: Normal sinus rhythm at a rate of 75 beats per minute. DC interval 178. QRS 99. QT/ QTC 388/417. Good R-wave progression across the precordial leads. There is lot of artifact which limits full interpretation however it does not appear that there are any T-wave inversions. Discharge Plan Discharge Clinical Impression: Coffee ground emesis, Acute renal failure (ARF), Hyperkalemia, Leukocytosis, Normocytic anemia, Thrombocytopenia Patient Disposition: Still a Patient Condition: Stable
--- NOTE | 2024-09-10 07:54 | ECG_ITS ---
Test Date: 2024-09-10 08:10:01 Measurements Intervals [place] Rate: 75 P: 42 CA: 178 QRS: 26 QRSD: 99 T: 75 QT: 388 QTc: 434 Interpretive Statements SINUS RHYTHM BORDERLINE ST-T WAVE ABNORMALITY- INF/LAT LEADS BASELINE ARTIFACT- I, II, III, AVR, AVL, AVF, V1-V6 BORDERLINE ECG No previous ECG available for comparison Electronically Signed On 09-10-2024 08:11:20 CDT by Darrel Flores D.O.
[2024-09-10 08:12] LABS: INR 1.3; Prothrombin Time 16.2 Seconds (11.1-14.7)
[2024-09-10 08:13] LABS: Partial Thromboplastin Time 32.8 Seconds (22.3-36.8)
[2024-09-10 08:17] LABS: Band Neutrophils Percent 0 % (0-6); Basophils Percent Manual 0 % (0-1); Eosinophils Percent Manual 0 % (0-4); Lymphocytes Absolute Manual 0.38 K/mm3 (1.1-4.5); Lymphocytes Percent Manual 3 % (18-44); Monocytes Percent Manual 4 % (3-9); Neutrophils Absolute Manual 11.81 K/mm3 (1.3-6.7); Neutrophils Percent Manual 93 % (46-73); Total Cells Counted 100
[2024-09-10 08:19] LABS: Platelet Estimate Slightly Decreased (Adequate)
[2024-09-10 08:23] LABS: Anisocytosis 2+
[2024-09-10] MEDS: SODIUM CHLORIDE 0.9% IV 1,000 ML 999 ML IV CONT (08:23)
[2024-09-10 08:24] LABS: Burr Cells 1+; Ovalocytes 1+; Schistocytes Rare
[2024-09-10] MEDS: PANTOPRAZOLE SODIUM IV 40 MG VIAL 80 MG IV PUSH (08:24)
[2024-09-10] MEDS: SODIUM BICARBONATE 8.4% 50 MEQ/50 ML SYRINGE IV PUSH (08:24)
[2024-09-10] MEDS: CALCIUM GLUCONATE 1,000 MG/10 ML VIAL 1000 MG IV PUSH (08:24)
[2024-09-10 08:38] LABS: Glucose Point of Care 96 mg/dl (65-105)
[2024-09-10] MEDS: INSULIN HUMAN REGULAR (*BKC) 100 UNITS/ML IV PUSH (08:42)
[2024-09-10] MEDS: FUROSEMIDE INJ 40 MG/4 ML VIAL IV PUSH (08:42)
[2024-09-10] MEDS: DEXTROSE 50% 25 GM/50 ML SYRINGE IV PUSH (08:42)
[2024-09-10 09:00] LABS: Troponin I 0.033 ng/mL (0.000-0.034)
[2024-09-10 09:34] LABS: Glucose Point of Care 158 mg/dl (65-105)
[2024-09-10 09:48] LABS: NT Pro B Type Natriuretic Pept 6470 pg/mL (19.9-100)
--- NOTE | 2024-09-10 12:27 | PC.NURSE ---
Primary care RN notified of [place] scale results.
--- NOTE | 2024-09-10 16:18 | P.CONGI_ITS ---
Assessment and Plan Assessment and plan (1) Coffee ground emesis: Code(s): K92.0 - Hematemesis Status: Acute Assessment and Plan: unsure about circumstances h/h stable actually is higher than baseline will monitor ok to resume diet but will check for signs of bleeding I did not find recent EGD, consider to get one based on hospital course ppi daily (2) Acute on chronic renal failure: Code(s): N17.9 - Acute kidney failure, unspecified; N18.9 - Chronic kidney disease, unspecified Status: Acute Assessment and Plan: by primary (3) Hyperkalemia: Code(s): E87.5 - Hyperkalemia Status: Acute (4) Alzheimer's dementia with agitation: Code(s): G30.9 - Alzheimer's disease, unspecified; F02.811 - Dementia in other diseases classified elsewhere, unspecified severity, with agitation Status: Acute (5) Chronic anemia: Code(s): D64.9 - Anemia, unspecified Status: Acute Assessment and Plan: stable also advanced renal disease GI Consult Note Consult date/time: 09/10/24 16:18 Reason for consult: coffee ground emesis HPI: Jefferson Venegas is a 78 year old male with past medical history of CKD 4, CVA with left deficits (2013), hypertension, benign prostatic hyperplasia, chronic suprapubic catheter, IBS who lives in a local retirement. Last admission 01/2024 with hyperkalemia and confusion. This time report of coffee ground emesis however patient told me that only had sore throat and denies any emesis. He also mentioned intention to hurt himself and he has a sitter at bedside. Nobody witnessed emesis, hgb 10 (baseline 9) but also noted to have acute on renal failure with creatinine up to 5.8 (baseline 2) and mild hyperkalemia. He is not best historian but he knows where he lives, that he is at the hospital and his age. Review of Systems Constitutional: Constitutional: Denies chills Eyes: Eyes: Denies blurry vision ENT: Reports Normal hearing present Comments: sore throat Cardiovascular: Cardiovascular: Denies chest pain Respiratory: Respiratory: Denies chest congestion Gastrointestinal: Gastrointestinal: Reports no additional gastrointestinal complaints Genitourinary: Comments: suprapubic catheter Musculoskeletal: Musculoskeletal: Denies neck pain Integumentary/Breasts: Skin/Breast: Denies rash Neurologic: Denies Abnormal speech present Psychiatric: Psychiatric: Reports homicidal ideation FOR[facility]LY [facility], [facility] Past Medical History Medical History (Updated 09/10/24 @ 16:24 by Christiano Sanchez MD) Acute on chronic renal failure Alzheimer's dementia with agitation Anemia Anxiety disorder, unspecified BPH (benign prostatic hyperplasia) Chronic ankle pain Chronic indwelling Choudhury catheter Chronic kidney disease COVID-19 CVA (cerebral vascular accident) Essential hypertension GERD (gastroesophageal reflux disease) Heart failure, unspecified Hemiplegia affecting left nondominant side History of 2019 novel coronavirus disease (COVID-19) Hypertension IBS (irritable bowel syndrome) Osteoarthritis Overactive bladder Pressure ulcer of sacral region, unspecified stage Seasonal allergic rhinitis Spondylosis of lumbar region without myelopathy or radiculopathy Subdural hematoma Surgical History Surgical History H/O neck surgery History of back surgery History of total hip arthroplasty eliazar S/P TELEHEALTH COORDINATOR shunt Family History Family History Father , Patient does not know cause No problems noted. Mother , Patient does not know cause No problems noted. Other Unknown family medical history Social History Social History (Updated 09/10/24 @ 08:17 by Manda Aguilar MD) Social History: Patient became debilitated after stroke in 2013, he lost bladder control in 2016 after having multiple back surgery and now has indwelling Choudhury catheter. He has been retirement [facility] since 2017. Patient wheelchair and bed-bound. The patient is and has 1 child who is the durable power corporate associate attorney for healthcare. The patient is a former smoker. No alcohol marijuana or illicit drugs. Code status full code per retirement documentation Including POLST dated 2017 Smoking status: Former smoker Tobacco type: cigarettes Second hand tobacco smoke exposure: No Alcohol intake: never Alcohol use details: Quit in 2013 Substance use: never Substance use type: does not use Do You Feel Safe in your Home?: Yes Lack of Transportation: No Lack of Food: Never True Current Housing: I Have Housing Concerned About Future Housing: No Difficulty Paying Gas/Electric Bills: No Difficulty Paying for Meds: No Currently Unemployed: No Education: High School Diploma/GED Difficulty w/ Childcare or Family Care: No Living arrangements: retirement Additional living arrangements comments: [facility] [place] since 02/03/24 Occupation/Education: retired Gender identity (if verbalized by the patient): Male Spiritual care concerns: No Meds Home Medications and Allergies Home Medications Medication Instructions Recorded Confirmed Type Procardia XL 30 mg PO DAILY 11/05/20 09/10/24 History atenolol 50 mg tablet 50 mg PO DAILY 11/05/20 09/10/24 History cholecalciferol (vitamin D3) 25 1,000 unit PO DAILY 11/05/20 09/10/24 History mcg (1,000 unit) tablet finasteride 5 mg tablet (Proscar) 5 mg PO DAILY 11/05/20 09/10/24 History gabapentin 300 mg tablet 300 mg PO BID 11/05/20 09/10/24 History fntlys-hxygfeva-iavbnyz 3 cap PO TID 11/05/20 09/10/24 History 24,000-76,000-120,000 unit capsule,delayed rel (Creon) mirabegron 25 mg tablet,extended 25 mg PO DAILY 11/05/20 09/10/24 History release 24 hr (Myrbetriq) multivitamin-ferrous 1 tablet PO DAILY 11/05/20 09/10/24 History fumarate-folic acid 18 mg-400 mcg tablet (Centrum) omeprazole 20 mg capsule,delayed 20 mg PO HS 11/05/20 09/10/24 History release tamsulosin 0.4 mg capsule 0.46 mg PO HS 11/05/20 09/10/24 History fluticasone propionate 50 1 spray intranasal DAILY #16 grams 12/18/21 09/10/24 Rx mcg/actuation nasal spray,suspension colestipol 1 gram tablet 1 g PO TID 02/05/22 09/10/24 History loperamide 2 mg PO BID 02/05/22 09/10/24 History sertraline 50 mg tablet 75 mg PO DAILY 02/05/22 09/10/24 History bisacodyl 10 mg rectal suppository 10 mg RECTAL PRN PRN Constipation 08/28/22 09/10/24 History magnesium hydroxide 400 mg/5 mL 30 ml PO HS PRN Constipation 08/28/22 09/10/24 History oral suspension (Milk of Magnesia) aspirin 81 mg tablet,delayed 81 mg PO QAM #30 tabs 08/30/22 09/10/24 Rx release atorvastatin 20 mg tablet 20 mg PO DAILY #30 tabs 08/30/22 09/10/24 Rx aluminum-mag hydroxide-simethicone 10 ml PO TID PRN Indigestion 04/14/23 09/10/24 History 400 mg-400 mg-40 mg/5 mL oral susp ipratropium 0.5 mg-albuterol 3 mg 3 ml inhalation Q6H PRN 04/14/23 09/10/24 History (2.5 mg base)/3 mL nebulization Bronchospasm soln trazodone 50 mg tablet 50 mg PO HS 11/01/23 09/10/24 History acetaminophen 325 mg tablet 650 mg PO Q4H PRN Mild Pain (1-3) 11/09/23 09/10/24 Rx Or Fever #0 tabs bumetanide 1 mg tablet 1 mg PO DAILY #0 tabs 11/09/23 09/10/24 Rx epoetin carolynn-epbx 10,000 unit/mL 10,000 unit subcut MOWEFR@09 #10 mL 11/09/23 09/10/24 Rx injection solution (Retacrit) vitamins A,C,M-lhfu-zneiem 4,296 1 cap PO DAILY 02/09/24 09/10/24 History mcg-226 mg-90 mg capsule (PreserVision AREDS) calcium carbonate 500 mg PO BID 07/22/24 09/10/24 History dicyclomine 20 mg tablet 20 mg PO QID 07/22/24 09/10/24 History oxycodone 5 mg tablet 5 mg PO Q12H PRN Pain (Scale Score 07/22/24 09/10/24 History 7-10) pseudoephedrine-guaifenesin ER 60 1 tablet PO Q12H PRN Cough 07/22/24 09/10/24 History mg-600 mg tablet,extend release 12hr (Mucinex D) Saccharomyces boulardii 250 mg 250 mg PO BID 09/10/24 09/10/24 History capsule budesonide-formoterol HFA 160 2 puff inhalation Q12H 09/10/24 09/10/24 History mcg-4.5 mcg/actuation aerosol inhaler (Symbicort) ferrous sulfate 325 mg (65 mg 325 mg PO BID 09/10/24 09/10/24 History iron) tablet magnesium citrate (Citroma oral 296 ml PO ONCE 09/10/24 09/10/24 History solution) sodium phosphates 19 gram-7 118 ml RECTAL ONCE 09/10/24 09/10/24 History gram/118 mL enema (Fleet Enema) sulfamethoxazole 800 1 tablet PO Q12H 09/10/24 09/10/24 History mg-trimethoprim 160 mg tablet (Bactrim DS) vitamin B complex-vitamin C-folic 1 tablet PO DAILY 09/10/24 09/10/24 History acid 0.8 mg tablet (Renal-Robe) Allergies Allergy/AdvReac Type Severity Reaction Status Date / Time No Known Allergies Allergy Verified 07/22/24 09:35 Vital Signs Vital Signs - 24 hr 09/10/24 06:53 09/10/24 07:16 09/10/24 07:32 Temperature 97.8 F Pulse Rate 74 74 75 Respiratory Rate 15 18 19 Blood Pressure 118/55 L 113/86 106/53 L Pulse Oximetry 97 97 95 Oxygen Delivery Room Air 09/10/24 08:01 09/10/24 08:33 09/10/24 09:02 Temperature Pulse Rate 76 77 84 Respiratory Rate 20 15 18 Blood Pressure 114/79 101/43 L 119/86 Pulse Oximetry 97 95 94 Oxygen Delivery 09/10/24 09:31 09/10/24 10:02 09/10/24 10:03 Temperature Pulse Rate 85 80 80 Respiratory Rate 17 17 20 Blood Pressure 120/50 L 114/55 L Pulse Oximetry 96 96 94 Oxygen Delivery 09/10/24 10:15 09/10/24 10:17 09/10/24 10:30 Temperature Pulse Rate 79 78 78 Respiratory Rate 17 15 19 Blood Pressure 122/53 L Pulse Oximetry 92 88 L 98 Oxygen Delivery 09/10/24 10:32 09/10/24 10:45 09/10/24 10:47 Temperature Pulse Rate 77 76 77 Respiratory Rate 17 21 H 20 Blood Pressure 111/60 94/77 L Pulse Oximetry Oxygen Delivery 09/10/24 11:00 09/10/24 11:02 09/10/24 11:15 Temperature Pulse Rate 76 76 83 Respiratory Rate 20 17 20 Blood Pressure 111/57 L Pulse Oximetry Oxygen Delivery 09/10/24 11:18 09/10/24 11:30 09/10/24 11:31 Temperature Pulse Rate 77 75 76 Respiratory Rate 19 16 17 Blood Pressure 93/63 L 107/48 L Pulse Oximetry Oxygen Delivery Exam Const: General: comfortable and no acute distress HENMT: Face/Nose/Sinus: Normal nares present Eyes: Sclera: sclerae normal Neck: Neck: supple Resp: Effort & Inspection: normal respiratory effort Cardio: Rate: regular rate GI: GI Palp: Yes Soft to palpation and No Tenderness to palpation present (GI) Auscultation: normal bowel sounds : Other: + suprapubic catheter Skin: General skin exam: normal color Neuro: Speech: normal speech Extrem: General: normal to inspection Psych: Affect: normal affect Results Labs 09/10/24 07:20 09/10/24 07:21 Labs: Short CBC 09/10/24 Range/Units 07:20 WBC 12.7 H (4.5-10.0) K/mm3 Hgb 10.9 L (14.0-18.0) g/dL Hct 36.0 L (42.0-52.0) % Plt Count 128 L (150-375) k/mm3 BMP 09/10/24 07:21 Sodium 137 Potassium 5.3 H Chloride 102 Carbon Dioxide 14 L BUN 106 H D Creatinine 5.80 H Glucose 100 Calcium 9.4 Cardiac Enzymes 09/10/24 Range/Units 08:31 Troponin I 0.033 (0.000-0.034) ng/mL Liver Function 09/10/24 Range/Units 07:21 Total Bilirubin 0.4 (0.2-1.3) mg/dL AST 38 (17-59) U/L ALT 17 (6-50) U/L Alkaline Phosphatase 63 (38-126) U/L Albumin 4.1 (3.5-5.1) g/dL
--- NOTE | 2024-09-10 18:30 | P.HP_ITS ---
H&P: HPI History of Present Illness Date/Time: 09/10/24 18:30 Chief Complaint: Coffee ground emesis Narrative: 78 M yo male with PMH of BPH, indwelling Choudhury catheter, CVA, hypertension, GERD, heart failure, overactive bladder, anxiety, Alzheimer's disease, [facility] resident who was referred to the ER on account of coffee-ground emesis. Patient was lethargic at the time of this encounter Oriented x1. Not a reliable historian. Did mention he came to the ER due to sore throat. Denies any urine symptoms no chest pain shortness for breath no nausea no vomiting no abdominal pain no diarrhea no dysuria no focal symptoms. ER evaluation notable for stable vital signs within normal limits. WBC 12 7, hemoglobin 10 crit 35.8 BUN 106 potassium 5.3, baseline creatinine is 2.0. NT proBNP 6470. Patient was started on Protonix and GI was consulted prior to admission. Review of Systems Review of Systems: Unreliable historian due to dementia. [facility] Past Medical History Medical History (Updated 09/10/24 @ 16:24 by Christiano Sanchez MD) Acute on chronic renal failure Alzheimer's dementia with agitation Anemia Anxiety disorder, unspecified BPH (benign prostatic hyperplasia) Chronic ankle pain Chronic indwelling Choudhury catheter Chronic kidney disease COVID-19 CVA (cerebral vascular accident) Essential hypertension GERD (gastroesophageal reflux disease) Heart failure, unspecified Hemiplegia affecting left nondominant side History of 2019 novel coronavirus disease (COVID-19) Hypertension IBS (irritable bowel syndrome) Osteoarthritis Overactive bladder Pressure ulcer of sacral region, unspecified stage Seasonal allergic rhinitis 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 Mother , Patient does not know cause No problems noted. Other Unknown family medical history Social History Social History (Updated 09/10/24 @ 08:17 by Manda Aguilar MD) Social History: Patient became debilitated after stroke in 2013, he lost bladder control in 2016 after having multiple back surgery and now has indwelling Choudhury catheter. He has been [facility] since [facility]. Patient wheelchair and bed-bound. The patient is and has 1 child who is the durable power attorney lawyer for healthcare. The patient is a former smoker. No alcohol marijuana or illicit drugs. Code status full code per [facility] documentation Including POLST dated 2017 Smoking status: Former smoker Tobacco type: cigarettes Second hand tobacco smoke exposure: No Alcohol intake: never Alcohol use details: Quit in 2013 Substance use: never Substance use type: does not use Do You Feel Safe in your Home?: Yes Lack of Transportation: No Lack of Food: Never True Current Housing: I Have Housing Concerned About Future Housing: No Difficulty Paying Gas/Electric Bills: No Difficulty Paying for Meds: No Currently Unemployed: No Education: High School Diploma/GED Difficulty w/ Childcare or Family Care: No Living arrangements: [facility] Additional living arrangements comments: [facility] [place] since 02/03/24 Occupation/Education: retired Gender identity (if verbalized by the patient): Male Spiritual care concerns: No Meds Home Medications and Allergies Home Medications Medication Instructions Recorded Confirmed Type Procardia XL 30 mg PO DAILY 11/05/20 09/10/24 History atenolol 50 mg tablet 50 mg PO DAILY 11/05/20 09/10/24 History cholecalciferol (vitamin D3) 25 1,000 unit PO DAILY 11/05/20 09/10/24 History mcg (1,000 unit) tablet finasteride 5 mg tablet (Proscar) 5 mg PO DAILY 11/05/20 09/10/24 History gabapentin 300 mg tablet 300 mg PO BID 11/05/20 09/10/24 History mgydwu-pkbmpngh-kqeiaxk 3 cap PO TID 11/05/20 09/10/24 History 24,000-76,000-120,000 unit capsule,delayed rel (Creon) mirabegron 25 mg tablet,extended 25 mg PO DAILY 11/05/20 09/10/24 History release 24 hr (Myrbetriq) multivitamin-ferrous 1 tablet PO DAILY 11/05/20 09/10/24 History fumarate-folic acid 18 mg-400 mcg tablet (Centrum) omeprazole 20 mg capsule,delayed 20 mg PO HS 11/05/20 09/10/24 History release tamsulosin 0.4 mg capsule 0.46 mg PO HS 11/05/20 09/10/24 History fluticasone propionate 50 1 spray intranasal DAILY #16 grams 12/18/21 09/10/24 Rx mcg/actuation nasal spray,suspension colestipol 1 gram tablet 1 g PO TID 02/05/22 09/10/24 History loperamide 2 mg PO BID 02/05/22 09/10/24 History sertraline 50 mg tablet 75 mg PO DAILY 02/05/22 09/10/24 History bisacodyl 10 mg rectal suppository 10 mg RECTAL PRN PRN Constipation 08/28/22 09/10/24 History magnesium hydroxide 400 mg/5 mL 30 ml PO HS PRN Constipation 08/28/22 09/10/24 History oral suspension (Milk of Magnesia) aspirin 81 mg tablet,delayed 81 mg PO QAM #30 tabs 08/30/22 09/10/24 Rx release atorvastatin 20 mg tablet 20 mg PO DAILY #30 tabs 08/30/22 09/10/24 Rx aluminum-mag hydroxide-simethicone 10 ml PO TID PRN Indigestion 04/14/23 09/10/24 History 400 mg-400 mg-40 mg/5 mL oral susp ipratropium 0.5 mg-albuterol 3 mg 3 ml inhalation Q6H PRN 04/14/23 09/10/24 History (2.5 mg base)/3 mL nebulization Bronchospasm soln trazodone 50 mg tablet 50 mg PO HS 11/01/23 09/10/24 History acetaminophen 325 mg tablet 650 mg PO Q4H PRN Mild Pain (1-3) 11/09/23 09/10/24 Rx Or Fever #0 tabs bumetanide 1 mg tablet 1 mg PO DAILY #0 tabs 11/09/23 09/10/24 Rx epoetin carolynn-epbx 10,000 unit/mL 10,000 unit subcut MOWEFR@09 #10 mL 11/09/23 09/10/24 Rx injection solution (Retacrit) vitamins A,C,N-vlnd-oyggaj 4,296 1 cap PO DAILY 02/09/24 09/10/24 History mcg-226 mg-90 mg capsule (PreserVision AREDS) calcium carbonate 500 mg PO BID 07/22/24 09/10/24 History dicyclomine 20 mg tablet 20 mg PO QID 07/22/24 09/10/24 History oxycodone 5 mg tablet 5 mg PO Q12H PRN Pain (Scale Score 07/22/24 09/10/24 History 7-10) pseudoephedrine-guaifenesin ER 60 1 tablet PO Q12H PRN Cough 07/22/24 09/10/24 History mg-600 mg tablet,extend release 12hr (Mucinex D) Saccharomyces boulardii 250 mg 250 mg PO BID 09/10/24 09/10/24 History capsule budesonide-formoterol HFA 160 2 puff inhalation Q12H 09/10/24 09/10/24 History mcg-4.5 mcg/actuation aerosol inhaler (Symbicort) ferrous sulfate 325 mg (65 mg 325 mg PO BID 09/10/24 09/10/24 History iron) tablet magnesium citrate (Citroma oral 296 ml PO ONCE 09/10/24 09/10/24 History solution) sodium phosphates 19 gram-7 118 ml RECTAL ONCE 09/10/24 09/10/24 History gram/118 mL enema (Fleet Enema) sulfamethoxazole 800 1 tablet PO Q12H 09/10/24 09/10/24 History mg-trimethoprim 160 mg tablet (Bactrim DS) vitamin B complex-vitamin C-folic 1 tablet PO DAILY 09/10/24 09/10/24 History acid 0.8 mg tablet (Renal-Robe) Allergies Allergy/AdvReac Type Severity Reaction Status Date / Time No Known Allergies Allergy Verified 07/22/24 09:35 Vital Signs Vital Signs - 24 hr 09/10/24 06:53 09/10/24 07:16 09/10/24 07:32 Temperature 97.8 F Pulse Rate 74 74 75 Respiratory Rate 15 18 19 Blood Pressure 118/55 L 113/86 106/53 L Pulse Oximetry 97 97 95 Oxygen Delivery Room Air 09/10/24 08:01 09/10/24 08:33 09/10/24 09:02 Temperature Pulse Rate 76 77 84 Respiratory Rate 20 15 18 Blood Pressure 114/79 101/43 L 119/86 Pulse Oximetry 97 95 94 Oxygen Delivery 09/10/24 09:31 09/10/24 10:02 09/10/24 10:03 Temperature Pulse Rate 85 80 80 Respiratory Rate 17 17 20 Blood Pressure 120/50 L 114/55 L Pulse Oximetry 96 96 94 Oxygen Delivery 09/10/24 10:15 09/10/24 10:17 09/10/24 10:30 Temperature Pulse Rate 79 78 78 Respiratory Rate 17 15 19 Blood Pressure 122/53 L Pulse Oximetry 92 88 L 98 Oxygen Delivery 09/10/24 10:32 09/10/24 10:45 09/10/24 10:47 Temperature Pulse Rate 77 76 77 Respiratory Rate 17 21 H 20 Blood Pressure 111/60 94/77 L Pulse Oximetry Oxygen Delivery 09/10/24 11:00 09/10/24 11:02 09/10/24 11:15 Temperature Pulse Rate 76 76 83 Respiratory Rate 20 17 20 Blood Pressure 111/57 L Pulse Oximetry Oxygen Delivery 09/10/24 11:18 09/10/24 11:30 09/10/24 11:31 Temperature Pulse Rate 77 75 76 Respiratory Rate 19 16 17 Blood Pressure 93/63 L 107/48 L Pulse Oximetry Oxygen Delivery 09/10/24 14:00 09/10/24 14:00 Temperature 96.6 F L Pulse Rate 77 Respiratory Rate 18 Blood Pressure 118/67 Pulse Oximetry 94 Oxygen Delivery Room Air Exam Narrative: General: lethargic Eyes: EOMI, PERRLA ENNT External ears normal, Neck is supple, no masses, Respiratory systems: Clear to auscultation Cardiovascular S1, S2, normal rhythm, no murmur, rub, or gallop; no thrill or palpable murmurs on palpation. Gastrointestinal: soft, non-tender, and non-distended abdomen with no masses; BS present Skin: no rash, lesions, ulcerations, subcutaneous nodules or induration Musculoskeletal: no abnormality and no tenderness, normal ROM Neurologic: oriented x1, non compliant with exam H&P: Results Labs Labs: Short CBC 09/10/24 Range/Units 07:20 WBC 12.7 H (4.5-10.0) K/mm3 Hgb 10.9 L (14.0-18.0) g/dL Hct 36.0 L (42.0-52.0) % Plt Count 128 L (150-375) k/mm3 BMP 09/10/24 07:21 Sodium 137 Potassium 5.3 H Chloride 102 Carbon Dioxide 14 L BUN 106 H D Creatinine 5.80 H Glucose 100 Calcium 9.4 Cardiac Enzymes 09/10/24 Range/Units 08:31 Troponin I 0.033 (0.000-0.034) ng/mL Liver Function 09/10/24 Range/Units 07:21 Total Bilirubin 0.4 (0.2-1.3) mg/dL AST 38 (17-59) U/L ALT 17 (6-50) U/L Alkaline Phosphatase 63 (38-126) U/L Albumin 4.1 (3.5-5.1) g/dL Assessment and Plan Assessment and plan (1) Coffee ground emesis: Code(s): K92.0 - Hematemesis Status: Acute Plan Coffee-ground emesis R/o GI bleed Hb 10.9 Iron profile pending continue Protonix, gentle rehydration Gi consulted Acute on chronic renal failure Cr 5.8, baseline 2.0, BUN 106 and K 5.3 continue IVF nephrology consulted CHF, diastolic stable hold lasix for now BPH with indwelling catheter monitor continue home meds CVA Hold aspirin Continue Lipitor Alzheimer's disease continue home meds DVT prophylaxis on SCDs, no Ac due to GI bleed
[2024-09-10 19:41] LABS: Basophils Percent Auto 0.1 % (0.2-1.2); Hematocrit 29.5 % (42.0-52.0); Hemoglobin 9.1 g/dL (14.0-18.0); Immature Granulocyte Absolute 0.07 K/mm3 (0.00-0.031); Immature Granulocyte Percent A 0.9 % (0-0.5); Immature Platelet Fraction Pct 3.6 % (0.9-11.2); Lymphocytes Absolute Auto 0.59 K/mm3 (0.9-3.2); Lymphocytes Percent Auto 7.4 % (18.3-44.2); Mean Corpuscular HGB Conc 30.8 g/dl (32-36); Mean Corpuscular Hemoglobin 24.4 pg (26-34); Mean Corpuscular Volume 79.1 fl (80-100); Mean Platelet Volume 11.8 fl (7.4-10.4); Monocytes Absolute Auto 1.2 K/mm3 (0.1-0.6); Monocytes Percent Auto 14.6 % (2.6-8.5); Neutrophils Absolute Auto 6.1 K/mm3 (1.3-6.7); Platelet Count Result 112 k/mm3 (150-375); Red Blood Count 3.73 M/mm3 (4.6-6.20); Red Cell Distribution Width 20.2 % (11.5-14.5)
[2024-09-10 19:57] LABS: Alanine Aminotransferase 17 U/L (6-50); Albumin Level 3.6 g/dL (3.5-5.1); Alkaline Phosphatase 53 U/L (38-126); Anion Gap 19 mmol/L (4-12); Aspartate Amino Transferase 38 U/L (17-59); Bilirubin,Total 0.3 mg/dL (0.2-1.3); Blood Urea Nitrogen 103 mg/dL (9-20); Calcium 8.9 mg/dL (8.4-10.2); Carbon Dioxide 13 mmol/L (22-30); Chloride 105 mmol/L (98-107); Estimated CRCL calculation 10 ml/min; Estimated Glomerular Filt Rate 10; Glucose 96 mg/dL (65-110); Lactic Acid Reflex 0.5 mmol/L (0.7-2.0); Potassium 4.5 mmol/L (3.4-5.0); Sodium 137 mmol/L (137-145)
[2024-09-10] MEDS: SODIUM CHLORIDE 0.9% IV 1,000 ML 75 ML IV CONT (20:11)
[2024-09-10 20:20] LABS: Iron 31 ug/dL (49-181)
[2024-09-10 20:30] LABS: Percent Iron Saturation 17 % (20-50)
[2024-09-11] MEDS: TAMSULOSIN HCL 0.4 MG CAPSULE PO (00:12)
[2024-09-11] MEDS: traZODone HCL 50 MG TABLET PO ×2 (00:12→21:40)
[2024-09-11 04:59] VITALS: BP 119/63; PULSE 74; RESP 16; TEMP 36.3; O2SAT 95
[2024-09-11 07:43] LABS: Basophils Percent Auto 0.1 % (0.2-1.2); Hematocrit 30.6 % (42.0-52.0); Hemoglobin 9.2 g/dL (14.0-18.0); Immature Granulocyte Absolute 0.07 K/mm3 (0.00-0.031); Immature Platelet Fraction Pct 3.7 % (0.9-11.2); Lymphocytes Absolute Auto 1.43 K/mm3 (0.9-3.2); Lymphocytes Percent Auto 20.9 % (18.3-44.2); Mean Corpuscular HGB Conc 30.1 g/dl (32-36); Mean Corpuscular Hemoglobin 24.7 pg (26-34); Mean Corpuscular Volume 82.3 fl (80-100); Mean Platelet Volume 11.3 fl (7.4-10.4); Monocytes Absolute Auto 1.4 K/mm3 (0.1-0.6); Monocytes Percent Auto 20.2 % (2.6-8.5); Neutrophils Percent Auto 57.8 % (45.5-73.1); Platelet Count Result 108 k/mm3 (150-375); Red Blood Count 3.72 M/mm3 (4.6-6.20); Red Cell Distribution Width 20.8 % (11.5-14.5); White Blood Count 6.8 K/mm3 (4.5-10.0)
[2024-09-11 08:06] LABS: Alanine Aminotransferase 18 U/L (6-50); Albumin Level 3.5 g/dL (3.5-5.1); Alkaline Phosphatase 54 U/L (38-126); Anion Gap 21 mmol/L (4-12); Aspartate Amino Transferase 36 U/L (17-59); Bilirubin,Total 0.2 mg/dL (0.2-1.3); Blood Urea Nitrogen 103 mg/dL (9-20); Calcium 8.8 mg/dL (8.4-10.2); Carbon Dioxide 12 mmol/L (22-30); Chloride 108 mmol/L (98-107); Estimated CRCL calculation 10 ml/min; Estimated Glomerular Filt Rate 10; Glucose 72 mg/dL (65-110); Magnesium 2.2 mg/dL (1.6-2.3); Phosphorus 9.1 mg/dL (2.5-4.5); Potassium 4.1 mmol/L (3.4-5.0); Sodium 141 mmol/L (137-145)
[2024-09-11] MEDS: FLUTICASONE/SALMETEROL 115-21 MCG INHALER 1 PUFF 2 PUFF INHALATION ×2 (08:17→20:43)
[2024-09-11 08:20] VITALS: O2SAT 94
[2024-09-11] MEDS: FERROUS SULFATE 325 MG TABLET DR BY MOUTH ×2 (08:40→17:48)
[2024-09-11] MEDS: LIPASE/AMYLASE/PROTEASE 12,000 UNITS CAP 6 CAP PO ×3 (08:40→17:48)
[2024-09-11] MEDS: SACCHAROMYCES BOULARDII 250 MG CAPSULE PO ×2 (08:40→17:48)
[2024-09-11] MEDS: PANTOPRAZOLE SODIUM IV 40 MG VIAL IV PUSH (08:41)
[2024-09-11] MEDS: GABAPENTIN 300 MG CAPSULE PO ×2 (08:41→17:48)
--- NOTE | 2024-09-11 09:32 | P.PNGI_ITS ---
Progress Note: A&P Assessment and Plan (1) Coffee ground emesis: Code(s): K92.0 - Hematemesis Status: Acute Assessment and Plan: patient denies any episode, I had only sore throat , no episodes witnessed here and he is not reliable h/h near baseline, he is eating medical treatment with ppi daily no egd unless any changes no melena in fact he has fecal impaction (2) Acute on chronic renal failure: Code(s): N17.9 - Acute kidney failure, unspecified; N18.9 - Chronic kidney disease, unspecified Status: Acute Assessment and Plan: by primary (3) Hyperkalemia: Code(s): E87.5 - Hyperkalemia Status: Acute Assessment and Plan: resolved after treatment (4) Normocytic anemia: Code(s): D64.9 - Anemia, unspecified Status: Acute Assessment and Plan: stable (5) Alzheimer's dementia with agitation: Code(s): G30.9 - Alzheimer's disease, unspecified; F02.811 - Dementia in other diseases classified elsewhere, unspecified severity, with agitation Status: Acute (6) Fecal impaction in rectum: Code(s): K56.41 - Fecal impaction Status: Acute Assessment and Plan: CT scan reviewed, abdominal exam benign miralax, will give enema x1 Subjective Date/time seen: 09/11/24 09:32 Interval history: he is having breakfast, no report of gib since admission, he is comfortable sitter at bedside Review of Systems Review of Systems: All systems reviewed & are unremarkable except as noted in HPI and below Exam Const: General: comfortable and no acute distress HENMT: Face/Nose/Sinus: Normal nares present Eyes: Sclera: sclerae normal Neck: Neck: supple Resp: Effort & Inspection: normal respiratory effort Cardio: Rate: regular rate GI: GI Palp: Yes Soft to palpation and No Tenderness to palpation present (GI) Auscultation: normal bowel sounds : Other: + suprapubic catheter Skin: General skin exam: normal color Neuro: Speech: normal speech Other: aaox2 Extrem: General: normal to inspection Psych: Affect: normal affect Objective Data Vital Signs Vital Signs: Vital Signs - 24 hr 09/10/24 10:02 09/10/24 10:03 09/10/24 10:15 Temperature Pulse Rate 80 80 79 Respiratory Rate 17 20 17 Blood Pressure 114/55 L Pulse Oximetry 96 94 92 Oxygen Delivery Fraction of Inspired Oxygen 09/10/24 10:17 09/10/24 10:30 09/10/24 10:32 Temperature Pulse Rate 78 78 77 Respiratory Rate 15 19 17 Blood Pressure 122/53 L 111/60 Pulse Oximetry 88 L 98 Oxygen Delivery Fraction of Inspired Oxygen 09/10/24 10:45 09/10/24 10:47 09/10/24 11:00 Temperature Pulse Rate 76 77 76 Respiratory Rate 21 H 20 20 Blood Pressure 94/77 L Pulse Oximetry Oxygen Delivery Fraction of Inspired Oxygen 09/10/24 11:02 09/10/24 11:15 09/10/24 11:18 Temperature Pulse Rate 76 83 77 Respiratory Rate 17 20 19 Blood Pressure 111/57 L 93/63 L Pulse Oximetry Oxygen Delivery Fraction of Inspired Oxygen 09/10/24 11:30 09/10/24 11:31 09/10/24 14:00 Temperature Pulse Rate 75 76 Respiratory Rate 16 17 Blood Pressure 107/48 L Pulse Oximetry Oxygen Delivery Room Air Fraction of Inspired Oxygen 09/10/24 14:00 09/10/24 20:56 09/10/24 20:00 Temperature 96.6 F L 97.7 F Pulse Rate 77 70 Respiratory Rate 18 16 Blood Pressure 118/67 116/60 Pulse Oximetry 94 94 Oxygen Delivery Room Air Fraction of Inspired Oxygen 09/11/24 04:59 09/11/24 08:20 Temperature 97.4 F L Pulse Rate 74 Respiratory Rate 16 Blood Pressure 119/63 Pulse Oximetry 95 94 Oxygen Delivery Room Air Fraction of Inspired Oxygen 21 Intake/Output Intake/Output: Intake & Output 09/08/24 09/09/24 09/10/24 09/11/24 23:59 23:59 23:59 23:59 Intake Total 1240 440 Output Total 1200 500 Balance 40 -60 Meds/Results Medications: Active Medications Generic Name Dose Route Start Last Admin Trade Name Freq PRN Reason Stop Dose Admin Acetaminophen 650 mg 09/10/24 10:48 Acetaminophen 325 Mg Tablet PO Q4H PRN Mild Pain (1-3) or Fever Albuterol/Ipratropium 3 ml 09/10/24 22:02 Ipratropium 0.5 Mg/Albuterol Sulfate 2.5 Mg Ampul.Neb 3 Ml INHALATION Q6H PRN Bronchospasm Lipase/Protease/Amylase 6 cap 09/11/24 08:00 09/11/24 08:40 Lipase/Amylase/Protease 12,000 Units Cap PO 6 cap TIDWM THELMA Administration Ferrous Sulfate 325 mg 09/11/24 09:00 09/11/24 08:40 Ferrous Sulfate [address] BY MOUTH 325 mg BID THELMA Administration Gabapentin 300 mg 09/11/24 09:00 09/11/24 08:41 Gabapentin 300 Mg Capsule PO 300 mg BID THELMA Administration Sodium Chloride 1,000 mls @ 75 mls/hr 09/10/24 18:35 09/10/24 20:11 Normal Saline Iv IV CONT 75 mls/hr .[id number] THELMA Administration Ondansetron HCl 4 mg 09/10/24 10:48 Ondansetron Inj 4 Mg/2 Ml Vial IV PUSH Q4H PRN Nausea Pantoprazole Sodium 40 mg 09/11/24 09:00 09/11/24 08:41 Pantoprazole Sodium Iv 40 Mg Vial IV PUSH 40 mg QAM THELMA Administration Polyethylene Glycol 17 gm 09/11/24 09:15 Polyethylene Glycol 3350 17 Gm Powd.Pack PO QAM THELMA Saccharomyces Boulardii 250 mg 09/11/24 09:00 09/11/24 08:40 Saccharomyces Boulardii 250 Mg Capsule PO 250 mg BID THELMA Administration Fluticasone/Salmeterol 2 puff 09/11/24 08:00 09/11/24 08:17 Fluticasone/Salmeterol 115-21 Mcg Inhaler 1 Puff INHALATION 2 puff Q12HRT THELMA Administration Tamsulosin HCl 0.4 mg 09/10/24 22:15 09/11/24 00:12 Tamsulosin Hcl 0.4 Mg Capsule PO 0.4 mg HS THELMA Administration Trazodone HCl 50 mg 09/10/24 22:15 09/11/24 00:12 Trazodone Hcl 50 Mg Tablet PO 50 mg HS THELMA Administration Radiology Results: ITS Impressions Chest/Abdomen/Pelvis CT 09/10/24 20:53 IMPRESSION: CHEST: 1. 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 2. Cardiomegaly with pulmonary hypertension and widened main pulmonary artery. 3. Atelectatic changes in the lung bases with minimal left pleural effusion ABDOMEN/PELVIS: 1. Cholelithiasis. 2. Sliding hiatus hernia. 3. Possible stone in the right kidney upper pole. Soft tissue density in the l eft kidney midpole. Follow-up advised. 4. Impacted fecal material in the rectum and sigmoid colon with constipation. Labs Labs: Laboratory Results - last 24 hr 09/10/24 09/10/24 09/10/24 07:21 09:32 19:32 WBC 8.0 RBC 3.73 L Hgb 9.1 L Hct 29.5 L MCV 79.1 L MCH 24.4 L MCHC 30.8 L RDW 20.2 H Plt Count 112 L MPV 11.8 H Immature Gran % (Auto) 0.9 H Neut % (Auto) 77.0 H Lymph % (Auto) 7.4 L [place] % (Auto) 14.6 H Eos % (Auto) 0.0 Baso % (Auto) 0.1 L Lymph # (Auto) 0.59 L [place] # (Auto) 1.2 H Eos # (Auto) 0.0 Baso # (Auto) 0.0 Abs Immat Gran (auto) 0.07 H Absolute Neuts (auto) 6.1 Absolute Nucleated RBC 0.000 Nucleated RBC % 0.0 % Immature Plt Fraction 3.6 Sodium 137 Potassium 4.5 Chloride 105 Carbon Dioxide 13 L Anion Gap 19 H BUN 103 H Creatinine 5.60 H Estim Creat Clear Calc 10 Estimated GFR 10 L Glucose 96 POC Capillary Glucose 158 H Lactic Acid 0.5 L Calcium 8.9 Phosphorus Magnesium Iron TIBC % Saturation Ferritin Total Bilirubin 0.3 AST 38 ALT 17 Alkaline Phosphatase 53 NT-Pro-B Natriuret Pep 6470 H Total Protein 7.0 Albumin 3.6 09/10/24 09/11/24 19:33 07:29 WBC 6.8 RBC 3.72 L Hgb 9.2 L Hct 30.6 L MCV 82.3 MCH 24.7 L MCHC 30.1 L RDW 20.8 H Plt Count 108 L MPV 11.3 H Immature Gran % (Auto) 1.0 H Neut % (Auto) 57.8 Lymph % (Auto) 20.9 [place] % (Auto) 20.2 H Eos % (Auto) 0.0 Baso % (Auto) 0.1 L Lymph # (Auto) 1.43 [place] # (Auto) 1.4 H Eos # (Auto) 0.0 Baso # (Auto) 0.0 Abs Immat Gran (auto) 0.07 H Absolute Neuts (auto) 4.0 Absolute Nucleated RBC 0.000 Nucleated RBC % 0.0 % Immature Plt Fraction 3.7 Sodium 141 Potassium 4.1 Chloride 108 H Carbon Dioxide 12 L Anion Gap 21 H BUN 103 H Creatinine 5.50 H Estim Creat Clear Calc 10 Estimated GFR 10 L Glucose 72 POC Capillary Glucose Lactic Acid Calcium 8.8 Phosphorus 9.1 H Magnesium 2.2 Iron 31 L TIBC 178 L % Saturation 17 L Ferritin 184.00 Total Bilirubin 0.2 AST 36 ALT 18 Alkaline Phosphatase 54 NT-Pro-B Natriuret Pep Total Protein 7.0 Albumin 3.5
[2024-09-11] MEDS: BISACODYL 10 MG SUPPOSITORY RECTAL (10:53)
[2024-09-11] MEDS: SODIUM CHLORIDE 0.9% IV 1,000 ML 75 ML IV CONT (10:55)
--- NOTE | 2024-09-11 11:54 | PM.IMPN ---
Progress Note: A&P Assessment and Plan (1) Coffee ground emesis: Code(s): K92.0 - Hematemesis Status: Acute Plan Coffee-ground emesis R/o GI bleed Hb 9.2 Iron profile pending continue Protonix, gentle rehydration Gi following Acute on chronic renal failure Cr 5.8, baseline 2.0, BUN 106 and K 5.3 Today Cr 5.5, BUN 103, k 4.1 continue IVF nephrology consulted Hyperphosphatemia Phosphorus 9.1 from [facility] Started on Sevelamer Neprhology consutled Iron deficiency anemia Hb 9.2, Isat 17 Start IV iron 100mg CHF, diastolic stable hold lasix for now BPH with indwelling catheter monitor continue home meds CVA Hold aspirin Continue Lipitor Alzheimer's disease continue home meds DVT prophylaxis on SCDs, no Ac due to GI bleed Subjective Date/time seen: 09/11/24 11:54 Interval history: Patient comfortable at bedside and alert and oriented x2 GI eval noted no endoscopy as there is no signs of active bleeds Patient Phosphorus 9.1, Cr 5.5, k 4.1 awaiting nephrology eval Review of Systems Review of Systems: Unreliable historian due to dementia. Exam Narrative: General: alert Eyes: EOMI, PERRLA ENNT External ears normal, Neck is supple, no masses, Respiratory systems: Clear to auscultation Cardiovascular S1, S2, normal rhythm, no murmur, rub, or gallop; no thrill or palpable murmurs on palpation. Gastrointestinal: soft, non-tender, and non-distended abdomen with no masses; BS present Skin: no rash, lesions, ulcerations, subcutaneous nodules or induration Musculoskeletal: no abnormality and no tenderness, normal ROM Neurologic: oriented x1, non compliant with exam Objective Data Vital Signs Vital Signs: Vital Signs - 24 hr 09/10/24 14:00 09/10/24 14:00 09/10/24 20:56 Temperature 96.6 F L 97.7 F Pulse Rate 77 70 Respiratory Rate 18 16 Blood Pressure 118/67 116/60 Pulse Oximetry 94 94 Oxygen Delivery Room Air Fraction of Inspired Oxygen 09/10/24 20:00 09/11/24 04:59 09/11/24 08:20 Temperature 97.4 F L Pulse Rate 74 Respiratory Rate 16 Blood Pressure 119/63 Pulse Oximetry 95 94 Oxygen Delivery Room Air Room Air Fraction of Inspired Oxygen 21 Intake/Output Intake/Output: Intake & Output 09/08/24 09/09/24 09/10/24 09/11/24 23:59 23:59 23:59 23:59 Intake Total 1240 1440 Output Total 1200 500 Balance 40 940 Meds/Results Medications: Active Medications Generic Name Dose Route Start Last Admin Trade Name Freq PRN Reason Stop Dose Admin Acetaminophen 650 mg 09/10/24 10:48 Acetaminophen 325 Mg Tablet PO Q4H PRN Mild Pain (1-3) or Fever Albuterol/Ipratropium 3 ml 09/10/24 22:02 Ipratropium 0.5 Mg/Albuterol Sulfate 2.5 Mg Ampul.Neb 3 Ml INHALATION Q6H PRN Bronchospasm Lipase/Protease/Amylase 6 cap 09/11/24 08:00 09/11/24 08:40 Lipase/Amylase/Protease 12,000 Units Cap PO 6 cap TIDWM THELMA Administration Ferrous Sulfate 325 mg 09/11/24 09:00 09/11/24 08:40 Ferrous Sulfate [address] BY MOUTH 325 mg BID THELMA Administration Gabapentin 300 mg 09/11/24 09:00 09/11/24 08:41 Gabapentin 300 Mg Capsule PO 300 mg BID THELMA Administration Sodium Chloride 1,000 mls @ 75 mls/hr 09/10/24 18:35 09/11/24 10:55 Normal Saline Iv IV CONT 75 mls/hr .[id number] THELMA Administration Ondansetron HCl 4 mg 09/10/24 10:48 Ondansetron Inj 4 Mg/2 Ml Vial IV PUSH Q4H PRN Nausea Pantoprazole Sodium 40 mg 09/11/24 09:00 09/11/24 08:41 Pantoprazole Sodium Iv 40 Mg Vial IV PUSH 40 mg QAM THELMA Administration Polyethylene Glycol 17 gm 09/11/24 17:00 Polyethylene Glycol 3350 17 Gm Powd.Pack PO BID THELMA Saccharomyces Boulardii 250 mg 09/11/24 09:00 09/11/24 08:40 Saccharomyces Boulardii 250 Mg Capsule PO 250 mg BID THELMA Administration Fluticasone/Salmeterol 2 puff 09/11/24 08:00 09/11/24 08:17 Fluticasone/Salmeterol 115-21 Mcg Inhaler 1 Puff INHALATION 2 puff Q12HRT THELMA Administration Tamsulosin HCl 0.4 mg 09/10/24 22:15 09/11/24 00:12 Tamsulosin Hcl 0.4 Mg Capsule PO 0.4 mg HS THELMA Administration Trazodone HCl 50 mg 09/10/24 22:15 09/11/24 00:12 Trazodone Hcl 50 Mg Tablet PO 50 mg HS THELMA Administration Radiology Results: ITS Impressions Chest/Abdomen/Pelvis CT 09/10/24 20:53 IMPRESSION: CHEST: 1. 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 2. Cardiomegaly with pulmonary hypertension and widened main pulmonary artery. 3. Atelectatic changes in the lung bases with minimal left pleural effusion ABDOMEN/PELVIS: 1. Cholelithiasis. 2. Sliding hiatus hernia. 3. Possible stone in the right kidney upper pole. Soft tissue density in the left kidney midpole. Follow-up advised. 4. Impacted fecal material in the rectum and sigmoid colon with constipation. Labs Labs: Laboratory Results - last 24 hr 09/10/24 09/10/24 09/11/24 19:32 19:33 07:29 WBC 8.0 6.8 RBC 3.73 L 3.72 L Hgb 9.1 L 9.2 L Hct 29.5 L 30.6 L MCV 79.1 L 82.3 MCH 24.4 L 24.7 L MCHC 30.8 L 30.1 L RDW 20.2 H 20.8 H Plt Count 112 L 108 L MPV 11.8 H 11.3 H Immature Gran % (Auto) 0.9 H 1.0 H Neut % (Auto) 77.0 H 57.8 Lymph % (Auto) 7.4 L 20.9 [place] % (Auto) 14.6 H 20.2 H Eos % (Auto) 0.0 0.0 Baso % (Auto) 0.1 L 0.1 L Lymph # (Auto) 0.59 L 1.43 [place] # (Auto) 1.2 H 1.4 H Eos # (Auto) 0.0 0.0 Baso # (Auto) 0.0 0.0 Abs Immat Gran (auto) 0.07 H 0.07 H Absolute Neuts (auto) 6.1 4.0 Absolute Nucleated RBC 0.000 0.000 Nucleated RBC % 0.0 0.0 % Immature Plt Fraction 3.6 3.7 Sodium 137 141 Potassium 4.5 4.1 Chloride 105 108 H Carbon Dioxide 13 L 12 L Anion Gap 19 H 21 H BUN 103 H 103 H Creatinine 5.60 H 5.50 H Estim Creat Clear Calc 10 10 Estimated GFR 10 L 10 L Glucose 96 72 Lactic Acid 0.5 L Calcium 8.9 8.8 Phosphorus 9.1 H Magnesium 2.2 Iron 31 L TIBC 178 L % Saturation 17 L Ferritin 184.00 Total Bilirubin 0.3 0.2 AST 38 36 ALT 17 18 Alkaline Phosphatase 53 54 Total Protein 7.0 7.0 Albumin 3.6 3.5
[2024-09-11] MEDS: SEVELAMER CARBONATE 800 MG TABLET PO ×2 (12:34→17:48)
[2024-09-11 14:00] VITALS: BP 111/42; PULSE 65; RESP 18; TEMP 36.2; O2SAT 95
--- NOTE | 2024-09-11 14:05 | P.CONNP_ITS ---
History of Present Illness Reason for Consult Consult date: 09/11/24 Reason for consult: acute renal failure (on chronic kidney disease) Chief Complaint Chief complaint: upper GI bleed; JANA on CKD; Review of Systems Review of Systems: As per HPI. [facility] Past Medical History Medical History (Updated 09/11/24 @ 09:36 by Christiano Sanchez MD) Acute on chronic renal failure Alzheimer's dementia with agitation Anemia Anxiety disorder, unspecified BPH (benign prostatic hyperplasia) Chronic ankle pain Chronic indwelling Choudhury catheter Chronic kidney disease COVID-19 CVA (cerebral vascular accident) Essential hypertension Fecal impaction in rectum GERD (gastroesophageal reflux disease) Heart failure, unspecified Hemiplegia affecting left nondominant side History of 2019 novel coronavirus disease (COVID-19) Hypertension IBS (irritable bowel syndrome) Osteoarthritis Overactive bladder Pressure ulcer of sacral region, unspecified stage Seasonal allergic rhinitis 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 Mother , Patient does not know cause No problems noted. Other Unknown family medical history Social History Social History (Updated 09/10/24 @ 08:17 by Manda Aguilar MD) Social History: Patient became debilitated after stroke in 2013, he lost bladder control in 2016 after having multiple back surgery and now has indwelling Choudhury catheter. He has been senior living [facility] since 2017. Patient wheelchair and bed-bound. The patient is and has 1 child who is the durable power commercial attorney for healthcare. The patient is a former smoker. No alcohol marijuana or illicit drugs. Code status full code per senior living documentation Including POLST dated 2017 Smoking status: Former smoker Tobacco type: cigarettes Second hand tobacco smoke exposure: No Alcohol intake: never Alcohol use details: Quit in 2013 Substance use: never Substance use type: does not use Do You Feel Safe in your Home?: Yes Lack of Transportation: No Lack of Food: Never True Current Housing: I Have Housing Concerned About Future Housing: No Difficulty Paying Gas/Electric Bills: No Difficulty Paying for Meds: No Currently Unemployed: No Education: High School Diploma/GED Difficulty w/ Childcare or Family Care: No Living arrangements: senior living Additional living arrangements comments: [facility] [place] since 02/03/24 Occupation/Education: retired Gender identity (if verbalized by the patient): Male Spiritual care concerns: No Meds Home Medications and Allergies Home Medications Medication Instructions Recorded Confirmed Type Procardia XL 30 mg PO DAILY 11/05/20 09/10/24 History atenolol 50 mg tablet 50 mg PO DAILY 11/05/20 09/10/24 History cholecalciferol (vitamin D3) 25 1,000 unit PO DAILY 11/05/20 09/10/24 History mcg (1,000 unit) tablet finasteride 5 mg tablet (Proscar) 5 mg PO DAILY 11/05/20 09/10/24 History gabapentin 300 mg tablet 300 mg PO BID 11/05/20 09/10/24 History xijjir-yldtiaxj-ojjuygb 3 cap PO TID 11/05/20 09/10/24 History 24,000-76,000-120,000 unit capsule,delayed rel (Creon) mirabegron 25 mg tablet,extended 25 mg PO DAILY 11/05/20 09/10/24 History release 24 hr (Myrbetriq) multivitamin-ferrous 1 tablet PO DAILY 11/05/20 09/10/24 History fumarate-folic acid 18 mg-400 mcg tablet (Centrum) omeprazole 20 mg capsule,delayed 20 mg PO HS 11/05/20 09/10/24 History release tamsulosin 0.4 mg capsule 0.46 mg PO HS 11/05/20 09/10/24 History fluticasone propionate 50 1 spray intranasal DAILY #16 grams 12/18/21 09/10/24 Rx mcg/actuation nasal spray,suspension colestipol 1 gram tablet 1 g PO TID 02/05/22 09/10/24 History loperamide 2 mg PO BID 02/05/22 09/10/24 History sertraline 50 mg tablet 75 mg PO DAILY 02/05/22 09/10/24 History bisacodyl 10 mg rectal suppository 10 mg RECTAL PRN PRN Constipation 08/28/22 09/10/24 History magnesium hydroxide 400 mg/5 mL 30 ml PO HS PRN Constipation 08/28/22 09/10/24 History oral suspension (Milk of Magnesia) aspirin 81 mg tablet,delayed 81 mg PO QAM #30 tabs 08/30/22 09/10/24 Rx release atorvastatin 20 mg tablet 20 mg PO DAILY #30 tabs 08/30/22 09/10/24 Rx aluminum-mag hydroxide-simethicone 10 ml PO TID PRN Indigestion 04/14/23 09/10/24 History 400 mg-400 mg-40 mg/5 mL oral susp ipratropium 0.5 mg-albuterol 3 mg 3 ml inhalation Q6H PRN 04/14/23 09/10/24 History (2.5 mg base)/3 mL nebulization Bronchospasm soln trazodone 50 mg tablet 50 mg PO HS 11/01/23 09/10/24 History acetaminophen 325 mg tablet 650 mg PO Q4H PRN Mild Pain (1-3) 11/09/23 09/10/24 Rx Or Fever #0 tabs bumetanide 1 mg tablet 1 mg PO DAILY #0 tabs 11/09/23 09/10/24 Rx epoetin [place]-epbx 10,000 unit/mL 10,000 unit subcut MOWEFR@09 #10 mL 11/09/23 09/10/24 Rx injection solution (Retacrit) vitamins A,C,A-brzw-lpyhlm 4,296 1 cap PO DAILY 02/09/24 09/10/24 History mcg-226 mg-90 mg capsule (PreserVision AREDS) calcium carbonate 500 mg PO BID 07/22/24 09/10/24 History dicyclomine 20 mg tablet 20 mg PO QID 07/22/24 09/10/24 History oxycodone 5 mg tablet 5 mg PO Q12H PRN Pain (Scale Score 07/22/24 09/10/24 History 7-10) pseudoephedrine-guaifenesin ER 60 1 tablet PO Q12H PRN Cough 07/22/24 09/10/24 History mg-600 mg tablet,extend release 12hr (Mucinex D) Saccharomyces boulardii 250 mg 250 mg PO BID 09/10/24 09/10/24 History capsule budesonide-formoterol HFA 160 2 puff inhalation Q12H 09/10/24 09/10/24 History mcg-4.5 mcg/actuation aerosol inhaler (Symbicort) ferrous sulfate 325 mg (65 mg 325 mg PO BID 09/10/24 09/10/24 History iron) tablet magnesium citrate (Citroma oral 296 ml PO ONCE 09/10/24 09/10/24 History solution) sodium phosphates 19 gram-7 118 ml RECTAL ONCE 09/10/24 09/10/24 History gram/118 mL enema (Fleet Enema) sulfamethoxazole 800 1 tablet PO Q12H 09/10/24 09/10/24 History mg-trimethoprim 160 mg tablet (Bactrim DS) vitamin B complex-vitamin C-folic 1 tablet PO DAILY 09/10/24 09/10/24 History acid 0.8 mg tablet (Renal-Robe) Allergies Allergy/AdvReac Type Severity Reaction Status Date / Time No Known Allergies Allergy Verified 07/22/24 09:35 Vital Signs Vital Signs Temp Pulse Resp BP Pulse Ox O2 Del Method FiO2 09/11/24 14:00 97.2 F L 65 18 111/42 L 95 09/11/24 08:20 Room Air 09/11/24 08:20 94 Room Air 21 09/11/24 04:59 97.4 F L 74 16 119/63 95 09/10/24 20:00 Room Air 09/10/24 20:56 97.7 F 70 16 116/60 94 Exam Narrative: GENERAL APPEARANCE: elderly and frail appearing male in no acute distress HEENT: normocephalic, atraumatic, normal conjunctiva and sclera, nares patient NECK: no lymphadenopathy, thyromegaly, or JVD MOUTH: normal lips, teeth, and gums CARDIOVASCULAR: IRRR, normal S1 and S2, no rub RESPIRATORY: clear to auscultation bilaterally ABDOMEN: soft, nontender, nondistended, positive bowel sounds present EXTREMITIES: no evidence of cyanosis, clubbing, or edema NEUROLOGICAL: awake and alert; no focal deficits noted Results Lab Results 09/11/24 07:29 09/11/24 07:29 Lab results: Most recent lab results Calcium 8.8 mg/dL (8.4-10.2) 09/11/24 07:29 Phosphorus 9.1 mg/dL (2.5-4.5) H 09/11/24 07:29 Magnesium 2.2 mg/dL (1.6-2.3) 09/11/24 07:29 Urine Creatinine 47.8 mg/dL 09/11/24 14:05 Urine Creatinine Cancelled 09/11/24 14:05
[2024-09-11 14:34] LABS: Add Urine Microscopic? YES; Appearance Urine Cloudy (Clear); Bacteria Urine 4+ /hpf; Bilirubin Urine Negative (Negative); Blood Urine 3+ (Negative); Color Urine Yellow (Yellow); Glucose Urine UA Negative (Negative); Ketones Urine Negative (Negative); Leukocyte Esterase Ur 3+ LEU/UL (Negative); Need Manual Microscopic Reviewed; Nitrate Urine Negative (Negative); Protein Urine 2+ mg/dL (Negative); RBC Urine >100 /hpf (0-2); Specific Grav Ur 1.013 (1.001-1.035); Squamous Epithelial Cell Urine Occasional /hpf (Few); Triple Phosphate Crystal Urine Present /hpf; Urobilinogen Urine 0.2 mg/dL (<2.0); pH Urine >=9.0 (5.0-9.0)
[2024-09-11 14:52] LABS: Urea Random Urine 554 MG/DL
[2024-09-11 14:53] LABS: Creatinine Urine 47.8 mg/dL; Total Protein Urine Random 111 mg/dL; Ur Ttl Prot Creatinine Ratio 2.32 mg/mg (0-0.20)
[2024-09-11 14:54] LABS: Sodium Urine Random 73 meq/L
[2024-09-11 15:25] LABS: Eosinophil Urine None Seen % (None Seen); Urine Eos QC 2nd Tech Confirmed
[2024-09-11 20:43] VITALS: O2SAT 93
[2024-09-11 21:04] VITALS: BP 128/52; PULSE 68; RESP 18; TEMP 36.6; O2SAT 95
--- NOTE | 2024-09-12 01:41 | PC.NURSE ---
Daylight Savings Time For Daylight Savings Time Ending in the Fall - Clocks are moved back. For Daylight Savings Time Beginning in the Spring - Clocks are moved ahead. For [facility], the time of change occurs at 0200 hrs. Time is taken from the senior sql server dba. This entry on the patient's chart recognizes the change in time reflected during documentation. Example: 2 entries for vital signs may be charted for 0200 hrs.
[2024-09-12] MEDS: SODIUM CHLORIDE 0.9% IV 1,000 ML 75 ML IV CONT (05:52)
[2024-09-12 06:00] VITALS: BP 113/47; PULSE 72; RESP 20; TEMP 36.4; O2SAT 94
[2024-09-12 08:08] LABS: Basophils Percent Auto 0.1 % (0.2-1.2); Eosinophils Percent Auto 0.1 % (0-4.4); Hematocrit 30.1 % (42.0-52.0); Hemoglobin 9.2 g/dL (14.0-18.0); Immature Granulocyte Absolute 0.08 K/mm3 (0.00-0.031); Immature Platelet Fraction Pct 3.6 % (0.9-11.2); Lymphocytes Absolute Auto 1.26 K/mm3 (0.9-3.2); Lymphocytes Percent Auto 15.9 % (18.3-44.2); Mean Corpuscular HGB Conc 30.6 g/dl (32-36); Mean Corpuscular Hemoglobin 24.7 pg (26-34); Mean Corpuscular Volume 80.9 fl (80-100); Mean Platelet Volume 12.1 fl (7.4-10.4); Monocytes Absolute Auto 1.6 K/mm3 (0.1-0.6); Monocytes Percent Auto 19.6 % (2.6-8.5); Neutrophils Percent Auto 63.3 % (45.5-73.1); Platelet Count Result 104 k/mm3 (150-375); Red Blood Count 3.72 M/mm3 (4.6-6.20); Red Cell Distribution Width 20.8 % (11.5-14.5); White Blood Count 7.9 K/mm3 (4.5-10.0)
[2024-09-12 08:39] VITALS: PULSE 73; RESP 20; O2SAT 94
[2024-09-12] MEDS: FLUTICASONE/SALMETEROL 115-21 MCG INHALER 1 PUFF 2 PUFF INHALATION ×2 (08:39→20:43)
[2024-09-12 08:41] LABS: Alanine Aminotransferase 16 U/L (6-50); Albumin Level 3.3 g/dL (3.5-5.1); Alkaline Phosphatase 57 U/L (38-126); Anion Gap 18 mmol/L (4-12); Aspartate Amino Transferase 26 U/L (17-59); Bilirubin,Total 0.2 mg/dL (0.2-1.3); Blood Urea Nitrogen 96 mg/dL (9-20); Calcium 8.3 mg/dL (8.4-10.2); Carbon Dioxide 12 mmol/L (22-30); Chloride 109 mmol/L (98-107); Creatine Kinase 70 U/L (55-170); Estimated CRCL calculation 13 ml/min; Estimated Glomerular Filt Rate 13; Glucose 97 mg/dL (65-110); Potassium 3.7 mmol/L (3.4-5.0); Sodium 139 mmol/L (137-145)
[2024-09-12] MEDS: SEVELAMER CARBONATE 800 MG TABLET PO ×3 (09:37→16:37)
[2024-09-12] MEDS: LIPASE/AMYLASE/PROTEASE 12,000 UNITS CAP 6 CAP PO ×3 (09:37→16:36)
[2024-09-12] MEDS: PANTOPRAZOLE SODIUM IV 40 MG VIAL IV PUSH (09:37)
[2024-09-12] MEDS: FERROUS SULFATE 325 MG TABLET DR BY MOUTH ×2 (09:37→16:37)
[2024-09-12] MEDS: SODIUM BICARBONATE TAB 650 MG TABLET 1300 MG PO ×2 (09:37→16:37)
[2024-09-12] MEDS: SACCHAROMYCES BOULARDII 250 MG CAPSULE PO ×2 (09:37→16:37)
[2024-09-12] MEDS: polyethylene glycoL 3350 17 GM POWD.PACK PO (09:37)
[2024-09-12] MEDS: GABAPENTIN 300 MG CAPSULE PO ×2 (09:37→16:36)
[2024-09-12 09:57] LABS: Phosphorus 6.3 mg/dL (2.5-4.5)
[2024-09-12] MEDS: IRON SUCROSE COMPLEX 100 MG in SODIUM CHLORIDE 0.9% IV 50 ML 220 MG IVPB (11:20)
--- NOTE | 2024-09-12 12:27 | PM.PNNEP ---
Subjective Date/time seen: 09/12/24 12:27 Interval history: Follow-up for acute kidney injury/acute renal failure on chronic kidney disease. No apparent distress noted at the time of my visit; improvement in renal function/creatinine noted with stable urine output noted; no apparent distress voiced currently; no issues/events overnight or earlier this morning. Objective Data Vital Signs Vital Signs: Vital Signs Temp Pulse Resp BP Pulse Ox O2 Del Method FiO2 09/12/24 09:37 Room Air 09/12/24 08:39 73 20 09/12/24 08:39 94 Room Air 21 09/12/24 06:00 97.6 F 72 20 113/47 L 94 09/11/24 20:00 Room Air 09/11/24 20:43 93 Room Air 09/11/24 21:04 97.8 F 68 18 128/52 L 95 09/11/24 14:00 97.2 F L 65 18 111/42 L 95 Intake/Output Intake/Output: Intake & Output 09/09/24 09/10/24 09/11/24 09/12/24 23:59 23:59 23:59 22:59 Intake Total 1240 1920 1690 Output Total 1200 1020 1000 Balance 40 900 690 Meds/Results Medications: Active Medications Generic Name Dose Route Start Last Admin Trade Name Freq PRN Reason Stop Dose Admin Acetaminophen 650 mg 09/10/24 10:48 Acetaminophen 325 Mg Tablet PO Q4H PRN Mild Pain (1-3) or Fever Albuterol/Ipratropium 3 ml 09/10/24 22:02 Ipratropium 0.5 Mg/Albuterol Sulfate 2.5 Mg Ampul.Neb 3 Ml INHALATION Q6H PRN Bronchospasm Lipase/Protease/Amylase 6 cap 09/11/24 08:00 09/12/24 09:37 Lipase/Amylase/Protease 12,000 Units Cap PO 6 cap TIDWM THELMA Administration Ferrous Sulfate 325 mg 09/11/24 09:00 09/12/24 09:37 Ferrous Sulfate [address] BY MOUTH 325 mg BID THELMA Administration Gabapentin 300 mg 09/11/24 09:00 09/12/24 09:37 Gabapentin 300 Mg Capsule PO 300 mg BID THELMA Administration Sodium Chloride 1,000 mls @ 75 mls/hr 09/10/24 18:35 09/12/24 05:52 Normal Saline Iv IV CONT 75 mls/hr .[id number] THELMA Administration Iron Sucrose 100 mg/ Sodium 55 mls @ 220 mls/hr 09/12/24 09:00 09/12/24 11:20 Chloride IVPB 220 mls/hr DAILY THELMA Administration Ondansetron HCl 4 mg 09/10/24 10:48 Ondansetron Inj 4 Mg/2 Ml Vial IV PUSH Q4H PRN Nausea Pantoprazole Sodium 40 mg 09/11/24 09:00 09/12/24 09:37 Pantoprazole Sodium Iv 40 Mg Vial IV PUSH 40 mg QAM THELMA Administration Polyethylene Glycol 17 gm 09/11/24 17:00 09/12/24 09:37 Polyethylene Glycol 3350 17 Gm Powd.Pack PO 17 gm BID THELMA Administration Saccharomyces Boulardii 250 mg 09/11/24 09:00 09/12/24 09:37 Saccharomyces Boulardii 250 Mg Capsule PO 250 mg BID THELMA Administration Fluticasone/Salmeterol 2 puff 09/11/24 08:00 09/12/24 08:39 Fluticasone/Salmeterol 115-21 Mcg Inhaler 1 Puff INHALATION 2 puff Q12HRT THELMA Administration Sevelamer Carbonate 800 mg 09/11/24 12:00 09/12/24 09:37 Sevelamer Carbonate 800 Mg Tablet PO 800 mg TIDWM THELMA Administration Sodium Bicarbonate 1,300 mg 09/12/24 09:00 09/12/24 09:37 Sodium Bicarbonate Tab 650 Mg Tablet PO 1,300 mg BID THELMA Administration Tamsulosin HCl 0.4 mg 09/10/24 22:15 09/11/24 21:40 Tamsulosin Hcl 0.4 Mg Capsule PO Not Given HS THELMA Trazodone HCl 50 mg 09/10/24 22:15 09/11/24 21:40 Trazodone Hcl 50 Mg Tablet PO 50 mg HS THELMA Administration Radiology Results: ITS Impressions Chest/Abdomen/Pelvis CT 09/10/24 20:53 IMPRESSION: CHEST: 1. 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 2. Cardiomegaly with pulmonary hypertension and widened main pulmonary artery. 3. Atelectatic changes in the lung bases with minimal left pleural effusion ABDOMEN/PELVIS: 1. Cholelithiasis. 2. Sliding hiatus hernia. 3. Possible stone in the right kidney upper pole. Soft tissue density in the left kidney midpole. Follow-up advised. 4. Impacted fecal material in the rectum and sigmoid colon with constipation. Labs Labs: Laboratory Tests 09/12/24 07:45 09/12/24 07:45 Calcium 8.3 L Phosphorus 6.3 H Magnesium 2.0 Total Bilirubin 0.2 AST 26 ALT 16 Alkaline Phosphatase 57 Total Creatine Kinase 70 Total Protein 7.0 Albumin 3.3 L
[2024-09-12 14:00] VITALS: BP 122/51; PULSE 82; RESP 16; TEMP 37; O2SAT 93
--- NOTE | 2024-09-12 14:14 | PM.IMPN ---
Progress Note: A&P Assessment and Plan (1) Coffee ground emesis: Code(s): K92.0 - Hematemesis Status: Acute Plan Coffee-ground emesis R/o GI bleed Hb 9.2 Isat 17 continue Protonix, gentle rehydration Gi following Acute on chronic renal failure Cr 5.8, baseline 2.0, BUN 106 and K 5.3 Today Cr 4.4, BUN 96, k 3.7 continue IVF nephrology consulted Hyperphosphatemia Phosphorus 9.1 --> 6.3 from ARF on Sevelamer Nephrology consulted Metabolic acidosis from ARF CO2 12 Started on Bicarb monitor Nephrology consulted Iron deficiency anemia Hb 9.2, Isat 17 IV iron 200/1000 CHF, diastolic stable hold lasix for now BPH with indwelling catheter monitor continue home meds CVA Hold aspirin Continue Lipitor Alzheimer's disease continue home meds DVT prophylaxis on SCDs, no Ac due to GI bleed Subjective Date/time seen: 09/12/24 14:14 Interval history: Patient comfortable at bedside and alert and oriented x2 Phosphorus 6.3, CO2 12, and Cr 4.4 and BUN 96 Review of Systems Review of Systems: Unreliable historian due to dementia. Exam Narrative: General: alert Eyes: EOMI, PERRLA ENNT External ears normal, Neck is supple, no masses, Respiratory systems: Clear to auscultation Cardiovascular S1, S2, normal rhythm, no murmur, rub, or gallop; no thrill or palpable murmurs on palpation. Gastrointestinal: soft, non-tender, and non-distended abdomen with no masses; BS present Skin: no rash, lesions, ulcerations, subcutaneous nodules or induration Musculoskeletal: no abnormality and no tenderness, normal ROM Neurologic: oriented x1, non compliant with exam Objective Data Vital Signs Vital Signs: Vital Signs - 24 hr 09/11/24 21:04 09/11/24 20:43 09/11/24 20:00 Temperature 97.8 F Pulse Rate 68 Respiratory Rate 18 Blood Pressure 128/52 L Pulse Oximetry 95 93 Oxygen Delivery Room Air Room Air Fraction of Inspired Oxygen 09/12/24 06:00 09/12/24 08:39 09/12/24 08:39 Temperature 97.6 F Pulse Rate 72 73 Respiratory Rate 20 20 Blood Pressure 113/47 L Pulse Oximetry 94 94 Oxygen Delivery Room Air Fraction of Inspired Oxygen 09/12/24 09:37 Temperature Pulse Rate Respiratory Rate Blood Pressure Pulse Oximetry Oxygen Delivery Room Air Fraction of Inspired Oxygen Intake/Output Intake/Output: Intake & Output 09/09/24 09/10/24 09/11/24 09/12/24 23:59 23:59 23:59 22:59 Intake Total 1240 1920 1690 Output Total 1200 1020 1000 Balance 40 900 690 Meds/Results Medications: Active Medications Generic Name Dose Route Start Last Admin Trade Name Freq PRN Reason Stop Dose Admin Acetaminophen 650 mg 09/10/24 10:48 Acetaminophen 325 Mg Tablet PO Q4H PRN Mild Pain (1-3) or Fever Albuterol/Ipratropium 3 ml 09/10/24 22:02 Ipratropium 0.5 Mg/Albuterol Sulfate 2.5 Mg Ampul.Neb 3 Ml INHALATION Q6H PRN Bronchospasm Lipase/Protease/Amylase 6 cap 09/11/24 08:00 09/12/24 12:57 Lipase/Amylase/Protease 12,000 Units Cap PO 6 cap TIDWM THELMA Administration Ferrous Sulfate 325 mg 09/11/24 09:00 09/12/24 09:37 Ferrous Sulfate [address] BY MOUTH 325 mg BID THELMA Administration Gabapentin 300 mg 09/11/24 09:00 09/12/24 09:37 Gabapentin 300 Mg Capsule PO 300 mg BID THELMA Administration Sodium Chloride 1,000 mls @ 75 mls/hr 09/10/24 18:35 09/12/24 12:59 Normal Saline Iv IV CONT Not Given .[id number] THELMA Iron Sucrose 100 mg/ Sodium 55 mls @ 220 mls/hr 09/12/24 09:00 09/12/24 11:20 Chloride IVPB 220 mls/hr DAILY THELMA Administration Ondansetron HCl 4 mg 09/10/24 10:48 Ondansetron Inj 4 Mg/2 Ml Vial IV PUSH Q4H PRN Nausea Pantoprazole Sodium 40 mg 09/11/24 09:00 09/12/24 09:37 Pantoprazole Sodium Iv 40 Mg Vial IV PUSH 40 mg QAM THELMA Administration Polyethylene Glycol 17 gm 09/11/24 17:00 09/12/24 09:37 Polyethylene Glycol 3350 17 Gm Powd.Pack PO 17 gm BID THELMA Administration Saccharomyces Boulardii 250 mg 09/11/24 09:00 09/12/24 09:37 Saccharomyces Boulardii 250 Mg Capsule PO 250 mg BID THELMA Administration Fluticasone/Salmeterol 2 puff 09/11/24 08:00 09/12/24 08:39 Fluticasone/Salmeterol 115-21 Mcg Inhaler 1 Puff INHALATION 2 puff Q12HRT THELMA Administration Sevelamer Carbonate 800 mg 09/11/24 12:00 09/12/24 12:57 Sevelamer Carbonate 800 Mg Tablet PO 800 mg TIDWM THELMA Administration Sodium Bicarbonate 1,300 mg 09/12/24 09:00 09/12/24 09:37 Sodium Bicarbonate Tab 650 Mg Tablet PO 1,300 mg BID THELMA Administration Sodium Bicarbonate 650 mg 09/12/24 17:00 Sodium Bicarbonate Tab 650 Mg Tablet PO BID THELMA Tamsulosin HCl 0.4 mg 09/10/24 22:15 09/11/24 21:40 Tamsulosin Hcl 0.4 Mg Capsule PO Not Given HS THELMA Trazodone HCl 50 mg 09/10/24 22:15 09/11/24 21:40 Trazodone Hcl 50 Mg Tablet PO 50 mg HS THELMA Administration Radiology Results: ITS Impressions Chest/Abdomen/Pelvis CT 09/10/24 20:53 IMPRESSION: CHEST: 1. 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 2. Cardiomegaly with pulmonary hypertension and widened main pulmonary artery. 3. Atelectatic changes in the lung bases with minimal left pleural effusion ABDOMEN/PELVIS: 1. Cholelithiasis. 2. Sliding hiatus hernia. 3. Possible stone in the right kidney upper pole. Soft tissue density in the left kidney midpole. Follow-up advised. 4. Impacted fecal material in the rectum and sigmoid colon with constipation. Labs Labs: Laboratory Results - last 24 hr 09/11/24 09/12/24 14:05 07:45 WBC 7.9 RBC 3.72 L Hgb 9.2 L Hct 30.1 L MCV 80.9 MCH 24.7 L MCHC 30.6 L RDW 20.8 H Plt Count 104 L MPV 12.1 H Immature Gran % (Auto) 1.0 H Neut % (Auto) 63.3 Lymph % (Auto) 15.9 L [place] % (Auto) 19.6 H Eos % (Auto) 0.1 Baso % (Auto) 0.1 L Lymph # (Auto) 1.26 [place] # (Auto) 1.6 H Eos # (Auto) 0.0 Baso # (Auto) 0.0 Abs Immat Gran (auto) 0.08 H Absolute Neuts (auto) 5.0 Absolute Nucleated RBC 0.000 Nucleated RBC % 0.0 % Immature Plt Fraction 3.6 Sodium 139 Potassium 3.7 Chloride 109 H Carbon Dioxide 12 L Anion Gap 18 H BUN 96 H Creatinine 4.40 H Estim Creat Clear Calc 13 Estimated GFR 13 L Glucose 97 Calcium 8.3 L Phosphorus 6.3 H Magnesium 2.0 Total Bilirubin 0.2 AST 26 ALT 16 Alkaline Phosphatase 57 Total Creatine Kinase 70 Total Protein 7.0 Albumin 3.3 L Urine Eosinophils None seen
--- NOTE | 2024-09-12 14:40 | WPDGIPROGNO ---
Progress Note: A&P Assessment and Plan (1) Coffee ground emesis: Code(s): K92.0 - Hematemesis Status: Acute Assessment and Plan: patient denies any episode, hospital staff has not witnessed anything here h/h near baseline, he is eating medical treatment with ppi daily no egd unless any changes no melena in fact he has fecal impaction will follow as needed (2) Acute on chronic renal failure: Code(s): N17.9 - Acute kidney failure, unspecified; N18.9 - Chronic kidney disease, unspecified Status: Acute Assessment and Plan: nephrology on board (3) Hyperkalemia: Code(s): E87.5 - Hyperkalemia Status: Acute Assessment and Plan: resolved after treatment (4) Normocytic anemia: Code(s): D64.9 - Anemia, unspecified Status: Acute Assessment and Plan: stable (5) Alzheimer's dementia with agitation: Code(s): G30.9 - Alzheimer's disease, unspecified; F02.811 - Dementia in other diseases classified elsewhere, unspecified severity, with agitation Status: Acute (6) Fecal impaction in rectum: Code(s): K56.41 - Fecal impaction Status: Acute Assessment and Plan: CT scan reviewed, abdominal exam benign on miralax Subjective Date/time seen: 09/12/24 14:40 Interval history: no changes, he is comfortable no report of emesis or gib Review of Systems Review of Systems: All systems reviewed & are unremarkable except as noted in HPI and below Exam Const: General: comfortable and no acute distress HENMT: Face/Nose/Sinus: Normal nares present Eyes: Sclera: sclerae normal Neck: Neck: supple Resp: Effort & Inspection: normal respiratory effort Cardio: Rate: regular rate GI: GI Palp: Yes Soft to palpation and No Tenderness to palpation present (GI) Auscultation: normal bowel sounds : Other: + suprapubic catheter Skin: General skin exam: normal color Neuro: Speech: normal speech Other: [email or web address] Extrem: General: normal to inspection Psych: Affect: normal affect Objective Data Vital Signs Vital Signs: Vital Signs - 24 hr 09/11/24 21:04 09/11/24 20:43 09/11/24 20:00 Temperature 97.8 F Pulse Rate 68 Respiratory Rate 18 Blood Pressure 128/52 L Pulse Oximetry 95 93 Oxygen Delivery Room Air Room Air Fraction of Inspired Oxygen 21 09/12/24 06:00 09/12/24 08:39 09/12/24 08:39 Temperature 97.6 F Pulse Rate 72 73 Respiratory Rate 20 20 Blood Pressure 113/47 L Pulse Oximetry 94 94 Oxygen Delivery Room Air Fraction of Inspired Oxygen 21 09/12/24 09:37 Temperature Pulse Rate Respiratory Rate Blood Pressure Pulse Oximetry Oxygen Delivery Room Air Fraction of Inspired Oxygen Intake/Output Intake/Output: Intake & Output 09/09/24 09/10/24 09/11/24 09/12/24 23:59 23:59 23:59 22:59 Intake Total 1240 1920 1690 Output Total 1200 1020 1000 Balance 40 900 690 Meds/Results Medications: Active Medications Generic Name Dose Route Start Last Admin Trade Name Freq PRN Reason Stop Dose Admin Acetaminophen 650 mg 09/10/24 10:48 Acetaminophen 325 Mg Tablet PO Q4H PRN Mild Pain (1-3) or Fever Albuterol/Ipratropium 3 ml 09/10/24 22:02 Ipratropium 0.5 Mg/Albuterol Sulfate 2.5 Mg Ampul.Neb 3 Ml INHALATION Q6H PRN Bronchospasm Lipase/Protease/Amylase 6 cap 09/11/24 08:00 09/12/24 12:57 Lipase/Amylase/Protease 12,000 Units Cap PO 6 cap TIDWM THELMA Administration Ferrous Sulfate 325 mg 09/11/24 09:00 09/12/24 09:37 Ferrous Sulfate [address] BY MOUTH 325 mg BID THELMA Administration Gabapentin 300 mg 09/11/24 09:00 09/12/24 09:37 Gabapentin 300 Mg Capsule PO 300 mg BID THELMA Administration Sodium Chloride 1,000 mls @ 75 mls/hr 09/10/24 18:35 09/12/24 12:59 Normal Saline Iv IV CONT Not Given .[id number] THELMA Iron Sucrose 100 mg/ Sodium 55 mls @ 220 mls/hr 09/12/24 09:00 09/12/24 11:20 Chloride IVPB 220 mls/hr DAILY THELMA Administration Ondansetron HCl 4 mg 09/10/24 10:48 Ondansetron Inj 4 Mg/2 Ml Vial IV PUSH Q4H PRN Nausea Pantoprazole Sodium 40 mg 09/11/24 09:00 09/12/24 09:37 Pantoprazole Sodium Iv 40 Mg Vial IV PUSH 40 mg QAM THELMA Administration Polyethylene Glycol 17 gm 09/11/24 17:00 09/12/24 09:37 Polyethylene Glycol 3350 17 Gm Powd.Pack PO 17 gm BID THELMA Administration Saccharomyces Boulardii 250 mg 09/11/24 09:00 09/12/24 09:37 Saccharomyces Boulardii 250 Mg Capsule PO 250 mg BID THELMA Administration Fluticasone/Salmeterol 2 puff 09/11/24 08:00 09/12/24 08:39 Fluticasone/Salmeterol 115-21 Mcg Inhaler 1 Puff INHALATION 2 puff Q12HRT THELMA Administration Sevelamer Carbonate 800 mg 09/11/24 12:00 09/12/24 12:57 Sevelamer Carbonate 800 Mg Tablet PO 800 mg TIDWM THELMA Administration Sodium Bicarbonate 1,300 mg 09/12/24 09:00 09/12/24 09:37 Sodium Bicarbonate Tab 650 Mg Tablet PO 1,300 mg BID THELMA Administration Sodium Bicarbonate 650 mg 09/12/24 17:00 Sodium Bicarbonate Tab 650 Mg Tablet PO BID THELMA Tamsulosin HCl 0.4 mg 09/10/24 22:15 09/11/24 21:40 Tamsulosin Hcl 0.4 Mg Capsule PO Not Given HS THELMA Trazodone HCl 50 mg 09/10/24 22:15 09/11/24 21:40 Trazodone Hcl 50 Mg Tablet PO 50 mg HS THELMA Administration Radiology Results: ITS Impressions Chest/Abdomen/Pelvis CT 09/10/24 20:53 IMPRESSION: CHEST: 1. 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 2. Cardiomegaly with pulmonary hypertension and widened main pulmonary artery. 3. Atelectatic changes in the lung bases with minimal left pleural effusion ABDOMEN/PELVIS: 1. Cholelithiasis. 2. Sliding hiatus hernia. 3. Possible stone in the right kidney upper pole. Soft tissue density in the left kidney midpole. Follow-up advised. 4. Impacted fecal material in the rectum and sigmoid colon with constipation. Labs Labs: Laboratory Results - last 24 hr 09/12/24 07:45 WBC 7.9 RBC 3.72 L Hgb 9.2 L Hct 30.1 L MCV 80.9 MCH 24.7 L MCHC 30.6 L RDW 20.8 H Plt Count 104 L MPV 12.1 H Immature Gran % (Auto) 1.0 H Neut % (Auto) 63.3 Lymph % (Auto) 15.9 L [place] % (Auto) 19.6 H Eos % (Auto) 0.1 Baso % (Auto) 0.1 L Lymph # (Auto) 1.26 [place] # (Auto) 1.6 H Eos # (Auto) 0.0 Baso # (Auto) 0.0 Abs Immat Gran (auto) 0.08 H Absolute Neuts (auto) 5.0 Absolute Nucleated RBC 0.000 Nucleated RBC % 0.0 % Immature Plt Fraction 3.6 Sodium 139 Potassium 3.7 Chloride 109 H Carbon Dioxide 12 L Anion Gap 18 H BUN 96 H Creatinine 4.40 H Estim Creat Clear Calc 13 Estimated GFR 13 L Glucose 97 Calcium 8.3 L Phosphorus 6.3 H Magnesium 2.0 Total Bilirubin 0.2 AST 26 ALT 16 Alkaline Phosphatase 57 Total Creatine Kinase 70 Total Protein 7.0 Albumin 3.3 L
[2024-09-12 20:44] VITALS: O2SAT 92
[2024-09-12] MEDS: traZODone HCL 50 MG TABLET PO (21:18)
[2024-09-12] MEDS: TAMSULOSIN HCL 0.4 MG CAPSULE PO (21:18)
[2024-09-12 22:00] VITALS: BP 102/78; PULSE 98; RESP 18; TEMP 36.4; O2SAT 100
[2024-09-13] MEDS: SODIUM CHLORIDE 0.9% IV 1,000 ML 75 ML IV CONT ×2 (04:30→16:49)
[2024-09-13 06:00] VITALS: BP 164/79; PULSE 78; RESP 20; TEMP 36.6; O2SAT 99
[2024-09-13 06:55] LABS: Hematocrit 28.5 % (42.0-52.0); Hemoglobin 8.5 g/dL (14.0-18.0); Immature Platelet Fraction Pct 4.9 % (0.9-11.2); Mean Corpuscular HGB Conc 29.8 g/dl (32-36); Mean Corpuscular Hemoglobin 23.9 pg (26-34); Mean Corpuscular Volume 80.3 fl (80-100); Platelet Count Result 98 k/mm3 (150-375); Red Blood Count 3.55 M/mm3 (4.6-6.20); Red Cell Distribution Width 21.2 % (11.5-14.5); White Blood Count 7.9 K/mm3 (4.5-10.0)
[2024-09-13 07:08] LABS: Alanine Aminotransferase 16 U/L (6-50); Albumin Level 3.2 g/dL (3.5-5.1); Alkaline Phosphatase 58 U/L (38-126); Anion Gap 14 mmol/L (4-12); Aspartate Amino Transferase 23 U/L (17-59); Bilirubin,Total 0.3 mg/dL (0.2-1.3); Blood Urea Nitrogen 78 mg/dL (9-20); Calcium 8.1 mg/dL (8.4-10.2); Carbon Dioxide 16 mmol/L (22-30); Chloride 110 mmol/L (98-107); Estimated CRCL calculation 16 ml/min; Estimated Glomerular Filt Rate 17; Glucose 99 mg/dL (65-110); Magnesium 1.8 mg/dL (1.6-2.3); Phosphorus 4.5 mg/dL (2.5-4.5); Potassium 3.3 mmol/L (3.4-5.0); Sodium 140 mmol/L (137-145)
[2024-09-13] MEDS: FERROUS SULFATE 325 MG TABLET DR BY MOUTH ×2 (07:50→16:49)
[2024-09-13] MEDS: SODIUM BICARBONATE TAB 650 MG TABLET 1300 MG PO ×2 (07:50→16:48)
[2024-09-13] MEDS: PANTOPRAZOLE SODIUM IV 40 MG VIAL IV PUSH (07:51)
[2024-09-13] MEDS: GABAPENTIN 300 MG CAPSULE PO ×2 (07:51→16:48)
[2024-09-13] MEDS: SEVELAMER CARBONATE 800 MG TABLET PO ×3 (07:51→16:49)
[2024-09-13] MEDS: LIPASE/AMYLASE/PROTEASE 12,000 UNITS CAP 6 CAP PO ×3 (07:51→16:49)
[2024-09-13] MEDS: SACCHAROMYCES BOULARDII 250 MG CAPSULE PO ×2 (07:51→16:48)
[2024-09-13 08:24] LABS: Band Neutrophils Percent 1 % (0-6); Basophils Percent Manual 0 % (0-1); Eosinophils Percent Manual 0 % (0-4); Lymphocytes Absolute Manual 1.42 K/mm3 (1.1-4.5); Lymphocytes Percent Manual 18 % (18-44); Monocytes Absolute Manual 0.86 K/mm3 (0.1-0.90); Monocytes Percent Manual 11 % (3-9); Neutrophils Percent Manual 70 % (46-73); Ovalocytes 1+; Platelet Estimate Decreased (Adequate); Total Cells Counted 100
[2024-09-13 08:26] LABS: Anisocytosis 2+
[2024-09-13 08:27] LABS: Hypochromasia 1+
[2024-09-13 08:52] LABS: Schistocytes None Seen
[2024-09-13] MEDS: IRON SUCROSE COMPLEX 100 MG in SODIUM CHLORIDE 0.9% IV 50 ML 220 MG IVPB (09:51)
--- NOTE | 2024-09-13 11:01 | PM.PNNEP ---
Subjective Date/time seen: 09/13/24 11:01 Interval history: Follow-up for acute kidney injury/acute renal failure on chronic kidney disease. Renal function/creatinine continues to slowly improve with ongoing therapy/interventions to date; no apparent distress noted; remains pleasantly confused at the time of my visit; no other issues/events overnight or earlier this morning. Objective Data Vital Signs Vital Signs: Vital Signs Temp Pulse Resp BP Pulse Ox O2 Del Method FiO2 09/13/24 08:00 Room Air 09/13/24 06:00 97.9 F 78 20 164/79 H 99 09/12/24 22:00 97.6 F 98 18 102/78 100 09/12/24 20:44 92 Room Air 21 09/12/24 14:00 98.6 F 82 16 122/51 L 93 Intake/Output Intake/Output: Intake & Output 09/11/24 09/12/24 09/12/24 09/13/24 00:59 00:59 23:59 23:59 Intake Total 273 Output Total 1000 Balance -727 Meds/Results Medications: Active Medications Generic Name Dose Route Start Last Admin Trade Name Freq PRN Reason Stop Dose Admin Acetaminophen 650 mg 09/10/24 10:48 Acetaminophen 325 Mg Tablet PO Q4H PRN Mild Pain (1-3) or Fever Albuterol/Ipratropium 3 ml 09/10/24 22:02 Ipratropium 0.5 Mg/Albuterol Sulfate 2.5 Mg Ampul.Neb 3 Ml INHALATION Q6H PRN Bronchospasm Lipase/Protease/Amylase 6 cap 09/11/24 08:00 09/13/24 12:05 Lipase/Amylase/Protease 12,000 Units Cap PO 6 cap TIDWM THELMA Administration Ferrous Sulfate 325 mg 09/11/24 09:00 09/13/24 07:50 Ferrous Sulfate [address] BY MOUTH 325 mg BID THELMA Administration Gabapentin 300 mg 09/11/24 09:00 09/13/24 07:51 Gabapentin 300 Mg Capsule PO 300 mg BID THELMA Administration Sodium Chloride 1,000 mls @ 75 mls/hr 09/10/24 18:35 09/13/24 04:30 Normal Saline Iv IV CONT 75 mls/hr .[id number] THELMA Administration Iron Sucrose 100 mg/ Sodium 55 mls @ 220 mls/hr 09/12/24 09:00 09/13/24 10:06 Chloride IVPB Infused DAILY THELMA Infusion Ondansetron HCl 4 mg 09/10/24 10:48 Ondansetron Inj 4 Mg/2 Ml Vial IV PUSH Q4H PRN Nausea Pantoprazole Sodium 40 mg 09/11/24 09:00 09/13/24 07:51 Pantoprazole Sodium Iv 40 Mg Vial IV PUSH 40 mg QAM THELMA Administration Polyethylene Glycol 17 gm 09/11/24 17:00 09/13/24 07:51 Polyethylene Glycol 3350 17 Gm Powd.Pack PO Not Given BID THELMA Saccharomyces Boulardii 250 mg 09/11/24 09:00 09/13/24 07:51 Saccharomyces Boulardii 250 Mg Capsule PO 250 mg BID THELMA Administration Fluticasone/Salmeterol 2 puff 09/11/24 08:00 09/13/24 08:49 Fluticasone/Salmeterol 115-21 Mcg Inhaler 1 Puff INHALATION Not Given Q12HRT THELMA Sevelamer Carbonate 800 mg 09/11/24 12:00 09/13/24 12:05 Sevelamer Carbonate 800 Mg Tablet PO 800 mg TIDWM THELMA Administration Sodium Bicarbonate 1,300 mg 09/12/24 09:00 09/13/24 07:50 Sodium Bicarbonate Tab 650 Mg Tablet PO 1,300 mg BID THELMA Administration Tamsulosin HCl 0.4 mg 09/10/24 22:15 09/12/24 21:18 Tamsulosin Hcl 0.4 Mg Capsule PO 0.4 mg HS THELMA Administration Trazodone HCl 50 mg 09/10/24 22:15 09/12/24 21:18 Trazodone Hcl 50 Mg Tablet PO 50 mg HS THELMA Administration Radiology Results: ITS Impressions Chest/Abdomen/Pelvis CT 09/10/24 20:53 IMPRESSION: CHEST: 1. 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 2. Cardiomegaly with pulmonary hypertension and widened main pulmonary artery. 3. Atelectatic changes in the lung bases with minimal left pleural effusion ABDOMEN/PELVIS: 1. Cholelithiasis. 2. Sliding hiatus hernia. 3. Possible stone in the right kidney upper pole. Soft tissue density in the left kidney midpole. Follow-up advised. 4. Impacted fecal material in the rectum and sigmoid colon with constipation. Labs Labs: Laboratory Tests 09/13/24 06:31 09/13/24 06:31 Calcium 8.1 L Phosphorus 4.5 Magnesium 1.8 Total Bilirubin 0.3 AST 23 ALT 16 Alkaline Phosphatase 58 Total Protein 7.0 Albumin 3.2 L Microbiology 09/11/24 14:05 Urine [place] Urine Culture - Final
--- NOTE | 2024-09-13 11:08 | P.PNIM_ITS ---
Progress Note: A&P Assessment and Plan (1) Coffee ground emesis: Code(s): K92.0 - Hematemesis Status: Acute Plan Coffee-ground emesis R/o GI bleed Hb 8.5 Isat 17 continue Protonix daily per GI No endoscopy as patient does not have any current obvious source of bleeding Gi following Acute on chronic renal failure Cr 5.8, baseline 2.0, BUN 106 and K 5.3 Today Cr 3.5, BUN 78, k 3.7 continue IVF nephrology following Hyperphosphatemia Phosphorus 9.1 --> 4.5 from [facility]F on Sevelamer Nephrology following Metabolic acidosis from ARF CO2 12 -->16 On bicarb Po Nephrology following Iron deficiency anemia Hb 8.5, Isat 17 IV iron 300/1000 CHF, diastolic stable hold lasix for now BPH with indwelling catheter monitor continue home meds CVA Hold aspirin Continue Lipitor Alzheimer's disease continue home meds DVT prophylaxis on SCDs, no Ac due to GI bleed Subjective Date/time seen: 09/13/24 11:08 Interval history: Patient comfortable at bedside and alert and oriented x2 renal function improving GI noted no Endoscopy as patient does not have obvious GI bleed Review of Systems Review of Systems: Unreliable historian due to dementia. Exam Narrative: General: alert Eyes: EOMI, PERRLA ENNT External ears normal, Neck is supple, no masses, Respiratory systems: Clear to auscultation Cardiovascular S1, S2, normal rhythm, no murmur, rub, or gallop; no thrill or palpable murmurs on palpation. Gastrointestinal: soft, non-tender, and non-distended abdomen with no masses; BS present Skin: no rash, lesions, ulcerations, subcutaneous nodules or induration Musculoskeletal: no abnormality and no tenderness, normal ROM Neurologic: oriented x1, non compliant with exam Objective Data Vital Signs Vital Signs: Vital Signs - 24 hr 09/12/24 14:00 09/12/24 20:44 09/12/24 22:00 Temperature 98.6 F 97.6 F Pulse Rate 82 98 Respiratory Rate 16 18 Blood Pressure 122/51 L 102/78 Pulse Oximetry 93 92 100 Oxygen Delivery Room Air Fraction of Inspired Oxygen 21 09/13/24 06:00 09/13/24 08:00 Temperature 97.9 F Pulse Rate 78 Respiratory Rate 20 Blood Pressure 164/79 H Pulse Oximetry 99 Oxygen Delivery Room Air Fraction of Inspired Oxygen Intake/Output Intake/Output: Intake & Output 09/11/24 09/12/24 09/12/24 09/13/24 00:59 00:59 23:59 23:59 Intake Total 273 Output Total 1000 Balance -727 Meds/Results Medications: Active Medications Generic Name Dose Route Start Last Admin Trade Name Freq PRN Reason Stop Dose Admin Acetaminophen 650 mg 09/10/24 10:48 Acetaminophen 325 Mg Tablet PO Q4H PRN Mild Pain (1-3) or Fever Albuterol/Ipratropium 3 ml 09/10/24 22:02 Ipratropium 0.5 Mg/Albuterol Sulfate 2.5 Mg Ampul.Neb 3 Ml INHALATION Q6H PRN Bronchospasm Lipase/Protease/Amylase 6 cap 09/11/24 08:00 09/13/24 07:51 Lipase/Amylase/Protease 12,000 Units Cap PO 6 cap TIDWM THELMA Administration Ferrous Sulfate 325 mg 09/11/24 09:00 09/13/24 07:50 Ferrous Sulfate [address] BY MOUTH 325 mg BID THELMA Administration Gabapentin 300 mg 09/11/24 09:00 09/13/24 07:51 Gabapentin 300 Mg Capsule PO 300 mg BID THELMA Administration Sodium Chloride 1,000 mls @ 75 mls/hr 09/10/24 18:35 09/13/24 04:30 Normal Saline Iv IV CONT 75 mls/hr .[id number] THELMA Administration Iron Sucrose 100 mg/ Sodium 55 mls @ 220 mls/hr 09/12/24 09:00 09/13/24 10:06 Chloride IVPB Infused DAILY THELMA Infusion Ondansetron HCl 4 mg 09/10/24 10:48 Ondansetron Inj 4 Mg/2 Ml Vial IV PUSH Q4H PRN Nausea Pantoprazole Sodium 40 mg 09/11/24 09:00 09/13/24 07:51 Pantoprazole Sodium Iv 40 Mg Vial IV PUSH 40 mg QAM THELMA Administration Polyethylene Glycol 17 gm 09/11/24 17:00 09/13/24 07:51 Polyethylene Glycol 3350 17 Gm Powd.Pack PO Not Given BID THELMA Saccharomyces Boulardii 250 mg 09/11/24 09:00 09/13/24 07:51 Saccharomyces Boulardii 250 Mg Capsule PO 250 mg BID THELMA Administration Fluticasone/Salmeterol 2 puff 09/11/24 08:00 09/13/24 08:49 Fluticasone/Salmeterol 115-21 Mcg Inhaler 1 Puff INHALATION Not Given Q12HRT THELMA Sevelamer Carbonate 800 mg 09/11/24 12:00 09/13/24 07:51 Sevelamer Carbonate 800 Mg Tablet PO 800 mg TIDWM THELMA Administration Sodium Bicarbonate 1,300 mg 09/12/24 09:00 09/13/24 07:50 Sodium Bicarbonate Tab 650 Mg Tablet PO 1,300 mg BID THELMA Administration Tamsulosin HCl 0.4 mg 09/10/24 22:15 09/12/24 21:18 Tamsulosin Hcl 0.4 Mg Capsule PO 0.4 mg HS THELMA Administration Trazodone HCl 50 mg 09/10/24 22:15 09/12/24 21:18 Trazodone Hcl 50 Mg Tablet PO 50 mg HS THELMA Administration Radiology Results: ITS Impressions Chest/Abdomen/Pelvis CT 09/10/24 20:53 IMPRESSION: CHEST: 1. 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 2. Cardiomegaly with pulmonary hypertension and widened main pulmonary artery. 3. Atelectatic changes in the lung bases with minimal left pleural effusion ABDOMEN/PELVIS: 1. Cholelithiasis. 2. Sliding hiatus hernia. 3. Possible stone in the right kidney upper pole. Soft tissue density in the left kidney midpole. Follow-up advised. 4. Impacted fecal material in the rectum and sigmoid colon with constipation. Labs Labs: Laboratory Results - last 24 hr 09/13/24 06:31 WBC 7.9 RBC 3.55 L Hgb 8.5 L Hct 28.5 L MCV 80.3 MCH 23.9 L MCHC 29.8 L RDW 21.2 H Plt Count 98 L MPV TNP Immature Gran % (Auto) Not Reportable Neut % (Auto) Not Reportable Lymph % (Auto) Not Reportable [place] % (Auto) Not Reportable Eos % (Auto) Not Reportable Baso % (Auto) Not Reportable Lymph # (Auto) Not Reportable [place] # (Auto) Not Reportable Eos # (Auto) Not Reportable Baso # (Auto) Not Reportable Abs Immat Gran (auto) Not Reportable Absolute Neuts (auto) Not Reportable Absolute Nucleated RBC Not Reportable Total Counted 100 Neutrophils % (Manual) 70 Band Neutrophils % 1 Lymphocytes % (Manual) 18 Monocytes % (Manual) 11 H Eosinophils % (Manual) 0 Basophils % (Manual) 0 Nucleated RBC % Not Reportable Abs Neuts (Manual) 5.60 Abs Lymphs (Manual) 1.42 Abs Monocytes (Manual) 0.86 Absolute Eos (Manual) 0.00 L Abs Basophils (Manual) 0.00 Platelet Estimate Decreased % Immature Plt Fraction 4.9 Hypochromasia 1+ Anisocytosis 2+ Ovalocytes 1+ Schistocytes None seen Sodium 140 Potassium 3.3 L Chloride 110 H Carbon Dioxide 16 L Anion Gap 14 H BUN 78 H D Creatinine 3.50 H Estim Creat Clear Calc 16 Estimated GFR 17 L Glucose 99 Calcium 8.1 L Phosphorus 4.5 Magnesium 1.8 Total Bilirubin 0.3 AST 23 ALT 16 Alkaline Phosphatase 58 Total Protein 7.0 Albumin 3.2 L
--- NOTE | 2024-09-13 13:51 | P.PNGI_ITS ---
Progress Note: A&P Assessment and Plan (1) Coffee ground emesis: Code(s): K92.0 - Hematemesis Status: Acute Assessment and Plan: chronic anemia, no major changes and no report of gib since admission medical treatment with ppi daily no egd unless any changes will follow from [place] as needed (2) Acute on chronic renal failure: Code(s): N17.9 - Acute kidney failure, unspecified; N18.9 - Chronic kidney disease, unspecified Status: Acute Assessment and Plan: nephrology on board (3) Normocytic anemia: Code(s): D64.9 - Anemia, unspecified Status: Acute Assessment and Plan: stable (4) Alzheimer's dementia with agitation: Code(s): G30.9 - Alzheimer's disease, unspecified; F02.811 - Dementia in other diseases classified elsewhere, unspecified severity, with agitation Status: Acute (5) Fecal impaction in rectum: Code(s): K56.41 - Fecal impaction Status: Acute Assessment and Plan: CT scan reviewed, abdominal exam benign on miralax Subjective Date/time seen: 09/13/24 13:51 Interval history: good appetite, no report of emesis since admission, he is comfortable Review of Systems Review of Systems: All systems reviewed & are unremarkable except as noted in HPI and below Exam Const: General: comfortable and no acute distress HENMT: Face/Nose/Sinus: Normal nares present Eyes: Sclera: sclerae normal Neck: Neck: supple Resp: Effort & Inspection: normal respiratory effort Cardio: Rate: regular rate GI: GI Palp: Yes Soft to palpation and No Tenderness to palpation present (GI) Auscultation: normal bowel sounds : Other: + suprapubic catheter Skin: General skin exam: normal color Neuro: Speech: normal speech Other: [id number] Extrem: General: normal to inspection Psych: Affect: normal affect Objective Data Vital Signs Vital Signs: Vital Signs - 24 hr 09/12/24 14:00 09/12/24 20:44 09/12/24 22:00 Temperature 98.6 F 97.6 F Pulse Rate 82 98 Respiratory Rate 16 18 Blood Pressure 122/51 L 102/78 Pulse Oximetry 93 92 100 Oxygen Delivery Room Air Fraction of Inspired Oxygen 21 09/13/24 06:00 09/13/24 08:00 Temperature 97.9 F Pulse Rate 78 Respiratory Rate 20 Blood Pressure 164/79 H Pulse Oximetry 99 Oxygen Delivery Room Air Fraction of Inspired Oxygen Intake/Output Intake/Output: Intake & Output 09/11/24 09/12/24 09/12/24 09/13/24 00:59 00:59 23:59 23:59 Intake Total 513 Output Total 1000 Balance -487 Meds/Results Medications: Active Medications Generic Name Dose Route Start Last Admin Trade Name Freq PRN Reason Stop Dose Admin Acetaminophen 650 mg 09/10/24 10:48 Acetaminophen 325 Mg Tablet PO Q4H PRN Mild Pain (1-3) or Fever Albuterol/Ipratropium 3 ml 09/10/24 22:02 Ipratropium 0.5 Mg/Albuterol Sulfate 2.5 Mg Ampul.Neb 3 Ml INHALATION Q6H PRN Bronchospasm Lipase/Protease/Amylase 6 cap 09/11/24 08:00 09/13/24 12:05 Lipase/Amylase/Protease 12,000 Units Cap PO 6 cap TIDWM THELMA Administration Ferrous Sulfate 325 mg 09/11/24 09:00 09/13/24 07:50 Ferrous Sulfate [address] BY MOUTH 325 mg BID THELMA Administration Gabapentin 300 mg 09/11/24 09:00 09/13/24 07:51 Gabapentin 300 Mg Capsule PO 300 mg BID THELMA Administration Sodium Chloride 1,000 mls @ 75 mls/hr 09/10/24 18:35 09/13/24 04:30 Normal Saline Iv IV CONT 75 mls/hr .[id number] THELMA Administration Iron Sucrose 100 mg/ Sodium 55 mls @ 220 mls/hr 09/12/24 09:00 09/13/24 10:06 Chloride IVPB Infused DAILY THELMA Infusion Ondansetron HCl 4 mg 09/10/24 10:48 Ondansetron Inj 4 Mg/2 Ml Vial IV PUSH Q4H PRN Nausea Pantoprazole Sodium 40 mg 09/11/24 09:00 09/13/24 07:51 Pantoprazole Sodium Iv 40 Mg Vial IV PUSH 40 mg QAM THELMA Administration Polyethylene Glycol 17 gm 09/11/24 17:00 09/13/24 07:51 Polyethylene Glycol 3350 17 Gm Powd.Pack PO Not Given BID THELMA Saccharomyces Boulardii 250 mg 09/11/24 09:00 09/13/24 07:51 Saccharomyces Boulardii 250 Mg Capsule PO 250 mg BID THELMA Administration Fluticasone/Salmeterol 2 puff 09/11/24 08:00 09/13/24 08:49 Fluticasone/Salmeterol 115-21 Mcg Inhaler 1 Puff INHALATION Not Given Q12HRT THELMA Sevelamer Carbonate 800 mg 09/11/24 12:00 09/13/24 12:05 Sevelamer Carbonate 800 Mg Tablet PO 800 mg TIDWM THELMA Administration Sodium Bicarbonate 1,300 mg 09/12/24 09:00 09/13/24 07:50 Sodium Bicarbonate Tab 650 Mg Tablet PO 1,300 mg BID THELMA Administration Tamsulosin HCl 0.4 mg 09/10/24 22:15 09/12/24 21:18 Tamsulosin Hcl 0.4 Mg Capsule PO 0.4 mg HS THELMA Administration Trazodone HCl 50 mg 09/10/24 22:15 09/12/24 21:18 Trazodone Hcl 50 Mg Tablet PO 50 mg HS THELMA Administration Radiology Results: ITS Impressions Chest/Abdomen/Pelvis CT 09/10/24 20:53 IMPRESSION: CHEST: 1. 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 2. Cardiomegaly with pulmonary hypertension and widened main pulmonary artery. 3. Atelectatic changes in the lung bases with minimal left pleural effusion ABDOMEN/PELVIS: 1. Cholelithiasis. 2. Sliding hiatus hernia. 3. Possible stone in the right kidney upper pole. Soft tissue density in the left kidney midpole. Follow-up advised. 4. Impacted fecal material in the rectum and sigmoid colon with constipation. Labs Labs: Laboratory Results - last 24 hr 09/13/24 06:31 WBC 7.9 RBC 3.55 L Hgb 8.5 L Hct 28.5 L MCV 80.3 MCH 23.9 L MCHC 29.8 L RDW 21.2 H Plt Count 98 L MPV TNP Immature Gran % (Auto) Not Reportable Neut % (Auto) Not Reportable Lymph % (Auto) Not Reportable [place] % (Auto) Not Reportable Eos % (Auto) Not Reportable Baso % (Auto) Not Reportable Lymph # (Auto) Not Reportable [place] # (Auto) Not Reportable Eos # (Auto) Not Reportable Baso # (Auto) Not Reportable Abs Immat Gran (auto) Not Reportable Absolute Neuts (auto) Not Reportable Absolute Nucleated RBC Not Reportable Total Counted 100 Neutrophils % (Manual) 70 Band Neutrophils % 1 Lymphocytes % (Manual) 18 Monocytes % (Manual) 11 H Eosinophils % (Manual) 0 Basophils % (Manual) 0 Nucleated RBC % Not Reportable Abs Neuts (Manual) 5.60 Abs Lymphs (Manual) 1.42 Abs Monocytes (Manual) 0.86 Absolute Eos (Manual) 0.00 L Abs Basophils (Manual) 0.00 Platelet Estimate Decreased % Immature Plt Fraction 4.9 Hypochromasia 1+ Anisocytosis 2+ Ovalocytes 1+ Schistocytes None seen Sodium 140 Potassium 3.3 L Chloride 110 H Carbon Dioxide 16 L Anion Gap 14 H BUN 78 H D Creatinine 3.50 H Estim Creat Clear Calc 16 Estimated GFR 17 L Glucose 99 Calcium 8.1 L Phosphorus 4.5 Magnesium 1.8 Total Bilirubin 0.3 AST 23 ALT 16 Alkaline Phosphatase 58 Total Protein 7.0 Albumin 3.2 L
[2024-09-13 14:00] VITALS: BP 153/55; PULSE 80; RESP 18; TEMP 36.8; O2SAT 96
[2024-09-13] MEDS: FLUTICASONE/SALMETEROL 115-21 MCG INHALER 1 PUFF 2 PUFF INHALATION (20:00)
[2024-09-13 20:04] VITALS: PULSE 65; RESP 20
[2024-09-13 20:05] VITALS: O2SAT 94
[2024-09-13] MEDS: TAMSULOSIN HCL 0.4 MG CAPSULE PO (20:47)
[2024-09-13] MEDS: traZODone HCL 50 MG TABLET PO (20:48)
[2024-09-13 21:45] VITALS: BP 151/54; PULSE 86; RESP 20; TEMP 37.7; O2SAT 94
[2024-09-14] MEDS: SODIUM CHLORIDE 0.9% IV 1,000 ML 75 ML IV CONT ×2 (05:39→16:45)
[2024-09-14 06:00] VITALS: BP 145/56; PULSE 77; RESP 18; TEMP 37.3; O2SAT 97
[2024-09-14 06:33] LABS: Hematocrit 26.5 % (42.0-52.0); Immature Platelet Fraction Pct 4.2 % (0.9-11.2); Mean Corpuscular HGB Conc 30.2 g/dl (32-36); Mean Corpuscular Hemoglobin 24.8 pg (26-34); Platelet Count Result 91 k/mm3 (150-375); Red Blood Count 3.23 M/mm3 (4.6-6.20); Red Cell Distribution Width 21.5 % (11.5-14.5); White Blood Count 7.7 K/mm3 (4.5-10.0)
[2024-09-14 06:45] LABS: Alanine Aminotransferase 15 U/L (6-50); Alkaline Phosphatase 51 U/L (38-126); Anion Gap 13 mmol/L (4-12); Aspartate Amino Transferase 21 U/L (17-59); Bilirubin,Total 0.3 mg/dL (0.2-1.3); Blood Urea Nitrogen 70 mg/dL (9-20); Calcium 7.8 mg/dL (8.4-10.2); Carbon Dioxide 16 mmol/L (22-30); Chloride 113 mmol/L (98-107); Estimated CRCL calculation 18 ml/min; Estimated Glomerular Filt Rate 20; Glucose 94 mg/dL (65-110); Magnesium 1.7 mg/dL (1.6-2.3); Phosphorus 4.2 mg/dL (2.5-4.5); Sodium 142 mmol/L (137-145)
[2024-09-14] MEDS: IRON SUCROSE COMPLEX 100 MG in SODIUM CHLORIDE 0.9% IV 50 ML 220 MG IVPB (08:28)
[2024-09-14] MEDS: SACCHAROMYCES BOULARDII 250 MG CAPSULE PO ×2 (08:28→16:45)
[2024-09-14] MEDS: polyethylene glycoL 3350 17 GM POWD.PACK PO ×2 (08:28→16:46)
[2024-09-14] MEDS: SEVELAMER CARBONATE 800 MG TABLET PO ×3 (08:29→16:45)
[2024-09-14] MEDS: FERROUS SULFATE 325 MG TABLET DR BY MOUTH ×2 (08:29→16:45)
[2024-09-14] MEDS: LIPASE/AMYLASE/PROTEASE 12,000 UNITS CAP 6 CAP PO ×3 (08:29→16:45)
[2024-09-14] MEDS: SODIUM BICARBONATE TAB 650 MG TABLET 1300 MG PO ×2 (08:29→16:45)
[2024-09-14] MEDS: GABAPENTIN 300 MG CAPSULE PO ×2 (08:29→16:45)
[2024-09-14] MEDS: PANTOPRAZOLE SODIUM IV 40 MG VIAL IV PUSH (08:32)
[2024-09-14 09:08] LABS: Platelet Estimate Decreased (Adequate); Total Cells Counted 100
[2024-09-14 09:09] LABS: Anisocytosis 1+; Band Neutrophils Percent 1 % (0-6); Basophils Percent Manual 0 % (0-1); Eosinophils Percent Manual 0 % (0-4); Hypochromasia 1+; Lymphocytes Absolute Manual 1.69 K/mm3 (1.1-4.5); Lymphocytes Percent Manual 22 % (18-44); Monocytes Absolute Manual 0.61 K/mm3 (0.1-0.90); Monocytes Percent Manual 8 % (3-9); Neutrophils Absolute Manual 5.39 K/mm3 (1.3-6.7); Neutrophils Percent Manual 69 % (46-73)
[2024-09-14 09:10] LABS: Burr Cells 1+; Ovalocytes 1+
[2024-09-14 09:11] LABS: Schistocytes None Seen; Target Cells 1+
[2024-09-14] MEDS: FLUTICASONE/SALMETEROL 115-21 MCG INHALER 1 PUFF 2 PUFF INHALATION ×2 (09:11→21:32)
--- NOTE | 2024-09-14 10:42 | PM.PNNEP ---
Subjective Date/time seen: 09/14/24 10:42 Objective Data Vital Signs Vital Signs: Vital Signs Temp Pulse Resp BP Pulse Ox O2 Del Method FiO2 09/14/24 06:00 99.1 F 77 18 145/56 H 97 09/13/24 21:45 99.8 F H 86 20 151/54 H 94 09/13/24 20:05 94 Room Air 21 09/13/24 20:04 65 20 Intake/Output Intake/Output: Intake & Output 09/12/24 09/12/24 09/13/24 09/14/24 00:59 23:59 23:59 23:59 Intake Total 1676.8 1375.5 Output Total 2200 1000 Balance -523.2 375.5 Meds/Results Medications: Active Medications Generic Name Dose Route Start Last Admin Trade Name Freq PRN Reason Stop Dose Admin Acetaminophen 650 mg 09/10/24 10:48 Acetaminophen 325 Mg Tablet PO Q4H PRN Mild Pain (1-3) or Fever Albuterol/Ipratropium 3 ml 09/10/24 22:02 Ipratropium 0.5 Mg/Albuterol Sulfate 2.5 Mg Ampul.Neb 3 Ml INHALATION Q6H PRN Bronchospasm Lipase/Protease/Amylase 6 cap 09/11/24 08:00 09/14/24 12:38 Lipase/Amylase/Protease 12,000 Units Cap PO 6 cap TIDWM THELMA Administration Ferrous Sulfate 325 mg 09/11/24 09:00 09/14/24 08:29 Ferrous Sulfate [address] BY MOUTH 325 mg BID THELMA Administration Gabapentin 300 mg 09/11/24 09:00 09/14/24 08:29 Gabapentin 300 Mg Capsule PO 300 mg BID THELMA Administration Sodium Chloride 1,000 mls @ 75 mls/hr 09/10/24 18:35 09/14/24 05:39 Normal Saline Iv IV CONT 75 mls/hr .[id number] THELAM Administration Iron Sucrose 100 mg/ Sodium 55 mls @ 220 mls/hr 09/12/24 09:00 09/14/24 08:43 Chloride IVPB Infused DAILY THELMA Infusion Ondansetron HCl 4 mg 09/10/24 10:48 Ondansetron Inj 4 Mg/2 Ml Vial IV PUSH Q4H PRN Nausea Pantoprazole Sodium 40 mg 09/11/24 09:00 09/14/24 08:32 Pantoprazole Sodium Iv 40 Mg Vial IV PUSH 40 mg QAM THELMA Administration Polyethylene Glycol 17 gm 09/11/24 17:00 09/14/24 08:28 Polyethylene Glycol 3350 17 Gm Powd.Pack PO 17 gm BID THELMA Administration Saccharomyces Boulardii 250 mg 09/11/24 09:00 09/14/24 08:28 Saccharomyces Boulardii 250 Mg Capsule PO 250 mg BID THELMA Administration Fluticasone/Salmeterol 2 puff 09/11/24 08:00 09/14/24 09:11 Fluticasone/Salmeterol 115-21 Mcg Inhaler 1 Puff INHALATION 2 puff Q12HRT THELMA Administration Sevelamer Carbonate 800 mg 09/11/24 12:00 09/14/24 12:39 Sevelamer Carbonate 800 Mg Tablet PO 800 mg TIDWM THELMA Administration Sodium Bicarbonate 1,300 mg 09/12/24 09:00 09/14/24 08:29 Sodium Bicarbonate Tab 650 Mg Tablet PO 1,300 mg BID THELMA Administration Tamsulosin HCl 0.4 mg 09/10/24 22:15 09/13/24 20:47 Tamsulosin Hcl 0.4 Mg Capsule PO 0.4 mg HS THELMA Administration Trazodone HCl 50 mg 09/10/24 22:15 09/13/24 20:48 Trazodone Hcl 50 Mg Tablet PO 50 mg HS THELMA Administration Radiology Results: ITS Impressions Chest/Abdomen/Pelvis CT 09/10/24 20:53 IMPRESSION: CHEST: 1. 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 2. Cardiomegaly with pulmonary hypertension and widened main pulmonary artery. 3. Atelectatic changes in the lung bases with minimal left pleural effusion ABDOMEN/PELVIS: 1. Cholelithiasis. 2. Sliding hiatus hernia. 3. Possible stone in the right kidney upper pole. Soft tissue density in the left kidney midpole. Follow-up advised. 4. Impacted fecal material in the rectum and sigmoid colon with constipation. Labs Labs: Laboratory Tests 09/14/24 05:54 09/14/24 05:54 Calcium 7.8 L Phosphorus 4.2 Magnesium 1.7 Total Bilirubin 0.3 AST 21 ALT 15 Alkaline Phosphatase 51 Total Protein 7.0 Albumin 3.0 L Microbiology 09/11/24 14:05 Urine [place] Urine Culture - Final
--- NOTE | 2024-09-14 11:45 | PC.NURSE ---
[id number] Called Usha bragg, from [facility], and gave her updates. All her questions and concerns addressed
[2024-09-14 14:00] VITALS: BP 134/66; PULSE 81; RESP 18; TEMP 36.2; O2SAT 98
--- NOTE | 2024-09-14 14:00 | PC.NURSE ---
Patient resting in bed. No complaints of pain. Compliant with medications. Patient able to answer quetions but slow to respond. Nurse at [facility] [place] said this is his baseline as of the last few weeks.
--- NOTE | 2024-09-14 16:51 | P.PNIM_ITS ---
Progress Note: A&P Assessment and Plan (1) Coffee ground emesis: Code(s): K92.0 - Hematemesis Status: Acute Plan Coffee-ground emesis R/o GI bleed Hb 8.5 < 8 Isat 17 continue Protonix daily per GI No endoscopy as patient does not have any current obvious source of bleeding Gi following Acute on chronic renal failure Cr 5.8, baseline 2.0, BUN 106 and K 5.3 Today Cr 3.5, BUN 78, k 3.7 continue IVF nephrology following Hyperphosphatemia Phosphorus 9.1 --> 4.5 from [facility] on Sevelamer Nephrology following Metabolic acidosis from ARF CO2 12 -->16 On bicarb Po Nephrology following Iron deficiency anemia Hb 8.5, Isat 17 IV iron 300/1000 CHF, diastolic stable hold lasix for now BPH with indwelling catheter monitor continue home meds CVA Hold aspirin Continue Lipitor Alzheimer's disease continue home meds DVT prophylaxis on SCDs, no Ac due to GI bleed Subjective Date/time seen: 09/14/24 16:51 Interval history: No acute events overnight. Hemoglobin is stable at around 8. As per GI no EGD if no significant drop in hemoglobin. Renal function continues to improve creatinine is down to 3.10 from 3.50. Review of Systems Review of Systems: Unreliable historian due to dementia. Exam Narrative: General: alert Eyes: EOMI, PERRLA ENNT External ears normal, Neck is supple, no masses, Respiratory systems: Clear to auscultation Cardiovascular S1, S2, normal rhythm, no murmur, rub, or gallop; no thrill or palpable murmurs on palpation. Gastrointestinal: soft, non-tender, and non-distended abdomen with no masses; BS present Skin: no rash, lesions, ulcerations, subcutaneous nodules or induration Musculoskeletal: no abnormality and no tenderness, normal ROM Neurologic: oriented x1, non compliant with exam Objective Data Vital Signs Vital Signs: Vital Signs - 24 hr 09/13/24 20:04 09/13/24 20:05 09/13/24 21:45 Temperature 99.8 F H Pulse Rate 65 86 Respiratory Rate 20 20 Blood Pressure 151/54 H Pulse Oximetry 94 94 Oxygen Delivery Room Air Fraction of Inspired Oxygen 21 09/14/24 06:00 09/14/24 14:00 Temperature 99.1 F 97.2 F L Pulse Rate 77 81 Respiratory Rate 18 18 Blood Pressure 145/56 H 134/66 Pulse Oximetry 97 98 Oxygen Delivery Fraction of Inspired Oxygen Intake/Output Intake/Output: Intake & Output 09/12/24 09/12/24 09/13/24 09/14/24 00:59 23:59 23:59 23:59 Intake Total 1676.8 2448.0 Output Total 2200 1000 Balance -523.2 1448.0 Meds/Results Medications: Active Medications Generic Name Dose Route Start Last Admin Trade Name Freq PRN Reason Stop Dose Admin Acetaminophen 650 mg 09/10/24 10:48 Acetaminophen 325 Mg Tablet PO Q4H PRN Mild Pain (1-3) or Fever Albuterol/Ipratropium 3 ml 09/10/24 22:02 Ipratropium 0.5 Mg/Albuterol Sulfate 2.5 Mg Ampul.Neb 3 Ml INHALATION Q6H PRN Bronchospasm Lipase/Protease/Amylase 6 cap 09/11/24 08:00 09/14/24 16:45 Lipase/Amylase/Protease 12,000 Units Cap PO 6 cap TIDWM THELMA Administration Ferrous Sulfate 325 mg 09/11/24 09:00 09/14/24 16:45 Ferrous Sulfate [address] BY MOUTH 325 mg BID THELMA Administration Gabapentin 300 mg 09/11/24 09:00 09/14/24 16:45 Gabapentin 300 Mg Capsule PO 300 mg BID THELMA Administration Sodium Chloride 1,000 mls @ 75 mls/hr 09/10/24 18:35 09/14/24 16:45 Normal Saline Iv IV CONT 75 mls/hr .[id number] THELMA Administration Iron Sucrose 100 mg/ Sodium 55 mls @ 220 mls/hr 09/12/24 09:00 09/14/24 08:43 Chloride IVPB Infused DAILY THELMA Infusion Ondansetron HCl 4 mg 09/10/24 10:48 Ondansetron Inj 4 Mg/2 Ml Vial IV PUSH Q4H PRN Nausea Pantoprazole Sodium 40 mg 09/11/24 09:00 09/14/24 08:32 Pantoprazole Sodium Iv 40 Mg Vial IV PUSH 40 mg QAM THELMA Administration Polyethylene Glycol 17 gm 09/11/24 17:00 09/14/24 16:46 Polyethylene Glycol 3350 17 Gm Powd.Pack PO 17 gm BID THELMA Administration Saccharomyces Boulardii 250 mg 09/11/24 09:00 09/14/24 16:45 Saccharomyces Boulardii 250 Mg Capsule PO 250 mg BID THELMA Administration Fluticasone/Salmeterol 2 puff 09/11/24 08:00 09/14/24 09:11 Fluticasone/Salmeterol 115-21 Mcg Inhaler 1 Puff INHALATION 2 puff Q12HRT THELMA Administration Sevelamer Carbonate 800 mg 09/11/24 12:00 09/14/24 16:45 Sevelamer Carbonate 800 Mg Tablet PO 800 mg TIDWM THELMA Administration Sodium Bicarbonate 1,300 mg 09/12/24 09:00 09/14/24 16:45 Sodium Bicarbonate Tab 650 Mg Tablet PO 1,300 mg BID THELMA Administration Tamsulosin HCl 0.4 mg 09/10/24 22:15 09/13/24 20:47 Tamsulosin Hcl 0.4 Mg Capsule PO 0.4 mg HS THELMA Administration Trazodone HCl 50 mg 09/10/24 22:15 09/13/24 20:48 Trazodone Hcl 50 Mg Tablet PO 50 mg HS THELMA Administration Radiology Results: ITS Impressions Chest/Abdomen/Pelvis CT 09/10/24 20:53 IMPRESSION: CHEST: 1. 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 2. Cardiomegaly with pulmonary hypertension and widened main pulmonary artery. 3. Atelectatic changes in the lung bases with minimal left pleural effusion ABDOMEN/PELVIS: 1. Cholelithiasis. 2. Sliding hiatus hernia. 3. Possible stone in the right kidney upper pole. Soft tissue density in the left kidney midpole. Follow-up advised. 4. Impacted fecal material in the rectum and sigmoid colon with constipation. Labs Labs: Laboratory Results - last 24 hr 09/14/24 05:54 WBC 7.7 RBC 3.23 L Hgb 8.0 L Hct 26.5 L MCV 82.0 MCH 24.8 L MCHC 30.2 L RDW 21.5 H Plt Count 91 L MPV TNP Immature Gran % (Auto) Not Reportable Neut % (Auto) Not Reportable Lymph % (Auto) Not Reportable [place] % (Auto) Not Reportable Eos % (Auto) Not Reportable Baso % (Auto) Not Reportable Lymph # (Auto) Not Reportable [place] # (Auto) Not Reportable Eos # (Auto) Not Reportable Baso # (Auto) Not Reportable Abs Immat Gran (auto) Not Reportable Absolute Neuts (auto) Not Reportable Absolute Nucleated RBC Not Reportable Total Counted 100 Neutrophils % (Manual) 69 Band Neutrophils % 1 Lymphocytes % (Manual) 22 Monocytes % (Manual) 8 Eosinophils % (Manual) 0 Basophils % (Manual) 0 Nucleated RBC % Not Reportable Abs Neuts (Manual) 5.39 Abs Lymphs (Manual) 1.69 Abs Monocytes (Manual) 0.61 Absolute Eos (Manual) 0.00 L Abs Basophils (Manual) 0.00 Platelet Estimate Decreased % Immature Plt Fraction 4.2 Hypochromasia 1+ Anisocytosis 1+ Target Cells 1+ Ovalocytes 1+ Jose Cells 1+ Schistocytes None seen Sodium 142 Potassium 3.0 L Chloride 113 H Carbon Dioxide 16 L Anion Gap 13 H BUN 70 H Creatinine 3.10 H Estim Creat Clear Calc 18 Estimated GFR 20 L Glucose 94 Calcium 7.8 L Phosphorus 4.2 Magnesium 1.7 Total Bilirubin 0.3 AST 21 ALT 15 Alkaline Phosphatase 51 Total Protein 7.0 Albumin 3.0 L Hospitalist MIPS Advance Care Plan I have confirmed that the patient's Advanced Care Plan is present, code status is documented, or surrogate decision maker is listed in patient medical record.: Yes Medication Reconciliation I have utilized all available resources to obtain, update and review the patients current medications (includes all prescriptions, OTC, herbals, cannabis, and nutritional supplements).: Yes
[2024-09-14 20:52] VITALS: BP 151/67; PULSE 75; RESP 12; TEMP 36.8; O2SAT 97
[2024-09-14 21:35] VITALS: O2SAT 96
[2024-09-14] MEDS: traZODone HCL 50 MG TABLET PO (21:46)
[2024-09-14] MEDS: TAMSULOSIN HCL 0.4 MG CAPSULE PO (21:46)
[2024-09-15 05:21] VITALS: BP 177/77; PULSE 78; RESP 14; TEMP 36.4; O2SAT 96
[2024-09-15 06:28] LABS: Basophils Percent Auto 0.1 % (0.2-1.2); Eosinophils Percent Auto 0.2 % (0-4.4); Hematocrit 26.4 % (42.0-52.0); Hemoglobin 7.8 g/dL (14.0-18.0); Immature Granulocyte Absolute 0.35 K/mm3 (0.00-0.031); Immature Platelet Fraction Pct 4.4 % (0.9-11.2); Lymphocytes Absolute Auto 1.96 K/mm3 (0.9-3.2); Lymphocytes Percent Auto 22.2 % (18.3-44.2); Mean Corpuscular HGB Conc 29.5 g/dl (32-36); Mean Corpuscular Hemoglobin 24.1 pg (26-34); Mean Corpuscular Volume 81.5 fl (80-100); Mean Platelet Volume 11.7 fl (7.4-10.4); Monocytes Absolute Auto 1.3 K/mm3 (0.1-0.6); Monocytes Percent Auto 15.1 % (2.6-8.5); Neutrophils Absolute Auto 5.2 K/mm3 (1.3-6.7); Neutrophils Percent Auto 58.4 % (45.5-73.1); Platelet Count Result 101 k/mm3 (150-375); Red Blood Count 3.24 M/mm3 (4.6-6.20); Red Cell Distribution Width 21.7 % (11.5-14.5); White Blood Count 8.8 K/mm3 (4.5-10.0)
[2024-09-15 06:52] LABS: Alanine Aminotransferase 19 U/L (6-50); Albumin Level 2.9 g/dL (3.5-5.1); Alkaline Phosphatase 53 U/L (38-126); Anion Gap 12 mmol/L (4-12); Aspartate Amino Transferase 24 U/L (17-59); Bilirubin,Total 0.4 mg/dL (0.2-1.3); Blood Urea Nitrogen 62 mg/dL (9-20); Calcium 7.6 mg/dL (8.4-10.2); Carbon Dioxide 17 mmol/L (22-30); Chloride 111 mmol/L (98-107); Estimated CRCL calculation 20 ml/min; Estimated Glomerular Filt Rate 22; Glucose 96 mg/dL (65-110); Magnesium 1.5 mg/dL (1.6-2.3); Phosphorus 3.3 mg/dL (2.5-4.5); Potassium 2.8 mmol/L (3.4-5.0); Sodium 140 mmol/L (137-145)
[2024-09-15 06:59] LABS: Anisocytosis 1+; Platelet Estimate Slightly Decreased (Adequate)
[2024-09-15 07:00] LABS: Burr Cells 1+; Schistocytes None Seen
[2024-09-15] MEDS: FLUTICASONE/SALMETEROL 115-21 MCG INHALER 1 PUFF 2 PUFF INHALATION ×2 (08:14→20:19)
[2024-09-15 08:16] VITALS: PULSE 74; RESP 18; O2SAT 96
[2024-09-15] MEDS: SODIUM BICARBONATE TAB 650 MG TABLET 1300 MG PO ×2 (08:59→17:28)
[2024-09-15] MEDS: FERROUS SULFATE 325 MG TABLET DR BY MOUTH ×2 (08:59→17:28)
[2024-09-15] MEDS: SACCHAROMYCES BOULARDII 250 MG CAPSULE PO ×2 (08:59→17:28)
[2024-09-15] MEDS: LIPASE/AMYLASE/PROTEASE 12,000 UNITS CAP 6 CAP PO ×3 (08:59→17:28)
[2024-09-15] MEDS: POTASSIUM CHLORIDE 20 MEQ ER TABLET 40 MEQ PO (08:59)
[2024-09-15] MEDS: SEVELAMER CARBONATE 800 MG TABLET PO ×3 (08:59→17:28)
[2024-09-15] MEDS: IRON SUCROSE COMPLEX 100 MG in SODIUM CHLORIDE 0.9% IV 50 ML 220 MG IVPB (08:59)
[2024-09-15] MEDS: GABAPENTIN 300 MG CAPSULE PO ×2 (08:59→17:28)
[2024-09-15] MEDS: PANTOPRAZOLE SODIUM IV 40 MG VIAL IV PUSH (09:00)
[2024-09-15] MEDS: polyethylene glycoL 3350 17 GM POWD.PACK PO ×2 (09:00→17:28)
[2024-09-15 14:00] VITALS: BP 171/65; PULSE 77; RESP 18; TEMP 36.1; O2SAT 99
--- NOTE | 2024-09-15 15:48 | P.PNGI_ITS ---
Progress Note: A&P Assessment and Plan (1) Coffee ground emesis: Code(s): K92.0 - Hematemesis Status: Acute Assessment and Plan: chronic anemia, hgb slowly has been trending down but no signs of gib, this was discussed with hospitalist medical treatment with ppi daily will plan to do egd tomorrow (2) Acute on chronic renal failure: Code(s): N17.9 - Acute kidney failure, unspecified; N18.9 - Chronic kidney disease, unspecified Status: Acute Assessment and Plan: nephrology on board creatinine is improving also treated hypokalemia (3) Normocytic anemia: Code(s): D64.9 - Anemia, unspecified Status: Acute Assessment and Plan: probably related to ckd/chronic disease egd tomorrow since report of ? dark emesis on admission (4) Alzheimer's dementia with agitation: Code(s): G30.9 - Alzheimer's disease, unspecified; F02.811 - Dementia in other diseases classified elsewhere, unspecified severity, with agitation Status: Acute (5) Fecal impaction in rectum: Code(s): K56.41 - Fecal impaction Status: Acute Assessment and Plan: CT scan reviewed, abdominal exam benign on miralax Subjective Date/time seen: 09/15/24 15:48 Interval history: no events, still no gib since admission but noted that hgb has been trending down Review of Systems Review of Systems: All systems reviewed & are unremarkable except as noted in HPI and below Exam Const: General: comfortable and no acute distress HENMT: Face/Nose/Sinus: Normal nares present Eyes: Sclera: sclerae normal Neck: Neck: supple Resp: Effort & Inspection: normal respiratory effort Cardio: Rate: regular rate GI: GI Palp: Yes Soft to palpation and No Tenderness to palpation present (GI) Auscultation: normal bowel sounds : Other: + suprapubic catheter Skin: General skin exam: normal color Neuro: Speech: normal speech Other: [id number] Extrem: General: normal to inspection Psych: Affect: normal affect Objective Data Vital Signs Vital Signs: Vital Signs - 24 hr 09/14/24 20:52 09/14/24 21:35 09/15/24 05:21 Temperature 98.2 F 97.5 F L Pulse Rate 75 78 Respiratory Rate 12 14 Blood Pressure 151/67 H 177/77 H Pulse Oximetry 97 96 96 Oxygen Delivery Room Air Fraction of Inspired Oxygen 21 09/15/24 08:16 09/15/24 08:16 09/15/24 08:00 Temperature Pulse Rate 74 Respiratory Rate 18 Blood Pressure Pulse Oximetry 96 Oxygen Delivery Room Air Room Air Fraction of Inspired Oxygen 21 09/15/24 14:00 Temperature 96.9 F L Pulse Rate 77 Respiratory Rate 18 Blood Pressure 171/65 H Pulse Oximetry 99 Oxygen Delivery Fraction of Inspired Oxygen Intake/Output Intake/Output: Intake & Output 09/12/24 09/13/24 09/14/24 09/15/24 23:59 23:59 23:59 23:59 Intake Total 1676.8 2688.0 760 Output Total 2200 1850 900 Balance -523.2 838.0 -140 Meds/Results Medications: Active Medications Generic Name Dose Route Start Last Admin Trade Name Freq PRN Reason Stop Dose Admin Acetaminophen 650 mg 09/10/24 10:48 Acetaminophen 325 Mg Tablet PO Q4H PRN Mild Pain (1-3) or Fever Albuterol/Ipratropium 3 ml 09/10/24 22:02 Ipratropium 0.5 Mg/Albuterol Sulfate 2.5 Mg Ampul.Neb 3 Ml INHALATION Q6H PRN Bronchospasm Lipase/Protease/Amylase 6 cap 09/11/24 08:00 09/15/24 12:08 Lipase/Amylase/Protease 12,000 Units Cap PO 6 cap TIDWM THELMA Administration Ferrous Sulfate 325 mg 09/11/24 09:00 09/15/24 08:59 Ferrous Sulfate [address] BY MOUTH 325 mg BID THELMA Administration Gabapentin 300 mg 09/11/24 09:00 09/15/24 08:59 Gabapentin 300 Mg Capsule PO 300 mg BID THELMA Administration Sodium Chloride 1,000 mls @ 75 mls/hr 09/10/24 18:35 09/14/24 16:45 Normal Saline Iv IV CONT 75 mls/hr .[id number] THELMA Administration Iron Sucrose 100 mg/ Sodium 55 mls @ 220 mls/hr 09/12/24 09:00 09/15/24 08:59 Chloride IVPB 220 mls/hr DAILY THELMA Administration Ondansetron HCl 4 mg 09/10/24 10:48 Ondansetron Inj 4 Mg/2 Ml Vial IV PUSH Q4H PRN Nausea Pantoprazole Sodium 40 mg 09/11/24 09:00 09/15/24 09:00 Pantoprazole Sodium Iv 40 Mg Vial IV PUSH 40 mg QAM THELMA Administration Polyethylene Glycol 17 gm 09/11/24 17:00 09/15/24 09:00 Polyethylene Glycol 3350 17 Gm Powd.Pack PO 17 gm BID THELMA Administration Saccharomyces Boulardii 250 mg 09/11/24 09:00 09/15/24 08:59 Saccharomyces Boulardii 250 Mg Capsule PO 250 mg BID THELMA Administration Fluticasone/Salmeterol 2 puff 09/11/24 08:00 09/15/24 08:14 Fluticasone/Salmeterol 115-21 Mcg Inhaler 1 Puff INHALATION 2 puff Q12HRT THELMA Administration Sevelamer Carbonate 800 mg 09/11/24 12:00 09/15/24 12:08 Sevelamer Carbonate 800 Mg Tablet PO 800 mg TIDWM THELMA Administration Sodium Bicarbonate 1,300 mg 09/12/24 09:00 09/15/24 08:59 Sodium Bicarbonate Tab 650 Mg Tablet PO 1,300 mg BID THELMA Administration Tamsulosin HCl 0.4 mg 09/10/24 22:15 09/14/24 21:46 Tamsulosin Hcl 0.4 Mg Capsule PO 0.4 mg HS THELMA Administration Trazodone HCl 50 mg 09/10/24 22:15 09/14/24 21:46 Trazodone Hcl 50 Mg Tablet PO 50 mg HS THELMA Administration Radiology Results: ITS Impressions Chest/Abdomen/Pelvis CT 09/10/24 20:53 IMPRESSION: CHEST: 1. 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 2. Cardiomegaly with pulmonary hypertension and widened main pulmonary artery. 3. Atelectatic changes in the lung bases with minimal left pleural effusion ABDOMEN/PELVIS: 1. Cholelithiasis. 2. Sliding hiatus hernia. 3. Possible stone in the right kidney upper pole. Soft tissue density in the left kidney midpole. Follow-up advised. 4. Impacted fecal material in the rectum and sigmoid colon with constipation. Labs Labs: Laboratory Results - last 24 hr 09/15/24 09/15/24 05:34 05:35 WBC 8.8 RBC 3.24 L Hgb 7.8 L Hct 26.4 L MCV 81.5 MCH 24.1 L MCHC 29.5 L RDW 21.7 H Plt Count 101 L MPV 11.7 H Immature Gran % (Auto) 4.0 H Neut % (Auto) 58.4 Lymph % (Auto) 22.2 [place] % (Auto) 15.1 H Eos % (Auto) 0.2 Baso % (Auto) 0.1 L Lymph # (Auto) 1.96 [place] # (Auto) 1.3 H Eos # (Auto) 0.0 Baso # (Auto) 0.0 Abs Immat Gran (auto) 0.35 H Absolute Neuts (auto) 5.2 Absolute Nucleated RBC 0.000 Nucleated RBC % 0.0 Platelet Estimate Slightly decreased % Immature Plt Fraction 4.4 Anisocytosis 1+ [place] Cells 1+ Schistocytes None seen Sodium 140 Potassium 2.8 L* Chloride 111 H Carbon Dioxide 17 L Anion Gap 12 BUN 62 H Creatinine 2.80 H Estim Creat Clear Calc 20 Estimated GFR 22 L Glucose 96 Calcium 7.6 L Phosphorus 3.3 Magnesium 1.5 L Total Bilirubin 0.4 AST 24 ALT 19 Alkaline Phosphatase 53 Total Protein 7.0 Albumin 2.9 L
--- NOTE | 2024-09-15 16:11 | PM.PNNEP ---
Subjective Date/time seen: 09/15/24 13:24 Interval history: Follow-up for acute kidney injury/acute renal failure on chronic kidney disease. Objective Data Vital Signs Vital Signs: Vital Signs Temp Pulse Resp BP Pulse Ox O2 Del Method FiO2 09/15/24 12:00 96.9 F L 77 18 171/65 H 99 09/15/24 08:00 Room Air 09/15/24 08:16 74 18 09/15/24 08:16 96 Room Air 21 09/15/24 05:21 97.5 F L 78 14 177/77 H 96 09/14/24 21:35 96 Room Air 21 09/14/24 20:52 98.2 F 75 12 151/67 H 97 Intake/Output Intake/Output: Intake & Output 09/12/24 09/13/24 09/14/24 09/15/24 23:59 23:59 23:59 23:59 Intake Total 1676.8 2688.0 760 Output Total 2200 1850 900 Balance -523.2 838.0 -140 Meds/Results Medications: Active Medications Generic Name Dose Route Start Last Admin Trade Name Freq PRN Reason Stop Dose Admin Acetaminophen 650 mg 09/10/24 10:48 Acetaminophen 325 Mg Tablet PO Q4H PRN Mild Pain (1-3) or Fever Albuterol/Ipratropium 3 ml 09/10/24 22:02 Ipratropium 0.5 Mg/Albuterol Sulfate 2.5 Mg Ampul.Neb 3 Ml INHALATION Q6H PRN Bronchospasm Lipase/Protease/Amylase 6 cap 09/11/24 08:00 09/15/24 12:08 Lipase/Amylase/Protease 12,000 Units Cap PO 6 cap TIDWM THELMA Administration Ferrous Sulfate 325 mg 09/11/24 09:00 09/15/24 08:59 Ferrous Sulfate [address] BY MOUTH 325 mg BID THELMA Administration Gabapentin 300 mg 09/11/24 09:00 09/15/24 08:59 Gabapentin 300 Mg Capsule PO 300 mg BID THELMA Administration Sodium Chloride 1,000 mls @ 75 mls/hr 09/10/24 18:35 09/14/24 16:45 Normal Saline Iv IV CONT 75 mls/hr .[id number] THELMA Administration Iron Sucrose 100 mg/ Sodium 55 mls @ 220 mls/hr 09/12/24 09:00 09/15/24 08:59 Chloride IVPB 220 mls/hr DAILY THELMA Administration Ondansetron HCl 4 mg 09/10/24 10:48 Ondansetron Inj 4 Mg/2 Ml Vial IV PUSH Q4H PRN Nausea Pantoprazole Sodium 40 mg 09/11/24 09:00 09/15/24 09:00 Pantoprazole Sodium Iv 40 Mg Vial IV PUSH 40 mg QAM THELMA Administration Polyethylene Glycol 17 gm 09/11/24 17:00 09/15/24 09:00 Polyethylene Glycol 3350 17 Gm Powd.Pack PO 17 gm BID THELMA Administration Saccharomyces Boulardii 250 mg 09/11/24 09:00 09/15/24 08:59 Saccharomyces Boulardii 250 Mg Capsule PO 250 mg BID THELMA Administration Fluticasone/Salmeterol 2 puff 09/11/24 08:00 09/15/24 08:14 Fluticasone/Salmeterol 115-21 Mcg Inhaler 1 Puff INHALATION 2 puff Q12HRT THELMA Administration Sevelamer Carbonate 800 mg 09/11/24 12:00 09/15/24 12:08 Sevelamer Carbonate 800 Mg Tablet PO 800 mg TIDWM THELMA Administration Sodium Bicarbonate 1,300 mg 09/12/24 09:00 09/15/24 08:59 Sodium Bicarbonate Tab 650 Mg Tablet PO 1,300 mg BID THELMA Administration Tamsulosin HCl 0.4 mg 09/10/24 22:15 09/14/24 21:46 Tamsulosin Hcl 0.4 Mg Capsule PO 0.4 mg HS THELMA Administration Trazodone HCl 50 mg 09/10/24 22:15 09/14/24 21:46 Trazodone Hcl 50 Mg Tablet PO 50 mg HS THELMA Administration Radiology Results: ITS Impressions Chest/Abdomen/Pelvis CT 09/10/24 20:53 IMPRESSION: CHEST: 1. 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 2. Cardiomegaly with pulmonary hypertension and widened main pulmonary artery. 3. Atelectatic changes in the lung bases with minimal left pleural effusion ABDOMEN/PELVIS: 1. Cholelithiasis. 2. Sliding hiatus hernia. 3. Possible stone in the right kidney upper pole. Soft tissue density in the left kidney midpole. Follow-up advised. 4. Impacted fecal material in the rectum and sigmoid colon with constipation. Labs Labs: Laboratory Tests 09/15/24 05:34 09/15/24 05:35 Calcium 7.6 L Phosphorus 3.3 Magnesium 1.5 L Total Bilirubin 0.4 AST 24 ALT 19 Alkaline Phosphatase 53 Total Protein 7.0 Albumin 2.9 L
--- NOTE | 2024-09-15 18:15 | P.PNIM_ITS ---
Progress Note: A&P Assessment and Plan (1) Coffee ground emesis: Code(s): K92.0 - Hematemesis Status: Acute Plan Coffee-ground emesis R/o GI bleed Hb 8.5 < 8 Isat 17 continue Protonix daily per GI No endoscopy as patient does not have any current obvious source of bleeding Gi following Acute on chronic renal failure Cr 5.8, baseline 2.0, BUN 106 and K 5.3 Today Cr 3.5, BUN 78, k 3.7 continue IVF nephrology following Hyperphosphatemia Phosphorus 9.1 --> 4.5 from ARF on Sevelamer Nephrology following Metabolic acidosis from ARF CO2 12 -->16 On bicarb Po Nephrology following Iron deficiency anemia Hb 8.5, Isat 17 IV iron 300/1000 CHF, diastolic stable hold lasix for now BPH with indwelling catheter monitor continue home meds CVA Hold aspirin Continue Lipitor Alzheimer's disease continue home meds DVT prophylaxis on SCDs, no Ac due to GI bleed Subjective Date/time seen: 09/15/24 18:15 Interval history: Discussed with GI, possible EGD tomorrow Review of Systems Review of Systems: Unreliable historian due to dementia. Exam Narrative: General: alert Eyes: EOMI, PERRLA ENNT External ears normal, Neck is supple, no masses, Respiratory systems: Clear to auscultation Cardiovascular S1, S2, normal rhythm, no murmur, rub, or gallop; no thrill or palpable murmurs on palpation. Gastrointestinal: soft, non-tender, and non-distended abdomen with no masses; BS present Skin: no rash, lesions, ulcerations, subcutaneous nodules or induration Musculoskeletal: no abnormality and no tenderness, normal ROM Neurologic: oriented x1, non compliant with exam Objective Data Vital Signs Vital Signs: Vital Signs - 24 hr 09/14/24 20:52 09/14/24 21:35 09/15/24 05:21 Temperature 98.2 F 97.5 F L Pulse Rate 75 78 Respiratory Rate 12 14 Blood Pressure 151/67 H 177/77 H Pulse Oximetry 97 96 96 Oxygen Delivery Room Air Fraction of Inspired Oxygen 09/15/24 08:16 09/15/24 08:16 09/15/24 08:00 Temperature Pulse Rate 74 Respiratory Rate 18 Blood Pressure Pulse Oximetry 96 Oxygen Delivery Room Air Room Air Fraction of Inspired Oxygen 09/15/24 14:00 Temperature 96.9 F L Pulse Rate 77 Respiratory Rate 18 Blood Pressure 171/65 H Pulse Oximetry 99 Oxygen Delivery Fraction of Inspired Oxygen Intake/Output Intake/Output: Intake & Output 09/12/24 09/13/24 09/14/24 09/15/24 23:59 23:59 23:59 23:59 Intake Total 1676.8 2688.0 760 Output Total 2200 1850 900 Balance -523.2 838.0 -140 Meds/Results Medications: Active Medications Generic Name Dose Route Start Last Admin Trade Name Freq PRN Reason Stop Dose Admin Acetaminophen 650 mg 09/10/24 10:48 Acetaminophen 325 Mg Tablet PO Q4H PRN Mild Pain (1-3) or Fever Albuterol/Ipratropium 3 ml 09/10/24 22:02 Ipratropium 0.5 Mg/Albuterol Sulfate 2.5 Mg Ampul.Neb 3 Ml INHALATION Q6H PRN Bronchospasm Lipase/Protease/Amylase 6 cap 09/11/24 08:00 09/15/24 17:28 Lipase/Amylase/Protease 12,000 Units Cap PO 6 cap TIDWM THELMA Administration Ferrous Sulfate 325 mg 09/11/24 09:00 09/15/24 17:28 Ferrous Sulfate [address] BY MOUTH 325 mg BID THELMA Administration Gabapentin 300 mg 09/11/24 09:00 09/15/24 17:28 Gabapentin 300 Mg Capsule PO 300 mg BID THELMA Administration Sodium Chloride 1,000 mls @ 75 mls/hr 09/10/24 18:35 09/14/24 16:45 Normal Saline Iv IV CONT 75 mls/hr .[id number] THELMA Administration Iron Sucrose 100 mg/ Sodium 55 mls @ 220 mls/hr 09/12/24 09:00 09/15/24 08:59 Chloride IVPB 220 mls/hr DAILY THELMA Administration Ondansetron HCl 4 mg 09/10/24 10:48 Ondansetron Inj 4 Mg/2 Ml Vial IV PUSH Q4H PRN Nausea Pantoprazole Sodium 40 mg 09/11/24 09:00 09/15/24 09:00 Pantoprazole Sodium Iv 40 Mg Vial IV PUSH 40 mg QAM THELMA Administration Polyethylene Glycol 17 gm 09/11/24 17:00 09/15/24 17:28 Polyethylene Glycol 3350 17 Gm Powd.Pack PO 17 gm BID THELMA Administration Saccharomyces Boulardii 250 mg 09/11/24 09:00 09/15/24 17:28 Saccharomyces Boulardii 250 Mg Capsule PO 250 mg BID THELMA Administration Fluticasone/Salmeterol 2 puff 09/11/24 08:00 09/15/24 08:14 Fluticasone/Salmeterol 115-21 Mcg Inhaler 1 Puff INHALATION 2 puff Q12HRT THELMA Administration Sevelamer Carbonate 800 mg 09/11/24 12:00 09/15/24 17:28 Sevelamer Carbonate 800 Mg Tablet PO 800 mg TIDWM THELMA Administration Sodium Bicarbonate 1,300 mg 09/12/24 09:00 09/15/24 17:28 Sodium Bicarbonate Tab 650 Mg Tablet PO 1,300 mg BID THELMA Administration Tamsulosin HCl 0.4 mg 09/10/24 22:15 09/14/24 21:46 Tamsulosin Hcl 0.4 Mg Capsule PO 0.4 mg HS THELMA Administration Trazodone HCl 50 mg 09/10/24 22:15 09/14/24 21:46 Trazodone Hcl 50 Mg Tablet PO 50 mg HS THELMA Administration Radiology Results: ITS Impressions Chest/Abdomen/Pelvis CT 09/10/24 20:53 IMPRESSION: CHEST: 1. 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 2. Cardiomegaly with pulmonary hypertension and widened main pulmonary artery. 3. Atelectatic changes in the lung bases with minimal left pleural effusion ABDOMEN/PELVIS: 1. Cholelithiasis. 2. Sliding hiatus hernia. 3. Possible stone in the right kidney upper pole. Soft tissue density in the left kidney midpole. Follow-up advised. 4. Impacted fecal material in the rectum and sigmoid colon with constipation. Labs Labs: Laboratory Results - last 24 hr 09/15/24 09/15/24 05:34 05:35 WBC 8.8 RBC 3.24 L Hgb 7.8 L Hct 26.4 L MCV 81.5 MCH 24.1 L MCHC 29.5 L RDW 21.7 H Plt Count 101 L MPV 11.7 H Immature Gran % (Auto) 4.0 H Neut % (Auto) 58.4 Lymph % (Auto) 22.2 [place] % (Auto) 15.1 H Eos % (Auto) 0.2 Baso % (Auto) 0.1 L Lymph # (Auto) 1.96 [place] # (Auto) 1.3 H Eos # (Auto) 0.0 Baso # (Auto) 0.0 Abs Immat Gran (auto) 0.35 H Absolute Neuts (auto) 5.2 Absolute Nucleated RBC 0.000 Nucleated RBC % 0.0 Platelet Estimate Slightly decreased % Immature Plt Fraction 4.4 Anisocytosis 1+ [place] Cells 1+ Schistocytes None seen Sodium 140 Potassium 2.8 L* Chloride 111 H Carbon Dioxide 17 L Anion Gap 12 BUN 62 H Creatinine 2.80 H Estim Creat Clear Calc 20 Estimated GFR 22 L Glucose 96 Calcium 7.6 L Phosphorus 3.3 Magnesium 1.5 L Total Bilirubin 0.4 AST 24 ALT 19 Alkaline Phosphatase 53 Total Protein 7.0 Albumin 2.9 L Hospitalist MIPS Advance Care Plan I have confirmed that the patient's Advanced Care Plan is present, code status is documented, or surrogate decision maker is listed in patient medical record.: Yes
[2024-09-15 20:21] VITALS: O2SAT 98
[2024-09-15] MEDS: TAMSULOSIN HCL 0.4 MG CAPSULE PO (20:39)
[2024-09-15] MEDS: traZODone HCL 50 MG TABLET PO (20:39)
[2024-09-15] MEDS: SODIUM CHLORIDE 0.9% IV 1,000 ML 75 ML IV CONT (20:41)
[2024-09-15 20:56] VITALS: BP 173/79; PULSE 74; RESP 16; TEMP 36.6; O2SAT 97
--- NOTE | 2024-09-15 22:18 | PC.NURSE ---
This RN attempted to call emergency contact for EGD consent. No answer at this time, message was left on voicemail.
[2024-09-16] VITALS (15 sets, daily range): BP systolic 138–182; BP diastolic 54–79; PULSE 69–80; RESP 12–25; TEMP 36.1–36.8; O2SAT 93–98
[2024-09-16 06:46] LABS: Basophils Percent Auto 0.1 % (0.2-1.2); Eosinophils Percent Auto 0.4 % (0-4.4); Hematocrit 25.9 % (42.0-52.0); Hemoglobin 7.6 g/dL (14.0-18.0); Immature Granulocyte Absolute 0.27 K/mm3 (0.00-0.031); Immature Granulocyte Percent A 3.7 % (0-0.5); Lymphocytes Absolute Auto 1.87 K/mm3 (0.9-3.2); Lymphocytes Percent Auto 25.9 % (18.3-44.2); Mean Corpuscular HGB Conc 29.3 g/dl (32-36); Mean Corpuscular Hemoglobin 23.8 pg (26-34); Mean Corpuscular Volume 81.2 fl (80-100); Monocytes Absolute Auto 0.9 K/mm3 (0.1-0.6); Monocytes Percent Auto 12.3 % (2.6-8.5); Neutrophils Absolute Auto 4.1 K/mm3 (1.3-6.7); Neutrophils Percent Auto 57.6 % (45.5-73.1); Platelet Count Result 110 k/mm3 (150-375); Red Blood Count 3.19 M/mm3 (4.6-6.20); Red Cell Distribution Width 21.6 % (11.5-14.5); White Blood Count 7.2 K/mm3 (4.5-10.0)
[2024-09-16 07:03] LABS: Alanine Aminotransferase 28 U/L (6-50); Alkaline Phosphatase 53 U/L (38-126); Anion Gap 12 mmol/L (4-12); Aspartate Amino Transferase 31 U/L (17-59); Bilirubin,Total 0.3 mg/dL (0.2-1.3); Blood Urea Nitrogen 56 mg/dL (9-20); Calcium 7.6 mg/dL (8.4-10.2); Carbon Dioxide 18 mmol/L (22-30); Chloride 112 mmol/L (98-107); Estimated CRCL calculation 22 ml/min; Estimated Glomerular Filt Rate 24; Glucose 90 mg/dL (65-110); Magnesium 1.5 mg/dL (1.6-2.3); Phosphorus 3.4 mg/dL (2.5-4.5); Potassium 3.2 mmol/L (3.4-5.0); Sodium 142 mmol/L (137-145)
[2024-09-16] MEDS: FLUTICASONE/SALMETEROL 115-21 MCG INHALER 1 PUFF 2 PUFF INHALATION ×2 (07:54→20:15)
[2024-09-16 07:55] LABS: Platelet Estimate Slightly Decreased (Adequate)
[2024-09-16 07:56] LABS: Anisocytosis 1+; Target Cells 1+
[2024-09-16 07:58] LABS: Ovalocytes 1+; Schistocytes Rare
[2024-09-16] MEDS: PANTOPRAZOLE SODIUM IV 40 MG VIAL IV PUSH (09:16)
[2024-09-16] MEDS: LACTATED RINGERS 1,000 ML 150 ML IV CONT (09:47)
--- NOTE | 2024-09-16 10:23 | P.HP_ITS ---
H&P: HPI History of Present Illness Date/Time: 09/16/24 10:23 Chief Complaint: Coffee-ground emesis Narrative: patient presents with concern for GI bleed. He reportedly had dark emesis which he describes as looking like coffee or coffee grounds. He has been vomiting for several days and he feels lightheaded although he says the latter is chronic. the patient has a history of chronic renal disease, however his hematocrit has decreased somewhat since admission. He is here for EGD to rule out gastroduodenal erosive or ulcerative lesions. There is no reported melena. Review of Systems Review of Systems: All systems reviewed & are unremarkable except as noted in HPI and below PMFSH Past Medical History Medical History (Updated 09/11/24 @ 09:36 by Christiano Sanchez MD) Acute on chronic renal failure Alzheimer's dementia with agitation Anemia Anxiety disorder, unspecified BPH (benign prostatic hyperplasia) Chronic ankle pain Chronic indwelling Choudhury catheter Chronic kidney disease COVID-19 CVA (cerebral vascular accident) Essential hypertension Fecal impaction in rectum GERD (gastroesophageal reflux disease) Heart failure, unspecified Hemiplegia affecting left nondominant side History of 2019 novel coronavirus disease (COVID-19) Hypertension IBS (irritable bowel syndrome) Osteoarthritis Overactive bladder Pressure ulcer of sacral region, unspecified stage Seasonal allergic rhinitis 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 Mother , Patient does not know cause No problems noted. Other Unknown family medical history Social History Social History (Updated 09/10/24 @ 08:17 by Manda Aguilar MD) Social History: Patient became debilitated after stroke in 2013, he lost bladder control in 2016 after having multiple back surgery and now has indwelling Choudhury catheter. He has been [facility] since [facility]. Patient wheelchair and bed-bound. The patient is and has 1 child who is the durable power as400 administrator for healthcare. The patient is a former smoker. No alcohol marijuana or illicit drugs. Code status full code per [facility] documentation Including POLST dated Smoking status: Former smoker Tobacco type: cigarettes Second hand tobacco smoke exposure: No Alcohol intake: never Alcohol use details: Quit in 2013 Substance use: never Substance use type: does not use Do You Feel Safe in your Home?: Yes Lack of Transportation: No Lack of Food: Never True Current Housing: I Have Housing Concerned About Future Housing: No Difficulty Paying Gas/Electric Bills: No Difficulty Paying for Meds: No Currently Unemployed: No Education: High School Diploma/GED Difficulty w/ Childcare or Family Care: No Living arrangements: [facility] Additional living arrangements comments: [facility] since 02/03/24 Occupation/Education: retired Gender identity (if verbalized by the patient): Male Spiritual care concerns: No Meds Home Medications and Allergies Home Medications Medication Instructions Recorded Confirmed Type Procardia XL 30 mg PO DAILY 11/05/20 09/10/24 History atenolol 50 mg tablet 50 mg PO DAILY 11/05/20 09/10/24 History cholecalciferol (vitamin D3) 25 1,000 unit PO DAILY 11/05/20 09/10/24 History mcg (1,000 unit) tablet finasteride 5 mg tablet (Proscar) 5 mg PO DAILY 11/05/20 09/10/24 History gabapentin 300 mg tablet 300 mg PO BID 11/05/20 09/10/24 History eahmam-iodfpbrd-livmsfr 3 cap PO TID 11/05/20 09/10/24 History 24,000-76,000-120,000 unit capsule,delayed rel (Creon) mirabegron 25 mg tablet,extended 25 mg PO DAILY 11/05/20 09/10/24 History release 24 hr (Myrbetriq) multivitamin-ferrous 1 tablet PO DAILY 11/05/20 09/10/24 History fumarate-folic acid 18 mg-400 mcg tablet (Centrum) omeprazole 20 mg capsule,delayed 20 mg PO HS 11/05/20 09/10/24 History release tamsulosin 0.4 mg capsule 0.46 mg PO HS 11/05/20 09/10/24 History fluticasone propionate 50 1 spray intranasal DAILY #16 grams 12/18/21 09/10/24 Rx mcg/actuation nasal spray,suspension colestipol 1 gram tablet 1 g PO TID 02/05/22 09/10/24 History loperamide 2 mg PO BID 02/05/22 09/10/24 History sertraline 50 mg tablet 75 mg PO DAILY 02/05/22 09/10/24 History bisacodyl 10 mg rectal suppository 10 mg RECTAL PRN PRN Constipation 08/28/22 09/10/24 History magnesium hydroxide 400 mg/5 mL 30 ml PO HS PRN Constipation 08/28/22 09/10/24 History oral suspension (Milk of Magnesia) aspirin 81 mg tablet,delayed 81 mg PO QAM #30 tabs 08/30/22 09/10/24 Rx release atorvastatin 20 mg tablet 20 mg PO DAILY #30 tabs 08/30/22 09/10/24 Rx aluminum-mag hydroxide-simethicone 10 ml PO TID PRN Indigestion 04/14/23 09/10/24 History 400 mg-400 mg-40 mg/5 mL oral susp ipratropium 0.5 mg-albuterol 3 mg 3 ml inhalation Q6H PRN 04/14/23 09/10/24 History (2.5 mg base)/3 mL nebulization Bronchospasm soln trazodone 50 mg tablet 50 mg PO HS 11/01/23 09/10/24 History acetaminophen 325 mg tablet 650 mg PO Q4H PRN Mild Pain (1-3) 11/09/23 09/10/24 Rx Or Fever #0 tabs bumetanide 1 mg tablet 1 mg PO DAILY #0 tabs 11/09/23 09/10/24 Rx epoetin carolynn-epbx 10,000 unit/mL 10,000 unit subcut MOWEFR@09 #10 mL 11/09/23 09/10/24 Rx injection solution (Retacrit) vitamins A,C,T-iulo-spdicb 4,296 1 cap PO DAILY 02/09/24 09/10/24 History mcg-226 mg-90 mg capsule (PreserVision AREDS) calcium carbonate 500 mg PO BID 07/22/24 09/10/24 History dicyclomine 20 mg tablet 20 mg PO QID 07/22/24 09/10/24 History oxycodone 5 mg tablet 5 mg PO Q12H PRN Pain (Scale Score 07/22/24 09/10/24 History 7-10) pseudoephedrine-guaifenesin ER 60 1 tablet PO Q12H PRN Cough 07/22/24 09/10/24 History mg-600 mg tablet,extend release 12hr (Mucinex D) Saccharomyces boulardii 250 mg 250 mg PO BID 09/10/24 09/10/24 History capsule budesonide-formoterol HFA 160 2 puff inhalation Q12H 09/10/24 09/10/24 History mcg-4.5 mcg/actuation aerosol inhaler (Symbicort) ferrous sulfate 325 mg (65 mg 325 mg PO BID 09/10/24 09/10/24 History iron) tablet magnesium citrate (Citroma oral 296 ml PO ONCE 09/10/24 09/10/24 History solution) sodium phosphates 19 gram-7 118 ml RECTAL ONCE 09/10/24 09/10/24 History gram/118 mL enema (Fleet Enema) sulfamethoxazole 800 1 tablet PO Q12H 09/10/24 09/10/24 History mg-trimethoprim 160 mg tablet (Bactrim DS) vitamin B complex-vitamin C-folic 1 tablet PO DAILY 09/10/24 09/10/24 History acid 0.8 mg tablet (Renal-Robe) Allergies Allergy/AdvReac Type Severity Reaction Status Date / Time No Known Allergies Allergy Verified 09/16/24 09:32 Vital Signs Vital Signs - 24 hr 09/15/24 14:00 09/15/24 20:21 09/15/24 20:56 Temperature 96.9 F L 97.8 F Pulse Rate 77 74 Respiratory Rate 18 16 Blood Pressure 171/65 H 173/79 H Pulse Oximetry 99 98 97 Oxygen Delivery Room Air Fraction of Inspired Oxygen 09/16/24 07:56 09/16/24 09:37 09/16/24 08:00 Temperature 97 F L Pulse Rate 74 Respiratory Rate 18 Blood Pressure 170/64 H Pulse Oximetry 97 97 97 Oxygen Delivery Room Air Room Air Room Air Fraction of Inspired Oxygen 21 Exam Const: General: cooperative Resp: Effort & Inspection: normal respiratory effort and able to speak in complete sentences Auscultation: clear to auscultation bilaterally Cardio: Rate: regular rate Rhythm: regular rhythm GI: Inspection: normal to inspection GI Palp: No No hepatosplenomegaly present Auscultation: normal bowel sounds Rectal Exam: deferred Skin: General skin exam: normal color Psych: Appearance: grossly normal Mental Status: mental status grossly normal H&P: Results Labs Labs: Short CBC 09/16/24 Range/Units 05:59 WBC 7.2 (4.5-10.0) K/mm3 Hgb 7.6 L (14.0-18.0) g/dL Hct 25.9 L (42.0-52.0) % Plt Count 110 L (150-375) k/mm3 BMP 09/16/24 05:59 Sodium 142 Potassium 3.2 L Chloride 112 H Carbon Dioxide 18 L BUN 56 H Creatinine 2.60 H Glucose 90 Calcium 7.6 L Liver Function 09/16/24 Range/Units 05:59 Total Bilirubin 0.3 (0.2-1.3) mg/dL AST 31 (17-59) U/L ALT 28 (6-50) U/L Alkaline Phosphatase 53 (38-126) U/L Albumin 3.0 L (3.5-5.1) g/dL Assessment and Plan Assessment and plan (1) Acute on chronic renal failure: Code(s): N17.9 - Acute kidney failure, unspecified; N18.9 - Chronic kidney disease, unspecified Status: Acute (2) Normocytic anemia: Code(s): D64.9 - Anemia, unspecified Status: Acute (3) Coffee ground emesis: Code(s): K92.0 - Hematemesis Status: Acute Assessment and Plan: The patient is deemed a good candidate for the procedure. Consent signed. Will proceed.
--- NOTE | 2024-09-16 10:24 | WPDANESEPPF ---
Anes - Initial Pre Proc Eval Procedure: Operation Date: 09/16/24 11:00 Proposed Procedures p Esophagogastroduodenoscopy - Rito Kenney MD Date/Time: 09/16/24 10:24 Surgeon: Rayne Alvares MD Pre Op Diagnosis: upper GI bleed; JANA on CKD; Patient Data Age: 78 Gender: M Height: 1.75 m Weight: 73 kg Last Vital Signs Temp 36.1 C L 09/16/24 09:37 Pulse 74 09/16/24 09:37 Resp 18 09/16/24 09:37 BP 170/64 H 09/16/24 09:37 Pulse Ox 97 09/16/24 09:37 O2 Del Method Room Air 09/16/24 09:37 FiO2 21 09/16/24 07:56 Allergies Allergy/AdvReac Type Severity Reaction Status Date / Time No Known Allergies Allergy Verified 09/16/24 09:32 Home Medications Medication Instructions Recorded Confirmed Type Procardia XL 30 mg PO DAILY 11/05/20 09/10/24 History atenolol 50 mg tablet 50 mg PO DAILY 11/05/20 09/10/24 History cholecalciferol (vitamin D3) 25 1,000 unit PO DAILY 11/05/20 09/10/24 History mcg (1,000 unit) tablet finasteride 5 mg tablet (Proscar) 5 mg PO DAILY 11/05/20 09/10/24 History gabapentin 300 mg tablet 300 mg PO BID 11/05/20 09/10/24 History qgmofn-yvwogwna-dwhragu 3 cap PO TID 11/05/20 09/10/24 History 24,000-76,000-120,000 unit capsule,delayed rel (Creon) mirabegron 25 mg tablet,extended 25 mg PO DAILY 11/05/20 09/10/24 History release 24 hr (Myrbetriq) multivitamin-ferrous 1 tablet PO DAILY 11/05/20 09/10/24 History fumarate-folic acid 18 mg-400 mcg tablet (Centrum) omeprazole 20 mg capsule,delayed 20 mg PO HS 11/05/20 09/10/24 History release tamsulosin 0.4 mg capsule 0.46 mg PO HS 11/05/20 09/10/24 History fluticasone propionate 50 1 spray intranasal DAILY #16 grams 12/18/21 09/10/24 Rx mcg/actuation nasal spray,suspension colestipol 1 gram tablet 1 g PO TID 02/05/22 09/10/24 History loperamide 2 mg PO BID 02/05/22 09/10/24 History sertraline 50 mg tablet 75 mg PO DAILY 02/05/22 09/10/24 History bisacodyl 10 mg rectal suppository 10 mg RECTAL PRN PRN Constipation 08/28/22 09/10/24 History magnesium hydroxide 400 mg/5 mL 30 ml PO HS PRN Constipation 08/28/22 09/10/24 History oral suspension (Milk of Magnesia) aspirin 81 mg tablet,delayed 81 mg PO QAM #30 tabs 08/30/22 09/10/24 Rx release atorvastatin 20 mg tablet 20 mg PO DAILY #30 tabs 08/30/22 09/10/24 Rx aluminum-mag hydroxide-simethicone 10 ml PO TID PRN Indigestion 04/14/23 09/10/24 History 400 mg-400 mg-40 mg/5 mL oral susp ipratropium 0.5 mg-albuterol 3 mg 3 ml inhalation Q6H PRN 04/14/23 09/10/24 History (2.5 mg base)/3 mL nebulization Bronchospasm soln trazodone 50 mg tablet 50 mg PO HS 11/01/23 09/10/24 History acetaminophen 325 mg tablet 650 mg PO Q4H PRN Mild Pain (1-3) 11/09/23 09/10/24 Rx Or Fever #0 tabs bumetanide 1 mg tablet 1 mg PO DAILY #0 tabs 11/09/23 09/10/24 Rx epoetin carolynn-epbx 10,000 unit/mL 10,000 unit subcut MOWEFR@09 #10 mL 11/09/23 09/10/24 Rx injection solution (Retacrit) vitamins A,C,L-ilou-hwxlto 4,296 1 cap PO DAILY 02/09/24 09/10/24 History mcg-226 mg-90 mg capsule (PreserVision AREDS) calcium carbonate 500 mg PO BID 07/22/24 09/10/24 History dicyclomine 20 mg tablet 20 mg PO QID 07/22/24 09/10/24 History oxycodone 5 mg tablet 5 mg PO Q12H PRN Pain (Scale Score 07/22/24 09/10/24 History 7-10) pseudoephedrine-guaifenesin ER 60 1 tablet PO Q12H PRN Cough 07/22/24 09/10/24 History mg-600 mg tablet,extend release 12hr (Mucinex D) Saccharomyces boulardii 250 mg 250 mg PO BID 09/10/24 09/10/24 History capsule budesonide-formoterol HFA 160 2 puff inhalation Q12H 09/10/24 09/10/24 History mcg-4.5 mcg/actuation aerosol inhaler (Symbicort) ferrous sulfate 325 mg (65 mg 325 mg PO BID 09/10/24 09/10/24 History iron) tablet magnesium citrate (Citroma oral 296 ml PO ONCE 09/10/24 09/10/24 History solution) sodium phosphates 19 gram-7 118 ml RECTAL ONCE 09/10/24 09/10/24 History gram/118 mL enema (Fleet Enema) sulfamethoxazole 800 1 tablet PO Q12H 09/10/24 09/10/24 History mg-trimethoprim 160 mg tablet (Bactrim DS) vitamin B complex-vitamin C-folic 1 tablet PO DAILY 09/10/24 09/10/24 History acid 0.8 mg tablet (Renal-Robe) Laboratory Tests 09/16/24 05:59 WBC 7.2 K/mm3 (4.5-10.0) RBC 3.19 L M/mm3 (4.6-6.20) Hgb 7.6 L g/dL (14.0-18.0) Hct 25.9 L % (42.0-52.0) MCV 81.2 fl (80-100) MCH 23.8 L pg (26-34) MCHC 29.3 L g/dl (32-36) RDW 21.6 H % (11.5-14.5) Plt Count 110 L k/mm3 (150-375) MPV TNP Immature Gran % (Auto) 3.7 H % (0-0.5) Neut % (Auto) 57.6 % (45.5-73.1) Lymph % (Auto) 25.9 % (18.3-44.2) [place] % (Auto) 12.3 H % (2.6-8.5) Eos % (Auto) 0.4 % (0-4.4) Baso % (Auto) 0.1 L % (0.2-1.2) Lymph # (Auto) 1.87 K/mm3 (0.9-3.2) [place] # (Auto) 0.9 H K/mm3 (0.1-0.6) Eos # (Auto) 0.0 K/mm3 (0-0.3) Baso # (Auto) 0.0 K/mm3 (0.0-0.1) Abs Immat Gran (auto) 0.27 H K/mm3 (0.00-0.031) Absolute Neuts (auto) 4.1 K/mm3 (1.3-6.7) Absolute Nucleated RBC 0.000 K/mm3 (0.0-0.012) Nucleated RBC % 0.0 % (0.0-0.2) Platelet Estimate Slightly decreased (Adequate) % Immature Plt Fraction 4.0 % (0.9-11.2) Anisocytosis 1+ Target Cells 1+ Ovalocytes 1+ Schistocytes Rare Sodium 142 mmol/L (137-145) Potassium 3.2 L mmol/L (3.4-5.0) Chloride 112 H mmol/L (98-107) Carbon Dioxide 18 L mmol/L (22-30) Anion Gap 12 mmol/L (4-12) BUN 56 H mg/dL (9-20) Creatinine 2.60 H mg/dL (0.7-1.3) Estim Creat Clear Calc 22 ml/min Estimated GFR 24 L (59 - ) Glucose 90 mg/dL (65-110) Calcium 7.6 L mg/dL (8.4-10.2) Phosphorus 3.4 mg/dL (2.5-4.5) Magnesium 1.5 L mg/dL (1.6-2.3) Total Bilirubin 0.3 mg/dL (0.2-1.3) AST 31 U/L (17-59) ALT 28 U/L (6-50) Alkaline Phosphatase 53 U/L (38-126) Total Protein 7.0 g/dL (6.3-8.2) Albumin 3.0 L g/dL (3.5-5.1) Patient hx anesthesia problems: none Family hx anesthesia problems: none Results Review: All pre-operative results and documents have been reviewed as part of the pre-operative evaluation. FOR[facility]LY [facility], LAT[facility] Past Medical History Medical History Acute on chronic renal failure Alzheimer's dementia with agitation Anemia Anxiety disorder, unspecified BPH (benign prostatic hyperplasia) Chronic ankle pain Chronic indwelling Choudhury catheter Chronic kidney disease COVID-19 CVA (cerebral vascular accident) Essential hypertension Fecal impaction in rectum GERD (gastroesophageal reflux disease) Heart failure, unspecified Hemiplegia affecting left nondominant side History of 2019 novel coronavirus disease (COVID-19) Hypertension IBS (irritable bowel syndrome) Osteoarthritis Overactive bladder Pressure ulcer of sacral region, unspecified stage Seasonal allergic rhinitis 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 Mother , Patient does not know cause No problems noted. Other Unknown family medical history Social History Social History Social History: Patient became debilitated after stroke in 2013, he lost bladder control in 2016 after having multiple back surgery and now has indwelling Choudhury catheter. He has been senior living [facility] since 2017. Patient wheelchair and bed-bound. The patient is and has 1 child who is the durable power business attorney for healthcare. The patient is a former smoker. No alcohol marijuana or illicit drugs. Code status full code per senior living documentation Including POLST dated 2018 Smoking status: Former smoker Tobacco type: cigarettes Second hand tobacco smoke exposure: No Alcohol intake: never Alcohol use details: Quit in 2013 Substance use: never Substance use type: does not use Do You Feel Safe in your Home?: Yes Lack of Transportation: No Lack of Food: Never True Current Housing: I Have Housing Concerned About Future Housing: No Difficulty Paying Gas/Electric Bills: No Difficulty Paying for Meds: No Currently Unemployed: No Education: High School Diploma/GED Difficulty w/ Childcare or Family Care: No Living arrangements: senior living Additional living arrangements comments: [facility] a[facility] since 02/03/24 Occupation/Education: retired Gender identity (if verbalized by the patient): Male Spiritual care concerns: No Anes - Eval Final PreProcedure Day of Procedure 09/16/24 10:24 Patient weight: normal Heart: regular rate and rhythm Lungs: clear to auscultation Airway: Mallampati scale class III Neurological: confused Last oral intake: >/= 8 hours ASA classification: IV Emergent: no Anesthetic plan: proceed Anesthesia type and monitoring: general GIVS and standard monitoring Results Review: All pre-operative results and documents have been reviewed as part of the pre-operative evaluation. Informed Consent: The patient's anesthetic plan and its attendant risks and benefits were discussed with the patient/family/POA. Questions were solicited and answers provided to the satisfaction of the patient/family/POA.
[2024-09-16] MEDS: BENZOCAINE (*SP) 60 ML SPRAY CAN (HURRICAINE) 1 SPRAY MUCOUS MEM (10:33)
[2024-09-16] MEDS: GABAPENTIN 300 MG CAPSULE PO ×2 (11:29→16:20)
[2024-09-16] MEDS: SODIUM BICARBONATE TAB 650 MG TABLET 1300 MG PO ×2 (11:29→16:20)
[2024-09-16] MEDS: SEVELAMER CARBONATE 800 MG TABLET PO ×2 (11:29→16:20)
[2024-09-16] MEDS: FERROUS SULFATE 325 MG TABLET DR BY MOUTH ×2 (11:29→16:20)
[2024-09-16] MEDS: SACCHAROMYCES BOULARDII 250 MG CAPSULE PO ×2 (11:30→16:20)
[2024-09-16] MEDS: polyethylene glycoL 3350 17 GM POWD.PACK PO ×2 (11:31→16:20)
[2024-09-16] MEDS: LIPASE/AMYLASE/PROTEASE 12,000 UNITS CAP 6 CAP PO ×2 (11:33→16:20)
[2024-09-16] MEDS: SODIUM CHLORIDE 0.9% IV 1,000 ML 75 ML IV CONT (11:33)
[2024-09-16] MEDS: IRON SUCROSE COMPLEX 100 MG in SODIUM CHLORIDE 0.9% IV 50 ML 220 MG IVPB (11:35)
--- NOTE | 2024-09-16 11:56 | P.PNGI_ITS ---
Progress Note: A&P Assessment and Plan (1) Reflux esophagitis: Code(s): K21.00 - Gastro-esophageal reflux disease with esophagitis, without bleeding Status: Acute Assessment and Plan: the patient has severe, [place] type D erosive esophagitis. Intravenous PPIs can be discontinued, and switched to oral twice a day. Along with an anti- reflux diet and standard anti-reflux measures. Subjective Date/time seen: 09/16/24 11:56 Interval history: Patient does not complain of abdominal pain or further vomiting of coffee- ground material. I just performed an EGD showing a severe erosive esophagitis, which explains the previous episodes of coffee-ground emesis. Exam Narrative: No changes compared to baseline. Objective Data Vital Signs Vital Signs: Vital Signs - 24 hr 09/15/24 14:00 09/15/24 20:21 09/15/24 20:56 Temperature 96.9 F L 97.8 F Pulse Rate 77 74 Respiratory Rate 18 16 Blood Pressure 171/65 H 173/79 H Pulse Oximetry 99 98 97 Oxygen Delivery Room Air Fraction of Inspired Oxygen 09/16/24 07:56 09/16/24 09:37 09/16/24 08:00 Temperature 97 F L Pulse Rate 74 Respiratory Rate 18 Blood Pressure 170/64 H Pulse Oximetry 97 97 97 Oxygen Delivery Room Air Room Air Room Air Fraction of Inspired Oxygen 21 09/16/24 10:55 09/16/24 11:05 09/16/24 11:15 Temperature Pulse Rate 72 72 70 Respiratory Rate 25 H 19 16 Blood Pressure 139/67 138/71 163/78 H Pulse Oximetry 94 96 96 Oxygen Delivery Room Air Room Air Room Air Fraction of Inspired Oxygen 09/16/24 11:30 Temperature 97.4 F L Pulse Rate 71 Respiratory Rate 14 Blood Pressure 168/58 H Pulse Oximetry 95 Oxygen Delivery Fraction of Inspired Oxygen Intake/Output Intake/Output: Intake & Output 09/13/24 09/14/24 09/15/24 09/16/24 23:59 23:59 23:59 23:59 Intake Total 1676.8 2688.0 1815 1200 Output Total 2200 1850 2150 1700 Balance -523.2 838.0 -335 -500 Meds/Results Medications: Active Medications Generic Name Dose Route Start Last Admin Trade Name Freq PRN Reason Stop Dose Admin Acetaminophen 650 mg 09/10/24 10:48 Acetaminophen 325 Mg Tablet PO Q4H PRN Mild Pain (1-3) or Fever Albuterol/Ipratropium 3 ml 09/10/24 22:02 Ipratropium 0.5 Mg/Albuterol Sulfate 2.5 Mg Ampul.Neb 3 Ml INHALATION Q6H PRN Bronchospasm Lipase/Protease/Amylase 6 cap 09/11/24 08:00 09/16/24 11:33 Lipase/Amylase/Protease 12,000 Units Cap PO 6 cap TIDWM THELMA Administration Ferrous Sulfate 325 mg 09/11/24 09:00 09/16/24 11:29 Ferrous Sulfate [address] BY MOUTH 325 mg BID THELMA Administration Gabapentin 300 mg 09/11/24 09:00 09/16/24 11:29 Gabapentin 300 Mg Capsule PO 300 mg BID THELMA Administration Sodium Chloride 1,000 mls @ 75 mls/hr 09/10/24 18:35 09/16/24 11:33 Normal Saline Iv IV CONT 75 mls/hr .[id number] THELMA Administration Iron Sucrose 100 mg/ Sodium 55 mls @ 220 mls/hr 09/12/24 09:00 09/16/24 11:35 Chloride IVPB 220 mls/hr DAILY THELMA Administration Ondansetron HCl 4 mg 09/10/24 10:48 Ondansetron Inj 4 Mg/2 Ml Vial IV PUSH Q4H PRN Nausea Pantoprazole Sodium 40 mg 09/11/24 09:00 09/16/24 09:16 Pantoprazole Sodium Iv 40 Mg Vial IV PUSH 40 mg QAM THELMA Administration Polyethylene Glycol 17 gm 09/11/24 17:00 09/16/24 11:31 Polyethylene Glycol 3350 17 Gm Powd.Pack PO 17 gm BID THELMA Administration Saccharomyces Boulardii 250 mg 09/11/24 09:00 09/16/24 11:30 Saccharomyces Boulardii 250 Mg Capsule PO 250 mg BID THELMA Administration Fluticasone/Salmeterol 2 puff 09/11/24 08:00 09/16/24 07:54 Fluticasone/Salmeterol 115-21 Mcg Inhaler 1 Puff INHALATION 2 puff Q12HRT THELMA Administration Sevelamer Carbonate 800 mg 09/11/24 12:00 09/16/24 11:29 Sevelamer Carbonate 800 Mg Tablet PO 800 mg TIDWM THELMA Administration Sodium Bicarbonate 1,300 mg 09/12/24 09:00 09/16/24 11:29 Sodium Bicarbonate Tab 650 Mg Tablet PO 1,300 mg BID THELMA Administration Tamsulosin HCl 0.4 mg 09/10/24 22:15 09/15/24 20:39 Tamsulosin Hcl 0.4 Mg Capsule PO 0.4 mg HS THELMA Administration Trazodone HCl 50 mg 09/10/24 22:15 09/15/24 20:39 Trazodone Hcl 50 Mg Tablet PO 50 mg HS THELMA Administration Radiology Results: ITS Impressions Chest/Abdomen/Pelvis CT 09/10/24 20:53 IMPRESSION: CHEST: 1. 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 2. Cardiomegaly with pulmonary hypertension and widened main pulmonary artery. 3. Atelectatic changes in the lung bases with minimal left pleural effusion ABDOMEN/PELVIS: 1. Cholelithiasis. 2. Sliding hiatus hernia. 3. Possible stone in the right kidney upper pole. Soft tissue density in the left kidney midpole. Follow-up advised. 4. Impacted fecal material in the rectum and sigmoid colon with constipation. Labs Labs: Laboratory Results - last 24 hr 09/16/24 05:59 WBC 7.2 RBC 3.19 L Hgb 7.6 L Hct 25.9 L MCV 81.2 MCH 23.8 L MCHC 29.3 L RDW 21.6 H Plt Count 110 L MPV TNP Immature Gran % (Auto) 3.7 H Neut % (Auto) 57.6 Lymph % (Auto) 25.9 [place] % (Auto) 12.3 H Eos % (Auto) 0.4 Baso % (Auto) 0.1 L Lymph # (Auto) 1.87 [place] # (Auto) 0.9 H Eos # (Auto) 0.0 Baso # (Auto) 0.0 Abs Immat Gran (auto) 0.27 H Absolute Neuts (auto) 4.1 Absolute Nucleated RBC 0.000 Nucleated RBC % 0.0 Platelet Estimate Slightly decreased % Immature Plt Fraction 4.0 Anisocytosis 1+ Target Cells 1+ Ovalocytes 1+ Schistocytes Rare Sodium 142 Potassium 3.2 L Chloride 112 H Carbon Dioxide 18 L Anion Gap 12 BUN 56 H Creatinine 2.60 H Estim Creat Clear Calc 22 Estimated GFR 24 L Glucose 90 Calcium 7.6 L Phosphorus 3.4 Magnesium 1.5 L Total Bilirubin 0.3 AST 31 ALT 28 Alkaline Phosphatase 53 Total Protein 7.0 Albumin 3.0 L
--- NOTE | 2024-09-16 14:10 | PM.PNNEP ---
Subjective Date/time seen: 09/16/24 14:10 Interval history: Follow-up for acutre kidney injury/acute renal failure on chronic kidney disease. Status post EGD earlier today with findings of severe erosive esophagitis noted -- tolerated the procedure reasonably well; renal function continues to slowly improve with reasonable urine output with ongoing supportive therapy; no apparent distress noted at the time of my visit. Objective Data Vital Signs Vital Signs: Vital Signs Temp Pulse Resp BP Pulse Ox O2 Del Method FiO2 09/16/24 14:00 97.0 F L 69 18 164/59 H 98 09/16/24 11:30 97.4 F L 71 14 168/58 H 95 09/16/24 11:15 70 16 163/78 H 96 Room Air 09/16/24 11:05 72 19 138/71 96 Room Air 09/16/24 10:55 72 25 H 139/67 94 Room Air 09/16/24 08:00 97 Room Air 09/16/24 09:37 97 F L 74 18 170/64 H 97 Room Air 09/16/24 07:56 97 Room Air 21 09/15/24 20:56 97.8 F 74 16 173/79 H 97 09/15/24 20:21 98 Room Air Intake/Output Intake/Output: Intake & Output 09/13/24 09/14/24 09/15/24 09/16/24 23:59 23:59 23:59 23:59 Intake Total 1676.8 2688.0 1815 1680 Output Total 2200 1850 2150 1700 Balance -523.2 838.0 -335 -20 Meds/Results Medications: Active Medications Generic Name Dose Route Start Last Admin Trade Name Freq PRN Reason Stop Dose Admin Acetaminophen 650 mg 09/10/24 10:48 Acetaminophen 325 Mg Tablet PO Q4H PRN Mild Pain (1-3) or Fever Albuterol/Ipratropium 3 ml 09/10/24 22:02 Ipratropium 0.5 Mg/Albuterol Sulfate 2.5 Mg Ampul.Neb 3 Ml INHALATION Q6H PRN Bronchospasm Lipase/Protease/Amylase 6 cap 09/11/24 08:00 09/16/24 16:20 Lipase/Amylase/Protease 12,000 Units Cap PO 6 cap TIDWM THELMA Administration Ferrous Sulfate 325 mg 09/11/24 09:00 09/16/24 16:20 Ferrous Sulfate [address] BY MOUTH 325 mg BID THELMA Administration Gabapentin 300 mg 09/11/24 09:00 09/16/24 16:20 Gabapentin 300 Mg Capsule PO 300 mg BID THELMA Administration Sodium Chloride 1,000 mls @ 75 mls/hr 09/10/24 18:35 09/16/24 11:33 Normal Saline Iv IV CONT 75 mls/hr .[id number] THELMA Administration Iron Sucrose 100 mg/ Sodium 55 mls @ 220 mls/hr 09/12/24 09:00 09/16/24 11:35 Chloride IVPB 220 mls/hr DAILY THELMA Administration Sodium Chloride 250 mls @ 30 mls/hr 09/16/24 15:30 Normal Saline Iv IV CONT 09/16/24 23:49 .[id number] STA Ondansetron HCl 4 mg 09/10/24 10:48 Ondansetron Inj 4 Mg/2 Ml Vial IV PUSH Q4H PRN Nausea Pantoprazole Sodium 40 mg 09/11/24 09:00 09/16/24 09:16 Pantoprazole Sodium Iv 40 Mg Vial IV PUSH 40 mg QAM THELMA Administration Polyethylene Glycol 17 gm 09/11/24 17:00 09/16/24 16:20 Polyethylene Glycol 3350 17 Gm Powd.Pack PO 17 gm BID THELMA Administration Saccharomyces Boulardii 250 mg 09/11/24 09:00 09/16/24 16:20 Saccharomyces Boulardii 250 Mg Capsule PO 250 mg BID THELMA Administration Fluticasone/Salmeterol 2 puff 09/11/24 08:00 09/16/24 07:54 Fluticasone/Salmeterol 115-21 Mcg Inhaler 1 Puff INHALATION 2 puff Q12HRT THELMA Administration Sevelamer Carbonate 800 mg 09/11/24 12:00 09/16/24 16:20 Sevelamer Carbonate 800 Mg Tablet PO 800 mg TIDWM THELMA Administration Sodium Bicarbonate 1,300 mg 09/12/24 09:00 09/16/24 16:20 Sodium Bicarbonate Tab 650 Mg Tablet PO 1,300 mg BID THELMA Administration Tamsulosin HCl 0.4 mg 09/10/24 22:15 09/15/24 20:39 Tamsulosin Hcl 0.4 Mg Capsule PO 0.4 mg HS THELMA Administration Trazodone HCl 50 mg 09/10/24 22:15 09/15/24 20:39 Trazodone Hcl 50 Mg Tablet PO 50 mg HS THELMA Administration Radiology Results: ITS Impressions Chest/Abdomen/Pelvis CT 09/10/24 20:53 IMPRESSION: CHEST: 1. 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 2. Cardiomegaly with pulmonary hypertension and widened main pulmonary artery. 3. Atelectatic changes in the lung bases with minimal left pleural effusion ABDOMEN/PELVIS: 1. Cholelithiasis. 2. Sliding hiatus hernia. 3. Possible stone in the right kidney upper pole. Soft tissue density in the left kidney midpole. Follow-up advised. 4. Impacted fecal material in the rectum and sigmoid colon with constipation. Labs Labs: Laboratory Tests 09/16/24 05:59 09/16/24 05:59 Sodium 142 Potassium 3.2 L Chloride 112 H Carbon Dioxide 18 L Anion Gap 12 BUN 56 H Creatinine 2.60 H Estim Creat Clear Calc 22 Estimated GFR 24 L Glucose 90 Calcium 7.6 L Phosphorus 3.4 Magnesium 1.5 L Total Bilirubin 0.3 AST 31 ALT 28 Alkaline Phosphatase 53 Total Protein 7.0 Albumin 3.0 L
--- NOTE | 2024-09-16 15:31 | PM.IMPN ---
Progress Note: A&P Assessment and Plan (1) Coffee ground emesis: Code(s): K92.0 - Hematemesis Status: Acute Plan Coffee-ground emesis R/o GI bleed Hb 7.6 1 U PRBC Isat 17 continue Protonix daily per GI Endoscopy reveals erosive esophagitis Gi following Acute on chronic renal failure Cr 5.8, baseline 2.0, BUN 106 and K 5.3 Today Cr 2.6 continue IVF nephrology following Hyperphosphatemia Phosphorus 9.1 --> 4.5 from ARF on Sevelamer Nephrology following Metabolic acidosis from ARF CO2 12 -->16 On bicarb 1300mg PO BID Nephrology following CHF, diastolic stable hold lasix for now BPH with indwelling catheter monitor continue home meds CVA Hold aspirin Continue Lipitor Alzheimer's disease continue home meds DVT prophylaxis on SCDs, no Ac due to GI bleed Subjective Date/time seen: 09/16/24 15:31 Interval history: Patient underwent EGD today. Evidence of erosive esophagitis. Patient will be transfused 1 U PRBC. We will target HgB 8 before discharge. Ordered K and Mg. Review of Systems Review of Systems: Unreliable historian due to dementia. Exam Narrative: General: alert Eyes: EOMI, PERRLA ENNT External ears normal, Neck is supple, no masses, Respiratory systems: Clear to auscultation Cardiovascular S1, S2, normal rhythm, no murmur, rub, or gallop; no thrill or palpable murmurs on palpation. Gastrointestinal: soft, non-tender, and non-distended abdomen with no masses; BS present Skin: no rash, lesions, ulcerations, subcutaneous nodules or induration Musculoskeletal: no abnormality and no tenderness, normal ROM Neurologic: oriented x1, non compliant with exam Objective Data Vital Signs Vital Signs: Vital Signs - 24 hr 09/15/24 20:21 09/15/24 20:56 09/16/24 07:56 Temperature 97.8 F Pulse Rate 74 Respiratory Rate 16 Blood Pressure 173/79 H Pulse Oximetry 98 97 97 Oxygen Delivery Room Air Room Air Fraction of Inspired Oxygen 21 09/16/24 09:37 09/16/24 08:00 09/16/24 10:55 Temperature 97 F L Pulse Rate 74 72 Respiratory Rate 18 25 H Blood Pressure 170/64 H 139/67 Pulse Oximetry 97 97 94 Oxygen Delivery Room Air Room Air Room Air Fraction of Inspired Oxygen 09/16/24 11:05 09/16/24 11:15 09/16/24 11:30 Temperature 97.4 F L Pulse Rate 72 70 71 Respiratory Rate 19 16 14 Blood Pressure 138/71 163/78 H 168/58 H Pulse Oximetry 96 96 95 Oxygen Delivery Room Air Room Air Fraction of Inspired Oxygen 09/16/24 14:00 Temperature 97.0 F L Pulse Rate 69 Respiratory Rate 18 Blood Pressure 164/59 H Pulse Oximetry 98 Oxygen Delivery Fraction of Inspired Oxygen Intake/Output Intake/Output: Intake & Output 09/13/24 09/14/24 09/15/24 09/16/24 23:59 23:59 23:59 23:59 Intake Total 1676.8 2688.0 1815 1680 Output Total 2200 1850 2150 1700 Balance -523.2 838.0 -335 -20 Meds/Results Medications: Active Medications Generic Name Dose Route Start Last Admin Trade Name Freq PRN Reason Stop Dose Admin Acetaminophen 650 mg 09/10/24 10:48 Acetaminophen 325 Mg Tablet PO Q4H PRN Mild Pain (1-3) or Fever Albuterol/Ipratropium 3 ml 09/10/24 22:02 Ipratropium 0.5 Mg/Albuterol Sulfate 2.5 Mg Ampul.Neb 3 Ml INHALATION Q6H PRN Bronchospasm Lipase/Protease/Amylase 6 cap 09/11/24 08:00 09/16/24 11:33 Lipase/Amylase/Protease 12,000 Units Cap PO 6 cap TIDWM THELMA Administration Ferrous Sulfate 325 mg 09/11/24 09:00 09/16/24 11:29 Ferrous Sulfate [address] BY MOUTH 325 mg BID THELMA Administration Gabapentin 300 mg 09/11/24 09:00 09/16/24 11:29 Gabapentin 300 Mg Capsule PO 300 mg BID THELMA Administration Sodium Chloride 1,000 mls @ 75 mls/hr 09/10/24 18:35 09/16/24 11:33 Normal Saline Iv IV CONT 75 mls/hr .[id number] THELMA Administration Iron Sucrose 100 mg/ Sodium 55 mls @ 220 mls/hr 09/12/24 09:00 09/16/24 11:35 Chloride IVPB 220 mls/hr DAILY THELMA Administration Ondansetron HCl 4 mg 09/10/24 10:48 Ondansetron Inj 4 Mg/2 Ml Vial IV PUSH Q4H PRN Nausea Pantoprazole Sodium 40 mg 09/11/24 09:00 09/16/24 09:16 Pantoprazole Sodium Iv 40 Mg Vial IV PUSH 40 mg QAM THELMA Administration Polyethylene Glycol 17 gm 09/11/24 17:00 09/16/24 11:31 Polyethylene Glycol 3350 17 Gm Powd.Pack PO 17 gm BID THELMA Administration Saccharomyces Boulardii 250 mg 09/11/24 09:00 09/16/24 11:30 Saccharomyces Boulardii 250 Mg Capsule PO 250 mg BID THELMA Administration Fluticasone/Salmeterol 2 puff 09/11/24 08:00 09/16/24 07:54 Fluticasone/Salmeterol 115-21 Mcg Inhaler 1 Puff INHALATION 2 puff Q12HRT THELMA Administration Sevelamer Carbonate 800 mg 09/11/24 12:00 09/16/24 11:29 Sevelamer Carbonate 800 Mg Tablet PO 800 mg TIDWM THELMA Administration Sodium Bicarbonate 1,300 mg 09/12/24 09:00 09/16/24 11:29 Sodium Bicarbonate Tab 650 Mg Tablet PO 1,300 mg BID THELMA Administration Tamsulosin HCl 0.4 mg 09/10/24 22:15 09/15/24 20:39 Tamsulosin Hcl 0.4 Mg Capsule PO 0.4 mg HS THELMA Administration Trazodone HCl 50 mg 09/10/24 22:15 09/15/24 20:39 Trazodone Hcl 50 Mg Tablet PO 50 mg HS THELMA Administration Radiology Results: ITS Impressions Chest/Abdomen/Pelvis CT 09/10/24 20:53 IMPRESSION: CHEST: 1. 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 2. Cardiomegaly with pulmonary hypertension and widened main pulmonary artery. 3. Atelectatic changes in the lung bases with minimal left pleural effusion ABDOMEN/PELVIS: 1. Cholelithiasis. 2. Sliding hiatus hernia. 3. Possible stone in the right kidney upper pole. Soft tissue density in the left kidney midpole. Follow-up advised. 4. Impacted fecal material in the rectum and sigmoid colon with constipation. Labs Labs: Laboratory Results - last 24 hr 09/16/24 05:59 WBC 7.2 RBC 3.19 L Hgb 7.6 L Hct 25.9 L MCV 81.2 MCH 23.8 L MCHC 29.3 L RDW 21.6 H Plt Count 110 L MPV TNP Immature Gran % (Auto) 3.7 H Neut % (Auto) 57.6 Lymph % (Auto) 25.9 [place] % (Auto) 12.3 H Eos % (Auto) 0.4 Baso % (Auto) 0.1 L Lymph # (Auto) 1.87 [place] # (Auto) 0.9 H Eos # (Auto) 0.0 Baso # (Auto) 0.0 Abs Immat Gran (auto) 0.27 H Absolute Neuts (auto) 4.1 Absolute Nucleated RBC 0.000 Nucleated RBC % 0.0 Platelet Estimate Slightly decreased % Immature Plt Fraction 4.0 Anisocytosis 1+ Target Cells 1+ Ovalocytes 1+ Schistocytes Rare Sodium 142 Potassium 3.2 L Chloride 112 H Carbon Dioxide 18 L Anion Gap 12 BUN 56 H Creatinine 2.60 H Estim Creat Clear Calc 22 Estimated GFR 24 L Glucose 90 Calcium 7.6 L Phosphorus 3.4 Magnesium 1.5 L Total Bilirubin 0.3 AST 31 ALT 28 Alkaline Phosphatase 53 Total Protein 7.0 Albumin 3.0 L Hospitalist MIPS Advance Care Plan I have confirmed that the patient's Advanced Care Plan is present, code status is documented, or surrogate decision maker is listed in patient medical record.: Yes Medication Reconciliation I have utilized all available resources to obtain, update and review the patients current medications (includes all prescriptions, OTC, herbals, cannabis, and nutritional supplements).: Yes
[2024-09-16 16:52] LABS: Magnesium 1.5 mg/dL (1.6-2.3)
[2024-09-16] MEDS: SODIUM CHLORIDE 0.9% IV 250 ML 30 ML IV CONT (17:54)
[2024-09-16] MEDS: traZODone HCL 50 MG TABLET PO (21:18)
[2024-09-16] MEDS: TAMSULOSIN HCL 0.4 MG CAPSULE PO (21:18)
[2024-09-17] VITALS: BP 172/64
[2024-09-17 05:37] VITALS: BP 175/66; PULSE 81; RESP 12; TEMP 36.4; O2SAT 92
[2024-09-17] MEDS: SODIUM CHLORIDE 0.9% IV 1,000 ML 75 ML IV CONT (06:06)
--- NOTE | 2024-09-17 07:45 | P.PNAN_ITS ---
Anes - Prog Note Post-Op Date/Time: 09/17/24 07:45 Cardiovascular status: normal Respiratory status: normal Airway patency: baseline Mental status: baseline Post-Op hydration status: normal Vital Signs: Last Vital Signs Temp 36.4 C 09/17/24 05:37 Pulse 81 09/17/24 05:37 Resp 12 09/17/24 05:37 BP 175/66 H 09/17/24 05:37 Pulse Ox 92 09/17/24 05:37 O2 Del Method Room Air 09/16/24 20:17 FiO2 21 09/16/24 07:56 Pain Score (VAS): 0 I/O: Intake & Output 09/16/24 09/16/24 09/17/24 15:59 23:59 07:59 Intake Total 2333 766 3568 Output Total 600 900 Balance 1680 298 600 Laboratory Tests 09/16/24 05:59 09/16/24 16:36 09/16/24 09/16/24 05:59 16:36 WBC 7.2 RBC 3.19 L Hgb 7.6 L Hct 25.9 L MCV 81.2 MCH 23.8 L MCHC 29.3 L RDW 21.6 H Plt Count 110 L MPV TNP Immature Gran % (Auto) 3.7 H Neut % (Auto) 57.6 Lymph % (Auto) 25.9 [place] % (Auto) 12.3 H Eos % (Auto) 0.4 Baso % (Auto) 0.1 L Lymph # (Auto) 1.87 [place] # (Auto) 0.9 H Eos # (Auto) 0.0 Baso # (Auto) 0.0 Abs Immat Gran (auto) 0.27 H Absolute Neuts (auto) 4.1 Absolute Nucleated RBC 0.000 Nucleated RBC % 0.0 Platelet Estimate Slightly decreased % Immature Plt Fraction 4.0 Anisocytosis 1+ Target Cells 1+ Ovalocytes 1+ Schistocytes Rare Potassium 3.0 L Magnesium 1.5 L Blood Type O Positive Antibody Screen Negative Crossmatch See Detail Post-procedural complaints: none Patient Feedback: Patient satisfied with anesthetic care.
[2024-09-17] MEDS: FLUTICASONE/SALMETEROL 115-21 MCG INHALER 1 PUFF 2 PUFF INHALATION (07:59)
[2024-09-17 08:00] VITALS: PULSE 73; RESP 20; O2SAT 95
[2024-09-17] MEDS: LIPASE/AMYLASE/PROTEASE 12,000 UNITS CAP 6 CAP PO ×2 (08:36→11:35)
[2024-09-17] MEDS: SEVELAMER CARBONATE 800 MG TABLET PO ×2 (08:37→11:35)
[2024-09-17] MEDS: PANTOPRAZOLE SODIUM IV 40 MG VIAL IV PUSH (08:37)
[2024-09-17] MEDS: FERROUS SULFATE 325 MG TABLET DR BY MOUTH (08:37)
[2024-09-17] MEDS: SACCHAROMYCES BOULARDII 250 MG CAPSULE PO (08:37)
[2024-09-17] MEDS: SODIUM BICARBONATE TAB 650 MG TABLET 1300 MG PO (08:37)
[2024-09-17] MEDS: GABAPENTIN 300 MG CAPSULE PO (08:37)
[2024-09-17 08:42] LABS: Basophils Percent Auto 0.3 % (0.2-1.2); Eosinophils Percent Auto 0.3 % (0-4.4); Hematocrit 31.1 % (42.0-52.0); Hemoglobin 9.6 g/dL (14.0-18.0); Immature Granulocyte Absolute 0.21 K/mm3 (0.00-0.031); Immature Platelet Fraction Pct 4.5 % (0.9-11.2); Lymphocytes Absolute Auto 1.53 K/mm3 (0.9-3.2); Lymphocytes Percent Auto 21.9 % (18.3-44.2); Mean Corpuscular HGB Conc 30.9 g/dl (32-36); Mean Corpuscular Hemoglobin 25.3 pg (26-34); Mean Corpuscular Volume 81.8 fl (80-100); Monocytes Absolute Auto 0.8 K/mm3 (0.1-0.6); Neutrophils Absolute Auto 4.4 K/mm3 (1.3-6.7); Neutrophils Percent Auto 62.5 % (45.5-73.1); Platelet Count Result 117 k/mm3 (150-375); Red Cell Distribution Width 20.9 % (11.5-14.5)
[2024-09-17] MEDS: IRON SUCROSE COMPLEX 100 MG in SODIUM CHLORIDE 0.9% IV 50 ML 220 MG IVPB (08:44)
[2024-09-17 08:49] LABS: Alanine Aminotransferase 62 U/L (6-50); Albumin Level 3.3 g/dL (3.5-5.1); Alkaline Phosphatase 62 U/L (38-126); Anion Gap 12 mmol/L (4-12); Aspartate Amino Transferase 55 U/L (17-59); Bilirubin,Total 0.5 mg/dL (0.2-1.3); Blood Urea Nitrogen 47 mg/dL (9-20); Calcium 7.7 mg/dL (8.4-10.2); Carbon Dioxide 19 mmol/L (22-30); Chloride 108 mmol/L (98-107); Estimated CRCL calculation 26 ml/min; Estimated Glomerular Filt Rate 29; Glucose 91 mg/dL (65-110); Potassium 2.7 mmol/L (3.4-5.0); Sodium 139 mmol/L (137-145)
[2024-09-17] MEDS: POTASSIUM CHLORIDE 20 MEQ PACKET (FOR LIQUID) 40 MEQ PO ×2 (09:14→11:35)
--- NOTE | 2024-09-17 09:36 | PCNWS ---
Weekly nutritional screen. Patient is tolerating current Renal dialysis diet with adequate intake, 75-100% recorded. No weight loss reported. No nutritional needs at this time.
--- NOTE | 2024-09-17 10:55 | PM.PNNEP ---
Subjective Date/time seen: 09/17/24 10:55 Interval history: Follow-up for acute kidney injury/acute renal failure on chronic kidney disease. Renal function/creatinine continues to improve with current therapy/interventions; low potassium by AM labs already replaced; continues to make good urine output in response to IVF resuscitation; no apparent distress noted; remains pleasantly confused. Objective Data Vital Signs Vital Signs: Vital Signs Temp Pulse Resp BP Pulse Ox O2 Del Method 09/17/24 10:47 80 09/17/24 08:00 95 Room Air 09/17/24 08:00 73 20 09/17/24 08:00 95 Room Air 09/17/24 05:37 97.6 F 81 12 175/66 H 92 09/17/24 00:00 172/64 H 09/16/24 21:10 98.2 F 80 16 182/74 H 94 09/16/24 20:53 98.1 F 72 12 173/63 H 96 09/16/24 19:24 97.1 F L 72 12 173/63 H 96 09/16/24 20:24 98.0 F 71 14 173/54 H 94 09/16/24 19:24 98.0 F 71 14 173/54 H 94 09/16/24 20:17 97 Room Air 09/16/24 18:24 97.9 F 73 18 167/79 H 97 09/16/24 18:09 97.2 F L 77 18 147/58 H 93 Intake/Output Intake/Output: Intake & Output 09/14/24 09/15/24 09/16/24 09/17/24 23:59 23:59 23:59 23:59 Intake Total 2688.0 1815 2633 2230 Output Total 1850 2150 2300 900 Balance 838.0 -621 133 6874 Meds/Results Medications: Active Medications Generic Name Dose Route Start Last Admin Trade Name Freq PRN Reason Stop Dose Admin Acetaminophen 650 mg 09/10/24 10:48 Acetaminophen 325 Mg Tablet PO Q4H PRN Mild Pain (1-3) or Fever Albuterol/Ipratropium 3 ml 09/10/24 22:02 Ipratropium 0.5 Mg/Albuterol Sulfate 2.5 Mg Ampul.Neb 3 Ml INHALATION Q6H PRN Bronchospasm Lipase/Protease/Amylase 6 cap 09/11/24 08:00 09/17/24 11:35 Lipase/Amylase/Protease 12,000 Units Cap PO 6 cap TIDWM THELMA Administration Atenolol 50 mg 09/17/24 13:00 09/17/24 12:47 Atenolol 50 Mg Tablet PO 50 mg DAILY THELMA Administration Ferrous Sulfate 325 mg 09/11/24 09:00 09/17/24 08:37 Ferrous Sulfate [address] BY MOUTH 325 mg BID THELMA Administration Gabapentin 300 mg 09/11/24 09:00 09/17/24 08:37 Gabapentin 300 Mg Capsule PO 300 mg BID THELMA Administration Sodium Chloride 1,000 mls @ 75 mls/hr 09/10/24 18:35 09/17/24 06:06 Normal Saline Iv IV CONT 75 mls/hr .[id number] THELMA Administration Iron Sucrose 100 mg/ Sodium 55 mls @ 220 mls/hr 09/12/24 09:00 09/17/24 08:44 Chloride IVPB 220 mls/hr DAILY THELMA Administration Nifedipine 30 mg 09/17/24 13:00 09/17/24 12:48 Nifedipine 30 Mg Tab.Er.24 PO 30 mg QAM THELMA Administration Ondansetron HCl 4 mg 09/10/24 10:48 Ondansetron Inj 4 Mg/2 Ml Vial IV PUSH Q4H PRN Nausea Pantoprazole Sodium 40 mg 09/11/24 09:00 09/17/24 08:37 Pantoprazole Sodium Iv 40 Mg Vial IV PUSH 40 mg QAM THELMA Administration Polyethylene Glycol 17 gm 09/11/24 17:00 09/17/24 08:37 Polyethylene Glycol 3350 17 Gm Powd.Pack PO Not Given BID THELMA Saccharomyces Boulardii 250 mg 09/11/24 09:00 09/17/24 08:37 Saccharomyces Boulardii 250 Mg Capsule PO 250 mg BID THELMA Administration Fluticasone/Salmeterol 2 puff 09/11/24 08:00 09/17/24 07:59 Fluticasone/Salmeterol 115-21 Mcg Inhaler 1 Puff INHALATION 2 puff Q12HRT THELMA Administration Sevelamer Carbonate 800 mg 09/11/24 12:00 09/17/24 11:35 Sevelamer Carbonate 800 Mg Tablet PO 800 mg TIDWM THELMA Administration Sodium Bicarbonate 1,300 mg 09/12/24 09:00 09/17/24 08:37 Sodium Bicarbonate Tab 650 Mg Tablet PO 1,300 mg BID THELMA Administration Tamsulosin HCl 0.4 mg 09/10/24 22:15 09/16/24 21:18 Tamsulosin Hcl 0.4 Mg Capsule PO 0.4 mg HS THELMA Administration Trazodone HCl 50 mg 09/10/24 22:15 09/16/24 21:18 Trazodone Hcl 50 Mg Tablet PO 50 mg HS THELMA Administration Radiology Results: ITS Impressions Chest/Abdomen/Pelvis CT 09/10/24 20:53 IMPRESSION: CHEST: 1. 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 2. Cardiomegaly with pulmonary hypertension and widened main pulmonary artery. 3. Atelectatic changes in the lung bases with minimal left pleural effusion ABDOMEN/PELVIS: 1. Cholelithiasis. 2. Sliding hiatus hernia. 3. Possible stone in the right kidney upper pole. Soft tissue density in the left kidney midpole. Follow-up advised. 4. Impacted fecal material in the rectum and sigmoid colon with constipation. Labs Labs: Laboratory Tests 09/17/24 08:15 09/17/24 08:15 Sodium 139 Potassium 2.7 L* Chloride 108 H Carbon Dioxide 19 L Anion Gap 12 BUN 47 H Creatinine 2.20 H Estim Creat Clear Calc 26 Estimated GFR 29 L Glucose 91 Calcium 7.7 L Total Bilirubin 0.5 AST 55 ALT 62 H Alkaline Phosphatase 62 Total Protein 7.0 Albumin 3.3 L
[2024-09-17 11:08] LABS: Magnesium 1.4 mg/dL (1.6-2.3)
[2024-09-17] MEDS: MAGNESIUM SULF 2 GM/WATER 50ML 2 GM/50 ML BAG IVPB (11:35)
[2024-09-17 12:47] VITALS: PULSE 80
[2024-09-17] MEDS: atenoloL 50 MG TABLET PO (12:47)
[2024-09-17] MEDS: NIFEdipine 30 MG TAB.ER.24 PO (12:48)
--- NOTE | 2024-09-17 13:40 | P.DS_ITS ---
DS: Admitting Diagnosis Discharge Date 09/17/2024 Admitting Diagnosis Coffee ground emesis DS: Discharge Diagnosis Discharge Diagnosis (1) Coffee ground emesis: Code(s): K92.0 - Hematemesis Status: Acute Plan Coffee-ground emesis R/o GI bleed Hb 7.6 1 U PRBC Isat 17 continue Protonix daily per GI Endoscopy reveals erosive esophagitis Gi following Acute on chronic renal failure Cr 5.8, baseline 2.0, BUN 106 and K 5.3 Today Cr 2.6 continue IVF nephrology following Hyperphosphatemia Phosphorus 9.1 --> 4.5 from ARF on Sevelamer Nephrology following Metabolic acidosis from ARF CO2 12 -->16 On bicarb 1300mg PO BID Nephrology following CHF, diastolic stable hold lasix for now BPH with indwelling catheter monitor continue home meds CVA Hold aspirin Continue Lipitor Alzheimer's disease continue home meds DVT prophylaxis on SCDs, no Ac due to GI bleed DS: Summary Hospital Course Hospital Course: 78 M yo male with PMH of BPH, indwelling Choudhury catheter, CVA, hypertension, GERD, heart failure, overactive bladder, anxiety, Alzheimer's disease, halfway resident who was referred to the ER on account of coffee-ground emesis. Patient was lethargic at the time of this encounter Oriented x1. Not a reliable historian. Did mention he came to the ER due to sore throat. Denies any urine symptoms no chest pain shortness for breath no nausea no vomiting no abdominal pain no diarrhea no dysuria no focal symptoms. ER evaluation notable for stable vital signs within normal limits. WBC 12 7, hemoglobin 10 crit 35.8 BUN 106 potassium 5.3, baseline creatinine is 2.0. NT proBNP 6470. Patient was started on Protonix and GI was consulted prior to admission. Patient underwent EGD on 09/16 . Patient has severe, [place] type D erosive esophagitis. Intravenous PPIs can be discontinued, and switched to oral twice a day. Along with an anti-reflux diet and standard anti-reflux measures.Patient was transfused 1 U PRBC. Target HgB 8 before discharge. Status at Discharge Cognitive/behavioral status at discharge: stable Time Spent with Patient Time attestation: Total time spent providing and/or coordinating discharge services:45 mins Exam Narrative: General: alert Eyes: EOMI, PERRLA ENNT External ears normal, Neck is supple, no masses, Respiratory systems: Clear to auscultation Cardiovascular S1, S2, normal rhythm, no murmur, rub, or gallop; no thrill or palpable murmurs on palpation. Gastrointestinal: soft, non-tender, and non-distended abdomen with no masses; BS present Skin: no rash, lesions, ulcerations, subcutaneous nodules or induration Musculoskeletal: no abnormality and no tenderness, normal ROM Neurologic: oriented x1, non compliant with exam DS: Data Data Completed and Pending Labs on day of discharge: Labs from last 24 hours 09/17/24 09/17/24 09/16/24 08:15 08:09 16:36 WBC 7.0 RBC 3.80 L Hgb 9.6 L Hct 31.1 L MCV 81.8 MCH 25.3 L D MCHC 30.9 L RDW 20.9 H Plt Count 117 L MPV TNP Immature Gran % (Auto) 3.0 H Neut % (Auto) 62.5 Lymph % (Auto) 21.9 [place] % (Auto) 12.0 H Eos % (Auto) 0.3 Baso % (Auto) 0.3 Lymph # (Auto) 1.53 [place] # (Auto) 0.8 H Eos # (Auto) 0.0 Baso # (Auto) 0.0 Abs Immat Gran (auto) 0.21 H Absolute Neuts (auto) 4.4 Absolute Nucleated RBC 0.000 Nucleated RBC % 0.0 % Immature Plt Fraction 4.5 Sodium 139 Potassium 2.7 L* 3.0 L Chloride 108 H Carbon Dioxide 19 L Anion Gap 12 BUN 47 H Creatinine 2.20 H Estim Creat Clear Calc 26 Estimated GFR 29 L Glucose 91 Calcium 7.7 L Magnesium 1.4 L 1.5 L Total Bilirubin 0.5 AST 55 ALT 62 H Alkaline Phosphatase 62 Total Protein 7.0 Albumin 3.3 L Blood Type O Positive Antibody Screen Negative Crossmatch See Detail Imaging Radiologist's impression: ITS Impressions Chest/Abdomen/Pelvis CT 09/10/24 20:53 IMPRESSION: CHEST: 1. 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 2. Cardiomegaly with pulmonary hypertension and widened main pulmonary artery. 3. Atelectatic changes in the lung bases with minimal left pleural effusion ABDOMEN/PELVIS: 1. Cholelithiasis. 2. Sliding hiatus hernia. 3. Possible stone in the right kidney upper pole. Soft tissue density in the left kidney midpole. Follow-up advised. 4. Impacted fecal material in the rectum and sigmoid colon with constipation. Discharge Plan Discharge Attending physician on discharge: Maximiliano Mason Consulting providers: Christiano Sanchez; John Blankenship Discharging Clinician: Maximiliano Mason Anticipated Discharge Date/Time: 09/17/24 13:33 Patient Disposition: NH Longterm/Asst Living Activity: as tolerated Diet: other - see discharge instructions Discharge Instructions: Anti reflux diet Continue PPI twice daily In the event of another coffee-ground emesis please visit the ED peer Patient Instructions: Antibiotic Form, Pain Management (DC) Stand Alone Forms: General Discharge Information Follow-up/Referrals: Christiano Sanchez MD [Physician] - 1 Week Los Soliz MD [Primary Care Provider] - 1 Week Discharge Medications: Continued PreserVision AREDS 4,296 mcg-226 mg-90 mg capsule 1 cap PO DAILY calcium carbonate 500 mg calcium (1,250 mg) tablet,chewable 500 mg PO BID dicyclomine 20 mg tablet 20 mg PO QID pseudoephedrine-guaifenesin [Mucinex D] 60-600 mg tablet extended release 12 hr 1 tablet PO Q12H PRN (Reason: Cough) oxycodone 5 mg tablet 5 mg PO Q12H PRN (Reason: Pain (Scale Score 7-10)) tamsulosin 0.4 mg Capsule 0.46 mg PO HS atenolol 50 mg Tablet 50 mg PO DAILY finasteride [Proscar] 5 mg Tablet 5 mg PO DAILY gabapentin 300 mg Tablet 300 mg PO BID cholecalciferol (vitamin D3) 25 mcg (1,000 unit) Tablet 1,000 unit PO DAILY Centrum 18-400 mg-mcg Tablet 1 tablet PO DAILY Creon 24,000-76,000 -120,000 unit Capsule,Delayed Release(Dr/Ec) 3 cap PO TID mirabegron [Myrbetriq] 25 mg Tablet Extended Release 24 Hr 25 mg PO DAILY Procardia XL 30 mg PO DAILY ipratropium-albuterol 0.5 mg-3 mg(2.5 mg base)/3 mL Solution For Nebulization 3 ml INHALATION Q6H PRN (Reason: Bronchospasm) alum-mag hydroxide-simeth 400-400-40 mg/5 mL Suspension 10 ml PO TID PRN (Reason: Indigestion) sertraline 50 mg tablet 75 mg PO DAILY colestipol 1 gram tablet 1 g PO TID magnesium hydroxide [Milk of Magnesia] 400 mg/5 mL Suspension 30 ml PO HS PRN (Reason: Constipation) Rx Instructions: if no BM in 3 days bisacodyl 10 mg Suppository 10 mg RECTAL PRN PRN (Reason: Constipation) Rx Instructions: if no results after MOM atorvastatin 20 mg tablet 20 mg PO DAILY Qty: 30 0RF trazodone 50 mg tablet 50 mg PO HS acetaminophen 325 mg Tablet 650 mg PO Q4H PRN (Reason: Mild Pain (1-3) Or Fever) Qty: 0 0RF bumetanide 1 mg Tablet 1 mg PO DAILY Qty: 0 0RF Retacrit 10,000 unit/mL Solution 10,000 unit subcut MOWEFR@09 Qty: 10 2RF ferrous sulfate 325 mg (65 mg iron) tablet 325 mg PO BID Saccharomyces boulardii 250 mg Capsule 250 mg PO BID magnesium citrate [Citroma] Solution 296 ml PO ONCE Rx Instructions: as a single dose Renal-Robe 0.8 mg Tablet 1 tablet PO DAILY budesonide-formoterol [Symbicort] 160-4.5 mcg/actuation Hfa Aerosol Inhaler 2 puff INHALATION Q12H fluticasone propionate 50 mcg/actuation spray,suspension 1 spray intranasal DAILY Qty: 16 2RF Rx Instructions: administer into each nostril Changed omeprazole 20 mg Capsule,Delayed Release(Dr/Ec) 20 mg PO BID Qty: 60 0RF Held loperamide 2 mg capsule 2 mg PO BID Hold Instructions: Resume on 10/08/24. Please continue the discretion of PCP Fleet Enema 19-7 gram/118 mL Enema 118 ml RECTAL ONCE Hold Instructions: Resume on 10/08/24. Please continue at the discretion of PCP Discontinued aspirin 81 mg Tablet,Delayed Release (Dr/Ec) 81 mg PO QAM Qty: 30 0RF sulfamethoxazole-trimethoprim [Bactrim DS] 800-160 mg Tablet 1 tablet PO Q12H Date of admission: 09/11/24 14:05 Primary Care Provider: Los Soliz Admitting Provider: Addi Patel Attending physician on admission: Rayne Alvares Condition: Stable
[2024-09-17 13:48] VITALS: BP 183/79; PULSE 83; RESP 18; TEMP 36.3; O2SAT 95
[2024-09-17 13:54] LABS: Potassium 3.7 mmol/L (3.4-5.0)
[2024-09-17 15:17] VITALS: BP 156/78
== END 2024-09-17 18:44 | DRG 381 ==
LOC: ANHED 07:37 → ANH3MEDSUR 11:24
PROVIDERS: Internal Medicine; Internal Medicine Gastroenterology; Internal Medicine Nephrology; Admitting Provider Internal Medicine; Emergency Provider Student in an Organized Health Care Education/Training Program; PCP Family Medicine; Visit Provider General Practice
PROC: 0DJ08ZZ Inspection of Upper Intestinal Tract, Via Natural or Artificial Opening Endoscopic (ICD-10-PCS; CPT 43235; principal; 2024-09-16 11:00)
DX: K22.11 Ulcer of esophagus with bleeding (principal); E87.20 Acidosis, unspecified; F02.811 Dementia in other diseases classified elsewhere, unspecified severity, with agitation; I13.0 Hypertensive heart and chronic kidney disease with heart failure and stage 1 through stage 4 chronic kidney disease, or unspecified chronic kidney disease; I69.354 Hemiplegia and hemiparesis following cerebral infarction affecting left non-dominant side; N17.9 Acute kidney failure, unspecified; N18.4 Chronic kidney disease, stage 4 (severe); I50.32 Chronic diastolic (congestive) heart failure; K21.00 Gastro-esophageal reflux disease with esophagitis, without bleeding; E87.5 Hyperkalemia; E83.39 Other disorders of phosphorus metabolism; D50.9 Iron deficiency anemia, unspecified; D69.6 Thrombocytopenia, unspecified; K56.41 Fecal impaction; K58.9 Irritable bowel syndrome, unspecified; N40.0 Benign prostatic hyperplasia without lower urinary tract symptoms; N32.81 Overactive bladder; M19.90 Unspecified osteoarthritis, unspecified site; M47.816 Spondylosis without myelopathy or radiculopathy, lumbar region; G30.9 Alzheimer's disease, unspecified; F41.9 Anxiety disorder, unspecified; Z96.643 Presence of artificial hip joint, bilateral; Z96.89 Presence of other specified functional implants; Z98.2 Presence of cerebrospinal fluid drainage device; Z87.891 Personal history of nicotine dependence; Z93.6 Other artificial openings of urinary tract status; Z99.3 Dependence on wheelchair; Z74.01 Bed confinement status; Z79.82 Long term (current) use of aspirin
CPT/HCPCS: 36415; 36430; 71250; 74176; 80053; 81001; 82550; 82570; 82728; 82948; 83540; 83550; 83605; 83735; 83880; 84100; 84132; 84156; 84300; 84484; 84540; 85025; 85055; 85610; 85730; 85999; 86850; 86900; 86901; 86923; 87086; 93005; 94640; 96361; 96374; 96375; 99285; A9270; G0378; J0612; J1756; J1815; J1940; J2003; J2470; J2704; J3475; J7030; J7050; J7120; P9016